=== PATIENT | female | born 1935 | race Caucasian/White ===

== ENCOUNTER 2024-01-16 21:20 | Inpatient (IN) | payer OTHER, SELFPAY ==
[2024-01-16] VITALS (8 sets, daily range): BP systolic 100–160; BP diastolic 41–105; BMI 32.6; BMI 31.6
--- NOTE | 2024-01-16 18:03 | ED.GENMED ---
History of Present Illness
<Mehreen Aguirre MD, Resident - Last Filed: 01/17/24 00:06>
General
Chief Complaint: Breathing Problem
Source: patient
Exam Limitations: none
Time Seen by Provider: 01/16/24 17:33
Nursing documentation reviewed up to this point in time: agreed with
History of Present Illness
History of Present Illness:
88-year-old female with history of COPD, chronic respiratory insufficiency, hypertension, NIDDM, CVA, who presented to the ED for shortness of breath on minimal exertion x 1 week, despite use of her regular 2 L home O2. She was at PCP earlier
today for routine physical, and EMS was called for shortness of breath. She denies any heart history but sees a restorative aide Dr. Ferguson. No recent illness, no new cough no fever/chills/sweats, denies chest pain/palpitations, neck/back pain,
N/V, headaches, urinary or abdominal symptoms.
Past History
<Mehreen Aguirre MD, Resident - Last Filed: 01/17/24 00:06>
Past History
ED Past Medical History: COPD, CVA, HTN and NIDDM
ED Past Surgical History: Orthopedic (L forearm fx)
Social History
Tobacco: Non-smoker
Alcohol: None
Drug: None
Living: with family
Family History
Family History: Other (not pertinent)
Review of Systems
<Mehreen Aguirre MD, Resident - Last Filed: 01/17/24 00:06>
Review of Systems
Allergies reviewed?: Yes
Constitutional: Denies fever or chills
Respiratory: Reports trouble breathing (on exertion); Denies cough
Cardiac: Denies chest pain, diaphoresis or palpitations
ABD/GI: Denies abdominal pain, nausea, vomiting, diarrhea, constipated or bloody stools
: Reports incontinence; Denies dysuria
Phy Exam
<Mehreen Aguirre MD, Resident - Last Filed: 01/17/24 00:06>
General Physical Exam
General Presentation: well appearing and no apparent distress
General Skin: warm and dry
General Mental: alert
General Hydration: appears well hydrated
Cardiovascular Exam
Cardiovascular Exam: no gallop, no murmur, occasionally irregular and other (bilateral 2+ LE edema)
Pulmonary Exam
Pulmonary Exam: no rhonchi, no wheezing and other (bilateral lower lobe crackles)
Gastrointestinal Exam
Gastrointestinal Exam: normal bowel sounds, non tender, soft, non distended and no cva tenderness
Scores
<Mehreen Aguirre MD, Resident - Last Filed: 01/17/24 00:06>
Heart Failure Risk
Heart Failure Risk Score: Not Applicable
Course
<Mehreen Aguirre MD, Resident - Last Filed: 01/17/24 00:06>
Orders/Labs/Results
Orders:
Orders
01/16/24 Breakfast
1800 calorie (15 carb) Diabetic
At Your Request: Full Participation
Does patient need a safe tray?: No
Fluid Restriction: 1200 mL/day (40 oz)
Diabetic Diet: Cholesterol Lowering
01/16/24 16:22
Electrocardiogram (*1) Urgent
Reason for Study: Shortness of Breath
EKG- Treatment ONCE
CXR2 [CR Chest - 2 Views ] Urgent
Comment:
Reason For Exam: sob hx copd
01/16/24 18:23
Complete Blood Count/With Diff Urgent
Comprehensive Metabolic Panel Urgent
NT-proBNP Urgent
Comment: ADD ON
Troponin I Urgent
01/16/24 18:25
Add On- LAB Urgent
Tests Added?: Pro-BNP
01/16/24 18:33
Electrocardiogram (*1) Urgent
Reason for Study: Shortness of Breath
01/16/24 19:48
Furosemide [Lasix] 40 mg IV ONCE ONE
01/16/24 20:42
Electrocardiogram (*1) Urgent
Reason for Study: Shortness of Breath
01/16/24 20:43
EKG- Treatment ONCE
01/16/24 20:52
Admit/Transfer Patient As Directed
Co-Sign Provider:
Level of Care: Inpatient admission
Assign to:: Telemetry
Physician / Group: sergo
Diagnosis: acute hypoxic respiratory failure
Reason for Telemetry: Acute Heart Failure
Date to Stop Telemetry: 01/19/24
Time to Stop Telemetry: 11:00
Reason for Hospitalization: acute hypoxic respiratory failure
Expected length of stay greater than two midnights?: Yes
ELOS- Estimated Length of Stay in days: 3
I certify the patient meets the requirements for IP care: Yes
PRN Pain Medication Management As Directed
May give lesser potent ordered pain med per pt: Yes
preference::
Protocol:: Medication orders for pain may be administered in a
manner that supports deferring to patient preference
when the pt is:
- Requesting an ordered lesser potent pain medication.
Least to most potent pain medications are defined
as: acetaminophen < NSAID < tramadol < opioids
(morphine, oxycodone, hydromorphone).
- Requesting a lesser dose of the same medication IF
ORDERED.
- Requesting a less intrusive route of administration
if both routes are prescribed by the provider (PO <
IV).
01/16/24 20:54
Code Status As Directed
Resuscitation Status: Full Code
01/16/24 22:13
Dextrose 50%-Water [Dextrose 50% Syringe] 12.5 grams IV [id number] PRN
Glucagon [GlucaGen] 1 mg IM PRN PRN
01/16/24 22:13
Echo 2D MMode Color/Doppler Routine
Reason for Study: heart failure
CARDIOLOGY CONSULT Routine
Consulting Provider: Ashley Ferguson
Was physician already notified: Yes
HF DIETARY CONSULT Routine
HF EDUCATOR CONSULT Routine
Comment:
Activity As Directed
Activity Level: As Tolerated
Bedside Glucose Monitoring As Directed
Frequency: AC&HS
Additional Instructions:: Change to q6h if pt on TPN, tube feeding or not eating
Intake/ Output As Directed
Frequency: Per unit guidelines
Patient Education As Directed
Type: CHF folder
Comment: give on admission. Document in Interdisciplinary Education record
Sleep Apnea Assessment by RN As Directed
Comment:
Physician Instructions:
Vital Signs As Directed
Frequency: Other
Additional Instructions:: Q12 or per unit guidelines if more frequent.
Weight As Directed
Frequency: Daily
Type of Scale: Standing Scale
Comment: Daily morning weight. If unable to stand, use balanced bed scale.
Weight As Directed
Frequency: Once
Type of Scale: Standing Scale
Comment: Upon Admission. If unable to stand, use balanced bed scale.
Pulse Ox/cont/shift [RESP] Routine
Quantity: 1
Special Instructions: Daily pulse oximetry at rest. If greater than 92% at rest also obtain pulse oximetry
while ambulating as tolerated.
Pt Eval And Treat Routine
Activity Level: As Tolerated
DX Deep Vein Thrombosis Video Routine
01/17/24 06:00
Basic Metabolic Panel IN AM
Cardiovascular Evaluation IN AM
Complete Blood Count/No Diff IN AM
Glycohemoglobin (HgbA1c) IN AM
Qwosq-Glot-Iccbedz IN AM
Magnesium IN AM
TSH Reflex To Free T4 IN AM
01/17/24 07:30
Insulin Aspart Corrective Low [Novolog Flexpen-Low Resistance] See Protocol SC AC
01/17/24 08:00
Aspirin Low Dose EC [Aspir Low (Enteric Coated)] 81 mg PO DAILY
Budesonide/Formoterol 160/4.5 [Symbicort 160/4.5 Mcg Inhaler] 2 puff INH R BID
Furosemide [Lasix] 40 mg IV BID AT 0800,1600
GlipiZIDE [Glucotrol] 2.5 mg PO DAILY
Heparin 5,000 units SC Q12
HydrALAZINE [Apresoline] 25 mg PO BID
Metformin Extended Release [Glucophage Xr Extended Release] 500 mg PO BID AT 0800,1700
Timolol Maleate 0.5% [Timoptic 0.5% Ophthalmic Solution] See Dose Instructions BOTH EYES BID
Vit C/Vit E/Lutein/Min/Vesta-3 [Ocuvite Softgel] 1 cap PO BID
01/17/24 18:00
Atorvastatin [Lipitor] 40 mg PO QPM
01/18/24 06:00
Basic Metabolic Panel IN AM
Complete Blood Count/No Diff IN AM
01/19/24 06:00
Basic Metabolic Panel IN AM
Complete Blood Count/No Diff IN AM
01/19/24 11:00
DC Protocol for Telemetry ONCE
01/20/24 06:00
Complete Blood Count/No Diff IN AM
Abnormal Lab Results
01/16/24
18:23
RBC 3.44 L 10^6/uL
(4.20-5.40)
Hgb 11.1 L g/dL
(12.0-16.0)
Hct 32.3 L %
(37.0-47.0)
MCH 32.3 H pg
(27.0-31.0)
MPV 11.0 H fL
(7.4-10.4)
Absolute Neuts (auto) 6.8 H 10^3/uL
(1.4-6.5)
Lymphocytes % 18.2 L %
(20.5-51.1)
Carbon Dioxide 21 L mmol/L
(22-30)
BUN 24 H mg/dl
(7-17)
Creatinine 1.3 H mg/dL
(0.6-1.0)
Glucose 178 H mg/dl
(70-99)
Total Bilirubin 1.6 H mg/dl
(0.2-1.3)
01/16/24 18:23
01/16/24 18:23
Vital Signs
Initial and Last Documented VS:
Initial Vital Signs
Temp Pulse Resp BP Pulse Ox
98.1 F 66 16 160/54 98
01/16/24 16:20 01/16/24 16:20 01/16/24 16:20 01/16/24 16:20 01/16/24 16:20
Last Documented Vital Signs
Temp Pulse Resp BP Pulse Ox
98.1 F 68 20 154/64 96
01/16/24 23:03 01/16/24 23:03 01/16/24 23:03 01/16/24 23:03 01/16/24 23:03
<Katty Alan, DO - Last Filed: 01/16/24 19:49>
Orders/Labs/Results
Orders:
Orders
01/16/24 Breakfast
1800 calorie (15 carb) Diabetic
At Your Request: Full Participation
Does patient need a safe tray?: No
Fluid Restriction: 1200 mL/day (40 oz)
Diabetic Diet: Cholesterol Lowering
01/16/24 16:22
Electrocardiogram (*1) Urgent
Reason for Study: Shortness of Breath
EKG- Treatment ONCE
CXR2 [CR Chest - 2 Views ] Urgent
Comment:
Reason For Exam: sob hx copd
01/16/24 18:23
Complete Blood Count/With Diff Urgent
Comprehensive Metabolic Panel Urgent
NT-proBNP Urgent
Comment: ADD ON
Troponin I Urgent
01/16/24 18:25
Add On- LAB Urgent
Tests Added?: Pro-BNP
01/16/24 18:33
Electrocardiogram (*1) Urgent
Reason for Study: Shortness of Breath
01/16/24 19:48
Furosemide [Lasix] 40 mg IV ONCE ONE
01/16/24 20:42
Electrocardiogram (*1) Urgent
Reason for Study: Shortness of Breath
01/16/24 20:43
EKG- Treatment ONCE
01/16/24 20:52
Admit/Transfer Patient As Directed
Co-Sign Provider:
Level of Care: Inpatient admission
Assign to:: Telemetry
Physician / Group: sergo
Diagnosis: acute hypoxic respiratory failure
Reason for Telemetry: Acute Heart Failure
Date to Stop Telemetry: 01/19/24
Time to Stop Telemetry: 11:00
Reason for Hospitalization: acute hypoxic respiratory failure
Expected length of stay greater than two midnights?: Yes
ELOS- Estimated Length of Stay in days: 3
I certify the patient meets the requirements for IP care: Yes
PRN Pain Medication Management As Directed
May give lesser potent ordered pain med per pt: Yes
preference::
Protocol:: Medication orders for pain may be administered in a
manner that supports deferring to patient preference
when the pt is:
- Requesting an ordered lesser potent pain medication.
Least to most potent pain medications are defined
as: acetaminophen < NSAID < tramadol < opioids
(morphine, oxycodone, hydromorphone).
- Requesting a lesser dose of the same medication IF
ORDERED.
- Requesting a less intrusive route of administration
if both routes are prescribed by the provider (PO <
IV).
01/16/24 20:54
Code Status As Directed
Resuscitation Status: Full Code
01/16/24 22:13
Dextrose 50%-Water [Dextrose 50% Syringe] 12.5 grams IV [id number] PRN
Glucagon [GlucaGen] 1 mg IM PRN PRN
01/16/24 22:13
Echo 2D MMode Color/Doppler Routine
Reason for Study: heart failure
CARDIOLOGY CONSULT Routine
Consulting Provider: Ashley Ferguson
Was physician already notified: Yes
HF DIETARY CONSULT Routine
HF EDUCATOR CONSULT Routine
Comment:
Activity As Directed
Activity Level: As Tolerated
Bedside Glucose Monitoring As Directed
Frequency: AC&HS
Additional Instructions:: Change to q6h if pt on TPN, tube feeding or not eating
Intake/ Output As Directed
Frequency: Per unit guidelines
Patient Education As Directed
Type: CHF folder
Comment: give on admission. Document in Interdisciplinary Education record
Sleep Apnea Assessment by RN As Directed
Comment:
Physician Instructions:
Vital Signs As Directed
Frequency: Other
Additional Instructions:: Q12 or per unit guidelines if more frequent.
Weight As Directed
Frequency: Daily
Type of Scale: Standing Scale
Comment: Daily morning weight. If unable to stand, use balanced bed scale.
Weight As Directed
Frequency: Once
Type of Scale: Standing Scale
Comment: Upon Admission. If unable to stand, use balanced bed scale.
Pulse Ox/cont/shift [RESP] Routine
Quantity: 1
Special Instructions: Daily pulse oximetry at rest. If greater than 92% at rest also obtain pulse oximetry
while ambulating as tolerated.
Pt Eval And Treat Routine
Activity Level: As Tolerated
DX Deep Vein Thrombosis Video Routine
01/17/24 06:00
Basic Metabolic Panel IN AM
Cardiovascular Evaluation IN AM
Complete Blood Count/No Diff IN AM
Glycohemoglobin (HgbA1c) IN AM
Parad-Wwhg-[place] IN AM
Magnesium IN AM
TSH Reflex To Free T4 IN AM
01/17/24 07:30
Insulin Aspart Corrective Low [Novolog Flexpen-Low Resistance] See Protocol SC AC
01/17/24 08:00
Aspirin Low Dose EC [Aspir Low (Enteric Coated)] 81 mg PO DAILY
Budesonide/Formoterol 160/4.5 [Symbicort 160/4.5 Mcg Inhaler] 2 puff INH R BID
Furosemide [Lasix] 40 mg IV BID AT 0800,1600
GlipiZIDE [Glucotrol] 2.5 mg PO DAILY
Heparin 5,000 units SC Q12
HydrALAZINE [Apresoline] 25 mg PO BID
Metformin Extended Release [Glucophage Xr Extended Release] 500 mg PO BID AT 0800,1700
Timolol Maleate 0.5% [Timoptic 0.5% Ophthalmic Solution] See Dose Instructions BOTH EYES BID
Vit C/Vit E/Lutein/Min/Vesta-3 [Ocuvite Softgel] 1 cap PO BID
01/17/24 18:00
Atorvastatin [Lipitor] 40 mg PO QPM
01/18/24 06:00
Basic Metabolic Panel IN AM
Complete Blood Count/No Diff IN AM
01/19/24 06:00
Basic Metabolic Panel IN AM
Complete Blood Count/No Diff IN AM
01/19/24 11:00
DC Protocol for Telemetry ONCE
01/20/24 06:00
Complete Blood Count/No Diff IN AM
Abnormal Lab Results
01/16/24
18:23
RBC 3.44 L 10^6/uL
(4.20-5.40)
Hgb 11.1 L g/dL
(12.0-16.0)
Hct 32.3 L %
(37.0-47.0)
MCH 32.3 H pg
(27.0-31.0)
MPV 11.0 H fL
(7.4-10.4)
Absolute Neuts (auto) 6.8 H 10^3/uL
(1.4-6.5)
Lymphocytes % 18.2 L %
(20.5-51.1)
Carbon Dioxide 21 L mmol/L
(22-30)
BUN 24 H mg/dl
(7-17)
Creatinine 1.3 H mg/dL
(0.6-1.0)
Glucose 178 H mg/dl
(70-99)
Total Bilirubin 1.6 H mg/dl
(0.2-1.3)
01/16/24 18:23
01/16/24 18:23
Vital Signs
Initial and Last Documented VS:
Initial Vital Signs
Temp Pulse Resp BP Pulse Ox
98.1 F 66 16 160/54 98
01/16/24 16:20 01/16/24 16:20 01/16/24 16:20 01/16/24 16:20 01/16/24 16:20
Last Documented Vital Signs
Temp Pulse Resp BP Pulse Ox
98.1 F 68 20 154/64 96
01/16/24 23:03 01/16/24 23:03 01/16/24 23:03 01/16/24 23:03 01/16/24 23:03
<Mehreen Aguirre MD, Resident - Last Filed: 01/17/24 00:06>
MDM/Problems Addressed
Differential Diagnosis Includes:
Acute heart failure exacerbation, Pneumonia, COPD exacerbation
MDM/Problems Addressed:
Patient appears mildly dyspneic on physical exam. Otherwise stable. Chest x-ray suggest chronic institutional changes however patient appears clinically fluid overloaded, suggestive of CHF exacerbation. proBNP is elevated. Will admit patient to
the hospitalist for IV diuresis.
<Mehreen Aguirre MD, Resident - Last Filed: 01/17/24 00:06>
*Critical Care Note
Total Time (30-74mins, 75-104mins- exclusive of procedures): Not Applicable
ED Attending Note
<Mehreen Aguirre MD, Resident - Last Filed: 01/17/24 00:06>
-
Portions of this chart may have been created with voice recognition software.� Occasional wrong word or��sound alike� substitutions may have occurred due to the inherent limitations of voice recognition software.
<Katty Alan, - Last Filed: 01/16/24 19:49>
ED Attending Note
Patient seen and examined by attending physician: Yes
I performed the substantive portion of visit, reviewed & personally made and approve the management plan that is documented in note by myself or PREM.: Yes
I performed a history and physical exam of patient and discussed management with resident, I reviewed resident's note and agree with documented findings and plan of care.: Yes
ED Attending Note:
88-year-old female with history of diabetes, hypertension, COPD on 2 L of oxygen at baseline presenting to the emergency department for difficulty breathing. Patient reports for the past week she has been having progressive dyspnea on exertion.
She reports with any type of minimal exertion she becomes very short of breath. She mentions that a few days ago she went to [facility], and could not even walk to her car from the parking lot which is an acute change for her. She went to her
primary care doctor today for a physical, noticed how short of breath she was not sent to the emergency department for further evaluation. She denies any cough or fever. She denies associated chest pain. She does note lower extremity edema, is on
Lasix at baseline. Vital signs on arrival significant for hypertension.
On exam, patient is in no acute distress, does appear slightly dyspneic. O2 increased to 3 L. On lung exam, crackles to the bases, no wheezing. +2 pitting edema bilaterally to the lower extremities. Symptom presentation is concerning for new
onset heart failure, patient denies any known history of heart failure. Plan for laboratory analysis, chest x-ray imaging. EKG obtained, nonischemic.
19:45 - Patient's chest x-ray without significant pleural effusions, however BNP is elevated. Feel patient clinically appears to be in congestive heart failure. For this reason feel patient warrants admission for IV diuresis and cardiac
consultation. Patient agreeable to plan
Discharge Plan
Departure
Patient Disposition: Admit
Date of Disposition: 01/16/24
Time of Disposition: 20:30
Presentation/result/management discussed w/ accepting MD/DO: Hospitalist
Discharge Problem:
Acute exacerbation of CHF (congestive heart failure)
Interventions
Interventions:
*Risk Screen - Suicide Last Done: 01/16/24 22:29
*General Assessment Last Done: 01/16/24 17:44
*Neglect/Abuse Screening Last Done: 01/16/24 17:44
*ED COVID-19 Vaccine History Last Done: 01/16/24 22:53
*Nursing Disposition Last Done: 01/16/24 22:07
ED- Cardiac Assessment Last Done: 01/16/24 17:44
ED- Pulmonary Assessment Last Done: 01/16/24 17:44
Discharge Date and Time
Discharge Date/Time: 01/16/24 22:08
[2024-01-16 19:09] LABS: ALT (SGPT) 23 U/L (0-35); AST (SGOT) 30 U/L (14-36); Albumin 4.2 g/dl (3.5-5.0); Alkaline Phosphatase 106 U/L (38-126); Blood Urea Nitrogen 24 mg/dl (7-17); Calcium 9.8 mg/dl (8.4-10.2); Carbon Dioxide 21 mmol/L (22-30); Chloride 100 mmol/L (98-107); Estimated Creatinine Clearance 25 ml/min; Glucose 178 mg/dl (70-99); Sodium 137 mmol/L (135-145); Total Bilirubin 1.6 mg/dl (0.2-1.3)
[2024-01-16 19:16] LABS: % Basophils 0.6 % (0-2); % Immature Granulocytes 0.3 % (0-0.5); % Lymphocytes 18.2 % (20.5-51.1); % Monocytes 5.7 % (1.7-9.3); % Neutrophils 73.5 % (42.2-75.2); Absolute Basophils 0.1 10^3/uL (0-0.2); Absolute Eosinophils 0.2 10^3/uL (0-0.7); Absolute Lymphocytes 1.8 10^3/uL (1.2-3.4); Absolute Monocytes 0.5 10^3/uL (0.1-0.6); Absolute Neutrophils 6.8 10^3/uL (1.4-6.5); Hematocrit 32.3 % (37.0-47.0); Hemoglobin 11.1 g/dL (12.0-16.0); Mean Corp Hgb Conc. 33.9 g/dL (33.0-37.0); Mean Corpuscular Hgb 32.3 pg (27.0-31.0); Mean Corpuscular Volume 95.1 fL (81.0-99.0); Nucleated Red Blood Cells % 0 %; Platelet Count 191 10^3/uL (130-400); Red Blood Cell Count 3.44 10^6/uL (4.20-5.40); White Blood Cell Count 9.3 10^3/uL (4.8-10.8)
[2024-01-16 19:20] LABS: NT-proBNP 3580 pg/ml; Troponin I < 0.012 ng/ml
--- NOTE | 2024-01-16 20:24 | HPS.HSE ---
Addendum entered and electronically signed by Bereket Whitehead DO 01/16/24 22:43:
Patient seen and examined independently. Agree with findings and plan as set forth by ROLANDA Harris.
Patient is an 88y F with PMH significant for COPD, DM-II and CHF who presents to ED complaining of increased SOB for the past week or so. Patient typically wears O2 2lpm at bedtime only. For the past week she has been wearing this around the
clock as she feels more short of breath - especially with any activity. Patient denies any chest pain or palpitations. No cough, fevers / chills, etc. Patient reports chronic ankle swelling which she does not believe has changes. She weighs
herself once weekly and feels this is stable.
Ass:
Acute on Chronic Hypoxemic Respiratory Insufficiency
Acute on Chronic HFpEF
A-Fib / Flutter - New Onset
COPD without Acute Exacerbation
Chronic Interstitial Lung Disease
Anemia of Chronic Disease
CKD III
Benign Hypertension
DM-II
Plan:
Admit for further evaluation and treatment.
Suspect mild degree of CHF exacerbation - potentially secondary to rhythm change.
Monitor on telemetry overnight. Currently in A-Flutter with variable block. No rapid ventricular rates at present.
Begin Eliquis BID for stroke risk reduction.
Cardiology evaluation for additional recommendations.
IV Lasix for now and follow for improvement in dyspnea.
Hold oral hypoglycemic agents acutely.
Continue other home medications.
Original Note:
Family Physician
-
Family Physician: Ace Houston MD
Chief Complaint
-
sob
History of Present Illness
8-year-old female with history of COPD, chronic respiratory insufficiency, hypertension, NIDDM, CVA, CHF presented to us with shortness of breath on minimal exertion x 1 week, despite use of her regular 2 L home O2. patient uses 2l at bedtime only,
but for past one week, she is been using more often due to sob. she uses oxygen nightly for sleep apnea. she has chronic ankle swelling. Denied weight gain. denied runny nose,congestion. stated occasional cough. denied fever, chills. denied CASEY,
dizzy or syncopal episode. denied abdominal pain,N,v,d. she was at PCP earlier today for routine physical, and EMS was called for shortness of breath.
Upon arrival noted elevated BNP. gave Lasix in ER.admitting for further management.
Medical History
Past Medical History
Past Medical History: Reports Other
Additional Past Medical History:
HTn
HLD
CKD
anemia
type 2 DM
CVA
cHF
osteopenia
Restrictive lung disease
pulmonary HTN
Past Surgical History: Reports Other
Additional Past Surgical History:
left wrist surgery
Social History
Tobacco: Non-smoker
Alcohol: None
Drug: None
Personal: Single
Living: Alone
Family History
Family History: Not pertinent
Allergies / Home Medications
Allergies reflects when Allergies were last updated in [facility].
Home Medications with original date entered in [facility]
Allergy/Medication List:
Allergies
Allergy/AdvReac Type Severity Reaction Status Date / Time
No Known Allergies Allergy Verified 01/16/24 16:21
Home Medications
aspirin 81 mg tablet,delayed release 81 mg PO DAILY #30 tabs 09/03/21
atorvastatin 40 mg tablet 40 mg PO QPM #30 tabs 09/03/21
glipizide 5 mg tablet 2.5 mg (1/2 x 5 mg) PO DAILY #15 tabs 09/03/21
albuterol sulfate 90 mcg/actuation aerosol inhaler 1 puff inhalation R Q4HPRN PRN sob 01/16/24
budesonide-formoterol HFA 160 mcg-4.5 mcg/actuation aerosol inhaler (Symbicort) 2 puff inhalation R BID 01/16/24
furosemide 40 mg tablet 40 mg PO DAILY 01/16/24
hydralazine 25 mg tablet 25 mg PO BID 01/16/24
metformin 500 mg tablet,extended release 24 hr 500 mg PO BID 01/16/24
timolol maleate (PF) 0.5 % eye drops in a dropperette 1 drp BOTH EYES BID 01/16/24
vit C 250 mg-vit E 90 mg-zinc 40 mg-copper 1 [id number] capsule (PreserVision AREDS-2) 1 tab PO BID 01/16/24
Review of Systems
-
Constitutional: Reports No Symptoms
EENT: Reports No Symptoms
Respiratory: Reports Trouble Breathing
Cardiac: Reports No Symptoms
Abdomen/GI: Reports No Symptoms
: Reports No Symptoms
Musculoskeletal: Reports Other (chronic ankle swelling)
Skin: Reports No Symptoms
Neurological: Reports No Symptoms
Endocrine: Reports No Symptoms
Hematologic/Lymphatic: Reports No Symptoms
Psych: Reports No Symptoms
Physical Exam
Vital Signs
Vital Signs
Temp Pulse Resp BP Pulse Ox
98.1 F 72 27 130/78 94
01/16/24 16:20 01/16/24 17:45 01/16/24 17:45 01/16/24 17:39 01/16/24 17:45
Physical Exam
General: Well Developed, Well Nourished and No Apparent Distress
HEENT: NormoCephalic, Moist mucous membranes and Atraumatic
Respiratory: Crackles
Cardiac: S1/S2 and Regular Rhythm; No Murmur or Rub
GI: Soft, Non Tender, Non Distended and Normal Bowel Sounds; No Organomegaly
Rectal: Deferred by Provider
Musculoskeletal: No Clubbing, No Cyanosis and Other (ankle swelling)
Skin: No Rash
Neuro: AO x 3 and Nonfocal/grossly intact
Psych: Calm
Laboratory Results
-
01/16/24 18:23
01/16/24 18:23
Laboratory Results
Total Bilirubin 1.6 mg/dl (0.2-1.3) H 01/16/24 18:23
AST 30 U/L (14-36) 01/16/24 18:23
ALT 23 U/L (0-35) 01/16/24 18:23
Alkaline Phosphatase 106 U/L (38-126) 01/16/24 18:23
Troponin I < 0.012 ng/ml 01/16/24 18:23
Data Reviewed
-
Diagnostic Radiology: Report Reviewed by me
Lab Data: Labs Reviewed by me
Impression/Plan
-
#sob/acute hypoxic respiratory failure likely CHF exacerbation
-BNP 3580
-uses 2l at night for sleep apnea, now requiring all the time.
-chest x ray with Slightly progressed probable chronic interstitial changes.
-IV Lasix 40 twice a day
-Obtain echo
-Strict ROSCOE
-Daily weight
-Continue supplemental oxygen to keep sat greater than 92, wean as tolerated
-Cardiology consult
#new onset atrial flutter
-rate controlled
-EkG with atrial flutter with PVCs
# History of COPD
# Chronic interstitial lung disease
-Nebs as needed for short of breath and wheezing
#anemia of chronic disease
-hgb stable at 11.1
-no active bleeding
-ctm
#CKD stage 3a
-cr 1.3
-ctm
#Benign Hypertension
- Blood pressure stable
-Hydralazine continued with hold parameters
#DM-II
-Glipizide and metformin continued
-Sliding scale
-CHO diet
# Hyperlipidemia
-Statin continued
#DVT Prophylaxis: Heparin subcu
#Code Status: Full
[2024-01-16] MEDS: LASIX 40 MG IV (20:27)
--- NOTE | 2024-01-16 22:30 | PTCARENOTE ---
Pt arrived from ED via stretcher and ambulated with rolling walker to bed. Pt is AAOx3, VSS sating 96 on 2L NC, and w/o complaints of pain. Pt is resting comfortably w/ call razo within reach.
[2024-01-17 03:24] VITALS: BP 115/49
[2024-01-17 06:00] VITALS: BMI 31.4
[2024-01-17 07:20] VITALS: BP 135/49
[2024-01-17 07:29] LABS: Glucose - Point of Care 166 mg/dl (70-99)
[2024-01-17 08:29] LABS: Hematocrit 31.2 % (37.0-47.0); Hemoglobin 10.5 g/dL (12.0-16.0); Mean Corp Hgb Conc. 33.7 g/dL (33.0-37.0); Mean Corpuscular Hgb 31.3 pg (27.0-31.0); Mean Corpuscular Volume 92.9 fL (81.0-99.0); Mean Platelet Volume 9.8 fL (7.4-10.4); Platelet Count 270 10^3/uL (130-400); Red Blood Cell Count 3.36 10^6/uL (4.20-5.40); Red Cell Dist. Width 12.9 % (11.5-14.5); White Blood Cell Count 8.6 10^3/uL (4.8-10.8)
[2024-01-17] MEDS: SYMBICORT 160/4.5 MCG INHALER 2 PUFF INH ×2 (08:34→19:39)
[2024-01-17 08:56] LABS: ALT (SGPT) 22 U/L (0-35); AST (SGOT) 29 U/L (14-36); Albumin 4.2 g/dl (3.5-5.0); Alkaline Phosphatase 99 U/L (38-126); Blood Urea Nitrogen 23 mg/dl (7-17); Calcium 10.1 mg/dl (8.4-10.2); Carbon Dioxide 27 mmol/L (22-30); Chloride 100 mmol/L (98-107); Direct Bilirubin 0.3 mg/dl (0.0-0.4); Estimated Creatinine Clearance 25 ml/min; Glucose 158 mg/dl (70-99); HDL Cholesterol 48 mg/dl; LDL Cholesterol, Calculated 28 mg/dl; Potassium 3.9 mmol/L (3.5-5.1); Sodium 139 mmol/L (135-145); Total Bilirubin 1.3 mg/dl (0.2-1.3); Total Cholesterol 100 mg/dl (50-199); Total Protein 6.8 g/dl (6.3-8.2); Triglyceride 120 mg/dl (10-149); Very Low Density Lipoprotein 24 mg/dl (0-30)
[2024-01-17] MEDS: NOVOLOG FLEXPEN-LOW RESISTANCE 1 UNITS SC (09:12)
[2024-01-17] MEDS: ELIQUIS 5 MG PO ×2 (09:13→20:04)
[2024-01-17] MEDS: OCUVITE SOFTGEL 1 CAP PO ×2 (09:13→20:04)
[2024-01-17] MEDS: ASPIR LOW (ENTERIC COATED) 81 MG PO (09:14)
[2024-01-17] MEDS: APRESOLINE 25 MG PO (09:14)
[2024-01-17] MEDS: LASIX 40 MG IV ×2 (09:15→17:26)
[2024-01-17] MEDS: FLUSH (NSS) 2 FLUSH IV ×2 (09:16→17:26)
[2024-01-17] MEDS: TIMOPTIC 0.5% OPHTHALMIC SOLUTION 1 DROP BOTH EYES ×2 (09:16→20:05)
[2024-01-17 09:23] LABS: Glycohemoglobin (HgbA1c) 8.3 % (4.0-5.6); TSH Reflex To Free T4 3.75 uIU/ml (0.47-4.68)
--- NOTE | 2024-01-17 10:46 | CON.CAR ---
Addendum entered and electronically signed by Edward Junior MD 01/17/24 15:30:
Echo with new dilated right ventricle but similar pulmonary artery systolic pressures. Could consider pulmonary embolism but has other evidence for shortness of breath with CHF. Will be anticoagulated as well. Follow for now
Addendum entered and electronically signed by Edward Junior MD 01/17/24 11:12:
I saw and examined the patient.
The FUR POLISHER or PA's note was reviewed and I agree with the note.
Comment: General: Well developed, well nourished in NAD.
Neck: Supple, no JVD, HJR, carotids +2 B/L, no bruits bilaterally.
Heart: Non displaced PMI, irregular, no murmurs, No S3, S4, no rubs.
Lungs: Scattered rhonchi
Abdomen: Normal bowel sounds, soft, non-tender, non-distended.
Extremities: No clubbing, cyanosis or edema bilaterally.
Neuro: Grossly nonfocal, awake, alert and oriented x3.
Mami has a history of chronic diastolic CHF, pulm hypertension, restrictive lung disease on chronic oxygen 2 L, hypertension, diabetes, CVA, symptomatic bradycardia, and anemia. She presents with worsening dyspnea on exertion for the past 1 to 2
weeks. She is also found to be in atrial flutter and is now in atrial fibrillation. She denies palpitations. She feels better after IV Lasix.
Rate is controlled in A-fib. No need for AV mark agents at present given symptomatic bradycardia in the past. We could consider HELLEN/cardioversion versus outpatient cardioversion depending on course. Outpatient cardioversion may be preferred as
may be high risk for HELLEN on chronic oxygen and cardioversion alone would be a much quicker procedure. Will treat with IV Lasix and check echocardiogram.
Original Note:
Consultation
Consultation Request
Date/Time Consultation Performed: 01/17/24
Requesting Provider: Dr. Whitehead
Performing Provider: Cierra Harding PA-C for Dr. Junior
Reason for Consultation: CHF, new afib/flutter
Medical History
-
Chief Complaint: SOB
History of Present Illness:
Patient is an 88-year-old female with past medical history of chronic heart failure with preserved EF, restrictive lung disease/ILD, pulmonary hypertension, hypertension, obesity, LVH, type 2 diabetes, dyslipidemia, history of CVA, history of
symptomatic bradycardia, history of anemia, who presented to [facility] for evaluation of worsening dyspnea on exertion over the last 1 to 2 weeks. She denies associated chest pain, weight gain, lower extremity edema. She is chronically
on 2 L supplemental oxygen at baseline and is followed by pulmonary. She was seen by pulmonary yesterday and referred to ER for further evaluation of symptoms. proBNP 3580. Chest x-ray read as slightly progressed chronic interstitial changes.
Noted to be in new a flutter on arrival, currently in slow A-fib on review of telemetry. She denies palpitations. Denies history of known cardiac arrhythmias. Cardiology consulted for evaluation
PMH:
Chronic heart failure with preserved EF
Pulmonary hypertension
Restrictive lung disease/ILD
Chronic renal insufficiency
Hypertension
Hyperlipidemia
Obesity
LVH
Type 2 diabetes
History of CVA 2021
History of symptomatic bradycardia
History of anemia
Past Medical History
Past Medical History: Other (in HPI)
Social History
Tobacco: Non-Smoker
Alcohol: None
Living: With Family (granddaughter)
Employment: Retired
Family History
Family History: Cancer
Allergies / Home Medications
Allergy/AdvReac Type Severity Reaction Status Date / Time
No Known Allergies Allergy Verified 01/16/24 16:21
�Medication �Instructions �Recorded �Confirmed �Type
aspirin 81 mg tablet,delayed 81 mg PO DAILY #30 tabs 09/03/21 01/16/24 Rx
release
atorvastatin 40 mg tablet 40 mg PO QPM #30 tabs 09/03/21 01/16/24 Rx
glipizide 5 mg tablet 2.5 mg (1/2 x 5 mg) PO DAILY #15 09/03/21 01/16/24 Rx
tabs
albuterol sulfate 90 mcg/actuation 1 puff inhalation R Q4HPRN PRN sob 01/16/24 01/16/24 History
aerosol inhaler
budesonide-formoterol HFA 160 2 puff inhalation R BID 01/16/24 01/16/24 History
mcg-4.5 mcg/actuation aerosol
inhaler (Symbicort)
furosemide 40 mg tablet 40 mg PO DAILY 01/16/24 01/16/24 History
hydralazine 25 mg tablet 25 mg PO BID 01/16/24 01/16/24 History
metformin 500 mg tablet,extended 500 mg PO BID 01/16/24 01/16/24 History
release 24 hr
timolol maleate (PF) 0.5 % eye 1 drp BOTH EYES BID 01/16/24 01/16/24 History
drops in a dropperette
vit C 250 mg-vit E 90 mg-zinc 40 1 tab PO BID 01/16/24 01/16/24 History
mg-copper 1 [id number]
capsule (PreserVision AREDS-2)
Review of Systems
-
History Source: Patient
All other systems: Negative unless noted
Physical Exam
Vital Signs
Temp Pulse Resp BP Pulse Ox
97.7 F 55 16 135/49 96
01/17/24 07:20 01/17/24 08:43 01/17/24 08:43 01/17/24 09:14 01/17/24 08:43
Lab Results
01/17/24 07:41
01/17/24 07:41
Troponin I < 0.012 ng/ml 01/16/24 18:23
Jdi-I-Evkijnktxmg Pept 3580 pg/ml 01/16/24 18:23
Physical Exam
General: No Apparent Distress, Comfortable and Other (on supp O2)
HEENT: Normocephalic, Anicteric and Moist Mucous Membranes
Respiratory: Crackles and Non Labored Respirations
Cardiac: S1/S2 and Irregular Rhythm
GI: Soft, Non Tender, Non Distended and Normal Bowel Sounds
Musculoskeletal: No Clubbing, No Cyanosis and No Edema
Skin: Warm and Dry
Neuro: AO x 3
Impression / Plan
-
Primary Project Officer: Dr. Ferguson
Assessment:
Presentation with acute on chronic dyspnea on exertion/shortness of breath
Concern for acute on chronic heart failure with preserved EF
New diagnosis atrial fibrillation/atrial flutter with slow ventricular response
Pulmonary hypertension
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
Chronic renal insufficiency
Hypertension
Hyperlipidemia
Obesity
LVH
Type 2 diabetes
History of CVA requiring TPA 2021
History of symptomatic bradycardia
History of anemia
History of LE edema on norvasc
ECHO 08/19/2021: Hyperdynamic LV, mild concentric LVH, EF 70 to 75%, stage II diastolic dysfunction, posterior MAC, mild MR, aortic sclerosis, mild TR, PAP 52 mmHg
Plan:
-Patient presents with acute on chronic dyspnea on exertion/shortness of breath over the last 1 to 2 weeks. Suspect multifactorial
-proBNP elevated at 3580. Continue IV Lasix 40 mg twice daily. Creatinine stable at 1.3. On p.o. Lasix 40 mg daily prior to admission. Does report improvement overnight in breathing
-Initial EKG with rate controlled atrial flutter, on review of telemetry appears to have transitioned to atrial fibrillation with slow ventricular response around 2 AM. With pauses noted overnight, however none exceeding 3 seconds. Toprol stopped
as OP due to sinus bradycardia, continue to avoid.
-[id number] score of 7 for age, female, hypertension, CHF, diabetes, history of stroke. eliquis 5mg BID initiated. hgb 10.5. will stop asa to reduce bleeding risk.
-echo pending, last from 2021 with results as above
-TSH WNL
-consider for HELLNE/CV prior to DC vs CV as OP pending clinical progress
-PT/OT evals. assess ambulatory pulse ox
Data Reviewed
-
EKG: Tracing Personally Visualized and interpreted
Radiology: Report Reviewed by me
Medical Tests (Nuc Med, Echo etc): Report Reviewed by me
Labs: Labs Reviewed by me
Old Records: Reviewed
[2024-01-17 11:11] VITALS: BP 137/48
[2024-01-17 11:37] LABS: Glucose - Point of Care 304 mg/dl (70-99)
[2024-01-17] MEDS: NOVOLOG FLEXPEN-LOW RESISTANCE 4 UNITS SC (11:56)
--- NOTE | 2024-01-17 12:08 | W.PN.HOSP.TC ---
Today's Communication/Plan
-
IV lasix
TTE
Monitor HR on tele
Assessment / Plan
Assessment / Plan
# Acute hypoxic respiratory insufficiency likely acute on chronic HFpEF
# Pulmonary HTN
-BNP 3580
-uses 2l at night for sleep apnea, now requiring all the time.
-chest x ray with Slightly progressed probable chronic interstitial changes.
-IV Lasix 40 twice a day
-Obtain echo
-Strict I&O
-Daily weight
-Continue supplemental oxygen to keep sat greater than 92, wean as tolerated
-Cardiology consult
#new onset atrial flutter/afib
-rate controlled and no need for AV mark agents. Cardiology correspondence noted that patient was symptomatic bradycardia in the past.
-Monitor on tele
-started on Eliquis and asa stopped
# History of COPD
# Chronic interstitial lung disease
-Nebs as needed for short of breath and wheezing
#anemia of chronic disease
-hgb stable
-no active bleeding
-ctm
#CKD stage 3a
-cr 1.3
-ctm
#Benign Hypertension
- Blood pressure stable
-Hydralazine continued with hold parameters
#DM-II
-Glipizide and metformin hold for now
-Sliding scale
-CHO diet
-a1c at 8.3
# Hyperlipidemia
-Statin continued
#DVT Prophylaxis: Heparin subcu
#Code Status: Full
Anticipated Discharge: > 48 hours
Subjective/Interval History
-
Date of Service: January 17, 2024
States she is feeling better
States passing increasing amount of urine
Objective Data
-
Labs:
Laboratory Results
01/17/24
07:41
WBC 8.6
Hgb 10.5 L
Hct 31.2 L
Plt Count 270 D
Sodium 139
Potassium 3.9
Chloride 100
Carbon Dioxide 27
BUN 23 H
Creatinine 1.3 H
Glucose 158 H
Calcium 10.1
Total Bilirubin 1.3
AST 29
ALT 22
Alkaline Phosphatase 99
Vital Signs:
Vital Signs
Temp Pulse Resp BP Pulse Ox
98 F 70 22 137/48 95
01/17/24 11:11 01/17/24 11:11 01/17/24 11:11 01/17/24 11:11 01/17/24 11:11
I&O
01/16/24 01/17/24 01/18/24
06:59 06:59 06:59
Intake Total 0 / 0
Balance 0 / 0
Physical Exam
-
General: Well Developed and No Apparent Distress
HEENT: Normocephalic, Atraumatic and Moist Mucous Membranes
Respiratory: Clear to Auscultation
Cardiac: Regular Rhythm and S1/S2; Negative Murmur, Rub or Gallop
GI: Soft, Nontender, Nondistended and Normal Bowel Sounds; Negative Organomegaly
Rectal: Deferred by Provider
Musculoskeletal: No Clubbing, No Cyanosis and No Edema
Skin: Negative Rash
Neuro: Awake and Nonfocal/Grossly Intact
Psych: Calm
Data Reviewed
-
Total Time Spent with Patient (in minutes): 56
[2024-01-17 15:10] VITALS: BP 106/48
[2024-01-17 16:36] LABS: Glucose - Point of Care 262 mg/dl (70-99)
[2024-01-17] MEDS: NOVOLOG FLEXPEN-LOW RESISTANCE 3 UNITS SC (17:28)
[2024-01-17] MEDS: LIPITOR 40 MG PO (17:29)
[2024-01-17 19:18] VITALS: BP 118/98
[2024-01-17] MEDS: APRESOLINE PO (20:09)
[2024-01-17 21:19] LABS: Glucose - Point of Care 239 mg/dl (70-99)
[2024-01-17 23:26] VITALS: BP 103/64
[2024-01-18] VITALS (7 sets, daily range): BP systolic 102–119; BP diastolic 33–75; PULSE 55; O2SAT 98; BMI 30.5
[2024-01-18 07:19] LABS: Glucose - Point of Care 196 mg/dl (70-99)
[2024-01-18 07:57] LABS: Hematocrit 31.8 % (37.0-47.0); Hemoglobin 10.6 g/dL (12.0-16.0); Mean Corp Hgb Conc. 33.3 g/dL (33.0-37.0); Mean Corpuscular Hgb 32.1 pg (27.0-31.0); Mean Corpuscular Volume 96.4 fL (81.0-99.0); Platelet Count 239 10^3/uL (130-400); Red Cell Dist. Width 12.8 % (11.5-14.5); White Blood Cell Count 7.8 10^3/uL (4.8-10.8)
[2024-01-18 08:20] LABS: Blood Urea Nitrogen 27 mg/dl (7-17); Calcium 9.3 mg/dl (8.4-10.2); Carbon Dioxide 27 mmol/L (22-30); Chloride 98 mmol/L (98-107); Estimated Creatinine Clearance 21 ml/min; Glucose 205 mg/dl (70-99); Potassium 3.8 mmol/L (3.5-5.1); Sodium 139 mmol/L (135-145); eGFR 33.52
[2024-01-18] MEDS: NOVOLOG FLEXPEN-LOW RESISTANCE 1 UNITS SC (08:23)
[2024-01-18] MEDS: ELIQUIS 5 MG PO ×2 (08:23→21:20)
[2024-01-18] MEDS: OCUVITE SOFTGEL 1 CAP PO ×2 (08:23→21:20)
[2024-01-18] MEDS: APRESOLINE 25 MG PO ×2 (08:24→21:20)
[2024-01-18] MEDS: LASIX 40 MG IV (08:24)
[2024-01-18] MEDS: TIMOPTIC 0.5% OPHTHALMIC SOLUTION 1 DROP BOTH EYES ×2 (08:25→21:21)
[2024-01-18] MEDS: FLUSH (NSS) 1 FLUSH IV (08:25)
[2024-01-18] MEDS: SYMBICORT 160/4.5 MCG INHALER 2 PUFF INH ×2 (09:01→19:08)
--- NOTE | 2024-01-18 11:52 | W.PN.CARDCBS ---
Addendum entered and electronically signed by Hari Hackett DO 01/18/24 15:59:
I saw and examined the patient.
The Environmental Compliance Manager's note was reviewed and I agree with the note.
Comment:
Plan:
Transition to PO lasix next 24 hrs
Wean O2 as able.
RV dilation noted on echo in pt with known lung disease. Further work up as per primary service.
Remains in atrial fibrillation rate controlled with slow ventricular response. Consider outpatient cardioversion. Continue Eliquis which she is tolerating. No AV mark blocking agents secondary to bradycardia.
Outpatient follow-up arranged.
Original Note:
Today's Communication / Plan
-
transition to po lasix
wean supp O2 as able
echo with new RV dilation, consider additional work up
continue eliquis
no av mark blocking agents given baseline bradycardia
OP cardiac follow up arranged, consider for CV as OP
Impression / Plan
-
Primary Fur Scraper: Dr. Ferguson
Assessment:
Presentation with acute on chronic dyspnea on exertion/shortness of breath
Concern for acute on chronic heart failure with preserved EF
New diagnosis atrial fibrillation/atrial flutter with slow ventricular response
Pulmonary hypertension
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
Chronic renal insufficiency
Hypertension
Hyperlipidemia
Obesity
LVH
Type 2 diabetes
History of CVA requiring TPA 2021
History of symptomatic bradycardia
History of anemia
History of LE edema on norvasc
ECHO 08/19/2021: Hyperdynamic LV, mild concentric LVH, EF 70 to 75%, stage II diastolic dysfunction, posterior MAC, mild MR, aortic sclerosis, mild TR, PAP 52 mmHg
ECHO 01/17/24: EF 60 to 65%, mild concentric LVH, posterior MAC, mild MR, aortic sclerosis, trace AR, severe TR, PAP 59 mmHg, severely dilated RA, dilated and hypokinetic RV
Plan:
-Patient presents with acute on chronic dyspnea on exertion/shortness of breath over the last 1 to 2 weeks. Suspect multifactorial
-proBNP elevated at 3580. with diuresis Cr bumped to 1.5. holding further IV lasix and will transition back to OP po lasix 40mg daily in AM
-echo with new RV dilation compared to prior from 2021 however PASP stable. consider eval for PE, will need OP pulmonary follow up
-wean supp O2 as able
-remains in afib/flutter with slow vent response on review of tele overnight. continues with deric/pauses<2.5-3 seconds. continue to avoid av mark blocking agents (her OP toprol had been stopped in last several months due to SB).
-[id number] score of 7 for age, female, hypertension, CHF, diabetes, history of stroke. eliquis 5mg BID initiated. hgb 10.5. asa stopped to reduce bleeding risk.
-TSH WNL
-consider for CV as OP
-will arrange OP cardiac follow up
Progress Note - Fur Scraper
Subjective
Date of Service: January 18, 2024
reports breathing improved from admission
Objective
Labs:
01/18/24 06:53
01/18/24 06:53
Labs
Hgb 10.6 g/dL (12.0-16.0) L 01/18/24 06:53
Hct 31.8 % (37.0-47.0) L 01/18/24 06:53
Plt Count 239 10^3/uL (130-400) 01/18/24 06:53
Sodium 139 mmol/L (135-145) 01/18/24 06:53
Potassium 3.8 mmol/L (3.5-5.1) 01/18/24 06:53
BUN 27 mg/dl (7-17) H 01/18/24 06:53
Creatinine 1.5 mg/dL (0.6-1.0) H 01/18/24 06:53
Glucose 205 mg/dl (70-99) H 01/18/24 06:53
Troponins
01/16/24
18:23
Troponin I < 0.012
Vital Signs and I&O:
Vital Signs
Temp Pulse Resp BP Pulse Ox
97.6 F 58 16 119/58 97
01/18/24 07:15 01/18/24 09:04 01/18/24 09:04 01/18/24 08:24 01/18/24 09:04
Vital Signs
Temp Pulse Resp BP Pulse Ox
97.6 F 58 16 119/58 97
01/18/24 07:15 01/18/24 09:04 01/18/24 09:04 01/18/24 08:24 01/18/24 09:04
Intake & Output
01/16/24 01/17/24 01/18/24 01/19/24
07:59 07:59 07:59 07:59
Intake Total 0 / 0 780 / 780
Output Total 2325 / 2325
Balance 0 / 0 -1545 / -1545
Physical Exam
Physical Exam
GEN: No distress, awake, alert, oriented x3. sitting in chair. on supp O2
HEENT: supple, anicteric, mmm, eomi
LUNGS: Crackles B/L bases
CV: Irreg and slow, S1/S2, 1/6 syst LSB
ABD: soft, BS+, NT/ND
EXT: No cyanosis, clubbing. Trace edema of B/L LE
NEURO: Gross non-focal
SKIN: Warm, pink, dry. No rash
--- NOTE | 2024-01-18 11:54 | W.PN.HOSP.TC ---
Today's Communication/Plan
-
trend cr
IV lasix
monitor HR
Assessment / Plan
Assessment / Plan
# Acute on chronic hypoxic respiratory insufficiency likely acute on chronic HFpEF /valvular disease
# Pulmonary HTN
-BNP 3580
-uses 2l at night for sleep apnea, now requiring all the time.
-chest x ray with Slightly progressed probable chronic interstitial changes.
-IV Lasix 40 twice a day. Losing weight
-ECHO EF 60-65%. Diastolic function indeterminate. Mild mitral regurgitation. Aortic sclerosis without stenosis. Severe tricuspid regurgitation. PASP 59 mmHg and severely dilated right atrium. Hypokinetic right ventricle.
-Strict I&O
-Daily weight
-Continue supplemental oxygen to keep sat greater than 92, wean as tolerated
-Cardiology consult
#new onset atrial flutter/afib
-rate controlled and no need for AV mark agents as with bradycardia with pauses on tele
-Monitor on tele
-started on Eliquis and asa stopped
# History of COPD
# Chronic interstitial lung disease
-Nebs as needed for short of breath and wheezing
#anemia of chronic disease
-hgb stable
-no active bleeding
-ctm
#Elevated creatine on CKD stage 3a
-cr 1.5. Monitor Cr with diuresis.
-ctm
#Benign Hypertension
- Blood pressure stable
-Hydralazine continued with hold parameters
#DM-II
-Glipizide and metformin hold for now
-Sliding scale
-CHO diet
-a1c at 8.3
# Hyperlipidemia
-Statin continued
#DVT Prophylaxis: Heparin subcu
#Code Status: Full
Anticipated Discharge: > 48 hours
Subjective/Interval History
-
Date of Service: January 18, 2024
Bradycardia with some pauses
states passing increasing amount of urine
Objective Data
-
Labs:
Laboratory Results
01/18/24
06:53
WBC 7.8
Hgb 10.6 L
Hct 31.8 L
Plt Count 239
Sodium 139
Potassium 3.8
Chloride 98
Carbon Dioxide 27
BUN 27 H
Creatinine 1.5 H
Glucose 205 H
Calcium 9.3
Vital Signs:
Vital Signs
Temp Pulse Resp BP Pulse Ox
97.6 F 58 16 119/58 97
01/18/24 07:15 01/18/24 09:04 01/18/24 09:04 01/18/24 08:24 01/18/24 09:04
I&O
01/17/24 01/18/24 01/19/24
06:59 06:59 06:59
Intake Total 0 / 0 780 / 780
Output Total 2325 / 2325
Balance 0 / 0 -1545 / -1545
Physical Exam
-
General: Well Developed and No Apparent Distress
HEENT: Normocephalic, Atraumatic, Moist Mucous Membranes and Oxygen
Respiratory: Rhonchi and Decreased Breath Sounds
Cardiac: S1/S2 and Bradycardic; Negative Murmur, Rub or Gallop
GI: Soft, Nontender, Nondistended and Normal Bowel Sounds; Negative Organomegaly
Rectal: Deferred by Provider
Musculoskeletal: No Clubbing, No Cyanosis and No Edema
Skin: Negative Rash
Neuro: Awake and Nonfocal/Grossly Intact
Psych: Calm
Data Reviewed
-
Total Time Spent with Patient (in minutes): 56
[2024-01-18 12:15] LABS: Glucose - Point of Care 318 mg/dl (70-99)
[2024-01-18] MEDS: NOVOLOG FLEXPEN-LOW RESISTANCE 4 UNITS SC (12:28)
[2024-01-18 16:24] LABS: Glucose - Point of Care 366 mg/dl (70-99)
--- NOTE | 2024-01-18 16:29 | PTCARENOTE ---
Pt AAO x3, EASON well, OOB to chair/BSC with assist x1/walker, kal well. VSS. Maintained on nc 2 lpm- pulse ox 95%, no c/o SOB. Abd large, soft, kal PO well. Voids mod amts clear yellow urine on BSC. Resting in bed at present. Will continue to
monitor.
[2024-01-18] MEDS: LIPITOR 40 MG PO (17:47)
[2024-01-18] MEDS: NOVOLOG FLEXPEN-LOW RESISTANCE 5 UNITS SC (17:48)
[2024-01-18 22:34] LABS: Glucose - Point of Care 284 mg/dl (70-99)
[2024-01-19] VITALS (7 sets, daily range): BP systolic 95–121; BP diastolic 42–63; PULSE 65; BMI 31.2
[2024-01-19 07:40] LABS: Glucose - Point of Care 216 mg/dl (70-99)
[2024-01-19 08:09] LABS: Blood Urea Nitrogen 33 mg/dl (7-17); Carbon Dioxide 27 mmol/L (22-30); Chloride 96 mmol/L (98-107); Estimated Creatinine Clearance 23 ml/min; Glucose 214 mg/dl (70-99); Potassium 4.1 mmol/L (3.5-5.1); Sodium 136 mmol/L (135-145); eGFR 36.41
[2024-01-19] MEDS: TIMOPTIC 0.5% OPHTHALMIC SOLUTION 1 DROP BOTH EYES ×2 (08:20→20:40)
[2024-01-19] MEDS: NOVOLOG FLEXPEN-LOW RESISTANCE 2 UNITS SC (08:20)
[2024-01-19] MEDS: APRESOLINE 25 MG PO ×2 (08:21→20:40)
[2024-01-19] MEDS: ELIQUIS 5 MG PO ×2 (08:21→20:39)
[2024-01-19] MEDS: OCUVITE SOFTGEL 1 CAP PO ×2 (08:21→20:39)
[2024-01-19] MEDS: LASIX 40 MG PO (08:21)
[2024-01-19] MEDS: SYMBICORT 160/4.5 MCG INHALER 2 PUFF INH ×2 (08:35→20:42)
--- NOTE | 2024-01-19 09:01 | W.HF.CON ---
Heart Failure
- LV Function
Left ventricular function study result: LV Ejection fraction >40%
Ejection Fraction Percentage: 60-65
- ARNI
Patient already on ARNI: No
Heart Failure ARNI Not Indicated: LV Ejection Fraction >/= 40%
- ACEI/ARB
Patient already on ACEI/ARB: No
Heart Failure ACEI/ARB Not Indicated: LV Ejection Fraction > 40%
- Beta Sera
Patient already on Evidence Based Beta Sera: No
Heart Failure Evidence Based Beta Sera Not Indicated: LV Ejection Fraction > 40%
- Mineralocorticord Receptor Antagonist
Patient already on MRA: No
Heart Failure MRA Not Indicated: LV Ejection Fraction > 40%
- SGLT-2 Inhibitor
Patient already on SGLT-2 Inhibitor: No
Heart Failure SGLT-2 Inhibitor Not Indicated: LV Ejection Fraction >40%
- Afib Anticoagulation
Patient already on Anticoagulation for Afib: Yes
- NYHA CHF Classification
NYHA CHF Classification Level: Class III - Symptoms w/ min exertion, interferes w/ nml daily activity
- ACC/AHA Stage
ACC/AHA Stage: Stage C: Symptomatic Heart Failure
--- NOTE | 2024-01-19 11:03 | W.PN.HOSP.TC ---
Addendum entered and electronically signed by Jaiden Montes De Oca MD 01/19/24 12:01:
Increasing O2 requirement registration to 4 L. Will hold DC today. Check two-view chest x-ray.
Original Note:
Today's Communication/Plan
-
home o2 eval
CM for dispo
po lasix
cards recs
Assessment / Plan
Assessment / Plan
# Acute on chronic hypoxic respiratory insufficiency likely acute on chronic HFpEF /valvular disease
# Pulmonary HTN
-BNP 3580
-uses 2l at night for sleep apnea, now requiring all the time.
-chest x ray with Slightly progressed probable chronic interstitial changes.
-IV Lasix 40 twice a day and now transitioned to 40mg po daily.
-ECHO EF 60-65%. Diastolic function indeterminate. Mild mitral regurgitation. Aortic sclerosis without stenosis. Severe tricuspid regurgitation. PASP 59 mmHg and severely dilated right atrium. Hypokinetic right ventricle.
-Strict I&O
-Daily weight
-Continue supplemental oxygen to keep sat greater than 92, wean as tolerated. Home O2 eval
-Cardiology consult
#new onset atrial flutter/afib
-rate controlled and no need for AV mark agents as with bradycardia with no significant on tele
-Monitor on tele
-started on Eliquis and asa stopped
# History of COPD
# Chronic interstitial lung disease
-Nebs as needed for short of breath and wheezing
#anemia of chronic disease
-hgb stable
-no active bleeding
-ctm
#Elevated creatine on CKD stage 3a
-cr 1.4. Monitor Cr with diuresis.
-ctm
#Benign Hypertension
- Blood pressure stable
-Hydralazine continued with hold parameters
#DM-II
-Glipizide and metformin hold for now
-Sliding scale
-CHO diet
-a1c at 8.3
# Hyperlipidemia
-Statin continued
#DVT Prophylaxis: Heparin subcu
#Code Status: Full
More than 30 minutes spent in discharge including
Final examination of the patient
Summarizing hospital stay
Instructions for continuing care to all relevant caregivers
Preparation of discharge records, prescriptions, and referral forms
Total time spent (in minutes): 58
Anticipated Discharge: Today
Subjective/Interval History
-
Date of Service: January 19, 2024
States significant improvement in breathing
Bradycardia on telemetry persist
Objective Data
-
Labs:
Laboratory Results
01/19/24
07:13
Sodium 136
Potassium 4.1
Chloride 96 L
Carbon Dioxide 27
BUN 33 H
Creatinine 1.4 H
Glucose 214 H
Calcium 10.0
Vital Signs:
Vital Signs
Temp Pulse Resp BP Pulse Ox
97.8 F 86 16 114/51 92
01/19/24 07:25 01/19/24 08:36 01/19/24 08:36 01/19/24 07:25 01/19/24 08:36
I&O
01/18/24 01/19/24 01/20/24
06:59 06:59 06:59
Intake Total 780 / 780 900 / 900
Output Total 2325 / 2325 1150 / 1150
Balance -1545 / -1545 -250 / -250
Physical Exam
-
General: Well Developed and No Apparent Distress
HEENT: Normocephalic, Atraumatic, Moist Mucous Membranes and Oxygen (2L)
Respiratory: Rhonchi and Decreased Breath Sounds
Cardiac: S1/S2 and Bradycardic; Negative Murmur, Rub or Gallop
GI: Soft, Nontender, Nondistended and Normal Bowel Sounds; Negative Organomegaly
Rectal: Deferred by Provider
Musculoskeletal: No Clubbing, No Cyanosis and No Edema
Skin: Negative Rash
Neuro: Awake, No Motor Deficits and Nonfocal/Grossly Intact
Psych: Calm
[2024-01-19 11:39] LABS: Glucose - Point of Care 304 mg/dl (70-99)
--- NOTE | 2024-01-19 12:32 | W.PN.CARDCBS ---
Addendum entered and electronically signed by Hari Hackett DO 01/19/24 17:27:
I saw and examined the patient.
The Tap Dancer's note was reviewed and I agree with the note.
Comment:
Plan:
Oral lasix resumed
Monitor cr
Cont Eliquis.
Remains in afib with slow ventricular response
Will place at time of d/c tomorrow
Outpt follow up arranged
Original Note:
Today's Communication / Plan
-
for CXR
po lasix 40mg daily resumed today
continue eliquis
consider for speech therapist upon DC
OP cardiac follow up arranged
Impression / Plan
-
Primary Car Hop: Dr. Ferguson
Assessment:
Presentation with acute on chronic dyspnea on exertion/shortness of breath
Concern for acute on chronic heart failure with preserved EF
New diagnosis atrial fibrillation/atrial flutter with slow ventricular response
Pulmonary hypertension
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
Chronic renal insufficiency
Hypertension
Hyperlipidemia
Obesity
LVH
Type 2 diabetes
History of CVA requiring TPA 2021
History of symptomatic bradycardia
History of anemia
History of LE edema on norvasc
ECHO 08/19/2021: Hyperdynamic LV, mild concentric LVH, EF 70 to 75%, stage II diastolic dysfunction, posterior MAC, mild MR, aortic sclerosis, mild TR, PAP 52 mmHg
ECHO 01/17/24: EF 60 to 65%, mild concentric LVH, posterior MAC, mild MR, aortic sclerosis, trace AR, severe TR, PAP 59 mmHg, severely dilated RA, dilated and hypokinetic RV
Plan:
-Patient presents with acute on chronic dyspnea on exertion/shortness of breath over the last 1 to 2 weeks. Suspect multifactorial
-proBNP elevated at 3580. with diuresis Cr bumped to 1.5. Cr 1.4 on 01/18. resumed po lasix 40mg daily
-remains with crackles on exam and required 4L NC with ambulation with PT today. for CXR
-echo with new RV dilation compared to prior from 2021 however PASP stable. consider eval for PE, started on eliquis this admission for new afib. will need OP pulmonary follow up
-remains in afib/flutter with slow vent response on review of tele overnight. continues with deric into 30s at times and pauses<2.5 seconds. continue to avoid av mark blocking agents (her OP toprol had been stopped in last several months due to
SB). consider cardiac monitoring upon DC
-[id number] score of 7 for age, female, hypertension, CHF, diabetes, history of stroke. continue eliquis 5mg BID, initiated this admission. hgb 10.6. asa stopped to reduce bleeding risk.
-consider for CV as OP
-OP cardiac follow up arranged
-d/w nursing
Progress Note - Car Hop
Subjective
Date of Service: January 19, 2024
reports feeling ok. she reports she ambulated in hallway without significant issue.
Objective
Labs:
01/18/24 06:53
01/19/24 07:13
Labs
Hgb 10.6 g/dL (12.0-16.0) L 01/18/24 06:53
Hct 31.8 % (37.0-47.0) L 01/18/24 06:53
Plt Count 239 10^3/uL (130-400) 01/18/24 06:53
Sodium 136 mmol/L (135-145) 01/19/24 07:13
Potassium 4.1 mmol/L (3.5-5.1) 01/19/24 07:13
BUN 33 mg/dl (7-17) H 01/19/24 07:13
Creatinine 1.4 mg/dL (0.6-1.0) H 01/19/24 07:13
Glucose 214 mg/dl (70-99) H 01/19/24 07:13
Troponins
01/16/24
18:23
Troponin I < 0.012
Vital Signs and I&O:
Vital Signs
Temp Pulse Resp BP Pulse Ox
98.5 F 55 20 97/63 99
01/19/24 11:10 01/19/24 11:10 01/19/24 11:10 01/19/24 11:10 01/19/24 11:10
Vital Signs
Temp Pulse Resp BP Pulse Ox
98.5 F 55 20 97/63 99
01/19/24 11:10 01/19/24 11:10 01/19/24 11:10 01/19/24 11:10 01/19/24 11:10
Intake & Output
01/17/24 01/18/24 01/19/24 01/20/24
07:59 07:59 07:59 07:59
Intake Total 0 / 0 780 / 780 900 / 900
Output Total 2325 / 2325 1150 / 1150
Balance 0 / 0 -1545 / -1545 -250 / -250
Physical Exam
Physical Exam
GEN: No distress, awake, alert, oriented x3. sitting in chair. on supp O2
HEENT: supple, anicteric, mmm, eomi
LUNGS: Crackles B/L bases
CV: Irreg and slow, S1/S2, 1/6 syst LSB
ABD: soft, BS+, NT/ND
EXT: No cyanosis, clubbing, edema
NEURO: Gross non-focal
SKIN: Warm, pink, dry. No rash
[2024-01-19] MEDS: NOVOLOG FLEXPEN-LOW RESISTANCE 4 UNITS SC ×2 (12:50→17:13)
[2024-01-19 16:21] LABS: Glucose - Point of Care 313 mg/dl (70-99)
[2024-01-19] MEDS: LIPITOR 40 MG PO (17:13)
--- NOTE | 2024-01-19 17:47 | CM ---
CM met with patient on 01/18/2024; she was not sure at that time if she would agree to home care services. documentation not in chart.
CM met with patient again today to discuss home care services. After understanding the benefit of home care she is now agreeable. She had home care in the past, but was not sure who her provider had been. CM reviewed prior records and found that
she was known to [facility] in the past. Referral sent via [facility].
Plan: Discharge to home with [facility]
[2024-01-19 21:03] LABS: Glucose - Point of Care 388 mg/dl (70-99)
[2024-01-20 03:43] VITALS: BP 115/45
[2024-01-20 06:00] VITALS: BMI 31.2
[2024-01-20 07:40] VITALS: BP 134/62
[2024-01-20 08:03] LABS: Glucose - Point of Care 241 mg/dl (70-99)
[2024-01-20] MEDS: APRESOLINE 25 MG PO ×2 (08:17→20:50)
[2024-01-20] MEDS: OCUVITE SOFTGEL 1 CAP PO ×2 (08:17→20:51)
[2024-01-20] MEDS: ELIQUIS 5 MG PO ×2 (08:17→20:51)
[2024-01-20] MEDS: LASIX 40 MG PO (08:17)
[2024-01-20] MEDS: TIMOPTIC 0.5% OPHTHALMIC SOLUTION 1 DROP BOTH EYES ×2 (08:17→20:51)
[2024-01-20] MEDS: NOVOLOG FLEXPEN-LOW RESISTANCE 2 UNITS SC (08:18)
[2024-01-20] MEDS: SYMBICORT 160/4.5 MCG INHALER 2 PUFF INH ×2 (08:23→19:15)
--- NOTE | 2024-01-20 11:11 | W.PN.HOSP.TC ---
Addendum entered and electronically signed by Jaiden Montes De Oca MD 01/20/24 15:32:
Patient with uncontrolled hyperglycemia. Restart metformin glipizide. Adjust insulin sliding scale . Will await repeat BMP. Discussed in detail with patient daughter. DC held for today.
Original Note:
Today's Communication/Plan
-
dc home
cardiac monitor technician
po lasix
Assessment / Plan
Assessment / Plan
# Acute on chronic hypoxic respiratory insufficiency likely acute on chronic HFpEF /valvular disease
# Pulmonary HTN
-BNP 3580
-uses 2l at night for sleep apnea, now requiring all the time.
-chest x ray with Slightly progressed probable chronic interstitial changes.
-IV Lasix 40 twice a day and now transitioned to 40mg po daily.
-ECHO EF 60-65%. Diastolic function indeterminate. Mild mitral regurgitation. Aortic sclerosis without stenosis. Severe tricuspid regurgitation. PASP 59 mmHg and severely dilated right atrium. Hypokinetic right ventricle.
-Strict I&O
-Daily weight
-Continue supplemental oxygen to keep sat greater than 92, wean as tolerated. Home O2 eval.
- Patient is in need of oxygen on exertion due to pulse oximetry of 83% on room air at rest; 83% on room air with exertion. Patient was placed on 2L O2 via nasal cannula with saturation at rest and 4L with exertion of 92%. Oxygen will help to
improve hypoxemia. Patient is mobile within the home. Albuterol therapy and IV lasix has been discussed and is ineffective in treating hypoxemia-related symptoms. Oxygen will improve the patient's symptoms.
-Cardiology consult
#new onset atrial flutter/afib
-rate controlled and no need for AV mark agents as with bradycardia with no significant on tele
-Monitor on tele
-started on Eliquis and asa stopped
-Plan for heart monitor on discharge per cards.
# History of COPD
# Chronic interstitial lung disease
-Nebs as needed for short of breath and wheezing
#anemia of chronic disease
-hgb stable
-no active bleeding
-ctm
#Elevated creatine on CKD stage 3a
-cr 1.4. Monitor Cr with diuresis.
-ctm
#Benign Hypertension
- Blood pressure stable
-Hydralazine continued with hold parameters
#DM-II
-Glipizide and metformin restarted
-Sliding scale
-CHO diet
-a1c at 8.3
# Hyperlipidemia
-Statin continued
#DVT Prophylaxis: Heparin subcu
#Code Status: Full
More than 30 minutes spent in discharge including
Final examination of the patient
Summarizing hospital stay
Instructions for continuing care to all relevant caregivers
Preparation of discharge records, prescriptions, and referral forms
Total time spent (in minutes): 58
Anticipated Discharge: Today
Subjective/Interval History
-
Date of Service: January 20, 2024
feeling better
intermittent bradycardia
no chest pain or sob
Objective Data
-
Vital Signs:
Vital Signs
Temp Pulse Resp BP Pulse Ox
97.6 F 69 18 134/62 92
01/20/24 07:40 01/20/24 08:27 01/20/24 08:27 01/20/24 07:40 01/20/24 08:27
I&O
01/19/24 01/20/24 01/21/24
06:59 06:59 06:59
Intake Total 900 / 900 1200 / 1200
Output Total 1150 / 1150 600 / 600
Balance -250 / -250 600 / 600
Physical Exam
-
General: Well Developed and No Apparent Distress
HEENT: Normocephalic, Atraumatic, Moist Mucous Membranes and Oxygen (2L)
Respiratory: Rhonchi and Decreased Breath Sounds
Cardiac: S1/S2; Negative Murmur, Rub or Gallop
GI: Soft, Nontender, Nondistended and Normal Bowel Sounds; Negative Organomegaly
Rectal: Deferred by Provider
Musculoskeletal: No Clubbing, No Cyanosis and No Edema
Skin: Negative Rash
Neuro: Awake, No Motor Deficits and Nonfocal/Grossly Intact
Psych: Calm
[2024-01-20 11:46] VITALS: BP 138/68
--- NOTE | 2024-01-20 11:58 | W.PN.CARDCBS ---
Addendum entered and electronically signed by Matt Nguyen MD 01/20/24 14:41:
I saw and examined the patient.
The Top Inventory Control Executive's note was reviewed and I agree with the note.
Comment: Briefly, 88-year-old woman past medical history of heart failure with preserved ejection fraction and restrictive lung disease on home O2 presenting with dyspnea found to be in decompensated heart failure and identified as having new atrial
fibrillation with slow ventricular response
Patient tells me she is at baseline in regards to her oxygen requirements and her dyspnea
Appears euvolemic however volume assessment is challenging given her body habitus
Continue oral Lasix 40 mg daily, would discharge on this dose
Currently in rate controlled a flutter/A-fib off of AV mark hattie
Consider outpatient direct-current cardioversion
Continue Eliquis for cardioembolic prophylaxis
Stable cardiac status, we will sign off, please recall as needed
Outpatient follow-up has been arranged
Original Note:
Today's Communication / Plan
-
po lasix 40mg daily
supp O2
eliquis 5mg BID
consider for OP CV
OP cardiac follow up arranged
Impression / Plan
-
Primary Corporate Human Resources Manager: Dr. Ferguson
Assessment:
Presentation with acute on chronic dyspnea on exertion/shortness of breath
Concern for acute on chronic heart failure with preserved EF
New diagnosis atrial fibrillation/atrial flutter with slow ventricular response
Pulmonary hypertension
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
Chronic renal insufficiency
Hypertension
Hyperlipidemia
Obesity
LVH
Type 2 diabetes
History of CVA requiring TPA 2021
History of symptomatic bradycardia
History of anemia
History of LE edema on norvasc
ECHO 08/19/2021: Hyperdynamic LV, mild concentric LVH, EF 70 to 75%, stage II diastolic dysfunction, posterior MAC, mild MR, aortic sclerosis, mild TR, PAP 52 mmHg
ECHO 01/17/24: EF 60 to 65%, mild concentric LVH, posterior MAC, mild MR, aortic sclerosis, trace AR, severe TR, PAP 59 mmHg, severely dilated RA, dilated and hypokinetic RV
Plan:
-Patient presented with acute on chronic dyspnea on exertion/shortness of breath over the last 1 to 2 weeks. Suspect multifactorial
-proBNP elevated at 3580. With attempted diuresis creatinine bumped to 1.5, now downtrending and back on p.o. Lasix 40 mg daily
-She remains with crackles on exam, however she reports improvement in breathing from admission. Continue supplemental oxygen, back to baseline
-echo with new RV dilation compared to prior from 2021 however PASP stable. will need OP pulmonary follow up
-remains in afib/flutter with controlled/slow vent response on review of tele overnight. with pauses<2.5 seconds. continue to avoid av mark blocking agents (her OP toprol had been stopped in last several months due to SB). for monitoring analyst to be
placed prior to DC
-[id number] score of 7 for age, female, hypertension, CHF, diabetes, history of stroke. continue eliquis 5mg BID, initiated this admission. hgb 10.6. asa stopped to reduce bleeding risk.
-consider for CV as OP
-OP cardiac follow up arranged
-ok for DC to home today from cardiac standpoint
Progress Note - Corporate Human Resources Manager
Subjective
Date of Service: January 20, 2024
Feels breathing improved from admission. Eager for discharge
Objective
Labs:
01/18/24 06:53
01/19/24 07:13
Labs
Hgb 10.6 g/dL (12.0-16.0) L 01/18/24 06:53
Hct 31.8 % (37.0-47.0) L 01/18/24 06:53
Plt Count 239 10^3/uL (130-400) 01/18/24 06:53
Sodium 136 mmol/L (135-145) 01/19/24 07:13
Potassium 4.1 mmol/L (3.5-5.1) 01/19/24 07:13
BUN 33 mg/dl (7-17) H 01/19/24 07:13
Creatinine 1.4 mg/dL (0.6-1.0) H 01/19/24 07:13
Glucose 214 mg/dl (70-99) H 01/19/24 07:13
Vital Signs and I&O:
Vital Signs
Temp Pulse Resp BP Pulse Ox
98 F 66 22 138/68 100
01/20/24 11:46 01/20/24 11:46 01/20/24 11:46 01/20/24 11:46 01/20/24 11:46
Vital Signs
Temp Pulse Resp BP Pulse Ox
98 F 66 22 138/68 100
01/20/24 11:46 01/20/24 11:46 01/20/24 11:46 01/20/24 11:46 01/20/24 11:46
Intake & Output
01/18/24 01/19/24 01/20/24 01/21/24
07:59 07:59 07:59 07:59
Intake Total 780 / 780 900 / 900 1200 / 1200
Output Total 2325 / 2325 1150 / 1150 600 / 600
Balance -1545 / -1545 -250 / -250 600 / 600
Physical Exam
Physical Exam
GEN: No distress, awake, alert, oriented x3. on supp O2
HEENT: supple, anicteric, mmm, eomi
LUNGS: Few rackles B/L bases
CV: Irreg and slow, S1/S2, 1/6 syst LSB
ABD: soft, BS+, NT/ND
EXT: No cyanosis, clubbing, edema
NEURO: Gross non-focal
SKIN: Warm, pink, dry. No rash
[2024-01-20 12:05] LABS: Glucose - Point of Care 415 mg/dl (70-99)
--- NOTE | 2024-01-20 12:13 | CM ---
Addendum entered by Kimberley Luz 01/20/24 15:32:
Per Attending, discharge cancelled; abnormal glucose; serum glucose drawn; per protocol, need to wait 2 hours
Addendum [facility] 01/20/24 14:36:
IMM benefit explained; form signed @ 1430
Addendum entered by [facility] 01/20/24 14:32:
[employer] car pick up driver time changed to 1645
Addendum entered by [facility] 01/20/24 14:22:
Patient's daughter Mckenzie notified #[phone] of discharge/transport plan
Daughter contacted Oxygen Vendor, [employer] # [phone] (phone # ) to report issue with patient's portable O2 tank
Addendum entered by Kimberley Veda 01/20/24 14:17:
[facility]

Addendum entered by [facility] 01/20/24 14:09:
Family Physician verified and corrected on the chart: Christos Celso phone # [phone]
Transport via [employer]; pickup scheduled for 1600
Attending Progress Note including new Oxygen requirements faxed to [employer] # [phone] (phone #
Plan: Discharge to home today with home health services with [facility]
Original Note:
Met with patient at bedside to discuss discharge planning
Explained to patient that per physician's orders, she will need Oxygen 29/11; not just at night. Patient reported she has oxygen equipment at home; reported that her portable O2 tank is not functioning
Patient cannot identify name of Oxygen vendor; CM spoke with her friend via phone who will call back with agency info
Patient agreeable to home health services; preference is [facility]; called intake office # [phone] to verify that referral was received and accepted
Patient needs transportation coordinated
Plan: discharge to home with home health services
[2024-01-20 13:16] LABS: Glucose 403 mg/dl (70-99)
[2024-01-20] MEDS: NOVOLOG FLEXPEN-LOW RESISTANCE 6 UNITS SC (13:18)
[2024-01-20 15:21] LABS: Glucose - Point of Care 544 mg/dl (70-99)
[2024-01-20 15:57] VITALS: BP 115/65
[2024-01-20] MEDS: GLUCOPHAGE 500 MG PO (16:14)
[2024-01-20 16:15] LABS: Glucose 483 mg/dl (70-99)
[2024-01-20] MEDS: NOVOLOG FLEXPEN-HIGH RESISTANCE 14 UNITS SC (16:19)
[2024-01-20] MEDS: LIPITOR 40 MG PO (17:45)
[2024-01-20 18:35] LABS: Glucose - Point of Care 223 mg/dl (70-99)
[2024-01-20 19:00] VITALS: BP 118/62
[2024-01-20 20:59] LABS: Glucose - Point of Care 144 mg/dl (70-99)
[2024-01-20 23:00] VITALS: BP 114/49
[2024-01-21 03:25] LABS: Glucose - Point of Care 191 mg/dl (70-99)
[2024-01-21 03:39] VITALS: BP 95/47
[2024-01-21 06:00] VITALS: BMI 31.2
[2024-01-21] MEDS: SYMBICORT 160/4.5 MCG INHALER 2 PUFF INH (07:39)
[2024-01-21 07:40] LABS: Glucose - Point of Care 192 mg/dl (70-99)
[2024-01-21 07:55] VITALS: BP 122/48
[2024-01-21] MEDS: GLUCOTROL 2.5 MG PO (09:04)
[2024-01-21] MEDS: OCUVITE SOFTGEL 1 CAP PO (09:04)
[2024-01-21] MEDS: APRESOLINE 25 MG PO (09:04)
[2024-01-21] MEDS: ELIQUIS 5 MG PO (09:05)
[2024-01-21] MEDS: GLUCOPHAGE 500 MG PO ×2 (09:05→16:28)
[2024-01-21] MEDS: LASIX 40 MG PO (09:05)
[2024-01-21] MEDS: TIMOPTIC 0.5% OPHTHALMIC SOLUTION 1 DROP BOTH EYES (09:06)
[2024-01-21] MEDS: NOVOLOG FLEXPEN-HIGH RESISTANCE SC (09:58)
[2024-01-21 11:00] VITALS: BP 136/58
--- NOTE | 2024-01-21 11:16 | W.PN.HOSP.TC ---
Today's Communication/Plan
-
restart home DM meds
dc home
OP cards f/u
Assessment / Plan
Assessment / Plan
# Acute on chronic hypoxic respiratory insufficiency likely acute on chronic HFpEF /valvular disease
# Pulmonary HTN
-BNP 3580
-uses 2l at night for sleep apnea, now requiring all the time.
-chest x ray with Slightly progressed probable chronic interstitial changes.
-IV Lasix 40 twice a day and now transitioned to 40mg po daily.
-ECHO EF 60-65%. Diastolic function indeterminate. Mild mitral regurgitation. Aortic sclerosis without stenosis. Severe tricuspid regurgitation. PASP 59 mmHg and severely dilated right atrium. Hypokinetic right ventricle.
-Strict I&O
-Daily weight
-Continue supplemental oxygen to keep sat greater than 92, wean as tolerated. Home O2 eval.
- Patient is in need of oxygen on exertion due to pulse oximetry of 83% on room air at rest; 83% on room air with exertion. Patient was placed on 2L O2 via nasal cannula with saturation at rest and 4L with exertion of 92%. Oxygen will help to
improve hypoxemia. Patient is mobile within the home. Albuterol therapy and IV lasix has been discussed and is ineffective in treating hypoxemia-related symptoms. Oxygen will improve the patient's symptoms.
-Cardiology consult
#new onset atrial flutter/afib
-rate controlled and no need for AV mark agents as with bradycardia with no significant on tele
-Monitor on tele
-started on Eliquis and asa stopped
-Plan for heart monitor on discharge per cards.
# History of COPD
# Chronic interstitial lung disease
-Nebs as needed for short of breath and wheezing
#anemia of chronic disease
-hgb stable
-no active bleeding
-ctm
#Elevated creatine on CKD stage 3a
-cr 1.4. Monitor Cr with diuresis.
-ctm
#Benign Hypertension
- Blood pressure stable
-Hydralazine continued with hold parameters
#DM-II elevated
-Glipizide and metformin restarted
-Sliding scale
-CHO diet
-POC 192
-a1c at 8.3
# Hyperlipidemia
-Statin continued
#DVT Prophylaxis: Heparin subcu
#Code Status: Full
d/w with daughter on 01/19 in details
More than 30 minutes spent in discharge including
Final examination of the patient
Summarizing hospital stay
Instructions for continuing care to all relevant caregivers
Preparation of discharge records, prescriptions, and referral forms
Total time spent (in minutes): 58
Anticipated Discharge: Today
Subjective/Interval History
-
Date of Service: January 21, 2024
BG improved
Objective Data
-
Vital Signs:
Vital Signs
Temp Pulse Resp BP Pulse Ox
97.9 F 65 16 124/60 92
01/21/24 07:55 01/21/24 09:04 01/21/24 07:55 01/21/24 09:04 01/21/24 07:55
I&O
01/20/24 01/21/24 01/22/24
06:59 06:59 06:59
Intake Total 1200 / 1200 960 / 960
Output Total 600 / 600 2600 / 2600
Balance 600 / 600 -1640 / -1640
Physical Exam
-
General: Well Developed and No Apparent Distress
HEENT: Normocephalic, Atraumatic, Moist Mucous Membranes and Oxygen (2L)
Respiratory: Decreased Breath Sounds
Cardiac: S1/S2 and Other (Heart monitor noted ); Negative Murmur, Rub or Gallop
GI: Soft, Nontender, Nondistended and Normal Bowel Sounds; Negative Organomegaly
Rectal: Deferred by Provider
Musculoskeletal: No Clubbing, No Cyanosis and No Edema
Skin: Negative Rash
Neuro: Awake, No Motor Deficits and Nonfocal/Grossly Intact
Psych: Calm
[2024-01-21 12:43] LABS: Glucose - Point of Care 271 mg/dl (70-99)
[2024-01-21] MEDS: NOVOLOG FLEXPEN-HIGH RESISTANCE 7 UNITS SC (12:51)
--- NOTE | 2024-01-21 13:08 | W.DCSUMMARY ---
Discharge Summary
Discharge Data
Date of Admission: 01/16/24
Date of Discharge: 01/21/24
-
Pending Results: No
Hospital Course
88-year-old female past medical history of COPD, chronic interstitial lung disease, chronic hypoxic respiratory insufficiency, CKD, hypertension, diabetes mellitus, hyperlipidemia, pulmonary hypertension, chronic HFpEF, valvular disease who is
presenting from home with shortness of breath. Patient was found to be in new onset of atrial flutter and atrial fibrillation. Rate was controlled. Patient was started on Eliquis and aspirin was stopped. Patient was also found to be in heart
failure exacerbation was started on IV Lasix 40mg BID. ECHO EF 60-65%. Diastolic function indeterminate. Mild mitral regurgitation. Aortic sclerosis without stenosis. Severe tricuspid regurgitation. PASP 59 mmHg and severely dilated right
atrium. Hypokinetic right ventricle. Patient with significant improvement in symptoms with diuresis. Patient qualified for home oxygenation for continuous usage (PROPAGATOR was nocturnal usage only). Patient has a history of symptomatic bradycardia and
no AV mark agents were started. lab assistant was applied upon discharge. Patient diabetes uncontrolled sugars improved with restarting of metformin and glipizide. Recommend to follow-up with primary doctor which patient agreed. Patient was
eval by PT and OT. Patient be discharged home with [facility] with outpatient cardiology follow-up.
Discharge Plan
-
Patient Disposition: Home with Home Care
Discharge Diagnosis/Procedures: Acute on chronic respiratory insufficiency
Acute on chronic HFpEF/valvular disease
New onset of atrial fibrillation/flutter
Condition: Fair
Diet: 2 Gram Sodium, Diabetic, Carb Controlled and Restrict fluids to 48 oz
Activity: As tolerated
Blood Work: BMP in 1 week with primary doctor.
Specialty Instructions: Weigh Daily- Call MD for wt gain/loss 3 lbs overnight/5 lbs in 1 week
Instructions: *[facility] Heart Failure Instructions
Referrals:
Jessica Draper DO [Active] - in three to four weeks
Ace Houston MD [Non-Admitting Privileges] - in less than 1 week (f/u for diabetes management)
Karlie Rodriguez PA-C [Specified Professional Personl] - 01/26/24 9:20 am (You have a cardiology follow up appointment at the [place] office with Dr. Ferguson's physician licensed physical therapy assistant, Karlie. Please call with questions.)
Additional Discharge Medication Instructions: aspirin has been discontinued
Prescriptions:
New
Eliquis 5 mg Tablet
5 mg PO BID Qty: 60 0RF
Continued
furosemide 40 mg Tablet
40 mg PO DAILY
hydralazine 25 mg Tablet
25 mg PO BID
albuterol sulfate 90 mcg/actuation Hfa Aerosol Inhaler
1 puff INHALATION R Q4HPRN PRN (Reason: sob)
timolol maleate (PF) 0.5 % Dropperette
1 drp BOTH EYES BID
budesonide-formoterol [Symbicort] 160-4.5 mcg/actuation Hfa Aerosol Inhaler
2 puff INHALATION R BID
PreserVision AREDS-2 250-90-40-1 mg Capsule
1 tab PO BID
metformin 500 MG tablet extended release 24 hr
500 mg PO BID
atorvastatin 40 MG tablet
40 mg PO QPM Qty: 30 0RF
glipizide 5 MG tablet
2.5 mg PO DAILY Qty: 15 0RF
Discontinued
aspirin 81 MG tablet,delayed release (DR/EC)
81 mg PO DAILY Qty: 30 0RF
Discharge Orders:
Discharge Patient (As Directed); Ordered 01/21/24
Ordered By: Jaiden Montes De Oca
Discharge Date and Time
Print Language: MALTESE
[2024-01-21 15:00] VITALS: BP 111/59
[2024-01-21 16:26] LABS: Glucose - Point of Care 167 mg/dl (70-99)
[2024-01-21] MEDS: NOVOLOG FLEXPEN-HIGH RESISTANCE 2 UNITS SC (16:28)
--- NOTE | 2024-01-21 17:41 | CM ---
Discharge for today; w/c van unavailable, so she will go home via ambulance. Cost of w/c van will be refunded to patient.
Plan: D/C to home with VN.
== END 2024-01-21 17:56 | disposition home health service (06) | DRG 291 ==
LOC: 4 EAST ACU 21:20
PROVIDERS: Registered Nurse; ADMITTING PHYSICIAN Hospitalist; ATTENDING PHYSICIAN Hospitalist; EMERGENCY PHYSICIAN Student in an Organized Health Care Education/Training Program; FAMILY PHYSICIAN Physician Assistant Medical; OTHER PHYSICIAN Internal Medicine Cardiovascular Disease
DX: I13.0 Hypertensive heart and chronic kidney disease with heart failure and stage 1 through stage 4 chronic kidney disease, or unspecified chronic kidney disease (principal); I50.33 Acute on chronic diastolic (congestive) heart failure; I48.92 Unspecified atrial flutter; J84.9 Interstitial pulmonary disease, unspecified; I27.20 Pulmonary hypertension, unspecified; D63.1 Anemia in chronic kidney disease; E11.22 Type 2 diabetes mellitus with diabetic chronic kidney disease; N18.31 Chronic kidney disease, stage 3a; E11.65 Type 2 diabetes mellitus with hyperglycemia; I08.3 Combined rheumatic disorders of mitral, aortic and tricuspid valves; I70.0 Atherosclerosis of aorta; J44.9 Chronic obstructive pulmonary disease, unspecified; E66.9 Obesity, unspecified; Z68.31 Body mass index [BMI] 31.0-31.9, adult; Z99.81 Dependence on supplemental oxygen; E78.5 Hyperlipidemia, unspecified; G47.30 Sleep apnea, unspecified; I48.91 Unspecified atrial fibrillation; I49.3 Ventricular premature depolarization; J98.4 Other disorders of lung; M85.80 Other specified disorders of bone density and structure, unspecified site; R09.02 Hypoxemia; R06.02 Shortness of breath; R06.09 Other forms of dyspnea; Z79.51 Long term (current) use of inhaled steroids; Z79.82 Long term (current) use of aspirin; Z79.84 Long term (current) use of oral hypoglycemic drugs; Z79.899 Other long term (current) drug therapy; Z86.73 Personal history of transient ischemic attack (TIA), and cerebral infarction without residual deficits
CPT/HCPCS: 71046; 80048; 80053; 80061; 82248; 82947; 82962; 83036; 83735; 83880; 84443; 84484; 85025; 85027; 93005; 93306; 94640; 96374; 97116; 97162; 97530; 99285

== ENCOUNTER → 2024-07-11 13:46 | Outpatient (REF) | payer OTHER, SELFPAY | LOC: HWRCS 13:46 | PROVIDERS: ATTENDING PHYSICIAN Internal Medicine Cardiovascular Disease; FAMILY PHYSICIAN Physician Assistant Medical | DX: I50.812 Chronic right heart failure (principal) | CPT/HCPCS: 93306 ==

== ENCOUNTER → 2024-08-08 14:18 | Outpatient (REF) | payer OTHER, SELFPAY | LOC: HWRAD 14:18 | PROVIDERS: ATTENDING PHYSICIAN Internal Medicine Cardiovascular Disease; FAMILY PHYSICIAN Physician Assistant Medical | DX: I50.813 Acute on chronic right heart failure (principal) | CPT/HCPCS: 71046 ==

== ENCOUNTER 2025-02-13 05:20 | Inpatient (IN) | payer OTHER, SELFPAY ==
[2025-02-13] VITALS (17 sets, daily range): BP systolic 99–158; BP diastolic 41–109; PULSE 59; O2SAT 96; BMI 31.3; BMI 28.0
[2025-02-13] MEDS: VALIUM INJECTION IV (02:53)
[2025-02-13] MEDS: VALIUM INJECTION 2 MG IV (02:54)
--- NOTE | 2025-02-13 02:54 | ED.CVA ---
History of Present Illness
General
Chief Complaint: CVA/TIA Symptoms
Source: patient and ambulance crew
Exam Limitations: none
Time Seen by Provider: 02/13/25 02:52
Nursing documentation reviewed up to this point in time: agreed with
Onset of Stroke Symptoms
Onset of symptoms known: Yes
Date of onset of symptoms: 02/13/25
History of Present Illness
History of Present Illness:
Note:
CHIEF COMPLAINT(S)
Seizure-like activity.
HISTORY OF PRESENT ILLNESS
The patient is an 89-year-old female with a history of stroke, diabetes, hypertension, and chronic obstructive pulmonary disease. She is reportedly on hospice care at home. The patient witnessed some type of seizure. She was alone at the time of the
event. Initially, there was confusion about the side of the body affected by the previous stroke. She experienced a period where she could not communicate effectively, followed by an improvement in consciousness and interaction. There was
consideration of past medication use, including hydralazine and possibly others, but the specifics and continuation of medications were unclear. The patient mentioned a 'DNR' status but documentation was not evident at the scene. She seems to have
received instructions from a hospital nurse to stop taking certain medications, but the details and timeline were imprecise.
PAST MEDICAL AND SURIGICAL HISTORY
History of stroke with unclear affected side.
CHRONIC MEDICAL CONDITIONS SIGNIFICANTLY AFFECTING CARE
- Hypertension
- Diabetes
- Chronic Obstructive Pulmonary Disease
- History of stroke
SOCIAL DETERMINANTS AFFECTING HEALTH
The patient lives alone and appears to be under hospice care. There was no family or caregiver present at the scene during the episode.
REVIEW OF SYSTEMS
- Neurological: Seizure-like activity observed, followed by a return to baseline consciousness and communication.
- Cardiovascular: No additional symptoms reported at present.
- Respiratory: Chronic obstructive pulmonary disease mentioned, but no acute respiratory symptoms discussed.
PHYSICAL EXAM
General: Alert, no acute distress.
Skin: Warm, dry.
Head: Normocephalic, atraumatic.
Neck: Supple, trachea midline.
Eye Ears, nose, mouth and throat: Oral mucosa moist.
Cardiovascular: Normal peripheral perfusion, No edema.
Respiratory: Respirations are non-labored.
Gastrointestinal: Abdomen nondistended
Back: Normal range of motion, Normal alignment.
Musculoskeletal: Normal ROM, normal strength.
Neurological: Alert and oriented to person, place, time, and situation, No focal neurological deficit observed.
Psychiatric: Cooperative, appropriate mood & affect.
PROBLEM LIST
- Seizure-like activity (Acute)
- Hypertension (Chronic)
- Diabetes (Chronic)
- Chronic Obstructive Pulmonary Disease (Chronic)
- History of stroke (Chronic)
PLAN
- Consideration for additional neurological evaluation to determine the cause and recurrence risk of the seizure-like event.
- Assess current medication regimen and reconcile with patient�s reported instructions to discontinue medications.
- Clarification and documentation of the patients DNR status and advance directives.
- Evaluate the need for further intervention consistent with hospice care goals.
DIFFERENTIAL DIAGNOSIS
The Differential Diagnosis includes, in no particular order and is not limited to:
1. New onset seizure or seizure recurrence.
2. Transient ischemic attack.
3. Medication side effects or withdrawal.
4. Electrolyte imbalance.
5. Hypoglycemia.
6. Stroke recurrence.
7. Infection (e.g., urinary tract infection, pneumonia).
8. Metabolic encephalopathy.
9. Dehydration.
10. Cardiac arrhythmia.
CARE-UPDATE
02/13/25 - 03:02
The patient was found without her home oxygen by EMS. The hospice nurse advised discontinuation of most medications, including diabetic medications. Patient consents to a CT scan and full workup. Patient wishes for everything to be done for her
care. Not a stroke alert situation.
CARE-UPDATE
02/13/25 - 03:11
Unable to reach daughter Mckenzie; multiple attempts made via cell and home phone. Awaiting her callback. No documentation of a hospice nurse in the chart.
CARE-UPDATE
02/13/25 - 04:00
Initiated hospice care plan with focus on comfort measures only. Sodium imbalance to be addressed. Admission to hospitalist service confirmed, with hospice nurse scheduled for morning evaluation.
CARE-UPDATE
02/13/25 - 04:[address] Tj Lakhani from nephrology, who concurs with administering 3% hypertonic saline for hyponatremia management, acknowledging the patients current hospice status.
Disposition:
SUMMARY OF ENCOUNTER
An 89-year-old female, on hospice care, presented with new-onset seizure-like activity. Her serum sodium level was found to be critically low at 122 mEq/L, indicating hyponatremia. Due to her hospice status and the need for immediate treatment,
hypertonic saline (3% saline) was initiated to address the electrolyte imbalance. The patient is currently under comfort measures only.
DISPOSITION
Admit. The patient was admitted to the hospitalist service for treatment of hyponatremia.
MANAGEMENT OF THE PATIENTS CARE WAS DISCUSSED WITH
A hospice nurse was informed that she will attend to the patient today.
INDEPENDENT REVIEW OF LABS AND INTERPRETATION OF TESTS
My independent review of BMP indicates severe hyponatremia with a sodium level of 122 mEq/L.
MEDICAL DECISION MAKING
- Number and Complexity of Problems Addressed: Chronic conditions affecting care include stroke, hypertension, diabetes, and chronic obstructive pulmonary disease. DDx list includes new onset seizure or seizure recurrence, transient ischemic attack,
medication side effects or withdrawal, electrolyte imbalance, hypoglycemia, stroke recurrence, infection, metabolic encephalopathy, dehydration, or cardiac arrhythmia.
- Data:
Category 1:
My independent review of BMP indicates hyponatremia with a sodium level of 122 mEq/L.
Category 3:
Discussion of management with hospice and hospitalist service.
- Risk:
Decisions to limit care to hospice with comfort measures only were taken. Prescription medication was prescribed and initiated with hypertonic saline for hyponatremia management. Care significantly affected by the patient being on hospice care and
social determinants such as living alone.
DIAGNOSIS
Hyponatremia, ICD-10-CM Code: E87.1
Past History
Past History
ED Past Medical History: COPD, CVA, HTN and NIDDM
ED Past Surgical History: Orthopedic (L forearm fx)
Social History
Tobacco: Non-smoker
Alcohol: None
Drug: None
Living: with family
Family History
Family History: Other (not pertinent)
Phy Exam
Physical Exam
Physical Exam:
.
Course
Orders/Labs/Results
Orders:
Orders
02/13/25 02:44
diazePAM [Valium Injection] 10 mg .ROUTE .STK-MED ONE
02/13/25 02:46
CT Head W/o Iv Contrast Urgent
Comment:
Reason For Exam: seizure
02/13/25 02:53
diazePAM [Valium Injection] 10 mg IV NOW STA
02/13/25 02:54
Complete Blood Count/With Diff Urgent
Comprehensive Metabolic Panel Urgent
02/13/25 03:26
Ceribell [Rapid Point of Care EEG (ED/ICU ONLY)] Q1H
Indications for use:: Altered Mental Status
Comment: New onset seizure
02/13/25 04:15
3% Sodium Chloride 500 ml [Sodium Chloride 3%] 500 ml IV ONCE
02/13/25 04:30
Bedside Glucose- Treatment Q1H
0.9% Sodium Chloride 1000 ml [Nss] 1,000 ml IV BOLUS
0.9% Sodium Chloride 1000 ml [Nss] 1,000 ml IV BOLUS
Insulin Human Regular [Novolin R] 10 units IV NOW STA
02/13/25 04:32
0.9% Sodium Chloride 500 ml [Nss] 500 ml IV BOLUS
02/13/25 04:42
Insulin Human Regular [Novolin R] 7 units IV NOW STA
02/13/25 04:43
Basic Metabolic Panel Q2H
02/13/25 04:59
0.9% Sodium Chloride 1000 ml [Nss] 1,000 ml IV BOLUS
02/13/25 05:01
Bedside Glucose Monitoring As Directed
Frequency: Q1H
Notify MD As Directed
Notify physician if: Nurse to contact provider when glucose reaches 250 to obtain orders for D5 0.[address] Non Medication Order As Directed
Physician Order: goal glucose lowering is by 90-120 mg/dL per hour. We are starting drip at 3 units/hr.
02/13/25 05:08
Admit/Transfer Patient As Directed
Co-Sign Provider:
Level of Care: Inpatient admission
Assign to:: IMU- Intermediate Care
Physician / Group: Skye Low
Diagnosis: hyperosmolar hyperglycemic syndrome
Reason for Hospitalization: hyperosmolar hyperglycemic syndrome
Expected length of stay greater than two midnights?: Yes
ELOS- Estimated Length of Stay in days: 3
I certify the patient meets the requirements for IP care: Yes
PRN Pain Medication Management As Directed
May give lesser potent ordered pain med per pt: Yes
preference::
Protocol:: Medication orders for pain may be administered in a
manner that supports deferring to patient preference
when the pt is:
- Requesting an ordered lesser potent pain medication.
Least to most potent pain medications are defined
as: acetaminophen < NSAID < tramadol < opioids
(morphine, oxycodone, hydromorphone).
- Requesting a lesser dose of the same medication IF
ORDERED.
- Requesting a less intrusive route of administration
if both routes are prescribed by the provider (PO <
IV).
02/13/25 05:09
Code Status As Directed
Resuscitation Status: Do not resuscitate
Reached after discussion with pt or family/Healthcare POA: Yes
DNR Bracelet Application ONCE
02/13/25 05:15
0.9% Sodium Chloride 1000 ml [Nss] 1,000 ml IV 250 mls/hr
Reg Insulin 100 Units/100 ml [Novolin R Insulin Infusion] 100 units in 100 ml IV PER PROTOCOL
Initial dose in units/hr, then titrate:: 3
02/13/25 06:00
BMP [Basic Metabolic Panel] Q2
Flush (0.9% Sodium Chloride) [Flush (Nss)] See Dose Instructions IV PER PROTOCOL
02/13/25 08:00
BMP [Basic Metabolic Panel] Q2
02/13/25 10:00
BMP [Basic Metabolic Panel] Q2
02/13/25 12:00
BMP [Basic Metabolic Panel] Q2
02/13/25 14:00
BMP [Basic Metabolic Panel] Q2
02/13/25 16:00
BMP [Basic Metabolic Panel] Q2
02/13/25 18:00
BMP [Basic Metabolic Panel] Q2
02/13/25 20:00
BMP [Basic Metabolic Panel] Q2
02/13/25 22:00
BMP [Basic Metabolic Panel] Q2
Abnormal Lab Results
02/13/25 02/13/25
02:54 04:36
RBC 3.99 L 10^6/uL
(4.20-5.40)
Hgb 11.7 L g/dL
(12.0-16.0)
Hct 35.3 L %
(37.0-47.0)
MPV 10.9 H fL
(7.4-10.4)
Abs Immat Gran (auto) 0.1 H 10^3/uL
(0-0.05)
Absolute Monos (auto) 0.7 H 10^3/uL
(0.1-0.6)
Immature Gran % 0.6 H %
(0-0.5)
Lymphocytes % 15.5 L %
(20.5-51.1)
Sodium 122 L mmol/L
(135-145)
Potassium 5.2 H mmol/L
(3.5-5.1)
Chloride 88 L mmol/L
(98-107)
BUN 36 H mg/dl
(7-17)
Glucose 917 H* mg/dl
(70-99)
Total Bilirubin 1.4 H mg/dl
(0.2-1.3)
Alkaline Phosphatase 147 H U/L
(38-126)
POC Glucose > 600 H* mg/dl
(70-99)
02/13/25 02:54
Vital Signs
Initial and Last Documented VS:
Initial Vital Signs
Temp Pulse Resp BP Pulse Ox
98.9 F 88 34 158/109 90
02/13/25 02:40 02/13/25 02:40 02/13/25 02:40 02/13/25 02:40 02/13/25 02:40
Last Documented Vital Signs
Temp Pulse Resp BP Pulse Ox
98.9 F 80 18 155/64 95
02/13/25 02:40 02/13/25 05:15 02/13/25 05:15 02/13/25 05:00 02/13/25 04:50
*Pulse Oximetry
SaO2: 90
Nasal Cannula flow liters per minute: 4
Patient hypoxic: no
*Critical Care Note
Total Time (30-74mins, 75-104mins- exclusive of procedures): Not Applicable
Update Note
Update Note:
Additional Information (per [facility]):
NONCONTRAST HEAD CT
IMPRESSION
Compared to 08/18/2021
No evidence of acute intracranial abnormality. No evidence of hemorrhage or mass.
Mild to moderate periventricular and subcortical regions of low attenuation likely representing chronic small vessel ischemic disease. Small old lacunar infarction in the right putamen. Small old posterior right frontal lobe infarct. No CT
criteria for an acute ischemic event, however CT has a diminished sensitivity for hyperacute or acute on chronic stroke.
Ventricles and sulci are prominent compatible with mild atrophy although mildly increased compared to prior.
Bones are unremarkable.
Sinuses are unremarkable.
Case finalized on 02/13/25 03:24 EDT
Ghislaine Dunlap M.D.
This report has been electronically signed and verified by the Radiologist whose name is printed above.
Given the patient is likely HHS, patient to receive some insulin and we will continue to monitor. Patient to be admitted to the hospitalist service.
ED Attending Note
-
Portions of this chart may have been created with voice recognition software.� Occasional wrong word or��sound alike� substitutions may have occurred due to the inherent limitations of voice recognition software.
Discharge Plan
Departure
Patient Disposition: Admit
Admit to: ICU
Presentation/result/management discussed w/ accepting MD/DO: Hospitalist
Condition: Fair
Discharge Problem:
Type 1 diabetes mellitus with hyperosmolar hyperglycemic state (HHS), Comfort measures only status, DNR (do not resuscitate)
Prescriptions:
No Action
furosemide 40 mg Tablet
40 mg PO DAILY
hydralazine 25 mg Tablet
25 mg PO BID
albuterol sulfate 90 mcg/actuation Hfa Aerosol Inhaler
1 puff INHALATION R Q4HPRN PRN (Reason: sob)
timolol maleate (PF) 0.5 % Dropperette
1 drp BOTH EYES BID
budesonide-formoterol [Symbicort] 160-4.5 mcg/actuation Hfa Aerosol Inhaler
2 puff INHALATION R BID
PreserVision AREDS-2 250-90-40-1 mg Capsule
1 tab PO BID
metformin 500 MG tablet extended release 24 hr
500 mg PO BID
Eliquis 5 mg Tablet
5 mg PO BID Qty: 60 0RF
atorvastatin 40 MG tablet
40 mg PO QPM Qty: 30 0RF
glipizide 5 MG tablet
2.5 mg PO DAILY Qty: 15 0RF
Referrals:
Christos Houston PA-C [Family Provider, Family Practice]
Interventions
Interventions:
*Risk Screen - Suicide Last Done: 02/13/25 03:02
*General Assessment Last Done: 02/13/25 05:16
*Neglect/Abuse Screening Last Done: 02/13/25 03:02
*ED- Fall Risk Assessment Last Done: 02/13/25 05:01
*ED COVID-19 Vaccine History Last Done: 02/13/25 03:00
*ED Influenza Vaccine History Last Done: 02/13/25 03:00
ED- Cardiac Assessment Last Done: 02/13/25 03:26
ED- Neurological Assessment Last Done: 02/13/25 03:08
ED- Pulmonary Assessment Last Done: 02/13/25 03:27
Discharge Date and Time
Print Language: TONGAN
[2025-02-13 03:12] LABS: Hematocrit 35.3 % (37.0-47.0); Hemoglobin 11.7 g/dL (12.0-16.0); Mean Corp Hgb Conc. 33.1 g/dL (33.0-37.0); Mean Corpuscular Volume 88.5 fL (81.0-99.0); Nucleated Red Blood Cells % 0 %; Platelet Count 242 10^3/uL (130-400); Red Cell Dist. Width 13.0 % (11.5-14.5)
[2025-02-13 03:39] LABS: ALT (SGPT) 20 U/L (0-35); AST (SGOT) 25 U/L (14-36); Albumin 4.4 g/dl (3.5-5.0); Alkaline Phosphatase 147 U/L (38-126); Blood Urea Nitrogen 36 mg/dl (7-17); Calcium 9.2 mg/dl (8.4-10.2); Carbon Dioxide 23 mmol/L (22-30); Chloride 88 mmol/L (98-107); Estimated Creatinine Clearance 32 ml/min; Potassium 5.2 mmol/L (3.5-5.1); Sodium 122 mmol/L (135-145); Total Protein 7.1 g/dl (6.3-8.2); eGFR 54.19
[2025-02-13 04:12] LABS: Glucose 917 mg/dl (70-99)
[2025-02-13] MEDS: SODIUM CHLORIDE 3% 500 IV (04:20)
[2025-02-13 04:38] LABS: Glucose - Point of Care > 600 mg/dl (70-99)
--- NOTE | 2025-02-13 04:39 | HPS.HSE ---
Addendum entered and electronically signed by Skye Low MD 02/13/25 07:09:
K now 4.1, will add 20mEq to fluids
Addendum entered and electronically signed by Skye Low MD 02/13/25 05:40:
witnessed seizure activity in the ER
partial seizure, per ER attending patient was communicating during episode
in setting of severe hyperglycemia
-treat HHS as below
-seizure precautions
-IV Valium PRN
Addendum entered and electronically signed by Skye Low MD 02/13/25 05:32:
Pseudohyponatremia in setting of hyperglycemia
-corrected sodium is 135
Original Note:
Family Physician
-
Family Physician: Christos Houston PA-C
Chief Complaint
-
blurry vision, right arm tingling and 'feeling off'
History of Present Illness
Ms. Mami Grider is a 89 yo woman with hx HFpEF, COPD, restrictive lung disease on 5L O2, CVA, DM, currently on home hospice presents feeling unwell.
Patient states that she was concerned she was having a stroke because she felt off. No fevers/chills. Her right arm felt tingling. She was able to speak and communicate. No chest pain or shortness of breath. She reports she has been urinating a
lot recently.
Most of patient's medications, including her diabetic medications and insulin have been stopped. She lives at home alone.
She had a witnessed seizure in the ER, treated with Valium. Currently she continues to feel not herself.
Medical History
Past Medical History
Past Medical History: Reports Other (HFpEF, COPD, restrictive lung disease on 5L O2, CVA, DM)
Past Surgical History: Reports Other
Social History
Tobacco: Non-smoker
Alcohol: None
Drug: None
Personal: Single
Living: Alone
Family History
Family History: Not pertinent
Allergies / Home Medications
Allergies reflects when Allergies were last updated in [facility]
Home Medications with original date entered in [facility]
Allergy/Medication List:
*awaiting home meds rec
Review of Systems
-
History Source: Patient
A 12 point ROS was completed and negative except as noted: Yes
Physical Exam
Vital Signs
Vital Signs
Temp Pulse Resp BP Pulse Ox
98.9 F 77 24 99/41 90
02/13/25 02:40 02/13/25 03:30 02/13/25 03:15 02/13/25 03:00 02/13/25 03:31
Physical Exam
General: No Apparent Distress and Conversant
HEENT: PERRLA
Respiratory: Decreased Breath Sounds; No Wheezes or Non Labored Respirations
Cardiac: S1/S2 and Regular Rhythm
GI: Soft and Non Tender
Musculoskeletal: No Edema
Skin: Warm and Dry; No Rash
Neuro: AO x 3
Psych: Calm
Laboratory Results
-
02/13/25 02:54
Laboratory Results
Total Bilirubin 1.4 mg/dl (0.2-1.3) H 02/13/25 02:54
AST 25 U/L (14-36) 02/13/25 02:54
ALT 20 U/L (0-35) 02/13/25 02:54
Alkaline Phosphatase 147 U/L (38-126) H 02/13/25 02:54
Data Reviewed
-
Diagnostic Radiology: Report Reviewed by me
Lab Data: Labs Reviewed by me
Impression/Plan
-
Ms. Mami Grider is a 89 yo woman with hx HFpEF, COPD, restrictive lung disease on 5L O2, CVA, DM, currently on home hospice presents feeling unwell.
Triage VS: T 98.9, P 88, RR 34, BP 158/109, SpO2 90%
LABS: WBC 8.4, Hg 11.7, PLT 242, Na 122 (corrected = 135), K+ 5.2, Cl 88, BUN 86, Cr 1.0, Glucose 917, T. Bili 1.4, AST 25, ALT 20
Hyperosmolar Hyperglycemic Syndrome
Witnessed Seizure
-difficult situation as patient is enrolled in hospice. However, admitting her and safely bringing down blood sugar levels is aligned with comfort. She is still able to live alone and take care of herself. Patient states that the has no problem
getting frequent blood draws. Hopefully we can bring patient's glucose levels down to 300 today then stop all blood checks. She was on Metformin and Glipizide prior to hospice, these can be resumed prior to discharge (correct dosing needs to be
confirmed).
-admit to IMU
-receiving 1L bolus NS followed by NS @ 125/hr (she has a history of heart failure although does not appear volume overloaded now)
-goal decrease in blood sugar is by 90 - 120 mg/dL per hour. She received 7 units in the ER, once I see follow up glucose will start a drip at 0.05 units/kg (3 units/kg)
-q 1 hour bedside glucose
-q 2 hour BMP to monitor potassium
-keep NPO for now, start diet when blood sugar < 300
-goal sugar is between 250-300
Chronic hypoxic respiratory failure on 5L
Restritive Lung Disease
COPD
-discharge to hospice on oral diabetic medications once patient stabilized
-hospice team consulted
Total Critical Care Time 60 minutes. I was immediately available to the patient and staff. I personally examined, reviewed labs, diagnostic images/reports, interpretations, treatment plans, discussed patient care with other providers and family
or caregivers (if patient is unable to make decisions), entered orders as appropriate and documented the medical record.
DVT PPx SCD
DNR
[2025-02-13] MEDS: NSS 500 IV (04:43)
[2025-02-13] MEDS: NOVOLIN R 7 UNITS IV (04:44)
[2025-02-13] MEDS: NSS 1000 IV (05:11)
[2025-02-13 05:25] LABS: Blood Urea Nitrogen 36 mg/dl (7-17); Calcium 9.2 mg/dl (8.4-10.2); Carbon Dioxide 26 mmol/L (22-30); Chloride 91 mmol/L (98-107); Estimated Creatinine Clearance 32 ml/min; Potassium 4.8 mmol/L (3.5-5.1); Sodium 125 mmol/L (135-145); eGFR 54.19
[2025-02-13 05:33] LABS: Glucose 851 mg/dl (70-99)
[2025-02-13 05:39] LABS: Glucose - Point of Care > 600 mg/dl (70-99)
[2025-02-13 06:36] LABS: Blood Urea Nitrogen 35 mg/dl (7-17); Calcium 9.2 mg/dl (8.4-10.2); Carbon Dioxide 26 mmol/L (22-30); Chloride 94 mmol/L (98-107); Estimated Creatinine Clearance 32 ml/min; Glucose 628 mg/dl (70-99); Potassium 4.1 mmol/L (3.5-5.1); Sodium 128 mmol/L (135-145); eGFR 54.19
--- NOTE | 2025-02-13 06:38 | EDRN ---
BG 628, MD Low notified of critical lab
[2025-02-13 07:06] LABS: Glucose - Point of Care 495 mg/dl (70-99)
--- NOTE | 2025-02-13 07:36 | HOSPNOTE ---
Notified by ER nurse and physician that patient was in the ER and being evaluated for witnessed seizure. Patients daughter did not have much insight. Patient wanted CT Scan which was normal. We agreed to admit patient under comfort and treat the low
sodium which was likely the cause of the seizure and reevaluate in the morning hours on if patient needs to revoke services vs go back home on hospice services. Maria M is aware of the situation and will be rounding on this patient this morning.
More information to follow.
--- NOTE | 2025-02-13 07:54 | PTCARENOTE ---
Pt arrived from ED. 2 500ml IV bag currently infusing to gravity. Pt AAOx3 able to make needs known. Pt able to move all extremities, much in proved from ED assessment showing weak right sided movement. Pt making statement she is 'feeling better
now'. Report given to on coming day RN about changes and multiple orders being placed and canceled by providers. Call razo within reach.
[2025-02-13 08:19] LABS: Glucose - Point of Care 493 mg/dl (70-99)
[2025-02-13] MEDS: NSS with KCL 20 MEQ 1000 IV (08:22)
[2025-02-13] MEDS: NOVOLIN R INSULIN INFUSION 100 IV (08:52)
[2025-02-13 09:31] LABS: Blood Urea Nitrogen 31 mg/dl (7-17); Calcium 9.2 mg/dl (8.4-10.2); Carbon Dioxide 25 mmol/L (22-30); Chloride 96 mmol/L (98-107); Estimated Creatinine Clearance 33 ml/min; Glucose 452 mg/dl (70-99); Potassium 4.3 mmol/L (3.5-5.1); Sodium 128 mmol/L (135-145); eGFR > 60.00
[2025-02-13 09:44] LABS: Glucose - Point of Care 449 mg/dl (70-99)
--- NOTE | 2025-02-13 09:56 | PTCARENOTE ---
Pt started on insulin gtt per orders, Q1 hour accuchecks obtained. Pt reading RR high on accuchecks, and stat glucoses ordered. Pt extremely difficult stick and multiple staff members attempting to obtain labs unsuccessfully. Dr. Montes De Oca notified of
situation.
--- NOTE | 2025-02-13 10:23 | HOSPNOTE ---
Spoke with patient and daughter and discussed hospice and the philosophy. The patient would like to seek treatment and then pursue rehab preferably at [facility]. The patient was admitted last evening revoking hospice services. Attending, CM and floor RN
aware of plan. I did discuss with daughter and patient that if she remains at [facility] and hospice is warranted then we would sign patient onto hospice services since we are one of the preferred providers at [facility].
[2025-02-13 10:53] LABS: Glycohemoglobin (HgbA1c) 16.3 % (4.0-5.6)
[2025-02-13 11:07] LABS: Glucose - Point of Care 351 mg/dl (70-99)
[2025-02-13 11:33] LABS: Glucose 346 mg/dl (70-99)
--- NOTE | 2025-02-13 11:55 | CM ---
Addendum entered by Himanshu Cobos 02/13/25 15:51:
SNF preferences in order are: [facility]; [facility]; [facility]; and [facility]. Referrals forwarded.
Addendum entered by Himanshu Cobos 02/13/25 15:40:
Discharge POC: PT eval completed. Recommending SNF. Received preferences and placed referrals. Awaiting OT evaluation. Will need Insurance Auth.
Original Note:
Initial assessment completed with patient and daughter. Patient is alert and oriented. Patient lived alone in a 1st floor condo with 2 steps to enter. MILK SAMPLER she was independent in most ADL's and ambulation with an AD. She has and used a standard
walker, RW, rollator or cane with wheels. Patient is on continuous O2 @ 5L. Has a concentrator and tank. O2 through [employer]. MILK SAMPLER patient was on hospice with hospice. She revoked the hospice this AM and would now prefer to go to SNF for STR and
possible LTC. Attending aware and will place order for PT/OT evaluations. Besides hospice services patient also had a private coal grader for 24 hours a week to assist with hygiene and chores. Does have HC-POA. No VA benefits. No psychiatric
hospitalizations. PCP is [facility] with Christos BUENO. Pharmacy is [facility] [address] in [place]. Discharge POC: Await therapy evaluation. Anticipate SNF. Preference is [facility]. Will wait for therapy eval before sending
referral. Will need Insurance Auth.
[2025-02-13 11:57] LABS: Glucose - Point of Care 282 mg/dl (70-99)
--- NOTE | 2025-02-13 12:48 | W.PN.HOSP.TC ---
Today's Communication/Plan
-
Transition patient to subcu insulin
Restart outpatient prior to hospice medication
Continue with IV fluids
Speech evaluation
Assessment / Plan
Assessment / Plan
Ms. Mami Grider is a 89 yo woman with hx HFpEF, COPD, restrictive lung disease on 5L O2, CVA, DM, currently on home hospice presents feeling unwell.
Triage VS: T 98.9, P 88, RR 34, BP 158/109, SpO2 90%
LABS: WBC 8.4, Hg 11.7, PLT 242, Na 122 (corrected = 135), K+ 5.2, Cl 88, BUN 86, Cr 1.0, Glucose 917, T. Bili 1.4, AST 25, ALT 20
#Hyperosmolar Hyperglycemic Syndrome
#Witnessed Seizure likely 2/2 HHS
Status post bolus of IV regular insulin and on insulin infusion
Patient POC has improved to 282
Transition patient to Lantus 5 units now. Continue with insulin drip. Once patient eats then can stop insulin drip in approximately 2h
Start NovoLog Premeal and insulin sliding scale once gtt discontinued
A1c of 16.3 noted
Diabetic diet. Continue with aggressive IV fluid resuscitation as patient is severely dehydrated
#Chronic hypoxic respiratory failure on 5L
#Restrictive Lung Disease
#COPD
Restart Symbicort
DuoNeb as needed
#Anemia of chronic disease
Monitor hemoglobin.
#CKD stage IIIa
Monitor hemoglobin
#Atrial flutter/atrial fibrillation likely paroxysmal
Not on AV mark agents as with history of bradycardia
Monitor on telemetry
Eliquis has been restarted
#Hyperlipidemia
Continue with statin
Primary hypertension
Hydralazine 25 mg twice daily
DVT PPx -Eliquis
DNR
Discussed with patient daughter at bedside in detail
Of note-patient and daughter has revoked hospice. Thus, medications were restarted based on patient prior hospitalization. Daughter and patient both informed that she was on Eliquis, Lasix and other meds prior to discontinuation while on hospice.
Continue with medical management with eventual plan to transition to long-term care
Discussed with hospice team, case management and RN
Anticipated Discharge: > 48 hours
Subjective/Interval History
-
Date of Service: February 13, 2025
states feeling better compared to yesterday
states her sugars have got lot better
Objective Data
-
Labs:
Laboratory Results
02/13/25 02/13/25 02/13/25
02:54 04:43 05:40
WBC 8.4
Hgb 11.7 L
Hct 35.3 L
Plt Count 242
Sodium 122 L 125 L 128 L
Potassium 5.2 H 4.8 4.1
Chloride 88 L 91 L 94 L
Carbon Dioxide 23 26 26
BUN 36 H 36 H 35 H
Creatinine 1.0 1.0 1.0
Glucose 917 H* 851 H* 628 H*
Calcium 9.2 9.2 9.2
Total Bilirubin 1.4 H
AST 25
ALT 20
Alkaline Phosphatase 147 H
02/13/25 02/13/25 02/13/25
06:30 08:00 08:30
WBC
Hgb
Hct
Plt Count
Sodium Cancelled Cancelled Cancelled
Potassium Cancelled Cancelled Cancelled
Chloride Cancelled Cancelled Cancelled
Carbon Dioxide Cancelled Cancelled Cancelled
BUN Cancelled Cancelled Cancelled
Creatinine Cancelled Cancelled Cancelled
Glucose Cancelled Cancelled Cancelled
Calcium Cancelled Cancelled Cancelled
Total Bilirubin
AST
ALT
Alkaline Phosphatase
02/13/25 02/13/25 02/13/25
08:57 08:57 10:00
WBC
Hgb
Hct
Plt Count
Sodium 128 L Cancelled
Potassium 4.3 Cancelled
Chloride 96 L Cancelled
Carbon Dioxide 25 Cancelled
BUN 31 H Cancelled
Creatinine 0.9 Cancelled
Glucose 452 H* Cancelled Cancelled
Calcium 9.2 Cancelled
Total Bilirubin
AST
ALT
Alkaline Phosphatase
02/13/25 02/13/25 02/13/25
10:55 12:00 14:00
WBC
Hgb
Hct
Plt Count
Sodium Cancelled Cancelled
Potassium Cancelled
Chloride Cancelled
Carbon Dioxide Cancelled
BUN Cancelled
Creatinine Cancelled
Glucose 346 H Cancelled
Calcium Cancelled
Total Bilirubin
AST
ALT
Alkaline Phosphatase
02/13/25 02/13/25 02/13/25
14:00 14:00 14:00
WBC
Hgb
Hct
Plt Count
Sodium Pending
Potassium Cancelled Pending
Chloride Cancelled Pending
Carbon Dioxide Cancelled
BUN
Creatinine
Glucose
Calcium
Total Bilirubin
AST
ALT
Alkaline Phosphatase
02/13/25 02/13/25 02/13/25
14:00 14:00 14:00
WBC
Hgb
Hct
Plt Count
Sodium
Potassium
Chloride
Carbon Dioxide Pending
BUN Cancelled Pending
Creatinine Cancelled Pending
Glucose Cancelled
Calcium
Total Bilirubin
AST
ALT
Alkaline Phosphatase
02/13/25 02/13/25 02/13/25
14:00 14:00 16:00
WBC
Hgb
Hct
Plt Count
Sodium Cancelled
Potassium Cancelled
Chloride Cancelled
Carbon Dioxide Cancelled
BUN Cancelled
Creatinine Cancelled
Glucose Pending Cancelled
Calcium Cancelled Pending Cancelled
Total Bilirubin
AST
ALT
Alkaline Phosphatase
02/13/25 02/13/25 02/13/25
18:00 18:00 18:00
WBC
Hgb
Hct
Plt Count
Sodium Cancelled Pending
Potassium Cancelled Pending
Chloride Cancelled
Carbon Dioxide
BUN
Creatinine
Glucose
Calcium
Total Bilirubin
AST
ALT
Alkaline Phosphatase
02/13/25 02/13/25 02/13/25
18:00 18:00 18:00
WBC
Hgb
Hct
Plt Count
Sodium
Potassium
Chloride Pending
Carbon Dioxide Cancelled Pending
BUN Cancelled Pending
Creatinine Cancelled
Glucose
Calcium
Total Bilirubin
AST
ALT
Alkaline Phosphatase
02/13/25 02/13/25 02/13/25
18:00 18:00 18:00
WBC
Hgb
Hct
Plt Count
Sodium
Potassium
Chloride
Carbon Dioxide
BUN
Creatinine Pending
Glucose Cancelled Pending
Calcium Cancelled Pending
Total Bilirubin
AST
ALT
Alkaline Phosphatase
02/13/25 02/13/25
20:00 22:00
WBC
Hgb
Hct
Plt Count
Sodium Cancelled Cancelled
Potassium Cancelled Cancelled
Chloride Cancelled Cancelled
Carbon Dioxide Cancelled Cancelled
BUN Cancelled Cancelled
Creatinine Cancelled Cancelled
Glucose Cancelled Cancelled
Calcium Cancelled Cancelled
Total Bilirubin
AST
ALT
Alkaline Phosphatase
Vital Signs:
Vital Signs
Temp Pulse Resp BP Pulse Ox
97.7 F 75 21 105/78 98
02/13/25 08:07 02/13/25 10:00 02/13/25 10:00 02/13/25 08:00 02/13/25 10:00
[2025-02-13] MEDS: LANTUS 0.05 UNITS SC (13:09)
[2025-02-13 13:18] LABS: Glucose - Point of Care 154 mg/dl (70-99)
[2025-02-13] MEDS: D5/0.9% SODIUM CHLORIDE 1000 IV (13:41)
--- NOTE | 2025-02-13 14:15 | PTCARENOTE ---
Insulin gtt continues to infuse and titrated based on accucheck results- see intervention. Daughter at bedside, updated on plan of care. Seizure pads remain in place for safety, no seizure like activity noted. Pt ringing appropriately, call razo
within reach.
[2025-02-13 14:17] LABS: Glucose - Point of Care 130 mg/dl (70-99)
[2025-02-13 15:15] LABS: Glucose - Point of Care 240 mg/dl (70-99)
--- NOTE | 2025-02-13 15:35 | W.RAPID.EEG ---
Rapid EEG
-
Procedure Date: 02/13/25
Results:
IMPRESSION:
No evidence of status epilepticus
Diagnostic Recording Time: 00:54:09 (54 minutes)
Recording 1:
Start Time: Feb 13, 2025 03:25 AM End Time: Feb 13, 2025 04:20 AM
Recording Technique: This EEG was obtained using a 10 lead, 8 channel system positioned circumferentially without any parasagittal coverage (rapid EEG).Computer selected EEG is reviewed as well as background features and all clinically significant
events. Clarity algorithm utilized and implemented to provide analysis of underlying activity and seizure detection used to facilitate reading. ICD-10 Code VX10K36
Clinical History: EBONY ONTIVEROS is a 89 year old Undifferentiated AMS patient undergoing EEG to screen for non-convulsive status epilepticus.
Disclaimer: EEG findings should be interpreted in the context of clinical history and other tests. A normal EEG does not rule out epilepsy or other conditions, and an abnormal EEG is not diagnostic on its own. Technical factors may affect
interpretation. Clinical context is required.
--- NOTE | 2025-02-13 16:19 | PTOTSP ---
Dysphagia Evaluation:
Pt presents w/ acute (blood sugar levels) and chronic risk (COPD, hx of CVA, baseline 5LPM via NC, reported difficulty w/ P.O. medications) factors for aspiration/dysphagia. However, no overt s/sx of aspiration observed during bedside swallow
evaluation. It is recommended that pt takes medications crushed in puree and resumes Regulars, Thins diet.
Recommendations:
1. Regulars, Thins
2. Medications crushed in puree
3. Strategies: Single sips/bites, slow rate, alternating liquid wash, partial assistance for meal set up
4. ST will sign off. Reconsult if change in diet level tolerance or pt presentation.
--- NOTE | 2025-02-13 16:28 | PTCARENOTE ---
IVF and Insulin gtt d/c per orders. Pt now for Q2 accuchecks. Pt updated.
[2025-02-13 16:31] LABS: Glucose - Point of Care 260 mg/dl (70-99)
[2025-02-13] MEDS: LIPITOR 40 MG PO (17:07)
[2025-02-13] MEDS: NOVOLOG FLEXPEN 3 UNITS SC (17:07)
[2025-02-13] MEDS: NOVOLOG FLEXPEN-MODERATE RESISTANCE 5 UNITS SC (17:08)
[2025-02-13 18:59] LABS: Glucose - Point of Care 354 mg/dl (70-99)
[2025-02-13] MEDS: SYMBICORT 160/4.5 MCG INHALER 2 PUFF INH (19:24)
[2025-02-13] MEDS: ELIQUIS 5 MG PO (20:28)
[2025-02-13] MEDS: APRESOLINE 25 MG PO (20:30)
[2025-02-13 20:38] LABS: Glucose - Point of Care 293 mg/dl (70-99)
--- NOTE | 2025-02-13 20:40 | PTCARENOTE ---
Assumed care of Pt from dayshift RN, after change of shift report. Pt is aaox3. afib on monitor HR 60bpm. wearing 6L 02, satting 95%. Q2hr glucose checks maintained. 20:30 glucose check 293. assessment as documented. call light in reach.
[2025-02-13] MEDS: LANTUS 0.06 UNITS SC (22:10)
[2025-02-13 22:52] LABS: Glucose - Point of Care 339 mg/dl (70-99)
[2025-02-14] VITALS (16 sets, daily range): BP systolic 89–152; BP diastolic 46–84; PULSE 62; O2SAT 96; BMI 28.1
[2025-02-14 00:47] LABS: Glucose - Point of Care 346 mg/dl (70-99)
[2025-02-14 02:49] LABS: Glucose - Point of Care 354 mg/dl (70-99)
[2025-02-14 04:21] LABS: Glucose - Point of Care 336 mg/dl (70-99)
[2025-02-14 06:13] LABS: Hematocrit 32.5 % (37.0-47.0); Hemoglobin 10.9 g/dL (12.0-16.0); Mean Corp Hgb Conc. 33.5 g/dL (33.0-37.0); Mean Corpuscular Volume 89.5 fL (81.0-99.0); Nucleated Red Blood Cells % 0 %; Platelet Count 189 10^3/uL (130-400); Red Cell Dist. Width 12.7 % (11.5-14.5)
[2025-02-14 06:16] LABS: Blood Urea Nitrogen 28 mg/dl (7-17); Calcium 9.4 mg/dl (8.4-10.2); Carbon Dioxide 23 mmol/L (22-30); Chloride 104 mmol/L (98-107); Estimated Creatinine Clearance 33 ml/min; Glucose 301 mg/dl (70-99); Potassium 4.7 mmol/L (3.5-5.1); Sodium 131 mmol/L (135-145); eGFR > 60.00
[2025-02-14 06:56] LABS: Glucose - Point of Care 295 mg/dl (70-99)
[2025-02-14] MEDS: SYMBICORT 160/4.5 MCG INHALER 2 PUFF INH ×2 (07:30→19:35)
[2025-02-14 08:06] LABS: Glucose - Point of Care 283 mg/dl (70-99)
[2025-02-14] MEDS: NOVOLOG FLEXPEN-MODERATE RESISTANCE 5 UNITS SC (08:44)
[2025-02-14] MEDS: NOVOLOG FLEXPEN 3 UNITS SC (08:45)
[2025-02-14] MEDS: APRESOLINE 25 MG PO ×2 (08:45→20:25)
[2025-02-14] MEDS: ELIQUIS 5 MG PO ×2 (08:46→20:25)
--- NOTE | 2025-02-14 10:50 | PTCARENOTE ---
Assumed care of patient at beginning of this shift from previous RN. Accu check pre-breakfast was 283; received sliding scale coverage and mealtime insulin as per order. Insulin orders then changed by Christina Gregg to increase mealtime insulin and
lantus. Patient worked with OT; OOB to chair with 1 assist. See worklist for full assessment and vital signs.
--- NOTE | 2025-02-14 11:33 | W.PN.HOSP.TC ---
Addendum entered and electronically signed by Jaiden Montes De Oca MD 02/14/25 13:00:
CXR with Mild diffuse interstitial prominence may reflect pulmonary interstitial edema/CHF and/or pneumonitis with underlying chronic interstitial lung disease.
did receive IVF. Will start lasix 20mg (used to be on 40mg prior to hospice).
Original Note:
Today's Communication/Plan
-
Monitor POC
Monitor blood pressure/heart rate
Check a chest x-ray
Transfer out of IMU
Increase insulin
Start disposition process
Assessment / Plan
Assessment / Plan
Ms. Mami Grider is a 89 yo woman with hx HFpEF, COPD, restrictive lung disease on 5L O2, CVA, DM, currently on home hospice presents feeling unwell.
#Hyperosmolar Hyperglycemic Syndrome
#Diabetes mellitus
#Witnessed Seizure likely 2/2 HHS
Status post bolus of IV regular insulin and on insulin infusion
Continue with Lantus 10 units nightly and NovoLog 5 units AC. Insulin sliding scale.
A1c of 16.3 noted
Diabetic diet.
Adjust insulin based on POC. Diabetic GOLF SALES MANAGER consulted.
Status post aggressive IV fluid resuscitation.
# Acute on chronic hypoxic respiratory failure on 5L
#Restrictive Lung Disease
#COPD
Restart Symbicort
DuoNeb as needed
Wean O2 at baseline.
Check a chest x-ray.
#Anemia of chronic disease
Monitor hemoglobin.
#CKD stage IIIa
Monitor hemoglobin
#Atrial flutter/atrial fibrillation likely paroxysmal
Not on AV mark agents as with history of bradycardia
Monitor on telemetry
Eliquis has been restarted
#Hyperlipidemia
Continue with statin
Primary hypertension
Hydralazine 25 mg twice daily
DVT PPx -Eliquis
DNR
Discussed with patient daughter at bedside in detail on 02/13/25
Of note-patient and daughter has revoked hospice. Thus, medications were restarted based on patient prior hospitalization. Daughter and patient both stated that she was on Eliquis, Lasix and other meds prior to discontinuation while on hospice.
Continue with medical management with eventual plan to transition to long-term care
Anticipated Discharge: 24 - 48 hours
Subjective/Interval History
-
Date of Service: February 14, 2025
Worked with therapy earlier today
Tolerating diet
Currently on 6 L. Denies shortness of breath.
Objective Data
-
Labs:
Laboratory Results
02/14/25
05:29
WBC 9.1
Hgb 10.9 L
Hct 32.5 L
Plt Count 189 D
Sodium 131 L
Potassium 4.7
Chloride 104
Carbon Dioxide 23
BUN 28 H
Creatinine 0.9
Glucose 301 H
Calcium 9.4
Vital Signs:
Vital Signs
Temp Pulse Resp BP Pulse Ox
98.4 F 60 14 121/57 95
02/14/25 07:42 02/14/25 10:00 02/14/25 10:00 02/14/25 10:00 02/14/25 10:03
I&O
02/13/25 02/14/25 02/15/25
06:59 06:59 06:59
Output Total 1500 / 1500
Balance -1500 / -1500
Physical Exam
-
General: Well Developed, No Apparent Distress and Other (sitting in chair )
HEENT: Normocephalic, Atraumatic, Moist Mucous Membranes and Oxygen (6L)
Respiratory: Decreased Breath Sounds
Cardiac: S1/S2; Negative Murmur, Rub or Gallop
GI: Soft, Nontender, Nondistended and Normal Bowel Sounds; Negative Organomegaly
Rectal: Deferred by Provider
Musculoskeletal: No Clubbing, No Cyanosis and No Edema
Skin: Negative Rash
Neuro: Awake, No Motor Deficits and Nonfocal/Grossly Intact
Psych: Calm
Data Reviewed
-
Total Time Spent with Patient (in minutes): 55
[2025-02-14 11:56] LABS: Glucose - Point of Care 345 mg/dl (70-99)
[2025-02-14] MEDS: NOVOLOG FLEXPEN-MODERATE RESISTANCE 7 UNITS SC (12:06)
--- NOTE | 2025-02-14 12:54 | PN.DE.MGMTRT ---
Insulin Management
- -
02/14/2025 Diabetes Management Consult
Patient admitted from home 02/13 with c/o feeling 'off'. PMH CVA, diabetes, HTN, COPD. Prior to admission was on hospice and all medications had been stopped. Previously was on glipizide 2.5 mg daily and metformin 500 mg BID. A1C 16.3%, cr .9,
eGFR > 60.
Patient is awake alert and oriented out of bed in chair able to discuss diabetes. States she has had diabetes 20 years, too oral medication until she went on hospice. She has since admission stopped hospice. She is hoping to be placed in SNF/LTC.
Discussed with patient she would need insulin at this time.
Received 6 units lantus @ HS last evening, fasting glucose 295. Will increase HS lantus to 10 units. Pre meal and HS glucose > 300 yesterday. Will increase ac novolog from 3 units to 5 units with moderate corrective insulin.
Patient is unable to prepare and inject insulin, agree with SNF/LTC.
Discussed with nurse.
Will follow.
Diabetes History
- -
Type of Diabetes: 2
Pre-Admission Diabetes Regimen
02/13/25 02/13/25 02/14/25
14:00 18:00 05:29
Creatinine Cancelled Cancelled 0.9
Lab Results
Hemoglobin A1c 16.3 % (4.0-5.6) H 02/13/25 02:54
Insulin Pump Settings
IP Diabetes Regimen
02/13/25 02/13/25 02/13/25
13:07 14:00 14:05
Glucose Cancelled
POC Glucose 154 H 130 H
02/13/25 02/13/25 02/13/25
15:04 16:20 18:00
Glucose Cancelled
POC Glucose 240 H 260 H
02/13/25 02/13/25 02/13/25
18:47 20:28 22:41
Glucose
POC Glucose 354 H 293 H 339 H
02/14/25 02/14/25 02/14/25
00:36 02:38 04:10
Glucose
POC Glucose 346 H 354 H 336 H
02/14/25 02/14/25 02/14/25
05:29 06:45 07:55
Glucose 301 H
POC Glucose 295 H 283 H
02/14/25
11:45
Glucose
POC Glucose 345 H
Meal type: Breakfast
Amount consumed: 100%
Patient Education
[2025-02-14] MEDS: NOVOLOG FLEXPEN 5 UNITS SC ×2 (12:58→17:52)
--- NOTE | 2025-02-14 16:18 | CM ---
Following up on Patient. Patient is still having blood pressure/heart rate monitored, a chest x-ray as well, still PT/OT is recommending SNF. Referrals have been made. PLAN: SNF when ready.
[2025-02-14 16:43] LABS: Glucose - Point of Care 380 mg/dl (70-99)
[2025-02-14] MEDS: NOVOLOG FLEXPEN-MODERATE RESISTANCE 9 UNITS SC (17:52)
[2025-02-14] MEDS: LIPITOR 40 MG PO (17:53)
--- NOTE | 2025-02-14 21:08 | PTCARENOTE ---
Report given to receiving RN on .
[2025-02-14 21:40] LABS: Glucose - Point of Care 251 mg/dl (70-99)
--- NOTE | 2025-02-14 22:11 | PTCARENOTE ---
pt [facility] to [facility] by this Rn.
[2025-02-14 22:39] LABS: Glucose - Point of Care 213 mg/dl (70-99)
[2025-02-14] MEDS: LANTUS 0.1 UNITS SC (22:43)
[2025-02-15 02:42] LABS: Glucose - Point of Care 209 mg/dl (70-99)
[2025-02-15 02:59] VITALS: BP 143/73
[2025-02-15 07:10] VITALS: BP 122/57
[2025-02-15] MEDS: SYMBICORT 160/4.5 MCG INHALER 2 PUFF INH (07:14)
[2025-02-15 07:55] LABS: Glucose - Point of Care 174 mg/dl (70-99)
--- NOTE | 2025-02-15 08:02 | PN.DE.MGMTRT ---
Insulin Management
- -
02/15/2025 Diabetes Management Follow up
Patient admitted from home 02/13 with c/o feeling 'off'. PMH: CVA, diabetes, HTN, COPD. Prior to admission was on hospice and all medications had been stopped. She is hoping to be placed in SNF/LTC. States she has had diabetes 20 years, took oral
medications until she went on hospice. Previously was on glipizide 2.5 mg daily and metformin 500 mg BID. A1C 16.3%, cr .9, eGFR > 60. Discussed current A1C and informed patient that she would need insulin at this time.
Patient is awake alert and oriented out of bed in chair able to discuss diabetes.
Pre meal glucose 251 to 380 and HS glucose 251. Received 10 units Lantus @ HS last evening, fasting glucose 174 this AM.
Will make no changes to current regimen. Cont AC NovoLog 5 units with moderate corrective insulin and Lantus 10 units @ HS.
Avoid aggressive insulin doses given advanced age with complex medical conditions and limited life expectancy.
Patient is unable to prepare and inject insulin, agree with SNF/LTC.
Discussed with nurse. Will cont to follow.
Diabetes History
- -
Type of Diabetes: 2 requiring insulin
Pre-Admission Diabetes Regimen
Lab Results
Hemoglobin A1c 16.3 % (4.0-5.6) H 02/13/25 02:54
Insulin Pump Settings
IP Diabetes Regimen
02/14/25 02/14/25 02/14/25
07:55 11:45 16:31
POC Glucose 283 H 345 H 380 H
02/14/25 02/14/25 02/15/25
21:29 22:37 02:41
POC Glucose 251 H 213 H 209 H
02/15/25
07:54
POC Glucose 174 H
Meal type: Breakfast
Amount consumed: 100%
Patient Education
[2025-02-15 08:11] LABS: Blood Urea Nitrogen 24 mg/dl (7-17); Calcium 9.0 mg/dl (8.4-10.2); Carbon Dioxide 25 mmol/L (22-30); Chloride 105 mmol/L (98-107); Estimated Creatinine Clearance 33 ml/min; Glucose 182 mg/dl (70-99); Potassium 4.2 mmol/L (3.5-5.1); Sodium 134 mmol/L (135-145); eGFR > 60.00
[2025-02-15] MEDS: NOVOLOG FLEXPEN-MODERATE RESISTANCE 1 UNITS SC (09:48)
[2025-02-15] MEDS: NOVOLOG FLEXPEN 5 UNITS SC ×3 (09:48→16:58)
[2025-02-15] MEDS: LASIX 20 MG PO (09:49)
[2025-02-15] MEDS: ELIQUIS 5 MG PO (09:49)
[2025-02-15] MEDS: APRESOLINE 25 MG PO (09:49)
[2025-02-15 11:00] VITALS: BP 132/53
[2025-02-15 11:17] VITALS: BP 116/56; PULSE 64; O2SAT 92
--- NOTE | 2025-02-15 11:34 | CM ---
Addendum entered by Laith Foreman 02/15/25 16:17:
concrete stone fabricating supervisor time 18:30.
Addendum entered by Laith Foreman 02/15/25 14:46:
CEFERINO VILLANUEVA Avinash [phone] called and provided auth: Pt is approved for SNF level of care at [facility] for 7 initial days starting today 02/15/25 till with LCD 02/21/25 and NRD 02/22/25. Auth: [id number]
Auth information forwarded to [facility] event coordinator and she confirmed that pt is accepted for admission today.
to arrange ambulance transport [facility]. [facility]NC completed and left with .
Both pt and her daughter are aware of discharge.
[facility] nursing report: [phone]
Discharge instructions fax: [phone]
D/C plan: [facility]
Original Note:
CM following re: discharge planning.
Reviewed [pt's chart, met with pt and spoke to pt's daughter Mckenzie to update on discharge plan progress.
According to MD pt is medically stable to be discharged today. Both pt and her daughter are aware, expressed their agreement. IMM reviewed, placed on chart, pt has a copy.
Both pt and her daughter have been informed by this CM that [facility] SNF, [facility] and [facility] denied a referral. [facility] offered a bed.Both pt and her daughter agree with [facility].
CM spoke to [facility] event coordinator and she confirmed they do have a bed available, pt is admitted when an auth obtained.
RICH initiated an auth from CEFERINO for SNF level of care at [facility], pending reference number: [id number]. Requested pt's clinical faxed to [phone].
Awaiting for an auth.
D/C plan: [facility]. Awaiting for an auth.
[2025-02-15 11:40] VITALS: BMI 28.5
[2025-02-15 11:45] LABS: Glucose - Point of Care 345 mg/dl (70-99)
[2025-02-15 12:03] VITALS: BMI 28.5
[2025-02-15] MEDS: NOVOLOG FLEXPEN-MODERATE RESISTANCE 7 UNITS SC (13:05)
--- NOTE | 2025-02-15 14:33 | W.PN.HOSP.TC ---
Today's Communication/Plan
-
Discharge planning
Assessment / Plan
Assessment / Plan
#Hyperosmolar Hyperglycemic Syndrome
#Diabetes mellitus
#Witnessed Seizure likely 2/2 HHS
Status post bolus of IV regular insulin and on insulin infusion
Continue with Lantus 10 units nightly and NovoLog 5 units AC. Insulin sliding scale.
A1c of 16.3 noted
Diabetic diet.
Adjust insulin based on POC. Diabetic PHYSICAL THERAPY PROFESSOR consulted.
Status post aggressive IV fluid resuscitation.
#Acute on chronic hypoxic respiratory failure on 5L
#Restrictive Lung Disease
#COPD
Restart Symbicort
DuoNeb as needed
Wean O2 at baseline.
Check a chest x-ray.
#Anemia of chronic disease
Monitor hemoglobin.
#CKD stage IIIa
Monitor hemoglobin
#Atrial flutter/atrial fibrillation likely paroxysmal
Not on AV mark agents as with history of bradycardia
Monitor on telemetry
Eliquis has been restarted
#Hyperlipidemia
Continue with statin
Primary hypertension
Hydralazine 25 mg twice daily
Diet: IDDSI 6
DVT PPx: Eliquis
CODE STATUS: DNR, though has revoked hospice level of care and is now full treatment otherwise
Disposition: Pending SNF placement, medically stable for discharge to SNF once bed obtained, likely within next 24 hours
Anticipated Discharge: Within 24 hours
Subjective/Interval History
-
Date of Service: February 15, 2025
Seen and examined at the bedside. No acute events reported overnight. AFVSS on 3 to 5 L O2
Just completed walking the halls with physical therapist, SpO2 85% on 3 L at the time
Patient states she felt short of breath following PT, in general has had improved breathing since admission. Denies any new complaints
Objective Data
-
Labs:
Laboratory Results
02/15/25
06:55
Sodium 134 L
Potassium 4.2
Chloride 105
Carbon Dioxide 25
BUN 24 H
Creatinine 0.9
Glucose 182 H
Calcium 9.0
Vital Signs:
Vital Signs
Temp Pulse Resp BP Pulse Ox
98.3 F 73 16 132/53 93
02/15/25 11:00 02/15/25 11:00 02/15/25 11:00 02/15/25 11:00 02/15/25 11:00
I&O
02/14/25 02/15/25 02/16/25
06:59 06:59 06:59
Output Total 1500 / 1500
Balance -1500 / -1500
Review of Systems
-
History Source: Patient
All other systems: Reviewed and negative
Physical Exam
-
General: Well Developed, No Apparent Distress, Appears Chronically Ill and Obese
HEENT: Normocephalic, Atraumatic and Moist Mucous Membranes
Respiratory: Crackles and Non Labored Respirations; Negative Wheezes, Rales or Accessory Resp Muscle Use
Cardiac: Regular Rhythm and S1/S2; Negative Murmur, Rub or Gallop
GI: Soft, Nontender, Nondistended and Normal Bowel Sounds
Musculoskeletal: No Clubbing, No Cyanosis and No Edema
Skin: Warm and Dry; Negative Rash
Neuro: AO x 3 and Nonfocal/Grossly Intact; Negative Tremors
Psych: Calm
Data Reviewed
-
Labs: Labs Reviewed by me and Discussed with Patient
[2025-02-15 15:10] VITALS: BP 147/72
[2025-02-15 16:11] LABS: Glucose - Point of Care 224 mg/dl (70-99)
[2025-02-15] MEDS: NOVOLOG FLEXPEN-MODERATE RESISTANCE 3 UNITS SC (16:58)
[2025-02-15] MEDS: LIPITOR 40 MG PO (16:58)
--- NOTE | 2025-02-16 13:35 | W.DCSUMMARY ---
Discharge Summary
Discharge Data
Date of Admission: 02/13/25
Date of Discharge: 02/15/25
Total time spent discharging patient (in min): 33
-
Pending Results: No
Hospital Course
Discharging Physician : Edward Martinez DO
Disposition : SNF
Principal Discharge diagnosis :
Hyperglycemic hyperosmolar state
IDDM type II
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
Chronic Discharge diagnosis :
Chronic hypoxemic respiratory failure (5 L baseline)
COPD/ILD
CKD 3 AA
AOCD
AF/AFL on Eliquis
Primary hypertension
Dyslipidemia
Hospital Course :
89-year-old female that presented to the hospital on 02/13/2025 with abnormal sensorium that developed into a seizure event while in the ED. Seizure was witnessed by ED staff. Patient was on hospice however revoked hospice after discussion with her
daughter while in the hospital. Initial labs demonstrated HHS with serum glucose 917 and pseudohyponatremia of 122. Was started on IV insulin protocol and admitted to the IMU, underwent every 2 hour BMPs and every hour glucose checks on insulin
protocol. Was ultimately weaned off of her insulin drip and transition to subcutaneous regimen of Lantus 10 units nightly, insulin aspart 5 units with meals and ISS. Seizure activity ultimately due to electrolyte imbalance and significant
hyperglycemia present from HHS and she had no further seizure activity with correction of her laboratory abnormalities. Family and patient decided to pursue SNF options at time of discharge. Was resumed on her previous treatment based regimen that
included Eliquis, Symbicort, statin, Lasix, hydralazine. Discontinued her oral antihyperglycemic agents.
Important imaging findings : N/A
Procedure findings : N/A
Consultants:
Diabetic nurse practitioner: Linda Gregg
Follow-up:
Follow-up with family doctor within 1 week of discharge
Discharge Plan
-
Patient Disposition: Longterm/SNF
Discharge Diagnosis/Procedures: Hyperglycemic hyperosmolar state
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
IDDM
Chronic hypoxemic respiratory failure (5 L baseline)
COPD/ILD
CKD 3A
AF/AFL on Eliquis
Hypertension
Dyslipidemia
Condition: Fair
Diet: Diabetic, Carb Controlled and No added salt
Activity: With assistance and As tolerated
Driving Restrictions: No driving
Bathing Restrictions: None
Blood Work: BMP, CBC with differential in 5 to 7 days after discharge from hospital
Repeat A1c in 3 months
Other Services: PT and OT
Specialty Instructions: Weigh Daily- Call MD for wt gain/loss 3 lbs overnight/5 lbs in 1 week
Referrals:
Christos Houston PA-C [Family Provider, Family Practice] - in less than 1 week
Additional Discharge Medication Instructions: Reduced Lasix from 40 to 20 mg daily
Insulin regimen: Lantus 10 units nightly, insulin aspart 5 units with meals, sliding scale insulin as needed
Stopped glipizide and metformin
Prescriptions:
New
furosemide 20 mg Tablet
20 mg PO DAILY Qty: 30 0RF
Insulin Glargine Lantus [Lantus] 10 UNITS
Subcutaneous Insulin Syringe [Syringe-Insulin] 0 UNIT
As Directed mls/hr SC HS
Ordered By: Edward Martinez, DO
Last Taken: 02/14/25 22:43 0.1 mls
atorvastatin 40 mg Tablet
40 mg PO QPM Qty: 30 0RF
insulin aspart U-100 100 unit/mL (3 mL) Insulin Pen
5 unit SC AC Qty: 15 0RF
Continued
hydralazine 25 mg Tablet
25 mg PO BID
albuterol sulfate 90 mcg/actuation Hfa Aerosol Inhaler
1 puff INHALATION R Q4HPRN PRN (Reason: sob)
timolol maleate (PF) 0.5 % Dropperette
1 drp BOTH EYES BID
budesonide-formoterol [Symbicort] 160-4.5 mcg/actuation Hfa Aerosol Inhaler
2 puff INHALATION R BID
PreserVision AREDS-2 250-90-40-1 mg Capsule
1 tab PO BID
atorvastatin 40 MG tablet
40 mg PO QPM
Eliquis 5 mg tablet
5 mg PO BID
Discontinued
furosemide 40 mg Tablet
40 mg PO DAILY
metformin 500 MG tablet extended release 24 hr
500 mg PO BID
glipizide 5 MG tablet
2.5 mg PO DAILY
No Action
metformin 500 mg Tablet Extended Release 24 Hr
500 mg PO BID
Discharge Orders:
Discharge Patient (As Directed); Ordered 02/15/25
Ordered By: Edward Martinez
Discharge Date and Time
Discharge Date/Time: 02/15/25 18:30
Print Language: CZECH
== END 2025-02-15 18:30 | DRG 638 ==
LOC: 2 NORTH 05:20
PROVIDERS: Hospitalist; Psychiatry & Neurology Neurology; ADMITTING PHYSICIAN Student in an Organized Health Care Education/Training Program; ATTENDING PHYSICIAN Internal Medicine; EMERGENCY PHYSICIAN Student in an Organized Health Care Education/Training Program; FAMILY PHYSICIAN Physician Assistant Medical
PROC: XX20X89 Monitoring of Brain Electrical Activity, Computer-aided Detection and Notification, New Technology Group 9 (ICD-10-PCS; 2025-02-13)
DX: E11.00 Type 2 diabetes mellitus with hyperosmolarity without nonketotic hyperglycemic-hyperosmolar coma (NKHHC) (principal); E87.0 Hyperosmolality and hypernatremia; I13.0 Hypertensive heart and chronic kidney disease with heart failure and stage 1 through stage 4 chronic kidney disease, or unspecified chronic kidney disease; I50.32 Chronic diastolic (congestive) heart failure; J84.9 Interstitial pulmonary disease, unspecified; J96.11 Chronic respiratory failure with hypoxia; R56.9 Unspecified convulsions; J44.9 Chronic obstructive pulmonary disease, unspecified; E78.5 Hyperlipidemia, unspecified; N18.31 Chronic kidney disease, stage 3a; Z66 Do not resuscitate; D63.1 Anemia in chronic kidney disease; Z79.01 Long term (current) use of anticoagulants; Z79.4 Long term (current) use of insulin; Z79.51 Long term (current) use of inhaled steroids; Z79.84 Long term (current) use of oral hypoglycemic drugs; Z79.899 Other long term (current) drug therapy; Z86.73 Personal history of transient ischemic attack (TIA), and cerebral infarction without residual deficits
CPT/HCPCS: 70450; 71046; 80048; 80053; 82947; 82962; 83036; 85025; 92610; 94640; 96361; 96374; 97163; 97167; 97530; 97535; 99285

== ENCOUNTER 2025-03-22 18:39 | Inpatient (IN) | payer OTHER, SELFPAY ==
[2025-03-22] VITALS (18 sets, daily range): BP systolic 80–153; BP diastolic 25–86; BMI 28.3
[2025-03-22 16:41] LABS: Hematocrit 35.4 % (37.0-47.0); Hemoglobin 11.6 g/dL (12.0-16.0); Mean Corp Hgb Conc. 32.8 g/dL (33.0-37.0); Mean Corpuscular Volume 90.1 fL (81.0-99.0); Nucleated Red Blood Cells % 0 %; Platelet Count 244 10^3/uL (130-400); Red Cell Dist. Width 14.8 % (11.5-14.5)
[2025-03-22 17:02] LABS: ALT (SGPT) 26 U/L (0-35); AST (SGOT) 35 U/L (14-36); Albumin 4.3 g/dl (3.5-5.0); Alkaline Phosphatase 107 U/L (38-126); Blood Urea Nitrogen 38 mg/dl (7-17); Calcium 9.5 mg/dl (8.4-10.2); Carbon Dioxide 19 mmol/L (22-30); Chloride 105 mmol/L (98-107); Glucose 203 mg/dl (70-99); Magnesium 1.7 mg/dl (1.6-2.3); Potassium 4.6 mmol/L (3.5-5.1); Sodium 134 mmol/L (135-145); Total Protein 7.2 g/dl (6.3-8.2); eGFR 39.55
[2025-03-22 17:13] LABS: Troponin I 0.028 ng/ml
[2025-03-22] MEDS: LASIX 40 MG IV (17:30)
--- NOTE | 2025-03-22 18:00 | ED.GENMED ---
History of Present Illness
General
Chief Complaint: Breathing Problem
Source: patient
Time Seen by Provider: 03/22/25 16:04
History of Present Illness
History of Present Illness:
Note:
CHIEF COMPLAINT(S)
Shortness of breath.
HISTORY OF PRESENT ILLNESS
The patient is an 89-year-old female with a history of atrial fibrillation who presents with increased shortness of breath. She typically maintains an oxygen saturation in the high 80s on six liters of oxygen but reports increased dyspnea with
exertion, noting, 'Even a little bit of movement makes me drop,' referring to her oxygen saturation. She expressed that any exertion, such as going to the bathroom, exacerbates her shortness of breath.
The patient lives alone and was previously on hospice care primarily for heart-related issues and atrial fibrillation. She described an incident where her glucose levels elevated to 900 mg/dL while she was home alone, leading to a brief hospital
stay followed by rehabilitation.
The patient indicated an interest in receiving further medical intervention today, including blood work, x-rays, and medications. She also consented to treatments to optimize her oxygenation status.
PAST MEDICAL AND SURGICAL HISTORY
Atrial fibrillation, which she attributed as a reason for prior hospice care. Reports of extremely high glucose levels leading to hospitalization.
SOCIAL DETERMINANTS AFFECTING HEALTH
The patient currently lives alone and has had difficulty managing her diabetes at home, which has previously resulted in dangerously high glucose levels.
REVIEW OF SYSTEMS
- Respiratory: Increased shortness of breath with exertion.
- Cardiovascular: History of atrial fibrillation.
PHYSICAL EXAM
General: Mild respiratory distress noted.
Cardiovascular: Irregularly irregular heart rhythm and bradycardic. Moderate bilateral lower extremity edema noted.
Respiratory: Severely diminished breath sounds at bilateral bases, no crackles auscultated. Pulse oximetry at 80% on a non-rebreather.
Gastrointestinal: Abdomen is not distended.
Neuro: no focal deficits
PLAN
1. Perform blood work and obtain a chest x-ray.
2. Administer medications to manage her condition and improve oxygenation status.
3. Consider humidified oxygen therapy or high-flow oxygen as appropriate.
4. Continuously monitor her oxygen saturation and respiratory status.
5. Review prior medical records for additional context on her condition and previous treatments.
DIFFERENTIAL DIAGNOSIS
The Differential Diagnosis includes, in no particular order and is not limited to:
1. Congestive heart failure
2. Chronic obstructive pulmonary disease (COPD) exacerbation
3. Pneumonia
4. Pulmonary embolism
5. Acute coronary syndrome
6. Anemia
7. Pulmonary edema
8. Cardiac arrhythmias
9. Asthma exacerbation
10. Pleural effusion
EKG
My independent EKG interpretation is:
- Time of EKG not specified
- Rhythm: Atrial fibrillation
- Heart rate: 49 bpm (slow ventricular response)
- Voltage: Low voltage
- QRS duration: Normal
- Abnormalities: Non-specific ST and T wave changes
Disposition:
SUMMARY OF ENCOUNTER
An 89-year-old female with a history of atrial fibrillation presented to the emergency department with increased shortness of breath, particularly exacerbated with mild exertion. The patient has been managed on comfort measures in the past due to
advanced heart-related issues. On examination, it was noted that she is likely experiencing volume overload, evidenced by edema in the lower extremities. Following a preliminary hemolent chest x-ray, intravenous furosemide (Lasix) was administered
to alleviate congestion and she was placed on mid-flow oxygen therapy. Subsequently, her condition stabilized. Laboratory results showed a normal white blood cell count, a hemoglobin value at her baseline, slight renal insufficiency, elevated
glucose level, and markedly elevated BNP. Chest x-ray findings were consistent with increased pulmonary vascular markings. She maintained an oxygen saturation of 88% to 90% on current treatment.
DISPOSITION
Admit.
ASSESSMENT
Volume overload secondary to underlying cardiac issues, resulting in pulmonary congestion and exacerbated shortness of breath.
EMERGENCY TREATMENTS ADMINISTERED
Intravenous furosemide (Lasix) and mid-flow oxygen therapy.
PLAN
1. Continue monitoring cardiovascular and respiratory status.
2. Maintain diuresis with possible titration of intravenous furosemide.
3. Adjust oxygen therapy as needed to maintain target oxygen saturation.
4. Evaluate renal function and glucose management strategies.
INDEPENDENT REVIEW OF LABS AND INTERPRETATION OF TESTS
- My independent review of lab results indicates normal white blood cell count (9.3), hemoglobin at 11.6 (consistent with patients baseline), sodium at 134, creatinine showing slight renal insufficiency at 1.3, elevated glucose at 203, and elevated
BNP at 7,880.
- My independent interpretation of the chest x-ray reveals increased pulmonary vascular markings, suggesting pulmonary congestion.
MEDICATION RECONCILIATION
1. Intravenous furosemide (Lasix) was administered to manage suspected volume overload.
MEDICAL DECISION MAKING
-Complexity of Data Reviewed: Chronic conditions affecting care [atrial fibrillation, history of volume overload, diabetes]. Differential diagnosis considered: Congestive heart failure, pulmonary edema, potential COPD exacerbation.
-Data:
Category 1
- Reviewed current lab tests and x-ray results to assess the status of potential volume overload and pulmonary congestion.
Category 2
- My independent interpretation of the chest x-ray confirms increased pulmonary vascular markings.
-Risk:
Care significantly affected by Social Determinants of Health: The patient lives alone and has experienced difficulty managing diabetes, contributing to elevated glucose levels and potential complications from complex cardiac and respiratory
conditions.
DIAGNOSIS
- Congestive heart failure with exacerbation of pulmonary congestion (ICD-10 code: I50.9)
- Atrial fibrillation (ICD-10 code: I48.91)
- Type 2 diabetes mellitus with hyperglycemia (ICD-10 code: E11.65)
Past History
Past History
ED Past Medical History: COPD, CVA, HTN and NIDDM
ED Past Surgical History: Orthopedic (L forearm fx)
Social History
Tobacco: Non-smoker
Alcohol: None
Drug: None
Living: with family
Family History
Family History: Other (not pertinent)
Phy Exam
Physical Exam
Physical Exam:
.
Scores
Heart Failure Risk
Heart Failure Risk Score: Yes
History of Stroke or TIA: Yes
History of intubation for respiratory distress: No
Heart rate on ED arrival >/= 110: No
SaO2 <90% on arrival on room air: Yes
HR >/=110 during 3min walk test (or too ill to perform test): Yes
ECG has acute ischemic changes: No
Urea >/=12mmol/L (BUN 33.6mg/dL): Yes
Serum CO2>/=35mmol/L: No
Troponin I or T elevated to AR Level (0.4mg/dL): No
NT-proBNP >/=5,000ng/L (5,000pg/ml): Yes
HF Risk Score: 6
Admission Status: VERY HIGH RISK 55.3% Consider admission to hospital
Course
Orders/Labs/Results
Orders:
Orders
03/22/25 Breakfast
2200 calorie (18 carb) Diabetic
Fluid Restriction: 1200 mL/day (40 oz)
03/22/25 15:18
Electrocardiogram (*1) Urgent
Reason for Study: Shortness of Breath
EKG- Treatment ONCE
03/22/25 16:21
Cardiac Monitoring- Treatment ONCE
CR Chest Portable - 1 View Urgent
Comment:
Reason For Exam: sob, LE edema
Reason Study Needs to be Portable: Patient Unstable
03/22/25 16:30
Complete Blood Count/With Diff Urgent
Comprehensive Metabolic Panel Urgent
Magnesium Urgent
NT-proBNP Urgent
Troponin I Urgent
03/22/25 17:06
Furosemide [Lasix] 40 mg IV NOW STA
03/22/25 18:24
Admit/Transfer Patient As Directed
Co-Sign Provider:
Level of Care: Inpatient admission
Assign to:: IMU- Intermediate Care
Physician / Group: [email or web address]
Diagnosis: acute hypoxia
Reason for Hospitalization: CHF exacerbation
Expected length of stay greater than two midnights?: Yes
ELOS- Estimated Length of Stay in days: 3
I certify the patient meets the requirements for IP care: Yes
PRN Pain Medication Management As Directed
May give lesser potent ordered pain med per pt: Yes
preference::
Protocol:: Medication orders for pain may be administered in a
manner that supports deferring to patient preference
when the pt is:
- Requesting an ordered lesser potent pain medication.
Least to most potent pain medications are defined
as: acetaminophen < NSAID < tramadol < opioids
(morphine, oxycodone, hydromorphone).
- Requesting a lesser dose of the same medication IF
ORDERED.
- Requesting a less intrusive route of administration
if both routes are prescribed by the provider (PO <
IV).
03/22/25 18:26
Code Status As Directed
Resuscitation Status: Do not resuscitate
Reached after discussion with pt or family/Healthcare POA: Yes
DNR Bracelet Application ONCE
03/22/25 19:48
Atorvastatin [Lipitor] 40 mg PO QPM
Dextrose 50%-Water [Dextrose 50% Syringe] 12.5 grams IV A85SISH PRN
Glucagon [GlucaGen] 1 mg IM PRN PRN
Ipratropium/Albuterol Sulfate [Duoneb] 3 ml INH R Q4HPRN PRN
03/22/25 19:48
CARDIOLOGY CONSULT Routine
Consulting Provider: Clinton Reeves
Was physician already notified: Yes
HF DIETARY CONSULT Routine
HF EDUCATOR CONSULT Routine
Comment:
Activity As Directed
Activity Level: As Tolerated
Bedside Glucose Monitoring As Directed
Frequency: AC&HS
Additional Instructions:: Change to q6h if pt on TPN, tube feeding or not eating
Intake/ Output As Directed
Frequency: Per unit guidelines
Patient Education As Directed
Type: CHF folder
Comment: give on admission. Document in Interdisciplinary Education record
Sleep Apnea Assessment by RN As Directed
Comment:
Physician Instructions:
Vital Signs As Directed
Frequency: Other
Additional Instructions:: Q12 or per unit guidelines if more frequent.
Weight As Directed
Frequency: Daily
Type of Scale: Standing Scale
Comment: Daily morning weight. If unable to stand, use balanced bed scale.
Weight As Directed
Frequency: Once
Type of Scale: Standing Scale
Comment: Upon Admission. If unable to stand, use balanced bed scale.
Pulse Ox/cont/shift [RESP] Routine
Quantity: 1
Special Instructions: Daily pulse oximetry at rest. If greater than 92% at rest also obtain pulse oximetry
while ambulating as tolerated.
Pt Eval And Treat Routine
Activity Level: As Tolerated
03/22/25 20:00
Apixaban [Eliquis] 5 mg PO BID
Fluticasone/Salmeterol 115/21 [Advair Hfa 115/21 Mcg Inhaler] 2 puff INH R BID
HydrALAZINE [Apresoline] 25 mg PO BID
Timolol Maleate 0.5% [Timoptic 0.5% Ophthalmic Solution] See Dose Instructions BOTH EYES BID
Vit C/Vit E/Lutein/Min/Brothers-3 [Ocuvite Softgel] 1 cap PO BID
03/23/25 06:00
Basic Metabolic Panel IN AM
Cardiovascular Evaluation IN AM
Complete Blood Count/No Diff IN AM
Glycohemoglobin (HgbA1c) IN AM
Magnesium IN AM
TSH Reflex To Free T4 IN AM
03/23/25 07:30
Insulin Aspart Corrective Low [Novolog Flexpen-Low Resistance] See Protocol SC AC
Insulin Aspart Pen [Novolog Flexpen] 2 units SC AC
03/23/25 08:00
Furosemide [Lasix] 40 mg IV DAILY
03/24/25 06:00
Basic Metabolic Panel IN AM
03/25/25 06:00
Basic Metabolic Panel IN AM
Abnormal Lab Results
03/22/25
16:30
RBC 3.93 L 10^6/uL
(4.20-5.40)
Hgb 11.6 L g/dL
(12.0-16.0)
Hct 35.4 L %
(37.0-47.0)
MCHC 32.8 L g/dL
(33.0-37.0)
RDW 14.8 H %
(11.5-14.5)
Absolute Neuts (auto) 6.7 H 10^3/uL
(1.4-6.5)
Absolute Monos (auto) 0.8 H 10^3/uL
(0.1-0.6)
Lymphocytes % 15.9 L %
(20.5-51.1)
Sodium 134 L mmol/L
(135-145)
Carbon Dioxide 19 L mmol/L
(22-30)
BUN 38 H mg/dl
(7-17)
Creatinine 1.3 H mg/dL
(0.6-1.0)
Glucose 203 H mg/dl
(70-99)
Total Bilirubin 1.4 H mg/dl
(0.2-1.3)
03/22/25 16:30
03/22/25 16:30
Vital Signs
Initial and Last Documented VS:
Initial Vital Signs
Temp Pulse Resp BP Pulse Ox
97.7 F 55 18 146/61 87
03/22/25 15:13 03/22/25 15:13 03/22/25 15:13 03/22/25 15:13 03/22/25 15:13
Last Documented Vital Signs
Temp Pulse Resp BP Pulse Ox
97.4 F 71 23 86/28 100
03/22/25 22:49 03/22/25 23:32 03/22/25 23:32 03/22/25 23:32 03/22/25 23:32
*Pulse Oximetry
SaO2: 77
Nasal Cannula flow liters per minute: 6
Oxygen Mode of Delivery: Midflow Nasal Cannula
Patient hypoxic: yes
*Livestock Rancher Interpretation
Rate: bradycardiac
Interpretation: abnormal
Rhythm: a-fib
*Critical Care Note
Total Time (30-74mins, 75-104mins- exclusive of procedures): 35
Patient Management
Discussion with other providers: Hospitalist
ED Attending Note
-
Portions of this chart may have been created with voice recognition software.� Occasional wrong word or��sound alike� substitutions may have occurred due to the inherent limitations of voice recognition software.
Discharge Plan
Departure
Patient Disposition: Admit
Date of Disposition: 03/22/25
Time of Disposition: 18:00
Admit to: Telemetry
Presentation/result/management discussed w/ accepting MD/DO: Hospitalist
Discharge Problem:
Congestive heart failure, Interstitial lung disease, Hypoxia
Interventions
Interventions:
*Risk Screen - Suicide Last Done: 03/22/25 20:44
*General Assessment Last Done: 03/22/25 17:04
*Neglect/Abuse Screening Last Done: 03/22/25 15:13
*ED- Fall Risk Assessment Last Done: 03/22/25 16:58
*ED COVID-19 Vaccine History Last Done: 03/22/25 16:58
*ED Influenza Vaccine History Last Done: 03/22/25 16:58
*Nursing Disposition Last Done: 03/22/25 19:56
ED- Cardiac Assessment Last Done: 03/22/25 16:58
ED- Pulmonary Assessment Last Done: 03/22/25 16:58
Discharge Date and Time
Discharge Date/Time: 03/22/25 19:57
--- NOTE | 2025-03-22 18:09 | HPS.HSE ---
Addendum entered and electronically signed by Jj Castellon MD 03/22/25 19:06:
This is an addendum to the H&P written by Jeanette Bentley on 03/22/2025. �Patient seen and examined independently with [employer].
89-year-old female past medical history of diabetes, chronic hypoxic respiratory failure on 6 L oxygen, restrictive lung disease, COPD, anemia of chronic disease, CKD 3A, atrial flutter/fibrillation likely paroxysmal, diastolic CHF, moderate to
severe tricuspid regurgitation, hyperlipidemia, hypertension, presenting with progressive shortness of breath with exertion, lower extremity edema. �Chronic cough.
Moved to long term last week where she she can only use 5 L liters maximum.
Vital signs show hypoxemia on 6 L oxygen now requiring midflow 15L.�
Labs show creatinine of 1.3. �Cardiac BNP is 7800. �Chest x-ray shows cardiomegaly with increased pulmonary vascularity.
Patient with acute HFpEF exacerbation with SAAD on CKD 3b likely cardiorenal. �IV Lasix, cardiology consulted.
Original Note:
Family Physician
-
Family Physician: NOT KNOW UNKNOWN - PT DOES
Chief Complaint
-
Shortness of breath
History of Present Illness
89-year-old female with a history of atrial fibrillation, CHF, ILD, type 2 diabetes presented to us with worsening short of breath for 1 week. Patient stated she moved from SNF from rehab a week ago. She usually uses 6 L of oxygen but here at the
SNF they can only give her up to 5 L. Patient stated short of breath which is worse with exertion. She has noticed bilateral lower extremities edema. Denied fever, chills. She has chronic cough. Patient denied any headache, dizzy or syncope.
Patient denied abdominal pain, nausea, vomiting or diarrhea. Patient denied dysuria hematuria.
Upon arrival she was noted in CHF exacerbation, she is requiring mid flow. Patient received a dose of Lasix in ER. Admitting for further management
Medical History
Past Medical History
Past Medical History: Reports Other
Additional Past Medical History:
Hyperlipidemia, type 2 diabetes, hypertension, macular degeneration, anemia, left subclavian stenosis, CVA
Past Surgical History: Reports Other
Additional Past Surgical History:
Plate placed in the left arm
Social History
Tobacco: Non-smoker
Alcohol: None
Drug: None
Living: [facility]
Family History
Family History: Not pertinent
Allergies / Home Medications
Allergies reflects when Allergies were last updated in [facility].
Home Medications with original date entered in [facility]
Allergy/Medication List:
Allergies
Allergy/AdvReac Type Severity Reaction Status Date / Time
No Known Allergies Allergy Verified 01/16/24 16:21
Home Medications
albuterol sulfate 90 mcg/actuation aerosol inhaler 1 puff inhalation R Q4HPRN PRN sob 01/16/24
hydralazine 25 mg tablet 25 mg PO BID Blood Pressure 01/16/24
timolol maleate (PF) 0.5 % eye drops in a dropperette 1 drp BOTH EYES BID Eye Condition 01/16/24
vit C 250 mg-vit E 90 mg-zinc 40 mg-copper 1 [id number] capsule (PreserVision AREDS-2) 1 tab PO BID Supplement 01/16/24
apixaban 5 mg tablet (Eliquis) 5 mg PO BID Blood Clot Prevention/Tx 02/14/25
atorvastatin 40 mg tablet 40 mg PO QPM High Cholesterol 02/14/25
metformin 500 mg tablet,extended release 24 hr 1,000 mg PO BID Diabetes 02/15/25
acetaminophen 325 mg tablet (Tylenol) 650 mg PO Q6HPRN PRN MILD PAIN 03/22/25
fluticasone 250 mcg-salmeterol 50 mcg/dose blistr powdr for inhalation (Advair Diskus) 1 inh inhalation R BID Lung/Breathing Issues 03/22/25
furosemide 20 mg tablet 20 mg PO DAILY Fluid Retention/Swelling 03/22/25
insulin glargine 100 unit/mL (3 mL) subcutaneous pen (Lantus Solostar U-100 Insulin) 10 unit SC HS Diabetes 03/22/25
insulin lispro 100 unit/mL subcutaneous pen (Admelog SoloStar U-100 Insulin lispro) 5 sliding scale dose SC AC Diabetes 03/22/25
magnesium hydroxide 400 mg/5 mL oral suspension (Milk of Magnesia) 2,400 mg PO DAILYPRN PRN CONSTIPATION 03/22/25
Review of Systems
-
Constitutional: Reports No Symptoms
EENT: Reports No Symptoms
Respiratory: Reports Trouble Breathing
Cardiac: Reports No Symptoms
Abdomen/GI: Reports No Symptoms
: Reports No Symptoms
Musculoskeletal: Reports Edema (Bilateral lower extremity)
Skin: Reports No Symptoms
Neurological: Reports No Symptoms
Endocrine: Reports No Symptoms
Hematologic/Lymphatic: Reports No Symptoms
Psych: Reports No Symptoms
Physical Exam
Vital Signs
Vital Signs
Temp Pulse Resp BP Pulse Ox
97.7 F 52 15 122/58 77
03/22/25 15:13 03/22/25 17:30 03/22/25 17:30 03/22/25 17:30 03/22/25 18:03
Physical Exam
General: Well Developed, Well Nourished and No Apparent Distress
HEENT: NormoCephalic, Moist mucous membranes and Atraumatic
Respiratory: Crackles
Cardiac: S1/S2 and Regular Rhythm; No Murmur or Rub
GI: Soft, Non Tender, Non Distended and Normal Bowel Sounds; No Organomegaly
Rectal: Deferred by Provider
Musculoskeletal: No Clubbing, No Cyanosis and Other (Bilateral lower extremities edema)
Skin: No Rash
Neuro: AO x 3 and Nonfocal/grossly intact
Psych: Calm
Laboratory Results
-
03/22/25 16:30
03/22/25 16:30
Laboratory Results
Total Bilirubin 1.4 mg/dl (0.2-1.3) H 03/22/25 16:30
AST 35 U/L (14-36) 03/22/25 16:30
ALT 26 U/L (0-35) 03/22/25 16:30
Alkaline Phosphatase 107 U/L (38-126) 03/22/25 16:30
Troponin I 0.028 ng/ml 03/22/25 16:30
Data Reviewed
-
Diagnostic Radiology: Report Reviewed by me
Lab Data: Labs Reviewed by me
Impression/Plan
-
# Acute on chronic hypoxic respiratory failure secondary to CHF exacerbation
- Patient requiring mid flow
- Continue supplemental oxygen to keep sat greater than 95, wean as tolerated
- IV diuretics continued, strict ROSCOE, daily weight, fluid restriction
- Recent echo with EF of 60-65 percentage
- Cardiology consulted
- BNP 7800
- Chest x-ray with Cardiomegaly with increased pulmonary vascularity. Findings could represent CHF or acute pulmonary edema.
# Anemia of chronic disease
- Hemoglobin stable at 11.6, no active bleeding
- Continue to monitor
# CKD stage IIIb
- Creatinine 1.3
- Continue to monitor
# History of restrictive lung disease
# History of COPD
- Nebs continued
#Atrial flutter/atrial fibrillation likely paroxysmal
-Eliquis continued
#Hyperlipidemia
Continue with statin
#Primary hypertension
-Hydralazine 25 mg twice daily
# Type 2 diabetes
- Lantus continued, sliding scale
- CHO diet
- Metformin held
#Macular degeneration
- Eyedrops continued
#Diet: IDDSI 6
DVT PPx: Eliquis
CODE STATUS: DNR
[2025-03-22] MEDS: ADVAIR HFA 115/21 MCG INHALER INH (20:26)
--- NOTE | 2025-03-22 20:38 | PTCARENOTE ---
Received pt from ED via stretcher on 15L MFNC. Pulse ox 82%. NRB placed on pt at 15L; pulse ox slowly recovered to 90% with increased WOB. RT at bedside to assess. HFNC placed on pt at 100% and 50L; pulse ox 92%. Improved WOB but still
utilizing accessory muscles. Crackles at b/l bases. Skin intact with blanchable red sacrum; foam placed for protection. Pt resting in bed with call razo in reach.
[2025-03-22] MEDS: LIPITOR 40 MG PO (21:08)
[2025-03-22] MEDS: ELIQUIS 5 MG PO (21:09)
[2025-03-22] MEDS: APRESOLINE 25 MG PO (21:09)
[2025-03-22] MEDS: TIMOPTIC 0.5% OPHTHALMIC SOLUTION 1 DROP BOTH EYES (21:09)
[2025-03-22] MEDS: OCUVITE SOFTGEL PO ×2 (21:09→21:10)
[2025-03-22] MEDS: LANTUS 0.05 UNITS SC (21:16)
[2025-03-22 21:26] LABS: Glucose - Point of Care 159 mg/dl (70-99)
[2025-03-22] MEDS: LEVOPHED 250 IV (23:45)
[2025-03-22] MEDS: DUONEB 3 ML INH (23:59)
[2025-03-23] VITALS (51 sets, daily range): BP systolic 81–167; BP diastolic 24–92; BMI 27.8
[2025-03-23 05:02] LABS: Hematocrit 35.5 % (37.0-47.0); Hemoglobin 11.5 g/dL (12.0-16.0); Mean Corp Hgb Conc. 32.4 g/dL (33.0-37.0); Mean Corpuscular Volume 92.9 fL (81.0-99.0); Platelet Count 233 10^3/uL (130-400); Red Cell Dist. Width 14.9 % (11.5-14.5)
--- NOTE | 2025-03-23 05:15 | PTCARENOTE ---
BP trending downward with MAPs in the 40s and 50s. Notified MUNICIPAL SERVICES MANAGER. Levo ordered and administered to pt. Currently running at 3 mcg/min. Pt remains AAOx3; very easily arousable. Also notified MUNICIPAL SERVICES MANAGER of HR in the 30s/40s; asymptomatiic. Resting in
bed with call razo in reach.
[2025-03-23 06:20] LABS: Blood Urea Nitrogen 35 mg/dl (7-17); Calcium 9.2 mg/dl (8.4-10.2); Carbon Dioxide 22 mmol/L (22-30); Chloride 105 mmol/L (98-107); Estimated Creatinine Clearance 27 ml/min; Glucose 190 mg/dl (70-99); HDL Cholesterol 40 mg/dl; LDL Cholesterol, Calculated 24 mg/dl; Magnesium 1.6 mg/dl (1.6-2.3); Potassium 4.1 mmol/L (3.5-5.1); Sodium 134 mmol/L (135-145); Very Low Density Lipoprotein 12 mg/dl (0-30); eGFR 48.33
--- NOTE | 2025-03-23 07:11 | CON.CAR ---
Consultation
Consultation Request
Date/Time Consultation Requested: March 23, 2025
Date/Time Consultation Performed: March 23, 2025
Requesting Provider: Hospitalist
Performing Provider: CardiologyMorris
Reason for Consultation: Acute on chronic diastolic congestive heart failure
Medical History
-
Chief Complaint: Acute on chronic diastolic congestive heart failure
History of Present Illness:
89-year-old female who lives in assisted living presents with 3 to 4 days of increased dyspnea, dyspnea on exertion orthopnea and limited mobility. She has a longstanding history of diastolic heart failure and elevated pulmonary pressures.
Overnight she received IV Lasix and is -1.2 L in terms of fluid balance. She feels more comfortable after the IV Lasix and is breathing better today
Past Medical History
Past Medical History: CHF
Past Surgical History: Other
Social History
Tobacco: Non-Smoker
Alcohol: None
Drug: None
Personal:
Living: Assisted Living
Employment: Not Employed
Family History
Family History: Reviewed & Not Pertinent
Allergies / Home Medications
Allergy/AdvReac Type Severity Reaction Status Date / Time
No Known Allergies Allergy Verified 01/16/24 16:21
�Medication �Instructions �Recorded �Confirmed �Type
albuterol sulfate 90 mcg/actuation 1 puff inhalation R Q4HPRN PRN sob 01/16/24 03/22/25 History
aerosol inhaler
hydralazine 25 mg tablet 25 mg PO BID Blood Pressure 01/16/24 03/22/25 History
timolol maleate (PF) 0.5 % eye 1 drp BOTH EYES BID Eye Condition 01/16/24 03/22/25 History
drops in a dropperette
vit C 250 mg-vit E 90 mg-zinc 40 1 tab PO BID Supplement 01/16/24 03/22/25 History
mg-copper 1 [id number]
capsule (PreserVision AREDS-2)
apixaban 5 mg tablet (Eliquis) 5 mg PO BID Blood Clot 02/14/25 03/22/25 History
Prevention/Tx
atorvastatin 40 mg tablet 40 mg PO QPM High Cholesterol 02/14/25 03/22/25 History
metformin 500 mg tablet,extended 1,000 mg PO BID Diabetes 02/15/25 03/22/25 History
release 24 hr
acetaminophen 325 mg tablet 650 mg PO Q6HPRN PRN MILD PAIN 03/22/25 03/22/25 History
(Tylenol)
fluticasone 250 mcg-salmeterol 50 1 inh inhalation R BID 03/22/25 03/22/25 History
mcg/dose blistr powdr for Lung/Breathing Issues
inhalation (Advair Diskus)
furosemide 20 mg tablet 20 mg PO DAILY Fluid 03/22/25 03/22/25 History
Retention/Swelling
insulin glargine 100 unit/mL (3 10 unit SC HS Diabetes 03/22/25 03/22/25 History
mL) subcutaneous pen (Lantus
Solostar U-100 Insulin)
insulin lispro 100 unit/mL 5 sliding scale dose SC AC Diabetes 03/22/25 03/22/25 History
subcutaneous pen (Admelog SoloStar
U-100 Insulin lispro)
magnesium hydroxide 400 mg/5 mL 2,400 mg PO DAILYPRN PRN 03/22/25 03/22/25 History
oral suspension (Milk of Magnesia) CONSTIPATION
Review of Systems
-
All other systems: Negative unless noted
Respiratory: Trouble Breathing
Cardiac: Other (Dyspnea dyspnea exertion)
Hematologic/Lymphatic: No Symptoms
Physical Exam
Vital Signs
Temp Pulse Resp BP Pulse Ox
97.8 F 46 11 135/72 96
03/23/25 03:00 03/23/25 06:15 03/23/25 06:15 03/23/25 06:00 03/23/25 06:15
Lab Results
03/23/25 04:36
03/23/25 05:48
Troponin I 0.028 ng/ml 03/22/25 16:30
Xbo-F-Emnqxmisina Pept 7880 pg/ml 03/22/25 16:30
Physical Exam
General: Well Developed and Well Nourished
HEENT: Normocephalic
Respiratory: Crackles
Cardiac: Irregular Rhythm and Other
Breast: Deferred by me
GI: Soft, Non Tender and Non Distended
Rectal: Deferred by Provider
Musculoskeletal: No Clubbing and No Cyanosis
Skin: Warm and Dry
Neuro: Awake, Alert and Oriented
Hematologic/Lymphatic: No Lymphadenopathy
Psych: Calm
Impression / Plan
-
Primary Field Examiner: Dr. Ferguson
Assessment:
Presentation with acute on chronic dyspnea on exertion/shortness of breath
Persistent atrial fibrillation/atrial flutter with adequate rate control
Pulmonary hypertension
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
Chronic renal insufficiency
Hypertension
Hyperlipidemia
Obesity
LVH
Type 2 diabetes
History of CVA requiring TPA 2021
History of symptomatic bradycardia
History of anemia
History of LE edema on norvasc
ECHO 08/19/2021: Hyperdynamic LV, mild concentric LVH, EF 70 to 75%, stage II diastolic dysfunction, posterior MAC, mild MR, aortic sclerosis, mild TR, PAP 52 mmHg
ECHO 01/17/24: EF 60 to 65%, mild concentric LVH, posterior MAC, mild MR, aortic sclerosis, trace AR, severe TR, PAP 59 mmHg, severely dilated RA, dilated and hypokinetic RV
Reviewed echo from July 2024 with relatively similar findings
Recommendations:
Continue Eliquis for thromboembolic prophylaxis
She is rate controlled on telemetry
Agree with IV Lasix with careful monitoring of renal function
After 1 dose of IV Lasix yesterday she appears to already be improving with her breathing and I suspect she would be able to moved to telemetry in the next 24 to 48 hours
Probably would benefit from some physical therapy while she is here in the hospital
We will follow with you
Data Reviewed
-
EKG: Tracing Personally Visualized and interpreted
Radiology: Image Personally Visualized and interpreted
Medical Tests (Nuc Med, Echo etc): Image Personally Visualized and interpreted
Labs: Labs Reviewed by me
Old Records: Reviewed
[2025-03-23] MEDS: DUONEB 3 ML INH ×3 (07:45→20:56)
[2025-03-23] MEDS: ADVAIR HFA 115/21 MCG INHALER 2 PUFF INH ×2 (07:45→19:23)
[2025-03-23] MEDS: OCUVITE SOFTGEL 1 CAP PO (07:59)
[2025-03-23] MEDS: APRESOLINE 25 MG PO (07:59)
[2025-03-23] MEDS: ELIQUIS 5 MG PO ×2 (07:59→19:58)
[2025-03-23] MEDS: LASIX 40 MG IV ×2 (07:59→16:04)
--- NOTE | 2025-03-23 08:00 | PTCARENOTE ---
Received patient after shift change. Pt is on HFO2 w/oxygen saturation at 98%. Levo infusion running at 3mcg/min. Pt AAOX3. Noted to have labored breathing but denies pain and remains asymptomatic. Plan of care ongoing, and pt will continue to be
closely monitored.
[2025-03-23] MEDS: TIMOPTIC 0.5% OPHTHALMIC SOLUTION 1 DROP BOTH EYES ×2 (08:15→19:58)
[2025-03-23 08:45] LABS: Glucose - Point of Care 210 mg/dl (70-99)
[2025-03-23] MEDS: NOVOLOG FLEXPEN 2 UNITS SC ×3 (08:51→17:39)
[2025-03-23] MEDS: NOVOLOG FLEXPEN-LOW RESISTANCE 2 UNITS SC (08:51)
[2025-03-23 09:14] LABS: Glycohemoglobin (HgbA1c) 10.2 % (4.0-5.9)
--- NOTE | 2025-03-23 11:07 | W.PN.HOSP.TC ---
Addendum entered and electronically signed by Richi Brewster MD 03/23/25 12:12:
Attending�addendum:
I saw and evaluated the patient. I reviewed the resident�s note and agree with findings and plan as documented in the resident�s note. Patient seen and examined at bedside, denies any chest pain , shortness of breath Improved, but still on mid
flow nasal cannula, no abdominal pain, no nausea, no vomiting, no diarrhea or constipation.
lower extremity edema.
Physical�exam:
GENERAL : Patient is awake, alert, oriented x3
HEENT: Nonicteric sclerae, PERRLA, EOMI. Oropharynx clear. Moist mucous membranes. Conjunctivae appear well perfused.
CHEST: Chest wall is nontender.
HEART: Regular rate and rhythm without murmurs.
LUNGS: Diffuse bilateral Rales
ABDOMEN: Soft, positive bowel sounds, nontender, no organomegaly.
RECTAL: Deferred.
MUSCLES/EXTREMITIES: Bilateral lower extremity edema
NEUROLOGIC: Cranial nerves II-XII intact without motor/sensory deficit.
�
Assessment/plan:
Acute on chronic diastolic CHF
Continue diuresis
Appreciate cardiology input
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
Creatinine improved
Anemia of chronic disease.
Monitor hemoglobin
CODE STATUS: DNR
DVT prophylaxis: Eliquis
Diet: Diabetic
Disposition: Continue lasix
�
Total time spent on today�s encounter was 55 minutes which included time spent in counseling the patient/family regarding diagnosis and treatment plan as listed above, goals of care, and symptom management. Case was discussed with nursing staff,
specialists, and care coordinators/case management. All labs and imaging personally reviewed by me. Remainder the time spent in detailed review of previous records, lab data, imaging, and other medical provider documentation.
Original Note:
Today's Communication/Plan
-
Continue supplemental O2
Continue Lasix; consider increased dosing
PT
CM consult for O2 needs
Assessment / Plan
Assessment / Plan
Mami Cheo is a 89F w/ PMHx A/fib (on Eliquis), HFpEF, ILD, T2DM, COPD, ACD, CKD3a, moderate TR, HLD, HTN, and pHTN who presented w/ SOB (worse w/ exertion) x 1 week, orthopnea and limited mobility in the setting of recent move to assisted
living facility where she was unable to receive an adequate amount of O2 therapy for her needs, and was found to have increased O2 requirements, pulmonary vascular congestion on CXR and elevated BNP on arrival alongside SAAD on CKD.
1. Acute on Chronic Heart Failure with Preserved Ejection Fraction
- Respiratory distress on arrival, SaO2 80% on NRB, started on MidFlow
- Improvement in sx on Midflow, currently SaO2 97%
- Continue supplemental O2 and wean as tolerated
- Goal O2 90-94% (questionable history of COPD?)
- BNP (ED): 7800
- Weight on Admission: 64.8kg
- 4.1 kg loss as of today
- CXR (ED): increased pulmonary vascularity
- Started on IV Lasix 40mg daily
- On 20mg PO daily at home
- Can consider increasing IV Lasix dosing to BID, but will exercise caution since she came in with SAAD on CKD
- Cardiology Consult: agrees with IV Lasix
- ECHO 07/11/24: EF 60 to 65%, mild concentric LVH, posterior MAC, mild MR, aortic sclerosis, trace AR, severe TR, PAP 65-70 mmHg, severely dilated RA, dilated and hypokinetic RV
2. 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
- Exercise caution with Lasix administration
- Daily BMPs
- Cr 1.3 on arrival (baseline appears to be 0.9)
- Improvement to 1.1 this morning
- Decongestion in setting of cardiorenal syndrome?
3. Anemia of Chronic Disease
- Hemoglobin stable
- Continue to Monitor
4. History of COPD
- Continue Advair, PRN nebs
- Wean O2 to goal 90-94%
5. Persistent Atrial Fibrillation w/o Ventricular Response
- Adequate rate control
- Continue Eliquis
6. HLD/HTN/T2DM
- Continue Home Meds
- Low Resistance Sliding Scale
- Hold Metformin
Other Conditions Present Prior to Arrival
Restrictive Lung Disease
Interstitial Lung Disease
Macular Degeneration
CODE: DNR
Diet: 2200cal DM
DVT: Eliquis
Anticipated Discharge: Within 24 hours
Subjective/Interval History
-
Date of Service: March 23, 2025
Feeling better this AM.
Still some SOB with exertion or talking for a longer period of time.
Improved lower extremity edema.
Still on midflow O2.
Objective Data
-
Labs:
Laboratory Results
03/23/25 03/23/25
04:36 05:48
WBC 10.2
Hgb 11.5 L
Hct 35.5 L
Plt Count 233
Sodium Cancelled 134 L
Potassium Cancelled 4.1
Chloride Cancelled 105
Carbon Dioxide Cancelled 22
BUN Cancelled 35 H
Creatinine Cancelled 1.1 H
Glucose Cancelled 190 H
Calcium Cancelled 9.2
Vital Signs:
Vital Signs
Temp Pulse Resp BP Pulse Ox
97.8 F 64 11 120/59 96
03/23/25 03:00 03/23/25 07:59 03/23/25 06:15 03/23/25 07:59 03/23/25 06:15
I&O
03/22/25 03/23/25 03/24/25
06:59 06:59 06:59
Intake Total 240 / 240
Output Total 1500 / 1500 700 / 700
Balance -1260 / -1260 -700 / -700
Review of Systems
-
History Source: Patient
All other systems: Reviewed and negative
Physical Exam
-
General: Comfortable and Conversant
HEENT: Normocephalic, Atraumatic and Moist Mucous Membranes
Respiratory: Crackles (particularly at the bases)
Cardiac: Irregular Rhythm and Bradycardic
Musculoskeletal: No Clubbing, No Cyanosis and Other (2+ lower extremity edema bilaterally to the level of the mid baig)
Skin: Warm
Neuro: Awake, Alert and Oriented
Psych: Calm
Data Reviewed
-
Diagnostic Radiology: Image personally visualized and interpreted and Report Reviewed by me
Labs: Labs Reviewed by me and Discussed with Patient
[2025-03-23 11:25] LABS: Glucose - Point of Care 251 mg/dl (70-99)
[2025-03-23] MEDS: MORPHINE SULFATE 1 MG IV ×2 (12:20→21:02)
[2025-03-23] MEDS: NOVOLOG FLEXPEN-LOW RESISTANCE 3 UNITS SC ×2 (12:26→17:39)
--- NOTE | 2025-03-23 16:19 | PTCARENOTE ---
Remains on HFO2 50L 70% sao2 93% RR 26-34, Dyspneic- IV Levo weaned off this am still has occasional sbp 90s but currently 138/57 asymptomatic with lower one. IV Lasix as ordered. Purewick intact with good urine output. Appetite very good.
D/w Dr. Brewster - MSO4- 1mg iv given. RR improved, BP remains >100- breathing comfortably now. sao2 92%.
[2025-03-23 17:34] LABS: Glucose - Point of Care 283 mg/dl (70-99)
[2025-03-23] MEDS: LIPITOR 40 MG PO (18:21)
[2025-03-23] MEDS: APRESOLINE PO (19:58)
[2025-03-23] MEDS: OCUVITE SOFTGEL PO (19:58)
[2025-03-23] MEDS: LANTUS 0.05 UNITS SC (21:15)
[2025-03-23 21:26] LABS: Glucose - Point of Care 271 mg/dl (70-99)
--- NOTE | 2025-03-23 22:35 | PTCARENOTE ---
Pt spo2 started to drop into the low 80's. Pt on high flow and NRB at 15L. RT at bed side to change high flow settings 60/60. NECKTIE CENTRALIZING MACHINE OPERATOR made aware, one time Morphine ordered for sob and re[eat chx. Pt now at 94% respiration even unlabored at this time. Pt
stating she feels like she is breathing better now. Call razo within reach bed in lowest position.
[2025-03-24] VITALS (31 sets, daily range): BP systolic 74–115; BP diastolic 40–80; PULSE 62; O2SAT 90; BMI 27.2
[2025-03-24 06:53] LABS: Blood Urea Nitrogen 38 mg/dl (7-17); Calcium 9.0 mg/dl (8.4-10.2); Carbon Dioxide 22 mmol/L (22-30); Chloride 107 mmol/L (98-107); Estimated Creatinine Clearance 25 ml/min; Glucose 136 mg/dl (70-99); Potassium 4.2 mmol/L (3.5-5.1); Sodium 137 mmol/L (135-145); eGFR 43.54
[2025-03-24] MEDS: ADVAIR HFA 115/21 MCG INHALER 2 PUFF INH ×2 (07:09→17:53)
[2025-03-24] MEDS: DUONEB 3 ML INH ×2 (07:09→17:53)
--- NOTE | 2025-03-24 07:47 | W.PN.HOSP.TC ---
Addendum entered and electronically signed by Richi Brewster MD 03/24/25 11:28:
Attending�addendum:
I saw and evaluated the patient. I reviewed the resident�s note and agree with findings and plan as documented in the resident�s note. Patient seen and examined at bedside, denies any chest pain , shortness of breath Improved, but still on high
flow 50 L, no abdominal pain, no nausea, no vomiting, no diarrhea or constipation.
Blood Pressure low, Lasix held
Improved lower extremity edema.
Physical�exam:
GENERAL : Patient is awake, alert, oriented x3
HEENT: Nonicteric sclerae, PERRLA, EOMI. Oropharynx clear. Moist mucous membranes. Conjunctivae appear well perfused.
CHEST: Chest wall is nontender.
HEART: Regular rate and rhythm without murmurs.
LUNGS: Diffuse bilateral Rales
ABDOMEN: Soft, positive bowel sounds, nontender, no organomegaly.
RECTAL: Deferred.
MUSCLES/EXTREMITIES: Bilateral lower extremity edema
NEUROLOGIC: Cranial nerves II-XII intact without motor/sensory deficit.
�
Assessment/plan:
Acute on chronic diastolic CHF
Continue diuresis
Appreciate cardiology input
Lasix increased to twice a day yesterday but blood pressure dropped, will switch back to once a day
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
Creatinine improved
Anemia of chronic disease.
Monitor hemoglobin
CODE STATUS: DNR
DVT prophylaxis: Eliquis
Diet: Diabetic
Disposition: Switch Lasix to once daily, wean oxygen
�
Total time spent on today�s encounter was 60 minutes which included time spent in counseling the patient/family regarding diagnosis and treatment plan as listed above, goals of care, and symptom management. Case was discussed with nursing staff,
specialists, and care coordinators/case management. All labs and imaging personally reviewed by me. Remainder the time spent in detailed review of previous records, lab data, imaging, and other medical provider documentation.
Original Note:
Today's Communication/Plan
-
Hold AM dose of Lasix.
Monitor renal function.
Monitor BPs.
Continue supplemental O2, wean as kal.
Assessment / Plan
Assessment / Plan
Mami Grider is a 89F w/ PMHx A/fib (on Eliquis), HFpEF, ILD, T2DM, COPD, ACD, CKD3a, moderate TR, HLD, HTN, and pHTN who presented w/ SOB (worse w/ exertion) x 1 week, orthopnea and limited mobility in the setting of recent move to assisted
living facility where she was unable to receive an adequate amount of O2 therapy for her needs, and was found to have increased O2 requirements, pulmonary vascular congestion on CXR and elevated BNP on arrival alongside SAAD on CKD.
1. Acute on Chronic Heart Failure with Preserved Ejection Fraction
- Respiratory distress on arrival, SaO2 80% on NRB, started on MidFlow
- Increased needs, transitioned to HiFlow, currently on 50L @ 55% FiO2
- Improvement in sx on HiFlow, currently SaO2 97%
- Continue supplemental O2 and wean as tolerated
- Goal O2 90-94% (questionable history of COPD?)
- BNP (ED): 7800
- Weight on Admission: 64.8kg
- 5.7 kg loss as of today
- CXR (ED): increased pulmonary vascularity
- Started on IV Lasix 40mg daily
- On 20mg PO daily at home
- Can consider increasing IV Lasix dosing to BID, but will exercise caution since she came in with SAAD on CKD
- Cardiology Consult: agrees with IV Lasix
- ECHO 07/11/24: EF 60 to 65%, mild concentric LVH, posterior MAC, mild MR, aortic sclerosis, trace AR, severe TR, PAP 65-70 mmHg, severely dilated RA, dilated and hypokinetic RV
2. 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
- Exercise caution with Lasix administration
- Daily BMPs
- Cr 1.3 on arrival (baseline appears to be 0.9)
- Slight bump to 1.2 this AM
- Will hold AM dose of Lasix
- Decongestion in setting of cardiorenal syndrome? vs. Medication side effect?
3. Anemia of Chronic Disease
- Hemoglobin stable
- Continue to Monitor
4. History of COPD
- Continue Advair, PRN nebs
- Wean O2 to goal 90-94%
5. Persistent Atrial Fibrillation w/o Ventricular Response
- Adequate rate control
- Continue Eliquis
6. HLD/HTN/T2DM
- Continue Home Meds
- Low Resistance Sliding Scale
- Hold Metformin
Other Conditions Present Prior to Arrival
Restrictive Lung Disease
Interstitial Lung Disease
Macular Degeneration
CODE: DNR
Diet: 2199cal DM
DVT: Eliquis
Dispo Planning: PT once O2 req improves; CM consult for O2 needs at [place].
Anticipated Discharge: 24 - 48 hours
Subjective/Interval History
-
Date of Service: March 24, 2025
Lasix increased to 40 IV BID yesterday.
Continued HiFlow O2.
Overall patient states she is feeling better than yesterday.
Denies chest pain, lower extremity edema.
Has not been able to work with PT yet due to O2 constraints.
Exhibited soft pressures overnight.
Objective Data
-
Labs:
Laboratory Results
03/24/25 03/24/25
06:23 07:00
WBC Cancelled Pending
Hgb Cancelled Pending
Hct Cancelled Pending
Plt Count Cancelled Pending
Sodium 137
Potassium 4.2
Chloride 107
Carbon Dioxide 22
BUN 38 H
Creatinine 1.2 H
Glucose 136 H
Calcium 9.0
Vital Signs:
Vital Signs
Temp Pulse Resp BP Pulse Ox
97.7 F 63 22 105/61 94
03/24/25 07:40 03/24/25 07:13 03/24/25 07:13 03/24/25 06:12 03/24/25 07:38
I&O
03/23/25 03/24/25 03/25/25
06:59 06:59 06:59
Intake Total 240 / 240 180 / 180
Output Total 1500 / 1500 2350 / 2350
Balance -1260 / -1260 -2170 / -2170
Review of Systems
-
History Source: Patient
All other systems: Reviewed and negative
Physical Exam
-
General: No Apparent Distress, Comfortable and Other (Currently on HiFlow NC of 50L @ 55% FiO2. )
HEENT: Normocephalic, Atraumatic and Moist Mucous Membranes
Respiratory: Crackles (bilateral, bases up to mid lungs, improved from yesterday)
Cardiac: Irregular Rhythm and Bradycardic
GI: Soft
Musculoskeletal: No Clubbing, No Cyanosis and No Edema
Skin: Warm
Neuro: Awake, Alert and Oriented
Psych: Calm
Data Reviewed
-
Labs: Labs Reviewed by me and Discussed with Patient
[2025-03-24] MEDS: APRESOLINE PO ×2 (07:52→20:31)
[2025-03-24] MEDS: OCUVITE SOFTGEL 1 CAP PO ×2 (07:52→20:31)
[2025-03-24] MEDS: ELIQUIS 5 MG PO ×2 (07:52→20:31)
[2025-03-24] MEDS: LASIX IV ×2 (07:53→09:08)
[2025-03-24] MEDS: TIMOPTIC 0.5% OPHTHALMIC SOLUTION 1 DROP BOTH EYES ×2 (07:53→20:32)
[2025-03-24 08:15] LABS: Hematocrit 36.6 % (37.0-47.0); Hemoglobin 11.4 g/dL (12.0-16.0); Mean Corp Hgb Conc. 31.1 g/dL (33.0-37.0); Mean Corpuscular Volume 95.8 fL (81.0-99.0); Platelet Count 200 10^3/uL (130-400); Red Cell Dist. Width 14.9 % (11.5-14.5)
[2025-03-24] MEDS: NOVOLOG FLEXPEN 2 UNITS SC ×3 (08:15→18:04)
[2025-03-24] MEDS: NOVOLOG FLEXPEN-LOW RESISTANCE 1 UNITS SC ×2 (08:16→14:24)
[2025-03-24 08:26] LABS: Glucose - Point of Care 153 mg/dl (70-99)
--- NOTE | 2025-03-24 08:56 | PTCARENOTE ---
Assumed care at 0700. AOx3, pleasant. VSS. SaO2 >90% on 50L 50% hi flow. Patient reports feeling well resting and improved from yesterday. Dr. Aggarwal at bedside during AM med pass, recommends holding AM lasix dose. Discussed plan of care, left pt w/
call razo in reach.
[2025-03-24 12:09] LABS: Glucose - Point of Care 184 mg/dl (70-99)
--- NOTE | 2025-03-24 13:35 | W.PN.CARDCBS ---
Today's Communication / Plan
-
Monitor respiratory status closely
Will give 1 more dose of IV Lasix today and likely transition to oral Lasix tomorrow
Impression / Plan
-
Primary Manager Shift: Dr. Ferguson
Assessment:
Presentation with acute on chronic dyspnea on exertion/shortness of breath
Persistent atrial fibrillation/atrial flutter with adequate rate control
Pulmonary hypertension
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
Chronic renal insufficiency
Hypertension
Hyperlipidemia
Obesity
LVH
Type 2 diabetes
History of CVA requiring TPA 2021
History of symptomatic bradycardia
History of anemia
History of LE edema on norvasc
ECHO 08/19/2021: Hyperdynamic LV, mild concentric LVH, EF 70 to 75%, stage II diastolic dysfunction, posterior MAC, mild MR, aortic sclerosis, mild TR, PAP 52 mmHg
ECHO 01/17/24: EF 60 to 65%, mild concentric LVH, posterior MAC, mild MR, aortic sclerosis, trace AR, severe TR, PAP 59 mmHg, severely dilated RA, dilated and hypokinetic RV
Reviewed echo from July 2024 with relatively similar findings
Recommendations:
Medically complex 89-year-old female with acute on chronic HFpEF decompensation with known restrictive lung disease/ILD
-Overall has improved with 3 doses of IV Lasix.
-Weight is down approximately 5 pounds since admission
-Will give oral Lasix 40 mg today and reassess need for further IV Lasix
History of atrial fibrillation/flutter with controlled rate
Continue Eliquis for thromboembolic prophylaxis
She is rate controlled on telemetry
Acute on chronic renal sufficiency with creatinine 1.2 and baseline creatinine in February 0.9
Type 2 diabetes mellitus with hyperglycemia and hemoglobin A1c 10.2%.
Probably would benefit from some physical therapy while she is here in the hospital
DNR/DNI. Patient was previously on hospice
We will follow with you
Progress Note - Manager Shift
Subjective
Date of Service: March 24, 2025
Patient was seen and examined. Overall states shortness of breath is improving and back to baseline. Denies chest pain or pressure.
Objective
Labs:
03/24/25 08:05
03/24/25 06:23
Labs
Hgb 11.4 g/dL (12.0-16.0) L 03/24/25 08:05
Hct 36.6 % (37.0-47.0) L 03/24/25 08:05
Plt Count 200 10^3/uL (130-400) 03/24/25 08:05
Sodium 137 mmol/L (135-145) 03/24/25 06:23
Potassium 4.2 mmol/L (3.5-5.1) 03/24/25 06:23
BUN 38 mg/dl (7-17) H 03/24/25 06:23
Creatinine 1.2 mg/dL (0.6-1.0) H 03/24/25 06:23
Glucose 136 mg/dl (70-99) H 03/24/25 06:23
Troponins
03/22/25
16:30
Troponin I 0.028
Vital Signs and I&O:
Vital Signs
Temp Pulse Resp BP Pulse Ox
98 F 72 33 102/61 91
03/24/25 11:49 03/24/25 11:03 03/24/25 11:03 03/24/25 11:03 03/24/25 11:45
Vital Signs
Temp Pulse Resp BP Pulse Ox
98 F 72 33 102/61 91
03/24/25 11:49 03/24/25 11:03 03/24/25 11:03 03/24/25 11:03 03/24/25 11:45
Intake & Output
03/22/25 03/23/25 03/24/25 03/25/25
06:59 06:59 06:59 06:59
Intake Total 240 / 240 180 / 180
Output Total 1500 / 1500 2350 / 2350
Balance -1260 / -1260 -2170 / -2170
Physical Exam
Physical Exam
GEN: No distress, awake, alert, oriented x3.On 50 L 50% high flow nasal cannula
HEENT: supple, anicteric, mmm, eomi
LUNGS: Few rackles B/L bases
CV: Irreg and slow, S1/S2, 1/6 syst LSB
ABD: soft, BS+, NT/ND
EXT: Trace edema
[2025-03-24] MEDS: LIPITOR 40 MG PO (16:59)
[2025-03-24] MEDS: LASIX 40 MG PO (17:00)
--- NOTE | 2025-03-24 17:08 | PTCARENOTE ---
Remains on 50L 50% high flow. desats w/ acitivity into 80s, but able to recover within a few minutes. Currently chatting w/ visitor at bedside.
[2025-03-24 17:58] LABS: Glucose - Point of Care 251 mg/dl (70-99)
[2025-03-24] MEDS: NOVOLOG FLEXPEN-LOW RESISTANCE 3 UNITS SC (18:04)
[2025-03-24] MEDS: DESENEX/MITRAZOL/ZEASORB 1 APPLIC TOPICAL (20:31)
[2025-03-24 21:14] LABS: Glucose - Point of Care 254 mg/dl (70-99)
[2025-03-24] MEDS: LANTUS 0.05 UNITS SC (21:32)
[2025-03-24] MEDS: MORPHINE SULFATE 1 MG IV (22:06)
[2025-03-24] MEDS: LASIX 40 MG IV (22:06)
[2025-03-24] MEDS: LEVOPHED 250 IV (22:06)
--- NOTE | 2025-03-24 22:21 | PTCARENOTE ---
patient desating to 85% on HFNC. HFNC maxed out, non rebreather placed on patient. RR in high 30s. TT WEBLOGIC ADMINISTRATOR and WEBLOGIC ADMINISTRATOR at bedside. Patient bp running low. Lasix, morphine and levo ordered, see MAR. Patient aaox3. patient states she feels fine.
continuing to monitor, care on going.
[2025-03-25] VITALS (53 sets, daily range): BP systolic 79–148; BP diastolic 33–74; BMI 27.2
[2025-03-25 06:10] LABS: Blood Urea Nitrogen 46 mg/dl (7-17); Calcium 9.5 mg/dl (8.4-10.2); Carbon Dioxide 25 mmol/L (22-30); Chloride 102 mmol/L (98-107); Estimated Creatinine Clearance 23 ml/min; Glucose 207 mg/dl (70-99); Potassium 4.3 mmol/L (3.5-5.1); Sodium 134 mmol/L (135-145); eGFR 39.55
--- NOTE | 2025-03-25 06:32 | W.PN.HOSP.TC ---
Addendum entered and electronically signed by Sharri Benitez MD 03/25/25 17:21:
I saw and evaluated the patient independently. I reviewed and discussed the resident�s note and agree with findings and plan as documented by Dr. Garcia.
GENERAL: well developed, well nourished, female in no apparent distress
HEENT: NC/AT HI GERMAN O2
HEART: regular rate and rhythm, +S1, +S2, bradycardic
LUNGS : crackles at bases bilaterally
ABDOM: soft, nontender, nondistended, + bowel sounds
EXT: no cyanosis, clubbing, or edema
NEUROLOGIC: grossly intact
: purewick
Acute hypoxemic resp failure due to Acute on Chronic Heart Failure exacerbation with Preserved Ejection Fraction --requiring HI GERMAN O2--has advanced restrictive lung disease with chronic hypoxemia and 5-6L home oxygen--cont diuresis--limited by BP
and need for pressors--wean levophed to off and starting midodrine--apprec pulm/cards--proBNP 7800--weights down--aspiration precautions--if no improvement, might need to discuss hospice (as has not much reserve for any further insults)--was on
hospice and 'graduated'--cont IS--not bronchospastic--no need for steroids currently--repeat echo, last one 07/2024 with preserved EF
SAAD on JKB8b--bzyogv creat--consider renal if no improvement- Cr 1.2---1.3 today , due to Lasix administration/dehydration. (baseline appears to be 0.9)
Anemia of Chronic Disease- Hemoglobin stable --no signs of active bleeding
History of COPD- Continue Advair, PRN nebs- Wean O2 to goal 90-94%
Persistent Atrial Fibrillation w/o rapid Ventricular Response--actually bradycardic--cont Eliquis
HLD/Essential HTN/T2DM- Continue Home Meds- Low Resistance Sliding Scale- Hold Metformin
Other Conditions Present Prior to Arrival
Restrictive Lung Disease
Interstitial Lung Disease
Macular Degeneration
CODE STATUS-- DNR
DVT proph-- Eliquis
Original Note:
Today's Communication/Plan
-
pulmonary consulted
echo order placed
covid, flu test ordered
Following up with case management for her disposition status.
Assessment / Plan
Assessment / Plan
Mami Grider is a 89F w/ PMHx A/fib (on Eliquis), HFpEF, ILD, T2DM, COPD, ACD, CKD3a, moderate TR, HLD, HTN, and pHTN who presented w/ SOB (worse w/ exertion) x 1 week, orthopnea and limited mobility in the setting of recent move to assisted
living facility where she was unable to receive an adequate amount of O2 therapy for her needs, and was found to have increased O2 requirements, pulmonary vascular congestion on CXR and elevated BNP on arrival alongside SAAD on CKD.
Hemoglobin hemoglobin 11.4 still on baseline.
1. Acute on Chronic Heart Failure with Preserved Ejection Fraction
- Respiratory distress on arrival, SaO2 80% on NRB, started on MidFlow
- Increased needs, transitioned to HiFlow, currently on 50L @ 55% FiO2
- Improvement in sx on HiFlow, currently SaO2 97%
- Continue supplemental O2 and wean as tolerated
- Goal O2 90-94% (questionable history of COPD?)
- BNP (ED): 7800
- Weight on Admission: 64.8 kg---59.1---58.9 kg(4 today)
- 5.7 kg loss as of today
-Vitals 108/56---120/59, RI 50, RR 29, saturation 94 with 50R of nasal oxygen,
-I/O = 0/950, external catheter placed and drained.
-Sodium 137---134 low downgrade, BUN 38 high---46 high, creatinine baseline 0.9 on February--1.2 high---1.3 high, blood glucose 136--207 high
- CXR (ED): increased pulmonary vascularity
- Started on IV Lasix 40mg daily- On 20mg PO daily at home.
- Cardiology Consult: Lasix on hold due to hypotension.
-Transition to oral diuretics.
- ECHO 07/11/24: EF 60 to 65%, mild concentric LVH, posterior MAC, mild MR, aortic sclerosis, trace AR, severe TR, PAP 65-70 mmHg, severely dilated RA, dilated and hypokinetic RV.
Certified [employer] Administrator consulted due to her high flow oxygen requirement:
-Recommended supplemental oxygen as needed reviewed with RAGS LABORER-decrease high flow oxygen to mid flow.
-Aspiration precautions required.
-Incentive spirometry.
-Nebulizers if needed but currently patient is not bronchospastic.
-Currently not initiating steroids due to her underlying diabetes.
- Monitor I's/O, weight, CBC, CMP.
2. 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
- Exercise caution with Lasix administration
- Daily BMPs
- Cr 1.2---1.3 today , due to Lasix administration/dehydration. (baseline appears to be 0.9)
- Will hold AM dose of Lasix
- Decongestion in setting of cardiorenal syndrome? vs. Medication side effect?
3. Anemia of Chronic Disease
- Hemoglobin stable
- Continue to Monitor
4. History of COPD
- Continue Advair, PRN nebs
- Wean O2 to goal 90-94%
5. Persistent Atrial Fibrillation w/o Ventricular Response
- Adequate rate control
- Continue Eliquis
6. HLD/HTN/T2DM
- Continue Home Meds
- Low Resistance Sliding Scale
- Hold Metformin
Other Conditions Present Prior to Arrival
Restrictive Lung Disease
Interstitial Lung Disease
Macular Degeneration
CODE: DNR
Diet: DM
DVT: Eliquis
Dispo Planning: PT once O2 req improves; CM consult for O2 needs at [place].
retirement placement.
Anticipated Discharge: > 48 hours
Subjective/Interval History
-
Date of Service: March 25, 2025
Overnight the patient has shortness of breath but feels better when comparing with yesterday. Denies chest pain, edema, palpitation, dizziness, nausea, vomiting, dysuria.
Has not been able to work with PT due to O2 constraints.
Her BP was around 108/ 56(low) with MAP 67, after Lasix administration by considering soft BP Lasix was stopped and started on Levophed. Currently today morning when I checked the patient was receiving 3 mcg/minute.
Morphine 1 mg administered. Trying to wean off oxygen. Currently 95% saturation on 50 L of oxygen.
Objective Data
-
Labs:
Laboratory Results
03/25/25 03/25/25
05:07 05:39
Sodium Cancelled 134 L
Potassium Cancelled 4.3
Chloride Cancelled 102
Carbon Dioxide Cancelled 25
BUN Cancelled 46 H
Creatinine Cancelled 1.3 H
Glucose Cancelled 207 H
Calcium Cancelled 9.5
Vital Signs:
Vital Signs
Temp Pulse Resp BP Pulse Ox
98.3 F 50 29 120/59 94
03/25/25 02:33 03/25/25 05:30 03/25/25 05:30 03/25/25 05:30 03/25/25 05:30
I&O
03/23/25 03/24/25 03/25/25
06:59 06:59 06:59
Intake Total 240 / 240 180 / 180
Output Total 1500 / 1500 2350 / 2350 950 / 950
Balance -1260 / -1260 -2170 / -2170 -950 / -950
Review of Systems
-
History Source: Patient
All other systems: Reviewed and negative
Physical Exam
-
General: Respiratory Distress
Respiratory: Crackles (b/l inspiratory crackles)
Cardiac: Regular Rhythm and S1/S2
GI: Soft, Nontender and Nondistended
Genito-urinary: No Costovertebral Tender
Skin: Warm
Neuro: AO x 3
Psych: Calm
[2025-03-25 08:06] LABS: Glucose - Point of Care 211 mg/dl (70-99)
[2025-03-25] MEDS: ADVAIR HFA 115/21 MCG INHALER 2 PUFF INH ×2 (08:13→18:20)
[2025-03-25] MEDS: OCUVITE SOFTGEL 1 CAP PO ×2 (09:18→19:54)
[2025-03-25] MEDS: DESENEX/MITRAZOL/ZEASORB 1 APPLIC TOPICAL ×2 (09:18→19:54)
[2025-03-25] MEDS: APRESOLINE 25 MG PO (09:18)
[2025-03-25] MEDS: ELIQUIS 5 MG PO ×2 (09:18→19:54)
[2025-03-25] MEDS: LASIX 40 MG PO (09:18)
[2025-03-25] MEDS: TIMOPTIC 0.5% OPHTHALMIC SOLUTION 1 DROP BOTH EYES ×2 (09:19→19:54)
[2025-03-25] MEDS: NOVOLOG FLEXPEN-LOW RESISTANCE 2 UNITS SC (09:20)
[2025-03-25] MEDS: NOVOLOG FLEXPEN 2 UNITS SC ×3 (09:21→17:18)
--- NOTE | 2025-03-25 09:29 | W.PN.CARDCBS ---
Addendum entered and electronically signed by Hari Hackett DO 03/25/25 18:04:

Additional impression:
Hypotension requiring pressor therapy
Original Note:
Today's Communication / Plan
-
Transitioned to oral diuretics.
Continue to monitor weights and creatinine
Persistent atrial fibrillation, rate controlled on stroke prophylaxis with Eliquis
Impression / Plan
-
.
Primary Lumber Chain Offbearer: Dr. Ferguson
Impression:
Presentation with acute on chronic dyspnea on exertion/shortness of breath
Persistent atrial fibrillation/atrial flutter with adequate rate control
Pulmonary hypertension
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
Chronic renal insufficiency
Hypertension
Hyperlipidemia
Obesity
LVH
Type 2 diabetes
History of CVA requiring TPA 2021
History of symptomatic bradycardia
History of anemia
History of LE edema on norvasc
ECHO 08/19/2021: Hyperdynamic LV, mild concentric LVH, EF 70 to 75%, stage II diastolic dysfunction, posterior MAC, mild MR, aortic sclerosis, mild TR, PAP 52 mmHg
ECHO 01/17/24: EF 60 to 65%, mild concentric LVH, posterior MAC, mild MR, aortic sclerosis, trace AR, severe TR, PAP 59 mmHg, severely dilated RA, dilated and hypokinetic RV
Echo July 2024 with relatively similar findings
Plan:
Medically complex 89-year-old female with acute on chronic HFpEF decompensation with known restrictive lung disease/ILD
Wean IV Norepinephrine started PM 03/24 for bp support in setting of IV diuresis
Cr rising, pt was transitioned to oral lasix diuresis
Cont to monitor Is and Os, daily wts and cr
Wt is down 5-7 lbs from admit
Remains rate controlled with history of persistent atrial fibrillation.
Continue Eliquis for prophylaxis
Type 2 diabetes mellitus with hyperglycemia and hemoglobin A1c 10.2%.
Treatment per primary service
Consider PT/OT evaluation
Patient had been previously on hospice. She is DNR
Discussed with nursing
Progress Note - Lumber Chain Offbearer
Subjective
Date of Service: March 25, 2025
Patient seen and examined. Breathing better. No chest pain
Objective
Labs:
03/24/25 08:05
03/25/25 05:39
Labs
Hgb 11.4 g/dL (12.0-16.0) L 03/24/25 08:05
Hct 36.6 % (37.0-47.0) L 03/24/25 08:05
Plt Count 200 10^3/uL (130-400) 03/24/25 08:05
Sodium 134 mmol/L (135-145) L 03/25/25 05:39
Potassium 4.3 mmol/L (3.5-5.1) 03/25/25 05:39
BUN 46 mg/dl (7-17) H 03/25/25 05:39
Creatinine 1.3 mg/dL (0.6-1.0) H 03/25/25 05:39
Glucose 207 mg/dl (70-99) H 03/25/25 05:39
Troponins
03/22/25
16:30
Troponin I 0.028
Vital Signs and I&O:
Vital Signs
Temp Pulse Resp BP Pulse Ox
97.5 F 56 18 141/52 99
03/25/25 07:23 03/25/25 09:18 03/25/25 08:15 03/25/25 09:18 03/25/25 08:16
Vital Signs
Temp Pulse Resp BP Pulse Ox
97.5 F 56 18 141/52 99
03/25/25 07:23 03/25/25 09:18 03/25/25 08:15 03/25/25 09:18 03/25/25 08:16
Intake & Output
11/1503/24/25 03/25/25 03/26/25
06:59 06:59 06:59 06:59
Intake Total 240 / 240 180 / 180
Output Total 1500 / 1500 2350 / 2350 950 / 950
Balance -1260 / -1260 -2170 / -2170 -950 / -950
Physical Exam
Physical Exam
General: No acute distress, AAOX3
Neck: Negative JVD
Heart: Irregular irregular, Negative S3 positive S1/S2, Negative S4, No murmur
Lungs: CTA b/l, negative wheezes/rales/rhonchi
Abd: Positive BS, NT/ND, neg rebound/rigidity/guarding
Ext: Negative cyanosis/clubbing/edema
Neuro: nonfocal
--- NOTE | 2025-03-25 10:33 | PTCARENOTE ---
Assumed care of patient this morning. She is aaox3, [place] but pleasant. She reports feeling okay and breathing is okay. Pt remains on HFNC, RT weaning as able. Lungs coarse at bases. Pt also remains on Levophed gtt, and residents at
bedside and parameters changed therefore attempting to taper Levophed gtt, see flowsheet. Pt also bradycardic at times, MD's aware. Pt ate breakfast and took oral medications without issue. Assessment, care and VS as charted.
--- NOTE | 2025-03-25 10:38 | CON.PUL ---
Consultation
Consultation Request
Date/Time Consultation Requested: 03/25/2025-10 AM
Date/Time Consultation Performed: 03/25/2025-11 AM
Requesting Provider: Hospitalist
Performing Provider: Dr. Barnes
Reason for Consultation: Shortness of breath
Medical History
-
Chief Complaint: Shortness of breath
History of Present Illness:
89-year-old never smoking female with history of restrictive lung disease, chronic hypoxemia on 6 L of oxygen, anemia, chronic kidney disease, atrial flutter/fibrillation, diastolic CHF presented with increasing shortness of breath felt to be CHF
related, diuresed and still on high flow O2 and pulmonary consulted for shortness of breath 03/25/2025.. The patient states that she was on hospice for a long time and stopped seeing the pulmonary office, but, she had worsening diabetes and took
herself off hospice. She had progressive shortness of breath with some leg edema and has been responding to Lasix but continues to be short of breath. Overall she feels better. I reviewed with respiratory therapy and they will try to lower her
oxygen to mid flow. She denies any chest congestion, productive cough, pleurisy, hemoptysis, chest congestion, abdominal pain, or increased leg swelling
Past Medical History
Past Medical History: None (Hypertension. Hyperlipidemia. Diabetes type 2. Macular degeneration. Anemia. CVA/tPA 2021. ILD. COPD. Chronic hypoxemia on 6 L oxygen. Restrictive lung disease. Chronic kidney disease stage IIIa. Atrial
flutter/fibrillation. Diastolic CHF.)
Social History
Alcohol: None
Drug: None
Occupational Exposures: No known asbestos exposure
Environmental Exposures: No known tuberculosis exposure
Family History
Family History: Reviewed & Not Pertinent
Allergies / Home Medications
Allergies
Allergy/AdvReac Type Severity Reaction Status Date / Time
No Known Allergies Allergy Verified 01/16/24 16:21
Home Medications
�Medication �Instructions �Recorded �Confirmed �Last Taken �Type
albuterol sulfate 90 mcg/actuation 1 puff inhalation R Q4HPRN PRN sob 01/16/24 03/22/25 01/16/24 History
aerosol inhaler
hydralazine 25 mg tablet 25 mg PO BID Blood Pressure 01/16/24 03/22/25 01/16/24 History
timolol maleate (PF) 0.5 % eye 1 drp BOTH EYES BID Eye Condition 01/16/24 03/22/25 01/16/24 History
drops in a dropperette
vit C 250 mg-vit E 90 mg-zinc 40 1 tab PO BID Supplement 01/16/24 03/22/25 01/16/24 History
mg-copper 1 qd-kyxaxp-oanuog
capsule (PreserVision AREDS-2)
apixaban 5 mg tablet (Eliquis) 5 mg PO BID Blood Clot 02/14/25 03/22/25 Unknown History
Prevention/Tx
atorvastatin 40 mg tablet 40 mg PO QPM High Cholesterol 02/14/25 03/22/25 Unknown History
metformin 500 mg tablet,extended 1,000 mg PO BID Diabetes 02/15/25 03/22/25 Unknown History
release 24 hr
acetaminophen 325 mg tablet 650 mg PO Q6HPRN PRN MILD PAIN 03/22/25 03/22/25 Unknown History
(Tylenol)
fluticasone 250 mcg-salmeterol 50 1 inh inhalation R BID 03/22/25 03/22/25 Unknown History
mcg/dose blistr powdr for Lung/Breathing Issues
inhalation (Advair Diskus)
furosemide 20 mg tablet 20 mg PO DAILY Fluid 03/22/25 03/22/25 Unknown History
Retention/Swelling
insulin glargine 100 unit/mL (3 10 unit SC HS Diabetes 03/22/25 03/22/25 Unknown History
mL) subcutaneous pen (Lantus
Solostar U-100 Insulin)
insulin lispro 100 unit/mL 5 sliding scale dose SC AC Diabetes 03/22/25 03/22/25 Unknown History
subcutaneous pen (Admelog SoloStar
U-100 Insulin lispro)
magnesium hydroxide 400 mg/5 mL 2,400 mg PO DAILYPRN PRN 03/22/25 03/22/25 Unknown History
oral suspension (Milk of Magnesia) CONSTIPATION
Review of Systems
-
Unable to Obtain full review of systems at this time due to: Other (Per HPI)
Vitals / Labs / Diagnostic Testing
Vital Signs
Temp Pulse Resp BP Pulse Ox
97.5 F 52 22 110/38 96
03/25/25 07:23 03/25/25 10:00 03/25/25 10:00 03/25/25 10:00 03/25/25 09:00
Lab Data
03/24/25 08:05
03/25/25 05:39
Microbiology
03/23/25 04:36 Nose MRSA Screen - Final
No Methicillin Resistant Staphylococcus aureus isolated.
Diagnostic Testing:
Physical Exam
-
Exam:
Well-nourished and well-developed in no apparent distress
HEENT-atraumatic, normocephalic
Neck-supple, no JVD, no bruit
Heart-regular rate and rhythm-no murmurs, rubs or gallops
Chest with crackles at the right greater than left base without any rhonchi
Back-no tenderness
Abdomen-soft, nontender, nondistended, no hepatosplenomegaly
Extremities-no cyanosis, clubbing, trace lower extremity edema
Integument-intact, no rashes, lesions or ecchymosis
Neurology-alert and oriented, nonfocal motor and sensory exam
Assessment
-
89-year-old never smoking female with history of restrictive lung disease, chronic hypoxemia on 6 L of oxygen, anemia, chronic kidney disease, atrial flutter/fibrillation, diastolic CHF presented with increasing shortness of breath felt to be CHF
related, diuresed and still on high flow O2 and pulmonary consulted for shortness of breath 03/25/2025.
CHF-preserved EF
Diastolic dysfunction
Interstitial lung disease on chronic oxygen with severe diffusing deficit without exacerbation
Jcgrgr-mzceteqnyy-dvgomooobr 11.4
Chronic renal failure
Hyperglycemia
Pulmonary hypertension
DNR
Conditions present prior to admission:
Hypertension.
Hyperlipidemia.
Diabetes type 2.
Macular degeneration.
Anemia.
CVA/tPA 2021.
ILD-never smoker
Chronic hypoxemia on 6 L oxygen.
Chronic cough he
Obesity
Sedentary lifestyle
MATIAS-CPAP intolerant
Restrictive lung disease.
Chronic kidney disease stage IIIa.
Atrial flutter/fibrillation.
Diastolic CHF.
Left subclavian artery stenosis
Plan
Respiratory decompensation in this patient with advanced interstitial lung disease and chronic hypoxemia and severe diffusion deficit likely related to fluid overload-though incompletely responded to diuresis with persistent FiO2 requirements
greater than her baseline-doubt venous thromboembolic disease as patient is on chronic Eliquis
The patient has very little reserve with chronic interstitial lung disease and severe reduction in diffusing capacity-mild atelectasis, CHF could translate into severe hypoxemia and hopefully with diuresis patient will eventually equilibrate
The patient's radiographs, chest x-rays, CT chest, PFTs, 6-minute walk test, polysomnogram results, and echocardiograms are summarized below
Supplemental oxygen as needed-reviewed with SUPERVISOR STRIPPING-decrease high flow oxygen to mid flow
The patient has very
Aspiration precautions
Incentive spirometry
Nebulizers if needed-currently not bronchospastic
Doubt initiation of steroids would be of significant benefit and with her underlying diabetes would hold off for now
Diuresis as tolerated
Monitor renal function, electrolytes, intake/output, lower extremity edema and weight
Replace electrolytes as needed
Cardiology following-correspondence reviewed
Monitor blood sugar
Insulin supplementation as needed
DVT prophylaxis-on Eliquis
Nutrition
Early mobilization
Reviewed with primary team and nursing as well as respiratory therapy
Patient usually follows with Dr. Tucker in the office since 2020-last saw Harmony ORANTES 04/11/24-recommend follow-up
Diagnostic data:
Chest x-ray 08/08/2024-no change in appearance of chronic interstitial lung disease
Chest x-ray 02/14/2025-mild diffuse interstitial prominence may reflect interstitial edema or pneumonitis with underlying chronic interstitial lung disease
Chest x-ray 03/22/2025-cardiomegaly with increased pulmonary vascular congestion could represent CHF
Chest x-ray 03/23/2025-stable moderate cardiomegaly, no evidence for CHF or pneumonia
CT Chest 09/24/20: Diffuse bilateral predominantly peripheral interlobular and intralobular interstitial thickening with small patches of groundglass opacities. Mild bronchial wall thickening, no honeycombing or bronchiectasis. Small calcified lymph
nodes in the subcarinal region, shotty mediastinal lymph nodes. Dense calcified plaque at the origin of the left subclavian artery likely resulting in hemodynamically significant stenosis. Small to moderate sliding hiatal hernia. Mild pancreatic
calcification suggesting chronic pancreatitis. 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
CT Chest 09/24/20: Diffuse bilateral predominantly peripheral interlobular and intralobular interstitial thickening with small patches of groundglass opacities. Mild bronchial wall thickening, no honeycombing or bronchiectasis. Small calcified lymph
nodes in the subcarinal region, shotty mediastinal lymph nodes. Dense calcified plaque at the origin of the left subclavian artery likely resulting in hemodynamically significant stenosis. Small to moderate sliding hiatal hernia. Mild pancreatic
calcification suggesting chronic pancreatitis. 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
PFTs 12/09/21: FEV1 1.47L 124%, FVC 1.66L 101%, ratio 89.� TLC 2.45L 62%, DLCO 39% (moderate restriction, severe diffusion impairment; stable jackie from prior testing, volumes are worse, diffusion is improved)
PFT106/12/2023-� PFT-� FVC 1.46, 95� fev1 1.26, 115� ratio 86� TLC 2.85, 73� DLCO 3.14, 21
6 MWT- room air resting pulse ox 97%, after ambulating 450 feet To 86%.� Subjective shortness of breath.� 3/10.� Placed on oxygen 1 L and titrated up to 3 L to maintain a pulse ox of 88-92%.� Ambulating additional 600 feet.
PSG 11/12/21: AHI 8.5, O2 misbah 72%, TST 134/388.7 mins, SE 34.5%. 3L NC needed to maintain saturation.
ECHO 05/26/20: Normal LV function with moderate LVH. Estimated EF 70%. Mild MR, mild TR, estimated pressure 46-51.
Echocardiogram 07/11/2024-EF 60-65%, mild mitral regurgitation, aortic sclerosis without stenosis, PA systolic estimated 65-70
Data Reviewed
-
PFT: Report reviewed by me
EKG: Report reviewed by me
Radiology: Report reviewed by me
CT Scan: Report reviewed by me
Labs: Labs reviewed by me
Old Records: Reviewed
Total Time Spent with Patient (in minutes): 55
[2025-03-25 12:42] LABS: Glucose - Point of Care 264 mg/dl (70-99)
[2025-03-25] MEDS: NOVOLOG FLEXPEN-LOW RESISTANCE 3 UNITS SC (12:55)
[2025-03-25 15:23] LABS: COVID-19 Antigen Negative (Negative)
--- NOTE | 2025-03-25 16:11 | CM ---
Patient seen at bedside in IMU with physicians. Patient stated that she lives at [facility] in [place] for the last week. Per patient it is a personal care facility and will be her mcc alf. Patient was at [facility] prior
to going to the personal care facility. CM left VM for patient daughterMckenzie to confirm level of care and supports available. Review of chart indicated that patient was concerned about O2 concentrator over 5 liters. CM will confirm PCP and
pharmacy with daughter. CM called to [phone] and left message for nurse Michelle to call back. CM will continue to follow for discharge planning needs.
Plan; Personal Care vs SNF; pending medical treatment plan
--- NOTE | 2025-03-25 16:46 | PN.CDI ---
CDI
- -
CDI:
Physician Documentation Request
Admit Date: 03/22/25 18:39
Dear Doctor,
Please review the following and provide your response in the progress notes.
Clinical Indicators:
Pt admitted with CHFpEF exacerbation/Acute on Chronic hypoxic Respiratory Failure /SAAD on CKD 3b
Cariology note 03/25,' Wean IV Norepinephrine started PM 03/24 for bp support in setting of IV diuresis...
Pt care note 03/23 @ 0515,' BP trending downward with MAPs in the 40s and 50s. Notified HIDE DYER. Levo ordered and administered to pt. Currently running at 3 mcg/min....'
Selected Entries
03/22/25
23:06 03/22/25
23:15 03/22/25
23:30
Blood pressure 93/58 92/47 87/48
03/22/25
23:32 03/22/25
23:39 03/22/25
23:45
Blood pressure 82/25 84/38
MAP (cuff-Alfonso Monitor) 47 44
03/22/25
23:48 03/22/25
23:50 03/23/25
02:15
Blood pressure 80/62 83/40
MAP (cuff-Alfonso Monitor) 45
03/23/25
02:16 03/23/25
02:21 03/23/25
16:08
Blood pressure 81/38
MAP (cuff-Alfonso Monitor) 55 40
Please clarify which of the following is the most likely etiology of the above symptoms and treatment rendered/IV pressors:
Cardiogenic shock
Drug induced shock
Hypotension only
Other ( please specify)
Use of terms such as suspected, likely, concern for, or probable (associated with a specific diagnosis that is being evaluated, monitored, or treated as if it exists) are acceptable and can be coded in the inpatient setting, when documented at the
time of discharge.
Thank you,
María Yung RN
CDI Specialist
[employer]
Please use your independent medical judgment in providing your response.
[2025-03-25 17:00] LABS: Glucose - Point of Care 325 mg/dl (70-99)
[2025-03-25] MEDS: LIPITOR 40 MG PO (17:17)
[2025-03-25] MEDS: NOVOLOG FLEXPEN-LOW RESISTANCE 4 UNITS SC (17:18)
[2025-03-25] MEDS: APRESOLINE PO (19:54)
[2025-03-25 21:29] LABS: Glucose - Point of Care 384 mg/dl (70-99)
[2025-03-25] MEDS: LANTUS 0.05 UNITS SC (21:38)
[2025-03-25] MEDS: LEVOPHED 250 IV (22:39)
--- NOTE | 2025-03-25 22:49 | PTCARENOTE ---
patient blood pressure consistently low with systolics in the 80s and maps less than 65. TT BURR FILER. BURR FILER at bedside to evaluate. Patient started back on levo. patient remains asymptomatic. care on going. call razo in reach.
[2025-03-26] VITALS (56 sets, daily range): BP systolic 76–139; BP diastolic 32–100; PULSE 59; O2SAT 91; BMI 26.6
--- NOTE | 2025-03-26 03:50 | W.PN.UPDATE ---
Update Note
Progress Note Update
~ 20:30 RN reported patient's BP 83/46, MAP 58, HR 61. Pt Ox3, denies lightheadedness, dizziness, chest discomfort, SOB. Recheck BP 100/43, Map 61, HR 58.
~22:30 Pt's BP 79/40, MAP 53, HR 43, restarted Levophed gtt @ 2 mcg/min.
Patient bradycardic, HR drops to 40-50's overnight.
[2025-03-26 05:23] LABS: Hematocrit 36.2 % (37.0-47.0); Hemoglobin 11.2 g/dL (12.0-16.0); Mean Corp Hgb Conc. 30.9 g/dL (33.0-37.0); Mean Corpuscular Volume 95.3 fL (81.0-99.0); Platelet Count 216 10^3/uL (130-400); Red Cell Dist. Width 14.6 % (11.5-14.5)
[2025-03-26 06:01] LABS: ALT (SGPT) 37 U/L (0-35); AST (SGOT) 40 U/L (14-36); Albumin 3.9 g/dl (3.5-5.0); Alkaline Phosphatase 119 U/L (38-126); Blood Urea Nitrogen 47 mg/dl (7-17); Calcium 9.2 mg/dl (8.4-10.2); Carbon Dioxide 25 mmol/L (22-30); Chloride 102 mmol/L (98-107); Estimated Creatinine Clearance 24 ml/min; Glucose 250 mg/dl (70-99); Potassium 4.1 mmol/L (3.5-5.1); Sodium 137 mmol/L (135-145); Total Protein 6.7 g/dl (6.3-8.2); eGFR 43.54
--- NOTE | 2025-03-26 06:39 | W.PN.HOSP.TC ---
Addendum entered and electronically signed by Sharri Benitez MD 03/26/25 16:22:
I saw and evaluated the patient independently. I reviewed and discussed the resident�s note and agree with findings and plan as documented by Dr. Garcia.
GENERAL: well developed, well nourished, female in no apparent distress
HEENT: NC/AT MID GERMAN 12L
HEART: regular rate and rhythm, +S1, +S2, bradycardic
LUNGS : crackles at bases bilaterally
ABDOM: soft, nontender, nondistended, + bowel sounds
EXT: no cyanosis, clubbing, or edema
NEUROLOGIC: grossly intact
Acute hypoxemic resp failure due to Acute on Chronic Heart Failure exacerbation with Preserved Ejection Fraction --required HI GERMAN O2, down to 12L MID GERMAN--has advanced restrictive lung disease with chronic hypoxemia and 5-6L home oxygen--cont
diuresis--limited by BP and need for pressors--wean levophed to off and starting midodrine--apprec pulm/cards--proBNP 7800--weights down--aspiration precautions--if no improvement, might need to discuss hospice (as has not much reserve for any
further insults)--was on hospice and 'graduated'--cont IS--not bronchospastic--no need for steroids currently--repeat echo still shows preserved EF but RA/RV dysfunction--checking V/Q or CT PE study will not change person so no role to check at
this time
SAAD on OFY4s--lullhb creat--consider renal if no improvement- Cr 1.2-- due to Lasix administration/dehydration. (baseline appears to be 0.9)
Anemia of Chronic Disease- Hemoglobin stable --no signs of active bleeding
History of COPD- Continue Advair, PRN nebs- Wean O2 to goal 90-94%
Persistent Atrial Fibrillation w/o rapid Ventricular Response--actually bradycardic--cont Eliquis
HLD/Essential HTN/T2DM- Continue Home Meds- Low Resistance Sliding Scale- Hold Metformin
Other Conditions Present Prior to Arrival
Restrictive Lung Disease
Interstitial Lung Disease
Macular Degeneration
CODE STATUS-- DNR--but seems to want treatment--asking what to do about heart function--pulm asked and she said no to hospice and no to SNF
DVT proph-- Eliquis
Original Note:
Today's Communication/Plan
-
Reduce the mid flow oxygen.
Planning to wean off Levophed.
Increased midodrine dosage from 2.5 to 5 mg.
PT, OT consulted
Maintain saturation around 90% by mid flow oxygen.
Assessment / Plan
Assessment / Plan
Mami Grider is a 89F w/ PMHx A/fib (on Eliquis), HFpEF, ILD, T2DM, COPD, ACD, CKD3a, moderate TR, HLD, HTN, and pHTN who presented w/ SOB (worse w/ exertion) x 1 week, orthopnea and limited mobility in the setting of recent move to assisted
living facility where she was unable to receive an adequate amount of O2 therapy for her needs, and was found to have increased O2 requirements, pulmonary vascular congestion on CXR and elevated BNP on arrival alongside SAAD on CKD.
1. Acute on Chronic Heart Failure with Preserved Ejection Fraction:
-Vitals: 79/40---113/48, WA 54, RR 22--17, temp 98.1, O2 100, IV/p.o. 720/1250 net (-530)
-hemoglobin 11.4--11.2 still on baseline.
-Sodium 137, potassium 4.1, bun 47H, creatinine 1.3--1.2.
-Wt is down 10-15 lbs from admit.
- BNP (ED): 7800
- Respiratory distress on arrival, SaO2 80% on NRB, started on MidFlow
- CXR (ED): increased pulmonary vascularity.
-Reduce higher oxygen flow to maintain saturation around 90%.
Echo 03/25:
Compared to a prior transthoracic echocardiogram study from 07/11/2024 no significant changes are seen.
2. Normal left ventricular size and systolic function. Mild concentric left ventricular hypertrophy. Normal regional wall motion. Left ventricular ejection fraction is 60-65% by visual estimate.
3. Severely dilated and hypocontractile right ventricle.
4. Indexed left atrial volume is moderately abnormal (42-48 ml/m2).
5. Severe tricuspid regurgitation. Estimated pulmonary artery pressure of 73 mmHg assuming a right atrial pressure of 8 mmHg.
6. Severely dilated right atrium.
- Started on IV Lasix 40mg daily- On 20mg PO daily at home.
- Cardiology Consult: Lasix on hold due to hypotension.
-Transition to oral diuretics.
-Wean IV Norepinephrine off. IV pressor started by primary service for bp support in setting of diuresis
-Cont Midodrine for bp support.
-Cont to monitor Is and Os, daily wts and cr
-Remains rate controlled with history of persistent atrial fibrillation.
-Cont rate control strategy.
-Continue Eliquis for prophylaxis
# Her hypotension probably due to Lasix, currently holding Lasix.
# Planning to wean off Levophed for today.
# Midodrine dosage increased from 2.5 to 5 mg 3 times daily.
Lithograph Press Operator consulted due to her high flow oxygen requirement:
-Recommended supplemental oxygen as needed reviewed with FLOOR REFINISHER-decrease high flow oxygen to mid flow.
-Aspiration precautions required.
-Incentive spirometry.
-Nebulizers if needed but currently patient is not bronchospastic.
-Currently not initiating steroids due to her underlying diabetes.
2. 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
- Exercise caution with Lasix administration
- Daily BMPs
- Cr 1.2---1.3 today , due to Lasix administration/dehydration. (baseline appears to be 0.9)
- Will hold AM dose of Lasix
- Decongestion in setting of cardiorenal syndrome? vs. Medication side effect?
--Total bilirubin 1.6 high, AST 40 high, ALT 37 high.
3. Anemia of Chronic Disease
- Hemoglobin stable
- Continue to Monitor
4. History of COPD
- Continue Advair, PRN nebs
- Wean O2 to goal 90-94%
5. Persistent Atrial Fibrillation w/o Ventricular Response
- Adequate rate control
- Continue Eliquis.
6. HLD/HTN/T2DM
-POC glucose 384--275 high
- Low Resistance Sliding Scale
- Insulin glargine increased to 10 units.
Other Conditions Present Prior to Arrival
Restrictive Lung Disease
Interstitial Lung Disease
Macular Degeneration
# PT, OT consulted.
CODE: DNR
Diet: DM
DVT: Eliquis
Dispo Planning: PT once O2 req improves; CM consult for O2 needs at [place].
[facility] placement.
Anticipated Discharge: > 48 hours
Subjective/Interval History
-
Date of Service: March 26, 2025
Overnight the patient blood pressure 79/40 Levophed 3 mcg/minute started.
Her nasal oxygen flow switched from 50 L--15 L(mid flow)
She has no concern for chest pain, palpitation, dizziness, fever, shortness of breath. She had no bowel movement.
Objective Data
-
Labs:
Laboratory Results
03/26/25
05:12
WBC 9.1
Hgb 11.2 L
Hct 36.2 L
Plt Count 216
Sodium 137
Potassium 4.1
Chloride 102
Carbon Dioxide 25
BUN 47 H
Creatinine 1.2 H
Glucose 250 H
Calcium 9.2
Total Bilirubin 1.6 H
AST 40 H
ALT 37 H
Alkaline Phosphatase 119
Vital Signs:
Vital Signs
Temp Pulse Resp BP Pulse Ox
97.8 F 50 22 126/54 94
03/26/25 03:00 03/26/25 04:45 03/26/25 04:45 03/26/25 04:45 03/26/25 04:45
I&O
03/24/25 03/25/25 03/26/25
06:59 06:59 06:59
Intake Total 180 / 180 720 / 720
Output Total 2350 / 2350 950 / 950 1250 / 1250
Balance -2170 / -2170 -950 / -950 -530 / -530
Review of Systems
-
History Source: Patient
All other systems: Reviewed and negative
Physical Exam
-
General: Well Developed and No Apparent Distress
Respiratory: Crackles (Bilateral lower lobe crackles present.)
Cardiac: Regular Rhythm and S1/S2
GI: Soft, Nontender and Nondistended
Genito-urinary: No Costovertebral Tender
Skin: Warm
Neuro: AO x 3
Hematologic / Lymphatic: No Lymphadenopathy
Psych: Calm
--- NOTE | 2025-03-26 07:25 | W.PN.CARDCBS ---
Today's Communication / Plan
-
Wean IV Norepinephrine off. IV pressor started by primary service for bp support in setting of diuresis
Cont Midodrine for bp support.
Cr improved to 1.2 on Mar 26. rising, pt was transitioned to oral lasix diuresis
Cont to monitor Is and Os, daily wts and cr
Wt is down 10-15 lbs from admit
Remains rate controlled with history of persistent atrial fibrillation.
Cont rate control strategy.
Continue Eliquis for prophylaxis
Pt DNR
Please recall if needed.
Will arrange outpt cardiac follow up.
Impression / Plan
-
.
Primary Network Programmer: Dr. Ferguson
Impression:
Presentation with acute on chronic dyspnea on exertion/shortness of breath
Persistent atrial fibrillation/atrial flutter with adequate rate control
Pulmonary hypertension
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
Chronic renal insufficiency
Hypertension
Hyperlipidemia
Obesity
LVH
Type 2 diabetes
History of CVA requiring TPA 2021
History of symptomatic bradycardia
History of anemia
History of LE edema on norvasc
ECHO 08/19/2021: Hyperdynamic LV, mild concentric LVH, EF 70 to 75%, stage II diastolic dysfunction, posterior MAC, mild MR, aortic sclerosis, mild TR, PAP 52 mmHg
ECHO 01/17/24: EF 60 to 65%, mild concentric LVH, posterior MAC, mild MR, aortic sclerosis, trace AR, severe TR, PAP 59 mmHg, severely dilated RA, dilated and hypokinetic RV
Echo July 2024 with relatively similar findings
Plan:
Medically complex 89-year-old female with acute on chronic HFpEF decompensation with known restrictive lung disease/ILD
Wean IV Norepinephrine off. IV pressor started by primary service for bp support in setting of diuresis
Cont Midodrine for bp support.
Cr improved to 1.2 on Mar 26. rising, pt was transitioned to oral lasix diuresis
Cont to monitor Is and Os, daily wts and cr
Wt is down 10-15 lbs from admit
Remains rate controlled with history of persistent atrial fibrillation.
Cont rate control strategy.
Continue Eliquis for prophylaxis
Type 2 diabetes mellitus with hyperglycemia and hemoglobin A1c 10.2%.
Treatment per primary service
Consider PT/OT evaluation
Patient had been previously on hospice. She is DNR
Discussed with nursing
Please recall if needed.
Will arrange outpt cardiac follow up.
Progress Note - Network Programmer
Subjective
Date of Service: March 26, 2025
Pt seen and examined. No cp or dyspnea.
Objective
Labs:
03/26/25 05:12
03/26/25 05:12
Labs
Hgb 11.2 g/dL (12.0-16.0) L 03/26/25 05:12
Hct 36.2 % (37.0-47.0) L 03/26/25 05:12
Plt Count 216 10^3/uL (130-400) 03/26/25 05:12
Sodium 137 mmol/L (135-145) 03/26/25 05:12
Potassium 4.1 mmol/L (3.5-5.1) 03/26/25 05:12
BUN 47 mg/dl (7-17) H 03/26/25 05:12
Creatinine 1.2 mg/dL (0.6-1.0) H 03/26/25 05:12
Glucose 250 mg/dl (70-99) H 03/26/25 05:12
Vital Signs and I&O:
Vital Signs
Temp Pulse Resp BP Pulse Ox
97.8 F 50 22 126/54 94
03/26/25 03:00 03/26/25 04:45 03/26/25 04:45 03/26/25 04:45 03/26/25 04:45
Vital Signs
Temp Pulse Resp BP Pulse Ox
97.8 F 50 22 126/54 94
03/26/25 03:00 03/26/25 04:45 03/26/25 04:45 03/26/25 04:45 03/26/25 04:45
Intake & Output
03/24/25 03/25/25 03/26/25 03/27/25
06:59 06:59 06:59 06:59
Intake Total 180 / 180 720 / 720
Output Total 2350 / 2350 950 / 950 1250 / 1250
Balance -2170 / -2170 -950 / -950 -530 / -530
Physical Exam
Physical Exam
General: No acute distress, AAOX3
Neck: Negative JVD
Heart: Irregularly irregular, Negative S3 positive S1/S2, Negative S4, No murmur
Lungs: CTA b/l, negative wheezes/rales/rhonchi
Abd: Positive BS, NT/ND, neg rebound/rigidity/guarding
Ext: Negative cyanosis/clubbing/edema
Neuro: nonfocal
[2025-03-26 07:31] LABS: Glucose - Point of Care 275 mg/dl (70-99)
[2025-03-26] MEDS: ADVAIR HFA 115/21 MCG INHALER 2 PUFF INH ×2 (07:54→19:24)
[2025-03-26] MEDS: NOVOLOG FLEXPEN 2 UNITS SC ×3 (08:09→18:24)
[2025-03-26] MEDS: LASIX 40 MG PO (08:10)
[2025-03-26] MEDS: ELIQUIS 5 MG PO ×2 (08:10→21:04)
[2025-03-26] MEDS: NOVOLOG FLEXPEN-LOW RESISTANCE 3 UNITS SC ×2 (08:10→18:24)
[2025-03-26] MEDS: OCUVITE SOFTGEL 1 CAP PO ×2 (08:10→21:04)
[2025-03-26] MEDS: APRESOLINE PO ×2 (08:11→21:03)
[2025-03-26] MEDS: TIMOPTIC 0.5% OPHTHALMIC SOLUTION 1 DROP BOTH EYES ×2 (08:11→21:04)
[2025-03-26] MEDS: DESENEX/MITRAZOL/ZEASORB 1 APPLIC TOPICAL ×2 (08:11→21:03)
--- NOTE | 2025-03-26 09:37 | CM ---
Addendum entered by Joyce Azevedo 03/26/25 15:31:
Patient seen at bedside with physicians in IMU earlier today. Patient is now on mid flow. CM will need to discuss with patient family and patient options for SNF vs Personal care. CM will continue to follow for discharge planning needs.
Plan; SNF vs personal care
Original Note:
late 03/25/25 CM spoke with Viviana Sanchez the radio sales account executive for [facility] and she indicated concerns if patient was above 5 liters of O2. Viviana to come to see patient prior to return to personal care. CM had left VM for
daughter and will call again today. CM will continue to follow for discharge planning needs.
Plan; return to personal care vs snf pending medical care plan
--- NOTE | 2025-03-26 09:56 | W.PN.PUL.V3 ---
Today's Communication / Plan
-
Wean oxygen
Diuresis
Increase activity
Outpatient pulmonary follow-up
Assessment
-
89-year-old never smoking female with history of restrictive lung disease, chronic hypoxemia on 6 L of oxygen, anemia, chronic kidney disease, atrial flutter/fibrillation, diastolic CHF presented with increasing shortness of breath felt to be CHF
related, diuresed and still on high flow O2 and pulmonary consulted for shortness of breath 03/25/2025.
CHF-preserved EF
Diastolic dysfunction
Interstitial lung disease on chronic oxygen with severe diffusing deficit without exacerbation
Igumly-dwjwfoywyj-lhcvmlxffs 11.4
Chronic renal failure
Hyperglycemia
Pulmonary hypertension
DNR
Conditions present prior to admission:
Hypertension.
Hyperlipidemia.
Diabetes type 2.
Macular degeneration.
Anemia.
CVA/tPA 2021.
ILD-never smoker
Chronic hypoxemia on 6 L oxygen.
Chronic cough he
Obesity
Sedentary lifestyle
MATIAS-CPAP intolerant
Restrictive lung disease.
Chronic kidney disease stage IIIa.
Atrial flutter/fibrillation.
Diastolic CHF.
Left subclavian artery stenosis
Plan
Respiratory decompensation in this patient with advanced interstitial lung disease and chronic hypoxemia and severe diffusion deficit likely related to fluid overload-though incompletely responded to diuresis with persistent FiO2 requirements
greater than her baseline-doubt venous thromboembolic disease as patient is on chronic Eliquis
The patient has very little reserve with chronic interstitial lung disease and severe reduction in diffusing capacity-mild atelectasis, CHF could translate into severe hypoxemia and hopefully with diuresis patient will eventually equilibrate
The patient's radiographs, chest x-rays, CT chest, PFTs, 6-minute walk test, polysomnogram results, and echocardiograms are summarized below
Supplemental oxygen as needed-reviewed with MACHINE PLASTER MIXER-decrease high flow oxygen to mid flow-currently on 12 L - 97% saturation
The patient has very tenuous without significant reserve-on 6 L of oxygen at home
Aspiration precautions
Incentive spirometry
Nebulizers if needed-currently not bronchospastic
Doubt initiation of steroids would be of significant benefit and with her underlying diabetes would hold off for now
Diuresis as tolerated--5 L / 4 days
Monitor renal function, electrolytes, intake/output, lower extremity edema and weight
Replace electrolytes as needed
Cardiology following-correspondence reviewed
Monitor blood sugar
Insulin supplementation as needed
DVT prophylaxis-on Eliquis
Nutrition
Early mobilization
The patient was on hospice but exited hospice about 6 weeks ago-does not wish to return to it nor does she want to go to rehab
Reviewed with primary team and nursing as well as respiratory therapy
Patient usually follows with Dr. Tucker in the office since 2020-last saw Harmony ORANTES 04/11/24-recommend follow-up
Diagnostic data:
Chest x-ray 08/08/2024-no change in appearance of chronic interstitial lung disease
Chest x-ray 02/14/2025-mild diffuse interstitial prominence may reflect interstitial edema or pneumonitis with underlying chronic interstitial lung disease
Chest x-ray 03/22/2025-cardiomegaly with increased pulmonary vascular congestion could represent CHF
Chest x-ray 03/23/2025-stable moderate cardiomegaly, no evidence for CHF or pneumonia
CT Chest 09/24/20: Diffuse bilateral predominantly peripheral interlobular and intralobular interstitial thickening with small patches of groundglass opacities. Mild bronchial wall thickening, no honeycombing or bronchiectasis. Small calcified lymph
nodes in the subcarinal region, shotty mediastinal lymph nodes. Dense calcified plaque at the origin of the left subclavian artery likely resulting in hemodynamically significant stenosis. Small to moderate sliding hiatal hernia. Mild pancreatic
calcification suggesting chronic pancreatitis. 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
CT Chest 09/24/20: Diffuse bilateral predominantly peripheral interlobular and intralobular interstitial thickening with small patches of groundglass opacities. Mild bronchial wall thickening, no honeycombing or bronchiectasis. Small calcified lymph
nodes in the subcarinal region, shotty mediastinal lymph nodes. Dense calcified plaque at the origin of the left subclavian artery likely resulting in hemodynamically significant stenosis. Small to moderate sliding hiatal hernia. Mild pancreatic
calcification suggesting chronic pancreatitis. 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
PFTs 12/09/21: FEV1 1.47L 124%, FVC 1.66L 101%, ratio 89.� TLC 2.45L 62%, DLCO 39% (moderate restriction, severe diffusion impairment; stable jackie from prior testing, volumes are worse, diffusion is improved)
PFT106/12/2023-� PFT-� FVC 1.46, 95� fev1 1.26, 115� ratio 86� TLC 2.85, 73� DLCO 3.14, 21
6 MWT- room air resting pulse ox 97%, after ambulating 450 feet To 86%.� Subjective shortness of breath.� 3/10.� Placed on oxygen 1 L and titrated up to 3 L to maintain a pulse ox of 88-92%.� Ambulating additional 600 feet.
PSG 11/12/21: AHI 8.5, O2 misbah 72%, TST 134/388.7 mins, SE 34.5%. 3L NC needed to maintain saturation.
ECHO 05/26/20: Normal LV function with moderate LVH. Estimated EF 70%. Mild MR, mild TR, estimated pressure 46-51.
Echocardiogram 07/11/2024-EF 60-65%, mild mitral regurgitation, aortic sclerosis without stenosis, PA systolic estimated 65-70
Subjective Data
-
Date of Service:
Date of Service: March 26, 2025
Chief Complaint: Pulmonary Follow Up and Dyspnea Follow Up
Subjective:
Feels a little better, less O2 requirements, no chest pain, pleurisy or abdominal pain
Review of Systems
General: Other (Per HPI)
Objective Data
Data Reviewed
Vital Signs / I&O:
Vital Signs
Temp Pulse Resp BP Pulse Ox
97.9 F 54 17 113/48 100
03/26/25 07:15 03/26/25 08:10 03/26/25 07:55 03/26/25 08:10 03/26/25 07:55
Intake and Output
03/25/25 03/26/25 03/27/25
06:59 06:59 06:59
Intake Total 720 / 720
Output Total 950 / 950 1250 / 1250
Balance -950 / -950 -530 / -530
SaO2: 100
Nasal Cannula flow liters per minute: 40
Physical Exam
General: Respiratory Distress (n) and Comfortable
HEENT: Normocephalic, Anicteric and Moist Mucous Membranes
Cardiovascular: Regular Rhythm
Respiratory: Wheeze (n), Crackles (Bilateral bases) and Rhonchi
GI: Soft, Non Distended and Non Tender
Neurology: Awake, Alert and No Motor Deficits
Skin: Warm, Good Color, Cyanosis (n), Jaundice (n) and Rash (n)
Labs/Micro/Reports
Lab Data
03/26/25 05:12
03/26/25 05:12
Microbiology
03/25/25 13:59 Nasal Swab Influenza Types A & B (LEVI) - Final
Negative for Influenza A & B, NAAT
Negative results must be combined with clinical observations
and patient history.
Nucleic Acid Amplification test (NAAT)performed on the
[employer] platform.
03/23/25 04:36 Nose MRSA Screen - Final
No Methicillin Resistant Staphylococcus aureus isolated.
[2025-03-26] MEDS: NOVOLOG FLEXPEN-LOW RESISTANCE 5 UNITS SC (12:46)
[2025-03-26 12:49] LABS: Glucose - Point of Care 382 mg/dl (70-99)
--- NOTE | 2025-03-26 16:53 | PTCARENOTE ---
Patient AAOx3, no complaints. Levo weaned to 1mcg/min, HR afib 40-70. 94% on 12L midflow, weaning as tolerates. Patient up in chair since 1245, GUTIÉRREZ, desats to 86% on exertion but rebounds quickly and no NRB used. Patient making needs known, will
continue to closely monitor.
[2025-03-26 18:08] LABS: Glucose - Point of Care 255 mg/dl (70-99)
[2025-03-26] MEDS: LIPITOR 40 MG PO (18:25)
[2025-03-26 21:41] LABS: Glucose - Point of Care 342 mg/dl (70-99)
[2025-03-26] MEDS: LANTUS 0.1 UNITS SC (22:07)
--- NOTE | 2025-03-26 23:53 | PTCARENOTE ---
patient still on 1 mcg levo in peripheral iv site for 24 hours. TT VAT team about possible central line. VAT team said they will address central line in the morning to see if patient still needs levo. continuing to monitor. call razo in reach.
[2025-03-27] VITALS (33 sets, daily range): BP systolic 92–136; BP diastolic 39–66; PULSE 54; O2SAT 94; BMI 26.5
--- NOTE | 2025-03-27 00:24 | VATNOTE ---
pt currently on levo gtt for 24 hours . rate at 1 mcg with stable b/p and map. will observe pt overnight and determine if a cvad is warranted in am. new iv site established as documented. vat to follow.
--- NOTE | 2025-03-27 03:28 | DOWNTIME ---
There was a [employer] Client Tie Man Downtime on 03/27/2025 from 0100 to 03/27/2025 at 0255. Downtime documentation of patient's care, including medication administrations, has been reconciled in the electronic record per guidelines. Refer to the
patient's paper chart under the miscellaneous tab to see printed paper medication records and downtime forms.
[2025-03-27 04:42] LABS: Hematocrit 33.7 % (37.0-47.0); Hemoglobin 10.8 g/dL (12.0-16.0); Mean Corp Hgb Conc. 32.0 g/dL (33.0-37.0); Mean Corpuscular Volume 91.6 fL (81.0-99.0); Platelet Count 204 10^3/uL (130-400); Red Cell Dist. Width 14.6 % (11.5-14.5)
[2025-03-27 05:17] LABS: ALT (SGPT) 35 U/L (0-35); AST (SGOT) 35 U/L (14-36); Albumin 3.5 g/dl (3.5-5.0); Alkaline Phosphatase 117 U/L (38-126); Blood Urea Nitrogen 47 mg/dl (7-17); Calcium 9.2 mg/dl (8.4-10.2); Carbon Dioxide 28 mmol/L (22-30); Chloride 100 mmol/L (98-107); Estimated Creatinine Clearance 24 ml/min; Glucose 229 mg/dl (70-99); Potassium 4.1 mmol/L (3.5-5.1); Sodium 132 mmol/L (135-145); Total Protein 6.4 g/dl (6.3-8.2); eGFR 43.54
[2025-03-27 05:39] LABS: Cortisol, Random 12.6 ug/dl
--- NOTE | 2025-03-27 07:02 | W.PN.HOSP.TC ---
Addendum entered and electronically signed by Sharri Benitez MD 03/27/25 17:37:
I saw and evaluated the patient independently. I reviewed and discussed the resident�s note and agree with findings and plan as documented by Dr. Garcia.
GENERAL: well developed, well nourished, female in no apparent distress
HEENT: NC/AT MID GERMAN 12L
HEART: regular rate and rhythm, +S1, +S2, bradycardic
LUNGS : crackles at bases bilaterally
ABDOM: soft, nontender, nondistended, + bowel sounds
EXT: no cyanosis, clubbing, or edema
NEUROLOGIC: grossly intact
Acute hypoxemic resp failure due to Acute on Chronic Heart Failure exacerbation with Preserved Ejection Fraction --required HI GERMAN O2, down to 12L MID GERMAN--has advanced restrictive lung disease with chronic hypoxemia and 5-6L home oxygen--cont
diuresis--limited by BP and need for pressors--wean levophed to off and starting midodrine--apprec pulm/cards--proBNP 7800--weights down--aspiration precautions--despite trying to wean pressors and O2, not having much success-- started to discuss
hospice again (as has not much reserve for any further insults)--was on hospice and 'graduated'--cont IS--not bronchospastic--no need for steroids currently--repeat echo still shows preserved EF but RA/RV dysfunction--checking V/Q or CT PE study
will not manager of change so no role to check at this time--no need for right heart cath with right sided heart failure
SAAD on VPH9a--guivqt creat--consider renal if no improvement--Cr 1.2--due to Lasix administration/dehydration (baseline appears to be 0.9)
Anemia of Chronic Disease- Hemoglobin stable --no signs of active bleeding
History of COPD- Continue Advair, PRN nebs- Wean O2 to goal 90-94%
Persistent Atrial Fibrillation w/o rapid Ventricular Response--actually bradycardic--cont Eliquis
HLD/Essential HTN/T2DM- Continue Home Meds- Low Resistance Sliding Scale- Hold Metformin
Other Conditions Present Prior to Arrival
Restrictive Lung Disease
Interstitial Lung Disease
Macular Degeneration
CODE STATUS-- DNR--but seems to want treatment--started hospice discussions again
DVT proph-- Eliquis
Original Note:
Today's Communication/Plan
-
Hold Lasix
Monitor blood glucose
CMP, CBC
Increase midodrine dosage
Plan to add fludrocortisone.
Assessment / Plan
Assessment / Plan
Mami Grider is a 89F w/ PMHx A/fib (on Eliquis), HFpEF, ILD, T2DM, COPD, ACD, CKD3a, moderate TR, HLD, HTN, and pHTN who presented w/ SOB (worse w/ exertion) x 1 week, orthopnea and limited mobility in the setting of recent move to assisted
living facility where she was unable to receive an adequate amount of O2 therapy for her needs, and was found to have increased O2 requirements, pulmonary vascular congestion on CXR and elevated BNP on arrival alongside SAAD on CKD.
1. Acute on Chronic Heart Failure with Preserved Ejection Fraction:
BP 86/46--118/56, MAP 75 pulse rate 55, RR 15, saturation 91 mid flow nasal oxygen overnight she was on 13 L while on the prerounds switched to 10 L of oxygen nasal cannula, weight reduced 58.9--57.4 today,
-hemoglobin 11.4--11.2 still on baseline.
- BNP (ED): 7800
- cortisol 12.6.
- Respiratory distress on arrival, SaO2 80% on NRB, started on MidFlow
- CXR (ED): increased pulmonary vascularity.
-Reduce higher oxygen flow to maintain saturation around 90%.
Echo 03/25:
Compared to a prior transthoracic echocardiogram study from 07/11/2024 no significant changes are seen.
2. Normal left ventricular size and systolic function. Mild concentric left ventricular hypertrophy. Normal regional wall motion. Left ventricular ejection fraction is 60-65% by visual estimate.
3. Severely dilated and hypocontractile right ventricle.
4. Indexed left atrial volume is moderately abnormal (42-48 ml/m2).
5. Severe tricuspid regurgitation. Estimated pulmonary artery pressure of 73 mmHg assuming a right atrial pressure of 8 mmHg.
6. Severely dilated right atrium.
Held the Lasix
- Cardiology Consult: Lasix on hold due to hypotension.
-Transition to oral diuretics.
-Wean IV Norepinephrine off
- Increased the dosage of midodrine from 5 mg 3 times, add fludrocortisone.
# Planning to wean off Levophed for today.
# Midodrine dosage increased from 2.5 to 5 mg 3 times daily.
Graphics Software Engineer consulted due to her high flow oxygen requirement:
-Recommended supplemental oxygen as needed reviewed with FEEDER/FOLDER-decrease high flow oxygen to mid flow.
-Aspiration precautions required.
-Incentive spirometry.
-Nebulizers if needed but currently patient is not bronchospastic.
-Currently not initiating steroids due to her underlying diabetes.
2. 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
-Lasix on hold.
- Daily BMPs
- Cr 1.2---1.3 today, (baseline appears to be 0.9)
- Will hold AM dose of Lasix
- Decongestion in setting of cardiorenal syndrome? vs. Medication side effect?
--Total bilirubin 1.6 high, AST 40 high, ALT 37 high.
3. Anemia of Chronic Disease
- Hemoglobin stable
- Continue to Monitor
4. History of COPD
- Continue Advair, PRN nebs
- Wean O2 to goal 90-94%
5. Persistent Atrial Fibrillation w/o Ventricular Response
- Adequate rate control
- Continue Eliquis.
6. HLD/HTN/T2DM
-POC glucose 384--275-- 250--229. high
- Low Resistance Sliding Scale
- Insulin glargine increased to 10 units.
Other Conditions Present Prior to Arrival
Restrictive Lung Disease
Interstitial Lung Disease
Macular Degeneration
# PT, OT consulted.
CODE: DNR
Diet: DM
DVT: Eliquis
Dispo Planning: PT once O2 req improves; CM consult for O2 needs at [facility].
# Discussed today regards hide disposition to hospice.
Anticipated Discharge: > 48 hours
Subjective/Interval History
-
Date of Service: March 27, 2025
Overnight the patient feels better when comparing with yesterday. Has no concern for shortness of breath, chest pain, palpitation, dizziness, lower leg swelling. She was on Levophed 1 mcg/min because her BP was 86/46. She is receiving midodrine 5
mg TID. Currently on IV fluids.
BP 118/56, MAP 75 pulse rate 55, RR 15, saturation 91 mid flow nasal oxygen overnight she was on 13 L while on the prerounds switched to 10 L of oxygen nasal cannula, weight reduced 58.9--57.4 today, Temp 97.8
Objective Data
-
Labs:
Laboratory Results
03/27/25
04:33
WBC 8.5
Hgb 10.8 L
Hct 33.7 L
Plt Count 204
Sodium 132 L
Potassium 4.1
Chloride 100
Carbon Dioxide 28
BUN 47 H
Creatinine 1.2 H
Glucose 229 H
Calcium 9.2
Total Bilirubin 1.4 H
AST 35
ALT 35
Alkaline Phosphatase 117
Vital Signs:
Vital Signs
Temp Pulse Resp BP Pulse Ox
97.7 F 55 15 118/56 93
03/27/25 03:00 03/27/25 05:16 03/27/25 05:16 03/27/25 05:16 03/27/25 05:16
I&O
03/26/25 03/27/25 03/28/25
06:59 06:59 06:59
Intake Total 720 / 720
Output Total 1250 / 1250 200 / 200
Balance -530 / -530 -200 / -200
Review of Systems
-
History Source: Patient
All other systems: Reviewed and negative
Physical Exam
-
General: Well Nourished and Other
HEENT: Oxygen (10 L of oxygen)
Respiratory: Crackles (Bilateral lower lobe)
Cardiac: Regular Rhythm and S1/S2
GI: Soft, Nontender and Nondistended
Genito-urinary: No Costovertebral Tender
Musculoskeletal: No Edema
Skin: Warm
Neuro: AO x 3
Hematologic / Lymphatic: No Lymphadenopathy
Psych: Calm
[2025-03-27] MEDS: ADVAIR HFA 115/21 MCG INHALER 2 PUFF INH ×2 (07:28→19:19)
[2025-03-27 07:36] LABS: Glucose - Point of Care 223 mg/dl (70-99)
[2025-03-27] MEDS: APRESOLINE PO (09:15)
[2025-03-27] MEDS: ELIQUIS 5 MG PO (09:16)
[2025-03-27] MEDS: DESENEX/MITRAZOL/ZEASORB 1 APPLIC TOPICAL ×2 (09:16→20:34)
[2025-03-27] MEDS: OCUVITE SOFTGEL 1 CAP PO ×2 (09:16→20:34)
[2025-03-27] MEDS: NOVOLOG FLEXPEN-LOW RESISTANCE 2 UNITS SC (09:16)
[2025-03-27] MEDS: NOVOLOG FLEXPEN 2 UNITS SC ×2 (09:17→12:50)
[2025-03-27] MEDS: TIMOPTIC 0.5% OPHTHALMIC SOLUTION 1 DROP BOTH EYES ×2 (09:17→20:34)
--- NOTE | 2025-03-27 09:20 | W.PN.PUL.V3 ---
Today's Communication / Plan
-
Attempt to wean oxygen
Increase activity
Aspiration precautions
Will consider steroids as last attempt left to potentially reverse severe hypoxemia-insulin with clearly need to be adjusted as patient already hyperglycemic
Assessment
-
89-year-old never smoking female with history of restrictive lung disease, chronic hypoxemia on 6 L of oxygen, anemia, chronic kidney disease, atrial flutter/fibrillation, diastolic CHF presented with increasing shortness of breath felt to be CHF
related, diuresed and still on high flow O2 and pulmonary consulted for shortness of breath 03/25/2025.
CHF-preserved EF
Diastolic dysfunction
Interstitial lung disease on chronic oxygen with severe diffusing deficit without exacerbation
Wkogha-iitqvcnhrd-oeeeraljed 11.4
Chronic renal failure
Hyperglycemia
Pulmonary hypertension
DNR
Conditions present prior to admission:
Hypertension.
Hyperlipidemia.
Diabetes type 2.
Macular degeneration.
Anemia.
CVA/tPA 2021.
ILD-never smoker
Chronic hypoxemia on 6 L oxygen.
Chronic cough he
Obesity
Sedentary lifestyle
MATIAS-CPAP intolerant
Restrictive lung disease.
Chronic kidney disease stage IIIa.
Atrial flutter/fibrillation.
Diastolic CHF.
Left subclavian artery stenosis
Plan
Respiratory decompensation in this patient with advanced interstitial lung disease and chronic hypoxemia and severe diffusion deficit likely related to fluid overload-though incompletely responded to diuresis with persistent FiO2 requirements
greater than her baseline-doubt venous thromboembolic disease as patient is on chronic Eliquis
The patient has very little reserve with chronic interstitial lung disease and severe reduction in diffusing capacity-mild atelectasis, CHF could translate into severe hypoxemia and hopefully with diuresis patient will eventually equilibrate
The patient's radiographs, chest x-rays, CT chest, PFTs, 6-minute walk test, polysomnogram results, and echocardiograms are summarized below
Supplemental oxygen as needed-reviewed with IRRIGATION SERVICE TECHNICIAN-decrease high flow oxygen to mid flow-currently on 15 L - 96% saturation-attempt to wean
Patient's respiratory status is very tenuous without significant reserve-note:-On 6 L of oxygen at home
Aspiration precautions
Incentive spirometry
Mucus clearing devices
Nebulizers if needed-currently not bronchospastic
Doubt initiation of steroids would be of significant benefit and with her underlying diabetes would hold off for now
Diuresis as tolerated--5 L / 4 days-now euvolemic
Monitor renal function, electrolytes, intake/output, lower extremity edema and weight
Replace electrolytes as needed
Cardiology following-correspondence reviewed
Norepinephrine if needed
Monitor blood sugar
Insulin supplementation as needed
DVT prophylaxis-on Eliquis
Nutrition
PT/OT-reviewed with primary team
The patient was on hospice but exited hospice about 6 weeks ago-does not wish to return to it nor does she want to go to rehab
Reviewed with primary team and nursing as well as respiratory therapy
Patient usually follows with Dr. Tucker in the office since 2020-last saw Harmony ORANTES 04/11/24-recommend follow-up
Diagnostic data:
Chest x-ray 08/08/2024-no change in appearance of chronic interstitial lung disease
Chest x-ray 02/14/2025-mild diffuse interstitial prominence may reflect interstitial edema or pneumonitis with underlying chronic interstitial lung disease
Chest x-ray 03/22/2025-cardiomegaly with increased pulmonary vascular congestion could represent CHF
Chest x-ray 03/23/2025-stable moderate cardiomegaly, no evidence for CHF or pneumonia
CT Chest 09/24/20: Diffuse bilateral predominantly peripheral interlobular and intralobular interstitial thickening with small patches of groundglass opacities. Mild bronchial wall thickening, no honeycombing or bronchiectasis. Small calcified lymph
nodes in the subcarinal region, shotty mediastinal lymph nodes. Dense calcified plaque at the origin of the left subclavian artery likely resulting in hemodynamically significant stenosis. Small to moderate sliding hiatal hernia. Mild pancreatic
calcification suggesting chronic pancreatitis. 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
CT Chest 09/24/20: Diffuse bilateral predominantly peripheral interlobular and intralobular interstitial thickening with small patches of groundglass opacities. Mild bronchial wall thickening, no honeycombing or bronchiectasis. Small calcified lymph
nodes in the subcarinal region, shotty mediastinal lymph nodes. Dense calcified plaque at the origin of the left subclavian artery likely resulting in hemodynamically significant stenosis. Small to moderate sliding hiatal hernia. Mild pancreatic
calcification suggesting chronic pancreatitis. 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
PFTs 12/09/21: FEV1 1.47L 124%, FVC 1.66L 101%, ratio 89.� TLC 2.45L 62%, DLCO 39% (moderate restriction, severe diffusion impairment; stable jackie from prior testing, volumes are worse, diffusion is improved)
PFT106/12/2023-� PFT-� FVC 1.46, 95� fev1 1.26, 115� ratio 86� TLC 2.85, 73� DLCO 3.14, 21
6 MWT- room air resting pulse ox 97%, after ambulating 450 feet To 86%.� Subjective shortness of breath.� 10.� Placed on oxygen 1 L and titrated up to 3 L to maintain a pulse ox of 88-92%.� Ambulating additional 600 feet.
PSG 11/12/21: AHI 8.5, O2 misbah 72%, TST 134/388.7 mins, SE 34.5%. 3L NC needed to maintain saturation.
ECHO 05/26/20: Normal LV function with moderate LVH. Estimated EF 70%. Mild MR, mild TR, estimated pressure 46-51.
Echocardiogram 07/11/2024-EF 60-65%, mild mitral regurgitation, aortic sclerosis without stenosis, PA systolic estimated 65-70
Subjective Data
-
Date of Service:
Date of Service: March 27, 2025
Chief Complaint: Pulmonary Follow Up and Dyspnea Follow Up
Subjective:
Feels a little better, FiO2 has been weaned somewhat, no chest pain, productive cough, abdominal pain
Review of Systems
General: Other (Per HPI)
Objective Data
Data Reviewed
Vital Signs / I&O:
Vital Signs
Temp Pulse Resp BP Pulse Ox
97.7 F 55 18 118/56 91
03/27/25 03:00 03/27/25 05:16 03/27/25 07:29 03/27/25 05:16 03/27/25 07:29
Intake and Output
03/26/25 03/27/25 03/28/25
06:59 06:59 06:59
Intake Total 720 / 720
Output Total 1250 / 1250 200 / 200
Balance -530 / -530 -200 / -200
SaO2: 91
Nasal Cannula flow liters per minute: 12
Physical Exam
General: Respiratory Distress (n) and Comfortable
HEENT: Normocephalic, Anicteric and Moist Mucous Membranes
Cardiovascular: Regular Rhythm
Respiratory: Wheeze (n), Crackles (Bilateral bases) and Rhonchi
GI: Soft, Non Distended and Non Tender
Neurology: Awake, Alert and No Motor Deficits
Skin: Warm, Good Color, Cyanosis (n), Jaundice (n) and Rash (n)
Labs/Micro/Reports
Lab Data
03/27/25 04:33
03/27/25 04:33
Microbiology
03/25/25 13:59 Nasal Swab Influenza Types A & B (LEVI) - Final
Negative for Influenza A & B, NAAT
Negative results must be combined with clinical observations
and patient history.
Nucleic Acid Amplification test (NAAT)performed on the
[employer] platform.
03/23/25 04:36 Nose MRSA Screen - Final
No Methicillin Resistant Staphylococcus aureus isolated.
--- NOTE | 2025-03-27 12:33 | W.PN.CARDCBS ---
Addendum entered and electronically signed by Matt Nguyen MD 03/27/25 12:55:
Dose reduce Eliquis to 2.5 mg BID for age >80 and wt <60kg
Original Note:
Today's Communication / Plan
-
Increase midodrine
Wean norepinephrine as able
Appears euvolemic on exam. Agree with holding oral Lasix. If blood pressure does not improve may need to give small fluid bolus.
Impression / Plan
-
Primary Spar Machine Operator Helper: Dr. Ferguson
Impression:
Presentation with acute on chronic dyspnea on exertion/shortness of breath
Persistent atrial fibrillation/atrial flutter with slow ventricular response
Pulmonary hypertension
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
Chronic renal insufficiency
Hypertension
Hyperlipidemia
Obesity
LVH
Type 2 diabetes
History of CVA requiring TPA 2021
History of symptomatic bradycardia
History of anemia
History of LE edema on norvasc
ECHO 08/19/2021: Hyperdynamic LV, mild concentric LVH, EF 70 to 75%, stage II diastolic dysfunction, posterior MAC, mild MR, aortic sclerosis, mild TR, PAP 52 mmHg
ECHO 01/17/24: EF 60 to 65%, mild concentric LVH, posterior MAC, mild MR, aortic sclerosis, trace AR, severe TR, PAP 59 mmHg, severely dilated RA, dilated and hypokinetic RV
ECHO 03/2025:LVEF 60 to 65%, severe TR, PAP 73 mmHg, severely dilated RA, dilated and hypokinetic RV
Plan:
Medically complex 89-year-old female with acute on chronic HFpEF decompensation with known restrictive lung disease/ILD
Echo from 03/25/25 reviewed with dilated and hypokinetic RV in the setting of severe range pulm HTN consistent with cor pulmonale
Would increase midodrine for bp support. Consider adding Florinef if no sig improvement.
Stop hydralazine
Wean IV Norepinephrine off as able
Wt is down 10-15 lbs from admit
Cont to monitor Is and Os, daily wts and cr
Agree with holding oral lasix. Would tentatively plan to add back prior to discharge.
History of persistent atrial fibrillation, slow ventricular response here
Cont rate control strategy
Eliquis for cardioembolic ppx
Patient had been previously on hospice. She is DNR. Overall prognosis is guarded.
Discussed with primary team
Progress Note - Spar Machine Operator Helper
Subjective
Date of Service: March 27, 2025
Remains in IMU where she is requiring norepinephrine for pressor support. No cardiac complaints today at the time my evaluation. Resting comfortably out of bed to chair.
Objective
Labs:
03/27/25 04:33
03/27/25 04:33
Labs
Hgb 10.8 g/dL (12.0-16.0) L 03/27/25 04:33
Hct 33.7 % (37.0-47.0) L 03/27/25 04:33
Plt Count 204 10^3/uL (130-400) 03/27/25 04:33
Sodium 132 mmol/L (135-145) L 03/27/25 04:33
Potassium 4.1 mmol/L (3.5-5.1) 03/27/25 04:33
BUN 47 mg/dl (7-17) H 03/27/25 04:33
Creatinine 1.2 mg/dL (0.6-1.0) H 03/27/25 04:33
Glucose 229 mg/dl (70-99) H 03/27/25 04:33
Vital Signs and I&O:
Vital Signs
Temp Pulse Resp BP Pulse Ox
98 F 42 17 93/43 95
03/27/25 11:47 03/27/25 11:31 03/27/25 11:31 03/27/25 11:31 03/27/25 11:31
Vital Signs
Temp Pulse Resp BP Pulse Ox
98 F 42 17 93/43 95
03/27/25 11:47 03/27/25 11:31 03/27/25 11:31 03/27/25 11:31 03/27/25 11:31
Intake & Output
03/25/25 03/26/25 03/27/25 03/28/25
06:59 06:59 06:59 06:59
Intake Total 720 / 720 240 / 240
Output Total 950 / 950 1250 / 1250 200 / 200 100 / 100
Balance -950 / -950 -530 / -530 -200 / -200 140 / 140
Physical Exam
Physical Exam
Gen: NAD, AA
HEENT: NC/AT, sclera anicteric
CV: Bradycardic, NL s1/s2
Lungs: On 6L O2
Abd: S/ND
Ext: No LE edema
Skin: Warm, dry
Neuro: Non-focal
[2025-03-27] MEDS: NOVOLOG FLEXPEN-LOW RESISTANCE 3 UNITS SC ×2 (12:49→17:41)
--- NOTE | 2025-03-27 13:00 | PTCARENOTE ---
Patient lunch time blood sugar did not cross over into the system. Blood sugar was 281 at 12:46, coverage given per MAR. Blood sugar was taken on same machine that breakfast blood sugar was checked.
--- NOTE | 2025-03-27 16:24 | CM ---
F/U: Patient still on Midflow of 10 liters and Hospital Team not sure what the next steps are. Pulmonary stated that an attempt to wean that was not successful. Patient is from [facility] and was only up to 5 liters there. PLAN: TBD.
[2025-03-27] MEDS: LIPITOR 40 MG PO (17:40)
[2025-03-27] MEDS: NOVOLOG FLEXPEN 4 UNITS SC (17:41)
[2025-03-27 17:49] LABS: Glucose - Point of Care 254 mg/dl (70-99)
--- NOTE | 2025-03-27 20:00 | PTCARENOTE ---
Received pt from previous shift. Systems reviewed, see flowsheets. Pt SaO2 97% on 10L MFNC. AFib in the 50s on heart monitor. Pt sitting up in chair with no complaints at this time. Pt stated 'they tell me the R side of my heart isn't working well
and my lungs aren't working well, but I feel fine!' Pt finishing up dinner and talking on the phone with friends/family. No new complaints. Will continue to monitor.
[2025-03-27] MEDS: ELIQUIS 2.5 MG PO (20:34)
[2025-03-27] MEDS: LANTUS 0.13 UNITS SC (22:59)
[2025-03-27 23:08] LABS: Glucose - Point of Care 216 mg/dl (70-99)
[2025-03-28] VITALS (20 sets, daily range): BP systolic 95–140; BP diastolic 36–93; BMI 26.9
--- NOTE | 2025-03-28 02:30 | PTCARENOTE ---
Pt SaO2 89-90% on 10L MFNC. Increased FiO2 to 14L MFNC, SaO2 now 93-94%.
[2025-03-28 05:09] LABS: Hematocrit 32.3 % (37.0-47.0); Hemoglobin 10.7 g/dL (12.0-16.0); Mean Corp Hgb Conc. 33.1 g/dL (33.0-37.0); Mean Corpuscular Volume 91.8 fL (81.0-99.0); Platelet Count 194 10^3/uL (130-400); Red Cell Dist. Width 14.2 % (11.5-14.5)
[2025-03-28 05:33] LABS: ALT (SGPT) 40 U/L (0-35); AST (SGOT) 50 U/L (14-36); Albumin 3.6 g/dl (3.5-5.0); Alkaline Phosphatase 119 U/L (38-126); Blood Urea Nitrogen 56 mg/dl (7-17); Calcium 9.4 mg/dl (8.4-10.2); Carbon Dioxide 27 mmol/L (22-30); Chloride 103 mmol/L (98-107); Estimated Creatinine Clearance 25 ml/min; Glucose 147 mg/dl (70-99); Potassium 4.4 mmol/L (3.5-5.1); Sodium 133 mmol/L (135-145); Total Protein 6.6 g/dl (6.3-8.2); eGFR 43.54
--- NOTE | 2025-03-28 07:02 | W.PN.HOSP.TC ---
Addendum entered and electronically signed by Sharri Benitez MD 03/28/25 15:58:
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
Addendum entered and electronically signed by Sharri Benitez MD 03/28/25 15:56:
I saw and evaluated the patient independently. I reviewed and discussed the resident�s note and agree with findings and plan as documented by Dr. Garcia.
GENERAL: well developed, well nourished, female in no apparent distress
HEENT: NC/AT MID GERMAN 10L
HEART: regular rate and rhythm, +S1, +S2, bradycardic
LUNGS : crackles at bases bilaterally
ABDOM: soft, nontender, nondistended, + bowel sounds
EXT: no cyanosis, clubbing, or edema
NEUROLOGIC: grossly intact
Acute hypoxemic resp failure due to Acute on Chronic Heart Failure exacerbation with Preserved Ejection Fraction--required HI GERMAN O2, down to 10L MID GERMAN--has advanced restrictive lung disease with chronic hypoxemia and 5-6L home oxygen--diuresis
limited by BP and need for pressors--levophed off and on midodrine--apprec pulm/cards--weights down--trying to wean O2, not having much success-- started to discuss hospice again (as has not much reserve for any further insults)--was on hospice and
she revoked due to concern about her diabetes--cont IS--not bronchospastic--no need for steroids currently--repeat echo still shows preserved EF but significant RA/RV dysfunction--checking V/Q or CT PE study will not pipe changer so no role to
check at this time--no need for right heart cath with right sided heart failure
SAAD on VFO1r--bjngil creat--consider renal if no improvement--Cr 1.2--due to Lasix administration/dehydration (baseline appears to be 0.9)
Anemia of Chronic Disease- Hemoglobin stable --no signs of active bleeding
History of COPD- Continue Advair, PRN nebs- Wean O2 to goal 90-94%
Persistent Atrial Fibrillation w/o rapid Ventricular Response--actually bradycardic--cont Eliquis
HLD/Essential HTN/T2DM- Continue Home Meds- Low Resistance Sliding Scale- Hold Metformin
Other Conditions Present Prior to Arrival
Restrictive Lung Disease
Interstitial Lung Disease
Macular Degeneration
CODE STATUS-- DNR--but seems to want treatment--started hospice discussions again--I explained to the patient that her lung function and heart are not a problem and that we cannot get her off of the 10 L of oxygen. I explained that she should
consider hospice but she wants her sugars managed while on hospice. I told her that it does not matter what her sugars are on hospice and she stated 'it matters to me'.
DVT proph-- Eliquis
Original Note:
Today's Communication/Plan
-
start lasix 20 mg
discussed with her regards lasix.
skilled care--[facility]-- ??
glargine to 15
insulin aspart to 6.
Assessment / Plan
Assessment / Plan
Mami Grider is a 89F w/ PMHx A/fib (on Eliquis), HFpEF, ILD, T2DM, COPD, ACD, CKD3a, moderate TR, HLD, HTN, and pHTN who presented w/ SOB (worse w/ exertion) x 1 week, orthopnea and limited mobility in the setting of recent move to assisted
living facility where she was unable to receive an adequate amount of O2 therapy for her needs, and was found to have increased O2 requirements, pulmonary vascular congestion on CXR and elevated BNP on arrival alongside SAAD on CKD.
1. Acute on Chronic Heart Failure with Preserved Ejection Fraction:
BP 86/46--118/56, MAP 75 pulse rate 55, RR 15, saturation 91 mid flow nasal oxygen overnight she was on 13 L while on the prerounds switched to 10 L of oxygen nasal cannula, weight reduced 58.9--57.4 today,
-hemoglobin 11.4--11.2 still on baseline.
Lab: Sodium 133 low, creatinine 1.2 high. Her hyponatremia probably secondary to IV Lasix administration by given her acute on chronic heart failure with preserved ejection fraction treatment.
- BNP (ED): 7800
- cortisol 12.6.
- Respiratory distress on arrival, SaO2 80% on NRB, started on MidFlow
- CXR (ED): increased pulmonary vascularity.
-Reduce higher oxygen flow to maintain saturation around 90%.
Echo 03/25:
Compared to a prior transthoracic echocardiogram study from 07/11/2024 no significant changes are seen.
2. Normal left ventricular size and systolic function. Mild concentric left ventricular hypertrophy. Normal regional wall motion. Left ventricular ejection fraction is 60-65% by visual estimate.
3. Severely dilated and hypocontractile right ventricle.
4. Indexed left atrial volume is moderately abnormal (42-48 ml/m2).
5. Severe tricuspid regurgitation. Estimated pulmonary artery pressure of 73 mmHg assuming a right atrial pressure of 8 mmHg.
6. Severely dilated right atrium.
Held the Lasix due to her hypotension.
- Cardiology Consult:-She has previously transition to oral Lasix. Which is currently on hold given increased BUN and low blood pressure. Continue to reassess and certainly would add back day of discharge.
-Weaned off from pressors.
-Increased the dosage of midodrine from 5 mg 3 times, add fludrocortisone.
# Planning to wean off Levophed for today.
# Midodrine dosage increased to 10 mg 3 times a day.
# Chronic hypoxic respiratory failure secondary to pulmonary hypertension:
She consistently required mid flow oxygen around 14 L nasal cannula to maintain her saturation around 96%
[employer] consulted due to her high flow oxygen requirement:
-Recommended supplemental oxygen as needed reviewed with MAGNET MAKER-decrease high flow oxygen to mid flow.
-Aspiration precautions required.
-Incentive spirometry.
-Nebulizers if needed but currently patient is not bronchospastic.
-Currently not initiating steroids due to her underlying diabetes.
2. 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
-Lasix on hold.
- Daily BMPs
- Cr 1.2---1.3 today, (baseline appears to be 0.9)
- Will hold AM dose of Lasix
- Decongestion in setting of cardiorenal syndrome? vs. Medication side effect?
--Total bilirubin 1.6 high, AST 40 high, ALT 37 high.
3. Anemia of Chronic Disease
- Hemoglobin stable
- Continue to Monitor
4. History of COPD
- Continue Advair, PRN nebs
- Wean O2 to goal 90-94%
5. Persistent Atrial Fibrillation w/o Ventricular Response
- Adequate rate control
- Continue Eliquis.
6. HLD/HTN/T2DM
-POC glucose 384--275-- 250--229. high
- Low Resistance Sliding Scale
- Insulin glargine sliding scale increased to 15 units
-Insulin aspart 6 units on each meal.
Other Conditions Present Prior to Arrival
Restrictive Lung Disease
Interstitial Lung Disease
Macular Degeneration
# PT, OT consulted.
#Tried to call her daughter for the below numbers and lvm.
[phone]
Cell
CODE: DNR
Diet: 2199cal DM
DVT: Eliquis
Dispo Planning: PT once O2 req improves; CM consult for O2 needs at [place].
# Discussed today regards disposition to hospice.
#she doesnt want to go for [facility] facility which accepts her with this oxygen level.
Anticipated Discharge: 24 - 48 hours
Subjective/Interval History
-
Date of Service: March 28, 2025
Overnight patient has no concern for shortness of breath, chest pain, palpitation, dizziness. However nurse noticed drop in her blood pressure 104/43 with MAP 63 currently she is receiving midodrine 10 mg 3 times daily. Her blood pressure today
morning on prerounds around 100/41 with MAP 58. Her lowest heart rate is around 28, her Levophed infusion weaned off. Her blood glucose level is around 254--216 even after administrating insulin aspart 4 units added along with glargine 13 units on
sliding scale.
On examination: Bilateral mid, lower lobe inspiratory crackles present. Pitting edema bilateral present at lower extremities.
Her saturation is around 99 when I checked at the prerounds, reduced to 10 L from 13 L while on prerounds and requested nurse to maintain around 90%.
Tried to call daughter and LVM regards her disposition status to hospice.
Objective Data
-
Labs:
Laboratory Results
03/28/25
04:38
WBC 6.9
Hgb 10.7 L
Hct 32.3 L
Plt Count 194
Sodium 133 L
Potassium 4.4
Chloride 103
Carbon Dioxide 27
BUN 56 H
Creatinine 1.2 H
Glucose 147 H
Calcium 9.4
Total Bilirubin 1.1
AST 50 H
ALT 40 H
Alkaline Phosphatase 119
Vital Signs:
Vital Signs
Temp Pulse Resp BP Pulse Ox
98.0 F 43 11 100/41 96
03/27/25 23:00 03/28/25 06:00 03/28/25 06:00 03/28/25 06:00 03/28/25 06:00
I&O
03/27/25 03/28/25 03/29/25
06:59 06:59 06:59
Intake Total 600 / 600
Output Total 200 / 200 200 / 200
Balance -200 / -200 400 / 400
Review of Systems
-
History Source: Patient
All other systems: Reviewed and negative
Physical Exam
-
General: No Apparent Distress
HEENT: Oxygen (13 L of oxygen saturations maintaining around 96) and Other
Respiratory: Crackles (Bilateral inspiratory crackles present)
Cardiac: Regular Rhythm and S1/S2
GI: Soft, Nontender and Nondistended
Genito-urinary: No Costovertebral Tender
Musculoskeletal: Edema, Right Lower Extrem, Edema, Left Lower Extrem and Other (Bilateral pitting edema present)
Skin: Warm
Neuro: AO x 3
Psych: Calm
[2025-03-28] MEDS: ADVAIR HFA 115/21 MCG INHALER 2 PUFF INH ×2 (07:19→18:20)
[2025-03-28] MEDS: ELIQUIS 2.5 MG PO ×2 (08:04→19:27)
[2025-03-28] MEDS: OCUVITE SOFTGEL 1 CAP PO ×2 (08:05→19:27)
[2025-03-28] MEDS: DESENEX/MITRAZOL/ZEASORB 1 APPLIC TOPICAL ×2 (08:05→19:27)
[2025-03-28] MEDS: NOVOLOG FLEXPEN-LOW RESISTANCE SC (08:06)
[2025-03-28] MEDS: TIMOPTIC 0.5% OPHTHALMIC SOLUTION 1 DROP BOTH EYES ×2 (08:06→19:27)
[2025-03-28 08:14] LABS: Glucose - Point of Care 135 mg/dl (70-99)
[2025-03-28] MEDS: NOVOLOG FLEXPEN 4 UNITS SC (08:55)
--- NOTE | 2025-03-28 08:57 | W.PN.PUL.V3 ---
Today's Communication / Plan
-
Continue attempts at trying to diurese
Wean FiO2
Consider course of steroids
Comfort a priority-hospice discussions ongoing
Assessment
-
89-year-old never smoking female with history of restrictive lung disease, chronic hypoxemia on 6 L of oxygen, anemia, chronic kidney disease, atrial flutter/fibrillation, diastolic CHF presented with increasing shortness of breath felt to be CHF
related, diuresed and still on high flow O2 and pulmonary consulted for shortness of breath 03/25/2025.
CHF-preserved EF
Diastolic dysfunction
Interstitial lung disease on chronic oxygen with severe diffusing deficit without exacerbation
Sbehls-hqxippjhco-uanacqefex 11.4
Chronic renal failure
Hyperglycemia
Pulmonary hypertension
DNR
Conditions present prior to admission:
Hypertension.
Hyperlipidemia.
Diabetes type 2.
Macular degeneration.
Anemia.
CVA/tPA 2021.
ILD-never smoker
Chronic hypoxemia on 6 L oxygen.
Chronic cough he
Obesity
Sedentary lifestyle
MATIAS-CPAP intolerant
Restrictive lung disease.
Chronic kidney disease stage IIIa.
Atrial flutter/fibrillation.
Diastolic CHF.
Left subclavian artery stenosis
Plan
Respiratory decompensation in this patient with advanced interstitial lung disease and chronic hypoxemia and severe diffusion deficit likely related to fluid overload-though incompletely responded to diuresis with persistent FiO2 requirements
greater than her baseline-doubt venous thromboembolic disease as patient is on chronic Eliquis
The patient has very little reserve with chronic interstitial lung disease and severe reduction in diffusing capacity-mild atelectasis, CHF could translate into severe hypoxemia and hopefully with diuresis patient will eventually equilibrate
The patient's radiographs, chest x-rays, CT chest, PFTs, 6-minute walk test, polysomnogram results, and echocardiograms are summarized below
Supplemental oxygen as needed-reviewed with CT SC[employer] TECHNOLOGIST-decrease high flow oxygen to mid flow-currently on 10 L - 96% saturation-attempt to wean
Patient's respiratory status is very tenuous without significant reserve-note:-On 6 L of oxygen at home
Aspiration precautions
Incentive spirometry
Mucus clearing devices
Nebulizers if needed-currently not bronchospastic
Consider trial of steroids-Will discuss with primary team as patient with significant hyperglycemia/diabetes
Diuresis as tolerated--5 L / 5 days-now euvolemic
Monitor renal function, electrolytes, intake/output, lower extremity edema and weight
Replace electrolytes as needed
Cardiology following-correspondence reviewed
Lasix now oral
Norepinephrine if needed
Monitor blood sugar
Insulin supplementation as needed
DVT prophylaxis-on Eliquis 2.5 mg twice daily
Nutrition
PT/OT-reviewed with primary team
The patient was on hospice but exited hospice about 6 weeks ago-does not wish to return to it nor does she want to go to rehab
Reviewed with primary team and nursing as well as respiratory therapy
Patient usually follows with Dr. Tucker in the office since 2020-last saw Harmony ORANTES 04/11/24-recommend follow-up
Diagnostic data:
Chest x-ray 08/08/2024-no change in appearance of chronic interstitial lung disease
Chest x-ray 02/14/2025-mild diffuse interstitial prominence may reflect interstitial edema or pneumonitis with underlying chronic interstitial lung disease
Chest x-ray 03/22/2025-cardiomegaly with increased pulmonary vascular congestion could represent CHF
Chest x-ray 03/23/2025-stable moderate cardiomegaly, no evidence for CHF or pneumonia
CT Chest 09/24/20: Diffuse bilateral predominantly peripheral interlobular and intralobular interstitial thickening with small patches of groundglass opacities. Mild bronchial wall thickening, no honeycombing or bronchiectasis. Small calcified lymph
nodes in the subcarinal region, shotty mediastinal lymph nodes. Dense calcified plaque at the origin of the left subclavian artery likely resulting in hemodynamically significant stenosis. Small to moderate sliding hiatal hernia. Mild pancreatic
calcification suggesting chronic pancreatitis. 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
CT Chest 09/24/20: Diffuse bilateral predominantly peripheral interlobular and intralobular interstitial thickening with small patches of groundglass opacities. Mild bronchial wall thickening, no honeycombing or bronchiectasis. Small calcified lymph
nodes in the subcarinal region, shotty mediastinal lymph nodes. Dense calcified plaque at the origin of the left subclavian artery likely resulting in hemodynamically significant stenosis. Small to moderate sliding hiatal hernia. Mild pancreatic
calcification suggesting chronic pancreatitis. 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
PFTs 12/09/21: FEV1 1.47L 124%, FVC 1.66L 101%, ratio 89.� TLC 2.45L 62%, DLCO 39% (moderate restriction, severe diffusion impairment; stable jackie from prior testing, volumes are worse, diffusion is improved)
PFT106/12/2023-� PFT-� FVC 1.46, 95� fev1 1.26, 115� ratio 86� TLC 2.85, 73� DLCO 3.14, 21
6 MWT- room air resting pulse ox 97%, after ambulating 450 feet To 86%.� Subjective shortness of breath.� 10.� Placed on oxygen 1 L and titrated up to 3 L to maintain a pulse ox of 88-92%.� Ambulating additional 600 feet.
PSG 11/12/21: AHI 8.5, O2 misbah 72%, TST 134/388.7 mins, SE 34.5%. 3L NC needed to maintain saturation.
ECHO 05/26/20: Normal LV function with moderate LVH. Estimated EF 70%. Mild MR, mild TR, estimated pressure 46-51.
Echocardiogram 07/11/2024-EF 60-65%, mild mitral regurgitation, aortic sclerosis without stenosis, PA systolic estimated 65-70
Subjective Data
-
Date of Service:
Date of Service: March 28, 2025
Chief Complaint: Pulmonary Follow Up and Dyspnea Follow Up
Subjective:
Denies any shortness of breath, chest congestion, productive cough or abdominal pain, still on significant FiO2
Review of Systems
General: Other (Per HPI)
Objective Data
Data Reviewed
Vital Signs / I&O:
Vital Signs
Temp Pulse Resp BP Pulse Ox
97.5 F 56 18 95/75 90
03/28/25 07:29 03/28/25 08:05 03/28/25 07:21 03/28/25 08:05 03/28/25 07:21
Intake and Output
03/27/25 03/28/25 03/29/25
06:59 06:59 06:59
Intake Total 600 / 600
Output Total 200 / 200 200 / 200
Balance -200 / -200 400 / 400
SaO2: 90
Nasal Cannula flow liters per minute: 14
Physical Exam
General: Respiratory Distress (n) and Comfortable
HEENT: Normocephalic, Anicteric and Moist Mucous Membranes
Cardiovascular: Regular Rhythm
Respiratory: Wheeze (n), Crackles (Bilateral bases) and Rhonchi
GI: Soft, Non Distended and Non Tender
Neurology: Awake, Alert and No Motor Deficits
Skin: Warm, Good Color, Cyanosis (n), Jaundice (n) and Rash (n)
Labs/Micro/Reports
Lab Data
03/28/25 04:38
03/28/25 04:38
Microbiology
03/25/25 13:59 Nasal Swab Influenza Types A & B (LEVI) - Final
Negative for Influenza A & B, NAAT
Negative results must be combined with clinical observations
and patient history.
Nucleic Acid Amplification test (NAAT)performed on the
[employer]Track[employer] platform.
--- NOTE | 2025-03-28 09:12 | PN.CDI ---
CDI
- -
CDI:
Physician Documentation Request
Admit Date: 03/22/25 18:39
Dear Doctor Emmanuel/Resident ,
Please review the following and provide your response in the progress notes.
Clinical Indicators:
Pt admitted with CHFpEF exacerbation/Acute on Chronic hypoxic Respiratory Failure /SAAD on CKD 3b
Sodium levels are as below/Pt has been on IV Lasix for Diuresis
Laboratory Tests
03/22/25 03/23/25 03/25/25
16:30 05:48 05:39
Sodium 134 L 134 L 134 L
03/27/25
04:33
Sodium 132 L
Based on the above, could you clarify in the progress notes, the appropriate diagnosis, if significant, that supports the above abnormalities and additional evaluation, monitoring and/or treatment rendered:
Hyponatremia
Abnormal lab value
Other ( please specify)
Use of terms such as suspected, likely, concern for, or probable (associated with a specific diagnosis that is being evaluated, monitored, or treated as if it exists) are acceptable and can be coded in the inpatient setting, when documented at the
time of discharge.
Thank you,
María Yung RN
CDI Specialist
[place] [facility]
Please use your independent medical judgment in providing your response.
--- NOTE | 2025-03-28 11:00 | PTCARENOTE ---
Assumed care of patient this morning. Oxygen back down to 10L midflow. While getting in the chair SPO2 dropped to 84%. Bp stable on Midodrine. Patient takes pills in applesauce. Pt using BSC for voiding. Sacral foam changed, very minimal blanchable
red skin. Pt transfers with one assist and RW. Assessment, care and VS as charted.
--- NOTE | 2025-03-28 11:25 | W.PN.CARDCBS ---
Today's Communication / Plan
-
Continue to monitor fluid balance while inpatient
Continue pulmonary treatments
Continue ongoing discussions regarding goals
Impression / Plan
-
Primary Jamb Cutter: Dr. Ferguson
Impression:
Presentation with acute on chronic dyspnea on exertion/shortness of breath
Persistent atrial fibrillation/atrial flutter with slow ventricular response
Pulmonary hypertension
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
Chronic renal insufficiency
Hypertension
Hyperlipidemia
Obesity
LVH
Type 2 diabetes
History of CVA requiring TPA 2021
History of symptomatic bradycardia
History of anemia
History of LE edema on norvasc
ECHO 08/19/2021: Hyperdynamic LV, mild concentric LVH, EF 70 to 75%, stage II diastolic dysfunction, posterior MAC, mild MR, aortic sclerosis, mild TR, PAP 52 mmHg
ECHO 01/17/24: EF 60 to 65%, mild concentric LVH, posterior MAC, mild MR, aortic sclerosis, trace AR, severe TR, PAP 59 mmHg, severely dilated RA, dilated and hypokinetic RV
ECHO 03/2025:LVEF 60 to 65%, severe TR, PAP 73 mmHg, severely dilated RA, dilated and hypokinetic RV
Plan:
She sitting in the chair and feels a little bit better today. She continues on increased oxygen needs. She denies other symptoms.
She presented with acute on chronic HFpEF decompensation with known restrictive lung disease/ILD. She has diuresed during hospital stay and weight is significantly down 10 to 15 pounds since admission.
Echo from 03/25/25 reviewed with dilated and hypokinetic RV in the setting of severe range pulm HTN consistent with cor pulmonale. She is being followed closely by pulmonary in addition.
Blood pressure has been low and she is on midodrine now at increased dose.
Plan at this time is to continue to maximize respiratory status.
-She has previously transition to oral Lasix. Which is currently on hold given increased BUN and low blood pressure. Continue to reassess and certainly would add back day of discharge.
-Cont to monitor Is and Os, daily wts and cr
- Continue pulmonary treatments and oxygen support
History of persistent atrial fibrillation, slow ventricular response during admission
-Cont rate control strategy, she has not needed medication treatment
-Eliquis for cardioembolic ppx
Patient had been previously on hospice. She is DNR. Overall prognosis is guarded.
Primary service to continue ongoing goals of therapy discussions.
Progress Note - Jamb Cutter
Subjective
Date of Service: March 28, 2025
She is sitting in the chair and breathing is fairly stable.
Objective
Labs:
03/28/25 04:38
03/28/25 04:38
Labs
Hgb 10.7 g/dL (12.0-16.0) L 03/28/25 04:38
Hct 32.3 % (37.0-47.0) L 03/28/25 04:38
Plt Count 194 10^3/uL (130-400) 03/28/25 04:38
Sodium 133 mmol/L (135-145) L 03/28/25 04:38
Potassium 4.4 mmol/L (3.5-5.1) 03/28/25 04:38
BUN 56 mg/dl (7-17) H 03/28/25 04:38
Creatinine 1.2 mg/dL (0.6-1.0) H 03/28/25 04:38
Glucose 147 mg/dl (70-99) H 03/28/25 04:38
Vital Signs and I&O:
Vital Signs
Temp Pulse Resp BP Pulse Ox
97.5 F 41 16 134/45 95
03/28/25 07:29 03/28/25 09:00 03/28/25 09:00 03/28/25 09:00 03/28/25 09:50
Vital Signs
Temp Pulse Resp BP Pulse Ox
97.5 F 41 16 134/45 95
03/28/25 07:29 03/28/25 09:00 03/28/25 09:00 03/28/25 09:00 03/28/25 09:50
Intake & Output
03/26/25 03/27/25 03/28/25 03/29/25
06:59 06:59 06:59 06:59
Intake Total 720 / 720 600 / 600
Output Total 1250 / 1250 200 / 200 200 / 200
Balance -530 / -530 -200 / -200 400 / 400
Physical Exam
Physical Exam
General: Elderly woman with oxygen in place
Heart: Distant heart sounds irregular
Lungs: Oxygen in place, decreased breath sounds at the bases with dry crackles
Extremities: No clubbing, cyanosis or edema bilaterally.
Neuro: Grossly nonfocal, awake, alert and pleasant .
[2025-03-28 12:09] LABS: Glucose - Point of Care 239 mg/dl (70-99)
[2025-03-28] MEDS: NOVOLOG FLEXPEN SC (12:26)
[2025-03-28] MEDS: NOVOLOG FLEXPEN 6 UNITS SC ×2 (12:40→17:07)
[2025-03-28] MEDS: NOVOLOG FLEXPEN-LOW RESISTANCE 2 UNITS SC (12:43)
--- NOTE | 2025-03-28 15:48 | CM ---
Patient seen at bedside in imu. Patient continues on 10liters O2. Patient and physician discussed hospice option and patient continues to talk with family. Patient had been on [facility] hospice and revoked her hospice due to her concerns about DM at the
time. Per patient she has updated her daughter about possible options. CM will continue to follow for discharge planning needs.
Plan; TBD; SNF vs personal care vs hospice.
[2025-03-28] MEDS: LIPITOR 40 MG PO (17:07)
[2025-03-28] MEDS: NOVOLOG FLEXPEN-LOW RESISTANCE 1 UNITS SC (17:08)
[2025-03-28 17:17] LABS: Glucose - Point of Care 191 mg/dl (70-99)
--- NOTE | 2025-03-28 20:00 | PTCARENOTE ---
Received pt from previous shift. Systems reviewed, see flowsheet. Pt sitting in chair eating dinner. SaO2 96% on 10L MFNC. Attempted to wean to 8L, but SaO2 dropped to 84%. Placed back on 10L, SaO2 93%. Pt with no new complaints at this time. AFib
40s on heart monitor. Will continue to monitor.
[2025-03-28 21:22] LABS: Glucose - Point of Care 269 mg/dl (70-99)
[2025-03-28] MEDS: LANTUS 0.15 UNITS SC (21:31)
[2025-03-29] VITALS (15 sets, daily range): BP systolic 95–128; BP diastolic 38–83; PULSE 54–56; O2SAT 90–94; BMI 27.5
[2025-03-29 05:56] LABS: Hematocrit 33.9 % (37.0-47.0); Hemoglobin 10.8 g/dL (12.0-16.0); Mean Corp Hgb Conc. 31.9 g/dL (33.0-37.0); Mean Corpuscular Volume 92.1 fL (81.0-99.0); Platelet Count 204 10^3/uL (130-400); Red Cell Dist. Width 14.4 % (11.5-14.5)
[2025-03-29 06:09] LABS: ALT (SGPT) 41 U/L (0-35); AST (SGOT) 49 U/L (14-36); Albumin 3.6 g/dl (3.5-5.0); Alkaline Phosphatase 122 U/L (38-126); Blood Urea Nitrogen 55 mg/dl (7-17); Calcium 9.1 mg/dl (8.4-10.2); Carbon Dioxide 29 mmol/L (22-30); Chloride 102 mmol/L (98-107); Estimated Creatinine Clearance 25 ml/min; Glucose 227 mg/dl (70-99); Potassium 4.6 mmol/L (3.5-5.1); Sodium 136 mmol/L (135-145); Total Protein 6.3 g/dl (6.3-8.2); eGFR 43.54
--- NOTE | 2025-03-29 07:09 | W.PN.HOSP.TC ---
Addendum entered and electronically signed by Sharri Benitez MD 03/29/25 14:25:
I saw and evaluated the patient independently. I reviewed and discussed the resident�s note and agree with findings and plan as documented by Dr. Garcia.
GENERAL: well developed, well nourished, female in no apparent distress
HEENT: NC/AT MID GERMAN 10L
HEART: regular rate and rhythm, +S1, +S2, bradycardic
LUNGS : crackles at bases bilaterally
ABDOM: soft, nontender, nondistended, + bowel sounds
EXT: no cyanosis, clubbing, or edema
NEUROLOGIC: grossly intact
Acute hypoxemic resp failure due to Acute on Chronic Heart Failure exacerbation with Preserved Ejection Fraction--required HI GERMAN O2, down to 10L MID GERMAN, trying to wean O2, not having much success--has advanced restrictive lung disease with chronic
hypoxemia and 5-6L home oxygen--diuresis limited by BP and need for pressors--levophed off and on midodrine--apprec pulm/cards--weights down-- started to discuss hospice again (as has not much reserve for any further insults)--was on hospice and she
revoked due to concern about her diabetes--cont IS--not bronchospastic--no need for steroids currently--repeat echo still shows preserved EF but significant RA/RV dysfunction--checking V/Q or CT PE study will not contract management specialist so no role to
check at this time--no need for right heart cath with right sided heart failure--proBNP 6000 as checked by cards, trying diuresis again
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 new baseline)--due to Lasix administration/dehydration (baseline appears to be 0.9)
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
Anemia of Chronic Disease- Hemoglobin stable --no signs of active bleeding
History of COPD- Continue Advair, PRN nebs- Wean O2 to goal >90%
Persistent Atrial Fibrillation w/o rapid Ventricular Response--actually bradycardic--cont Eliquis
HLD/Essential HTN/T2DM- Continue Home Meds- Low Resistance Sliding Scale- Hold Metformin
Other Conditions Present Prior to Arrival
Restrictive Lung Disease
Interstitial Lung Disease
Macular Degeneration
CODE STATUS-- DNR--but seems to want treatment--started hospice discussions again--I explained to the patient that her lung function and heart are the problem and that we cannot get her off of the 10 L of oxygen. I explained that she should
consider hospice but she wants her sugars managed while on hospice. I told her that it does not matter what her sugars are on hospice and she stated 'it matters to me'. [facility] is willing to manage the sugars. Waiting for family meeting
later today.
DVT proph-- Eliquis
Original Note:
Today's Communication/Plan
-
diabetic nurses consulted.
IV Lasix 40 mg stat
hospice managing blood glucose as her wish or inpatient hospice ? becoz of her oxygen requirement, will speak with daughter today.
Assessment / Plan
Assessment / Plan
Mami Grider is a 89F w/ PMHx A/fib (on Eliquis), HFpEF, ILD, T2DM, COPD, ACD, CKD3a, moderate TR, HLD, HTN, and pHTN who presented w/ SOB (worse w/ exertion) x 1 week, orthopnea and limited mobility in the setting of recent move to assisted
living facility where she was unable to receive an adequate amount of O2 therapy for her needs, and was found to have increased O2 requirements, pulmonary vascular congestion on CXR and elevated BNP on arrival alongside SAAD on CKD.
1. Acute on Chronic Heart Failure with Preserved Ejection Fraction:
Her blood pressure 101/45--126/51, pulse rate 34, saturation 97, temp stable, weight 58.4--59.6
-hemoglobin 11.4--11.2 still on baseline.
Lab: WBC normal, hemoglobin 10.8 low, sodium 136, potassium 4.6,
- cortisol 12.6.
- Respiratory distress on arrival, SaO2 80% on NRB, started on MidFlow
- CXR (ED): increased pulmonary vascularity.
-Reduce higher oxygen flow to maintain saturation around 90%.
Echo 03/25:
Compared to a prior transthoracic echocardiogram study from 07/11/2024 no significant changes are seen.
2. Normal left ventricular size and systolic function. Mild concentric left ventricular hypertrophy. Normal regional wall motion. Left ventricular ejection fraction is 60-65% by visual estimate.
3. Severely dilated and hypocontractile right ventricle.
4. Indexed left atrial volume is moderately abnormal (42-48 ml/m2).
5. Severe tricuspid regurgitation. Estimated pulmonary artery pressure of 73 mmHg assuming a right atrial pressure of 8 mmHg.
6. Severely dilated right atrium.
Held the Lasix due to her hypotension.
- Cardiology Consult:-- BNP (ED): 7800, pro BMP and it�s still 6000 today. one time dose of 40 IV. Lasix started for today
-Weaned off from pressors.
# Planning to wean off Levophed for today.
# Midodrine dosage increased to 10 mg 3 times a day.
# Chronic hypoxic respiratory failure secondary to pulmonary hypertension:
She consistently required mid flow oxygen around 14 L nasal cannula to maintain her saturation around 96%
Solar Project Engineer consulted due to her high flow oxygen requirement:
-Recommended supplemental oxygen as needed reviewed with MANUFACTURING BUSINESS ANALYST-decrease high flow oxygen to mid flow.
-Aspiration precautions required.
-Incentive spirometry.
-Nebulizers if needed but currently patient is not bronchospastic.
-Currently not initiating steroids due to her underlying diabetes.
2. 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
-Lasix on hold.
- Daily BMPs
- Cr 1.2---1.3 today, (baseline appears to be 0.9)
- Will hold AM dose of Lasix
- Decongestion in setting of cardiorenal syndrome? vs. Medication side effect?
--Total bilirubin 1.6 high, AST 40 high, ALT 37 high.
3. Anemia of Chronic Disease
- Hemoglobin stable
- Continue to Monitor
4. History of COPD
- Continue Advair, PRN nebs
- Wean O2 to goal 90-94%
5. Persistent Atrial Fibrillation w/o Ventricular Response
- Adequate rate control
- Continue Eliquis.
6. HLD/HTN/T2DM
-POC glucose 384--275-- 250--229- 147---227.
-increase HS lantus from 15 units to 18 units and AC novolog from 6 units to 8 units and continue low corrective insulin. Cr is stable at 1.2 will resume 1000 mg metformin BID.
- Low Resistance Sliding Scale
-diabetic FOOT DOCTOR consulted for insulin management.
Other Conditions Present Prior to Arrival
Restrictive Lung Disease
Interstitial Lung Disease
Macular Degeneration
# PT, OT consulted.
#Tried to call her daughter for the below numbers and lvm.
[phone]
Cell
CODE: DNR
Diet: 2199cal DM
DVT: Eliquis
Dispo Planning: PT once O2 req improves; CM consult for O2 needs at [place].
# Discussed today regards disposition to hospice blood glucose control.
#she doesnt want to go for long-term facility which accepts her with this oxygen level.
Anticipated Discharge: Within 24 hours
Subjective/Interval History
-
Date of Service: March 29, 2025
Overnight she is feeling better, denied chest pain, palpitation, shortness of breath, fever, chills, dizziness, leg swelling.
Had saturation around 97 currently on 10 L of oxygen.
Tried to call her daughter for 2 numbers and LVM.
Objective Data
-
Labs:
Laboratory Results
03/29/25
05:21
WBC 7.6
Hgb 10.8 L
Hct 33.9 L
Plt Count 204
Sodium 136
Potassium 4.6
Chloride 102
Carbon Dioxide 29
BUN 55 H
Creatinine 1.2 H
Glucose 227 H
Calcium 9.1
Total Bilirubin 0.9
AST 49 H
ALT 41 H
Alkaline Phosphatase 122
Vital Signs:
Vital Signs
Temp Pulse Resp BP Pulse Ox
97.6 F 44 27 108/55 95
03/29/25 02:51 03/29/25 06:00 03/29/25 06:00 03/29/25 06:00 03/29/25 06:30
I&O
03/28/25 03/29/25 03/30/25
06:59 06:59 06:59
Intake Total 600 / 600 180 / 180
Output Total 200 / 200 360 / 360
Balance 400 / 400 -180 / -180
Review of Systems
-
History Source: Patient
All other systems: Reviewed and negative
Physical Exam
-
General: Well Developed and Well Nourished
HEENT: Oxygen (10 L of oxygen)
Respiratory: Crackles (Bilateral lower lobe inspiratory fine crackles present)
Cardiac: Regular Rhythm and S1/S2
GI: Soft, Nontender and Nondistended
Genito-urinary: No Costovertebral Tender
Musculoskeletal: No Edema
Neuro: AO x 3
Hematologic / Lymphatic: No Lymphadenopathy
Psych: Calm
[2025-03-29] MEDS: ADVAIR HFA 115/21 MCG INHALER 2 PUFF INH ×2 (07:22→19:55)
[2025-03-29 07:58] LABS: Glucose - Point of Care 211 mg/dl (70-99)
[2025-03-29] MEDS: NOVOLOG FLEXPEN-LOW RESISTANCE 2 UNITS SC ×2 (08:23→12:39)
[2025-03-29] MEDS: DESENEX/MITRAZOL/ZEASORB 1 APPLIC TOPICAL ×2 (08:24→19:29)
[2025-03-29] MEDS: NOVOLOG FLEXPEN 6 UNITS SC (08:24)
[2025-03-29] MEDS: LASIX 40 MG PO (08:25)
[2025-03-29] MEDS: ELIQUIS 2.5 MG PO ×2 (08:25→19:29)
[2025-03-29] MEDS: OCUVITE SOFTGEL 1 CAP PO ×2 (08:25→19:30)
[2025-03-29] MEDS: TIMOPTIC 0.5% OPHTHALMIC SOLUTION 1 DROP BOTH EYES ×2 (08:27→19:30)
--- NOTE | 2025-03-29 09:16 | W.PN.PUL.V3 ---
Today's Communication / Plan
-
Continue attempts at weaning oxygen
Gentle diuresis
Holding off on steroids for reasons previously elucidated
Hospice appropriate-patient willing if blood sugars can be managed
Assessment
-
89-year-old never smoking female with history of restrictive lung disease, chronic hypoxemia on 6 L of oxygen, anemia, chronic kidney disease, atrial flutter/fibrillation, diastolic CHF presented with increasing shortness of breath felt to be CHF
related, diuresed and still on high flow O2 and pulmonary consulted for shortness of breath 03/25/2025.
CHF-preserved EF
Diastolic dysfunction
Interstitial lung disease on chronic oxygen with severe diffusing deficit without exacerbation
Rztdwl-owaylqwmaw-sowpzngpmp 11.4
Chronic renal failure
Hyperglycemia
Pulmonary hypertension
DNR
Conditions present prior to admission:
Hypertension.
Hyperlipidemia.
Diabetes type 2.
Macular degeneration.
Anemia.
CVA/tPA 2021.
ILD-never smoker
Chronic hypoxemia on 6 L oxygen.
Chronic cough he
Obesity
Sedentary lifestyle
MATIAS-CPAP intolerant
Restrictive lung disease.
Chronic kidney disease stage IIIa.
Atrial flutter/fibrillation.
Diastolic CHF.
Left subclavian artery stenosis
Plan
Respiratory decompensation in this patient with advanced interstitial lung disease and chronic hypoxemia and severe diffusion deficit likely related to fluid overload-though incompletely responded to diuresis with persistent FiO2 requirements
greater than her baseline-doubt venous thromboembolic disease as patient is on chronic Eliquis
The patient has very little reserve with chronic interstitial lung disease and severe reduction in diffusing capacity-mild atelectasis, CHF could translate into severe hypoxemia and hopefully with diuresis patient will eventually equilibrate
The patient's radiographs, chest x-rays, CT chest, PFTs, 6-minute walk test, polysomnogram results, and echocardiograms are summarized below
Supplemental oxygen as needed-reviewed with PROJECT HIRE-decrease high flow oxygen to mid flow-currently on 10 L - 96% saturation-attempt to wean
Patient's respiratory status is very tenuous without significant reserve-note:-On 6 L of oxygen at home
Aspiration precautions
Incentive spirometry
Mucus clearing devices
Nebulizers if needed-currently not bronchospastic
Consider trial of steroids-Will discuss with primary team as patient with significant hyperglycemia/diabetes-holding off
Diuresis as tolerated--5 L / 5 days-now euvolemic
Monitor renal function, electrolytes, intake/output, lower extremity edema and weight
Replace electrolytes as needed
Cardiology following-correspondence reviewed
Lasix now oral
Norepinephrine if needed
Monitor blood sugar
Insulin supplementation as needed
DVT prophylaxis-on Eliquis 2.5 mg twice daily
Nutrition
PT/OT-reviewed with primary team
The patient was on hospice but exited hospice about 6 weeks ago-does not wish to return unless diabetes can be controlled-then willing
Reviewed with primary team and nursing as well as respiratory therapy
Patient usually follows with Dr. Tucker in the office since 2020-last saw Harmony ORANTES 04/11/24-recommend follow-up unless hospice
Diagnostic data:
Chest x-ray 08/08/2024-no change in appearance of chronic interstitial lung disease
Chest x-ray 02/14/2025-mild diffuse interstitial prominence may reflect interstitial edema or pneumonitis with underlying chronic interstitial lung disease
Chest x-ray 03/22/2025-cardiomegaly with increased pulmonary vascular congestion could represent CHF
Chest x-ray 03/23/2025-stable moderate cardiomegaly, no evidence for CHF or pneumonia
CT Chest 09/24/20: Diffuse bilateral predominantly peripheral interlobular and intralobular interstitial thickening with small patches of groundglass opacities. Mild bronchial wall thickening, no honeycombing or bronchiectasis. Small calcified lymph
nodes in the subcarinal region, shotty mediastinal lymph nodes. Dense calcified plaque at the origin of the left subclavian artery likely resulting in hemodynamically significant stenosis. Small to moderate sliding hiatal hernia. Mild pancreatic
calcification suggesting chronic pancreatitis. 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
CT Chest 09/24/20: Diffuse bilateral predominantly peripheral interlobular and intralobular interstitial thickening with small patches of groundglass opacities. Mild bronchial wall thickening, no honeycombing or bronchiectasis. Small calcified lymph
nodes in the subcarinal region, shotty mediastinal lymph nodes. Dense calcified plaque at the origin of the left subclavian artery likely resulting in hemodynamically significant stenosis. Small to moderate sliding hiatal hernia. Mild pancreatic
calcification suggesting chronic pancreatitis. 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
PFTs 12/09/21: FEV1 1.47L 124%, FVC 1.66L 101%, ratio 89.� TLC 2.45L 62%, DLCO 39% (moderate restriction, severe diffusion impairment; stable jackie from prior testing, volumes are worse, diffusion is improved)
PFT106/12/2023-� PFT-� FVC 1.46, 95� fev1 1.26, 115� ratio 86� TLC 2.85, 73� DLCO 3.14, 21
6 MWT- room air resting pulse ox 97%, after ambulating 450 feet To 86%.� Subjective shortness of breath.� 07/16.� Placed on oxygen 1 L and titrated up to 3 L to maintain a pulse ox of 88-92%.� Ambulating additional 600 feet.
PSG 11/12/21: AHI 8.5, O2 misbah 72%, TST 134/388.7 mins, SE 34.5%. 3L NC needed to maintain saturation.
ECHO 05/26/20: Normal LV function with moderate LVH. Estimated EF 70%. Mild MR, mild TR, estimated pressure 46-51.
Echocardiogram 07/11/2024-EF 60-65%, mild mitral regurgitation, aortic sclerosis without stenosis, PA systolic estimated 65-70
Subjective Data
-
Date of Service:
Date of Service: March 29, 2025
Chief Complaint: Pulmonary Follow Up and Dyspnea Follow Up
Subjective:
Feels about the same, still on 10 L, does not want hospice unless they can manage her blood sugars, no chest pain, productive cough
Review of Systems
General: Other (Per HPI)
Objective Data
Data Reviewed
Vital Signs / I&O:
Vital Signs
Temp Pulse Resp BP Pulse Ox
97.4 F 43 20 126/51 97
03/29/25 07:00 03/29/25 08:00 03/29/25 08:00 03/29/25 08:00 03/29/25 08:00
Intake and Output
03/28/25 03/29/25 03/30/25
06:59 06:59 06:59
Intake Total 600 / 600 180 / 180
Output Total 200 / 200 360 / 360
Balance 400 / 400 -180 / -180
SaO2: 97
Nasal Cannula flow liters per minute: 10
Physical Exam
General: Respiratory Distress (n) and Comfortable
HEENT: Normocephalic, Anicteric and Moist Mucous Membranes
Cardiovascular: Regular Rhythm
Respiratory: Wheeze (n), Crackles (Bilateral bases) and Rhonchi
GI: Soft, Non Distended and Non Tender
Neurology: Awake, Alert and No Motor Deficits
Skin: Warm, Good Color, Cyanosis (n), Jaundice (n) and Rash (n)
Labs/Micro/Reports
Lab Data
03/29/25 05:21
03/29/25 05:21
--- NOTE | 2025-03-29 10:25 | W.PN.CARDCBS ---
Today's Communication / Plan
-
Oral Lasix resumed
Await proBNP
Continue supportive care
Primary service discussing goals of care including reinstituting hospice
Impression / Plan
-
Primary Machinist Job Setter: Dr. Ferguson
Impression:
Presentation with acute on chronic dyspnea on exertion/shortness of breath
Persistent atrial fibrillation/atrial flutter with slow ventricular response
Pulmonary hypertension
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
Chronic renal insufficiency
Hypertension
Hyperlipidemia
Obesity
LVH
Type 2 diabetes
History of CVA requiring TPA 2021
History of symptomatic bradycardia
History of anemia
History of LE edema on norvasc
ECHO 08/19/2021: Hyperdynamic LV, mild concentric LVH, EF 70 to 75%, stage II diastolic dysfunction, posterior MAC, mild MR, aortic sclerosis, mild TR, PAP 52 mmHg
ECHO 01/17/24: EF 60 to 65%, mild concentric LVH, posterior MAC, mild MR, aortic sclerosis, trace AR, severe TR, PAP 59 mmHg, severely dilated RA, dilated and hypokinetic RV
ECHO 03/2025:LVEF 60 to 65%, severe TR, PAP 73 mmHg, severely dilated RA, dilated and hypokinetic RV
Plan:
She is doing okay overall. She tells me she feels 50 to 70% of her baseline. She continues with high oxygen demand. Pulmonary is working on oxygen dose reduction.
She presented with acute on chronic HFpEF decompensation with known restrictive lung disease/ILD. She has diuresed during hospital stay and weight was significantly down 10 to 15 pounds now creeping up again. Renal insufficiency remains stable.
Echo from 03/25/25 reviewed with dilated and hypokinetic RV in the setting of severe range pulm HTN consistent with cor pulmonale. She is being followed closely by pulmonary in addition.
Blood pressure has been low and she is on midodrine now at increased dose.
Hypoxemic respiratory failure. Continue to maximize status.
-She has currently is on oral Lasix but it was held for few days. Volume status difficult to assess. Weight is creeping up. Creatinine is fair. BUN is elevated. Blood pressure remains stable.
- Continue Lasix at current dose
- proBNP level pending
- Cont to monitor Is and Os, daily wts and cr
- Continue pulmonary treatments and oxygen support
History of persistent atrial fibrillation, slow ventricular response during admission
-Cont rate control strategy, she has not needed medication treatment
-Eliquis for cardioembolic ppx
Diabetes managed by primary service
Patient had been previously on hospice. She is DNR. There have been ongoing goals of discussion with primary service. If agreeable reinstitution of hospice is appropriate.
Progress Note - Machinist Job Setter
Subjective
Date of Service: March 29, 2025
Objective
Labs:
03/29/25 05:21
03/29/25 05:21
Labs
Hgb 10.8 g/dL (12.0-16.0) L 03/29/25 05:21
Hct 33.9 % (37.0-47.0) L 03/29/25 05:21
Plt Count 204 10^3/uL (130-400) 03/29/25 05:21
Sodium 136 mmol/L (135-145) 03/29/25 05:21
Potassium 4.6 mmol/L (3.5-5.1) 03/29/25 05:21
BUN 55 mg/dl (7-17) H 03/29/25 05:21
Creatinine 1.2 mg/dL (0.6-1.0) H 03/29/25 05:21
Glucose 227 mg/dl (70-99) H 03/29/25 05:21
Vital Signs and I&O:
Vital Signs
Temp Pulse Resp BP Pulse Ox
97.4 F 43 20 126/51 97
03/29/25 07:00 03/29/25 08:00 03/29/25 08:00 03/29/25 08:00 03/29/25 09:16
Vital Signs
Temp Pulse Resp BP Pulse Ox
97.4 F 43 20 126/51 97
03/29/25 07:00 03/29/25 08:00 03/29/25 08:00 03/29/25 08:00 03/29/25 09:16
Intake & Output
03/27/25 03/28/25 03/29/25 03/30/25
06:59 06:59 06:59 06:59
Intake Total 600 / 600 180 / 180
Output Total 200 / 200 200 / 200 360 / 360
Balance -200 / -200 400 / 400 -180 / -180
Physical Exam
Physical Exam
General: Elderly woman oxygen in place
Heart: Irregular distant heart sounds
Lungs: Decreased breath sounds with dry crackles
Extremities: Trace edema
Neuro: Grossly nonfocal, awake, alert and oriented x3.
--- NOTE | 2025-03-29 10:54 | PTCARENOTE ---
While using commode patient spo2 went down to to 84% on 11L midflow. Patient SOB but recovered quickly once she came off of commode. Put patient back on 10L o2.
--- NOTE | 2025-03-29 11:14 | PTCARENOTE ---
Patient currently OOB to chair. Used commode and had BM and urine. O2 at 10L. Call razo in reach. Will continue to monitor frequently.
--- NOTE | 2025-03-29 11:55 | PN.DE.MGMTRT ---
Insulin Management
- -
03/29/2025 Diabetes Management Consult
Patient admitted 03/22 with increasing SOB. PMH Afib/flutter, interstitial lung disease, COPD, chronic hypoxic respirator failure on 6 L O2, moderate to severe tricuspid regurgitation, HLD, HTN, anemia of chronic illness, CKD 3A, CHF. Prior to
admission was receiving 10 units lantus @ HS with lispro 5 units AC and metformin 1000 BID. A1C on admission 10.2%, cr 1.2, eGFR 43.54 today.
Patient is awake alert and oriented oob in chair able to discuss diabetes care. States she has had diabetes 20+ years. States she was living alone but after last admission went to rehab for 1 month then to a fpc home. States she was on
hospice for 6 months and that 'they' were not paying attention to her diabetes and her blood sugar was running high.
Yesterday patient received 6 units novolog AC, glucose 135 to 269 requiring 2 to 4 units corrective insulin. Received 15 units lantus @ HS.
Fasting glucose today 211. Will increase HS lantus from 15 units to 18 units and AC novolog from 6 units to 8 units and continue low corrective insulin. Cr is stable at 1.2 will resume 1000 mg metformin BID.
Discussed with nurse.
Will follow
Diabetes History
- -
Type of Diabetes: 2 requiring insulin
Pre-Admission Diabetes Regimen
03/29/25
05:21
Creatinine 1.2 H
Lab Results
Hemoglobin A1c 10.2 % (4.0-5.9) H 03/23/25 04:36
Insulin Pump Settings
IP Diabetes Regimen
03/28/25 03/28/25 03/28/25
11:59 17:05 21:11
Glucose
POC Glucose 239 H 191 H 269 H
03/29/25 03/29/25
05:21 07:46
Glucose 227 H
POC Glucose 211 H
Patient Education
[2025-03-29] MEDS: NOVOLOG FLEXPEN 8 UNITS SC ×2 (12:40→17:46)
[2025-03-29 12:50] LABS: Glucose - Point of Care 247 mg/dl (70-99)
[2025-03-29] MEDS: LASIX 40 MG IV (13:52)
--- NOTE | 2025-03-29 14:21 | CM ---
Addendum entered by Joyce Azevedo 03/29/25 17:30:
[facility] indicated they are unable to admit patient until Tuesday. Hospice to review with patient and daughter. CM will continue to follow for discharge planning needs.
Original Note:
Patient seen at bedside with physicians earlier today. Patient intrested in hospice if her sugars are controlled. [facility] willing to talk to patient and daughter about possible options. Patient daughter spoke with CM and physician. Mckenzie is
willing to talk to [facility] via phone and will talk to her mother about inpatient hospice vs going to a SNF with [facility]. CM reviewed PAC data and Mckenzie is to discuss options with CM after she reviews SNF list on Medicare.gov. Patient daughter
is intrested in patient going to [facility] if that can be worked on with the O2. CM awaiting response from [facility] discussion. Physicians aware of options and plan. CM will continue to follow for discharge planning needs.
Plan; referral pending to [facility].
[2025-03-29 14:26] LABS: Glucose - Point of Care 281 mg/dl (70-99)
[2025-03-29] MEDS: GLUCOPHAGE 1000 MG PO (16:45)
[2025-03-29] MEDS: LIPITOR 40 MG PO (16:45)
[2025-03-29] MEDS: NOVOLOG FLEXPEN-LOW RESISTANCE 1 UNITS SC (17:47)
[2025-03-29 17:55] LABS: Glucose - Point of Care 175 mg/dl (70-99)
[2025-03-29 21:30] LABS: Glucose - Point of Care 160 mg/dl (70-99)
[2025-03-29] MEDS: LANTUS 0.18 UNITS SC (21:31)
[2025-03-30] VITALS (14 sets, daily range): BP systolic 86–129; BP diastolic 30–94; BMI 27.2
--- NOTE | 2025-03-30 03:45 | PTCARENOTE ---
pt is aaox3, no c/o pain. continues on 10L midflow at 92%. pt reposition herself and de-stated to 79%. went and reposition patient SpO2=86-90% on midlfow 10L. Once recovered SpO2=90%
[2025-03-30 06:55] LABS: Hematocrit 35.1 % (37.0-47.0); Hemoglobin 11.4 g/dL (12.0-16.0); Mean Corp Hgb Conc. 32.5 g/dL (33.0-37.0); Mean Corpuscular Volume 92.6 fL (81.0-99.0); Platelet Count 217 10^3/uL (130-400); Red Cell Dist. Width 14.3 % (11.5-14.5)
--- NOTE | 2025-03-30 07:00 | PTCARENOTE ---
Cannot verify VS captured from prior shift.
[2025-03-30] MEDS: ADVAIR HFA 115/21 MCG INHALER 2 PUFF INH ×2 (07:34→20:38)
--- NOTE | 2025-03-30 07:34 | W.PN.HOSP.TC ---
Addendum entered and electronically signed by Sharri Benitez MD 03/30/25 14:43:
I saw and evaluated the patient independently. I reviewed and discussed the resident�s note and agree with findings and plan as documented by Dr. Stewart.
GENERAL: well developed, well nourished, female in no apparent distress
HEENT: NC/AT-- MID GERMAN 10L--cannot budge
HEART: regular rate and rhythm, +S1, +S2, bradycardic
LUNGS : crackles at bases bilaterally
ABDOM: soft, nontender, nondistended, + bowel sounds
EXT: no cyanosis, clubbing, or edema
NEUROLOGIC: grossly intact
Acute hypoxemic resp failure due to Acute on Chronic Heart Failure exacerbation with Preserved Ejection Fraction (resolved) and significant pulm HTN leading to right heart failure--required HI GERMAN O2, down to 10L MID GERMAN, trying to wean O2, not
having much success--has advanced restrictive lung disease with chronic hypoxemia and 5-6L home oxygen--diuresis limited by BP and need for pressors--levophed off and on midodrine--apprec pulm/cards--weights down-- started to discuss hospice again
(as has not much reserve for any further insults)--was on hospice and she revoked due to concern about her diabetes--cont IS--not bronchospastic--no need for steroids currently--repeat echo still shows preserved EF but significant RA/RV
dysfunction--checking V/Q or CT PE study will not tire changer--CXR without volume overload--cards/pulm signed off, recommending hospice if pt agrees
SAAD on KDC4c--cbfcqu creat---Cr 1.2 and has not budged (? new baseline)--due to Lasix administration/dehydration (baseline appears to be 0.9)
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
Anemia of Chronic Disease- Hemoglobin stable --no signs of active bleeding
History of COPD- Continue Advair, PRN nebs- Wean O2 to goal >90%
Persistent Atrial Fibrillation w/o rapid Ventricular Response--actually bradycardic--cont Eliquis
HLD/Essential HTN/T2DM- Continue Home Meds- Low Resistance Sliding Scale- Hold Metformin
Other Conditions Present Prior to Arrival
Restrictive Lung Disease
Interstitial Lung Disease
Macular Degeneration
CODE STATUS-- DNR--but seems to want treatment--started hospice discussions again--I explained to the patient that her lung function and heart are the problem and that we cannot get her off of the 10 L of oxygen. I explained that she should
consider hospice but she wants her sugars managed while on hospice. I told her that it does not matter what her sugars are on hospice and she stated 'it matters to me'. [facility] is willing to manage the sugars. Hospice to meet with patient
and daughter--reportedly Tuesday
DVT proph-- Eliquis
Original Note:
Today's Communication/Plan
-
c/t wean O2 as able
nurse from [facility] care to evaluate pt on Sunday 04/01 for placement
Assessment / Plan
Assessment / Plan
Mami Grider is a 89F w/ PMHx A/fib (on ), HFpEF, ILD, T2DM, COPD, ACD, CKD3a, moderate TR, HLD, HTN, and pHTN who presented w/ SOB (worse w/ exertion) x 1 week, orthopnea and limited mobility in the setting of recent move to assisted
living facility where she was unable to receive an adequate amount of O2 therapy for her needs, and was found to have increased O2 requirements, pulmonary vascular congestion on CXR and elevated BNP on arrival alongside SAAD on CKD.
1. Acute on Chronic Heart Failure with Preserved Ejection Fraction:
Her blood pressure 101/45--126/51, pulse rate 34, saturation 97, temp stable, weight 58.4--59.6
- hemoglobin 11.4--11.2 still on baseline.
Lab: WBC normal, hemoglobin 10.8 low, sodium 136, potassium 4.6,
- cortisol 12.6.
- Respiratory distress on arrival, SaO2 80% on NRB, started on MidFlow
- CXR (ED): increased pulmonary vascularity.
-Reduce higher oxygen flow to maintain saturation around 90%.
Echo 03/25:
Compared to a prior transthoracic echocardiogram study from 07/11/2024 no significant changes are seen.
2. Normal left ventricular size and systolic function. Mild concentric left ventricular hypertrophy. Normal regional wall motion. Left ventricular ejection fraction is 60-65% by visual estimate.
3. Severely dilated and hypocontractile right ventricle.
4. Indexed left atrial volume is moderately abnormal (42-48 ml/m2).
5. Severe tricuspid regurgitation. Estimated pulmonary artery pressure of 73 mmHg assuming a right atrial pressure of 8 mmHg.
6. Severely dilated right atrium.
Held the Lasix due to her hypotension.
- Cardiology Consult:-- BNP (ED): 7800, pro BMP and it�s still 6000 today. one time dose of 40 IV. Lasix started for today
-Weaned off from pressors.
# remains off pressors
# c/w Midodrine 10 mg TID
s/p one dose IV lasix
repeat CXR 03/30 no significant change
# Chronic hypoxic respiratory failure secondary to pulmonary hypertension:
She consistently required mid flow oxygen around 10 L nasal cannula to maintain her saturation around 96%
Help Desk Representative consulted due to her high flow oxygen requirement:
-Recommended supplemental oxygen as needed reviewed with RESEARCHER-decrease high flow oxygen to mid flow.
-Aspiration precautions required.
-Incentive spirometry.
-Nebulizers if needed but currently patient is not bronchospastic.
-Currently not initiating steroids due to her underlying diabetes.
- still requiring 10L O2 with significant desaturation into the 70s on movement. Pt end stage with component of severe right sided heart failure -- planning for hospice, will attempt to wean O2 as low as possible to maintain saturations 90-92%.
2. SAAD on CKD3a.
(baseline ground transportation operator 0.9)
- Daily BMPs
- Cr remains elevated
- Decongestion in setting of cardiorenal syndrome? vs. Medication side effect?
- ground transportation operator stable with prn diuresis
3. Anemia of Chronic Disease
- Hemoglobin stable, no signs of active bleeding
- Continue to Monitor, transfuse as needed
4. History of COPD
- Continue Advair, PRN nebs
- Wean O2 to goal 90-92%
5. Persistent Atrial Fibrillation w/ slow Ventricular Response
- tele showing persistent afib with slow ventricular response
- Continue Eliquis
6. HLD/HTN/T2DM
- POC glucose 384--275-- 250--229- 147---227.
- HS lantus 18 units and AC novolog 8 units
- Cr is stable at 1.2 will resume 1000 mg metformin BID.
- Low Resistance Sliding Scale
- diabetic DERMATOLOGY TECHNICIAN following for insulin management
Other Conditions Present Prior to Arrival
Restrictive Lung Disease
Interstitial Lung Disease
Macular Degeneration
# PT, OT consulted.
#Tried to call her daughter for the below numbers and lvm.
[phone]
Cell
CODE: DNR
Diet: 0cal DM
DVT: Eliquis
Dispo Planning: PT once O2 req improves; CM consult for O2 needs at [facility].
# Discussed today regards disposition to hospice blood glucose control.
#she doesnt want to go for [facility] facility which accepts her with this oxygen level.
Anticipated Discharge: > 48 hours
Subjective/Interval History
-
Date of Service: March 30, 2025
no acute overnight events. No acute complaints per pt other than shortness of breath on exertion which is unchanged.
Objective Data
-
Labs:
Laboratory Results
03/30/25
06:13
WBC 8.5
Hgb 11.4 L
Hct 35.1 L
Plt Count 217
Sodium Pending
Potassium Pending
Chloride Pending
Carbon Dioxide Pending
BUN Pending
Creatinine Pending
Glucose Pending
Calcium Pending
Total Bilirubin Pending
AST Pending
ALT Pending
Alkaline Phosphatase Pending
Vital Signs:
Vital Signs
Temp Pulse Resp BP Pulse Ox
97.5 F 47 20 110/46 79
03/30/25 03:00 03/30/25 02:00 03/30/25 02:00 03/30/25 02:00 03/30/25 03:44
I&O
03/29/25 03/30/25 03/31/25
06:59 06:59 06:59
Intake Total 180 / 180 520 / 520
Output Total 360 / 360 1250 / 1250
Balance -180 / -180 -730 / -730
Review of Systems
-
History Source: Patient
All other systems: Reviewed and negative
Constitutional: Reports No Symptoms
EENT: Reports No Symptoms Reported
Respiratory: Reports Other (GUTIÉRREZ); Denies Cough, Hemoptysis or Wheezing
Cardiac: Reports No Symptoms
Abdomen/GI: Reports No Symptoms
Genitourinary: Reports No Symptoms
Musculoskeletal: Reports No Symptoms
Skin: Reports No Symptoms
Neuro: Reports No Symptoms
Hematologic / Lymphatic: Reports No Symptoms
Physical Exam
-
General: No Apparent Distress, Comfortable and Appears Chronically Ill
HEENT: Normocephalic, Atraumatic, Moist Mucous Membranes, Anicteric, Loyal Conjunctivae, PERRLA, Nose Appears Normal, Ears Appear Normal and Oxygen (10L High Flow NC)
Respiratory: Crackles and Decreased Breath Sounds; Negative Clear to Auscultation or Wheezes
Cardiac: S1/S2, Irregular Rhythm and Bradycardic; Negative Murmur
GI: Soft, Nontender, Nondistended and Normal Bowel Sounds
Rectal: Deferred by Provider
Genito-urinary: Deferred by me
Musculoskeletal: No Clubbing, No Cyanosis and No Edema
Skin: Warm and Dry
Neuro: AO x 3
Psych: Calm and Intact Judgement/Insight
[2025-03-30 07:48] LABS: ALT (SGPT) 43 U/L (0-35); AST (SGOT) 51 U/L (14-36); Albumin 3.7 g/dl (3.5-5.0); Alkaline Phosphatase 124 U/L (38-126); Blood Urea Nitrogen 51 mg/dl (7-17); Calcium 9.3 mg/dl (8.4-10.2); Carbon Dioxide 28 mmol/L (22-30); Chloride 101 mmol/L (98-107); Estimated Creatinine Clearance 25 ml/min; Glucose 63 mg/dl (70-99); Potassium 4.4 mmol/L (3.5-5.1); Sodium 134 mmol/L (135-145); Total Protein 6.6 g/dl (6.3-8.2); eGFR 43.54
[2025-03-30] MEDS: NOVOLOG FLEXPEN-LOW RESISTANCE SC (07:55)
[2025-03-30] MEDS: NOVOLOG FLEXPEN SC (07:55)
[2025-03-30 08:05] LABS: Glucose - Point of Care 66 mg/dl (70-99)
[2025-03-30] MEDS: TIMOPTIC 0.5% OPHTHALMIC SOLUTION 1 DROP BOTH EYES ×2 (08:11→19:39)
[2025-03-30] MEDS: OCUVITE SOFTGEL 1 CAP PO ×2 (08:12→19:45)
[2025-03-30] MEDS: ELIQUIS 2.5 MG PO ×2 (08:12→19:45)
[2025-03-30] MEDS: LASIX 40 MG PO (08:12)
[2025-03-30] MEDS: GLUCOPHAGE PO ×2 (08:13)
[2025-03-30] MEDS: DESENEX/MITRAZOL/ZEASORB 1 APPLIC TOPICAL ×2 (08:13→19:39)
[2025-03-30 08:32] LABS: Glucose - Point of Care 95 mg/dl (70-99)
--- NOTE | 2025-03-30 09:12 | W.PN.CARDCBS ---
Today's Communication / Plan
-
P.o. Lasix
Stable volume status
We will sign off
Impression / Plan
-
Primary Metal Weigher: Dr. Ferguson
Impression:
Presentation with acute on chronic dyspnea on exertion/shortness of breath
Persistent atrial fibrillation/atrial flutter with slow ventricular response
Pulmonary hypertension
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
Chronic renal insufficiency
Hypertension
Hyperlipidemia
Obesity
LVH
Type 2 diabetes
History of CVA requiring TPA 2021
History of symptomatic bradycardia
History of anemia
History of LE edema on norvasc
ECHO 08/19/2021: Hyperdynamic LV, mild concentric LVH, EF 70 to 75%, stage II diastolic dysfunction, posterior MAC, mild MR, aortic sclerosis, mild TR, PAP 52 mmHg
ECHO 01/17/24: EF 60 to 65%, mild concentric LVH, posterior MAC, mild MR, aortic sclerosis, trace AR, severe TR, PAP 59 mmHg, severely dilated RA, dilated and hypokinetic RV
ECHO 03/2025:LVEF 60 to 65%, severe TR, PAP 73 mmHg, severely dilated RA, dilated and hypokinetic RV
Plan:
- It appears that she is euvolemic at her baseline on p.o. Lasix
-Cardiovascular medication regimen relatively stable
- Continue Lasix at current dose
- Cont to monitor Is and Os, daily wts and cr
- Continue pulmonary treatments and oxygen support
-Cont rate control strategy, she has not needed medication treatment
-Eliquis for cardioembolic ppx
- We will sign off for now please call back if there are further management questions
Patient had been previously on hospice. She is DNR. There have been ongoing goals of discussion with primary service. If agreeable reinstitution of hospice is appropriate.
Progress Note - Metal Weigher
Subjective
Date of Service: March 30, 2025
Stable
Objective
Labs:
03/30/25 06:13
03/30/25 06:13
Labs
Hgb 11.4 g/dL (12.0-16.0) L 03/30/25 06:13
Hct 35.1 % (37.0-47.0) L 03/30/25 06:13
Plt Count 217 10^3/uL (130-400) 03/30/25 06:13
Sodium 134 mmol/L (135-145) L 03/30/25 06:13
Potassium 4.4 mmol/L (3.5-5.1) 03/30/25 06:13
BUN 51 mg/dl (7-17) H 03/30/25 06:13
Creatinine 1.2 mg/dL (0.6-1.0) H 03/30/25 06:13
Glucose 63 mg/dl (70-99) L 03/30/25 06:13
Vital Signs and I&O:
Vital Signs
Temp Pulse Resp BP Pulse Ox
97.5 F 63 16 117/50 95
03/30/25 03:00 03/30/25 07:38 03/30/25 07:38 03/30/25 06:00 03/30/25 08:51
Vital Signs
Temp Pulse Resp BP Pulse Ox
97.5 F 63 16 117/50 95
03/30/25 03:00 03/30/25 07:38 03/30/25 07:38 03/30/25 06:00 03/30/25 08:51
Intake & Output
03/28/25 03/29/25 03/30/25 03/31/25
06:59 06:59 06:59 06:59
Intake Total 600 / 600 180 / 180 520 / 520
Output Total 200 / 200 360 / 360 1250 / 1250
Balance 400 / 400 -180 / -180 -730 / -730
Physical Exam
Physical Exam
����Physical Exam
���������������������General:��no apparent distress, not acutely ill
���������������������������Neck:��supple. no meningeal signs. normal psoterior pharynx
������������������������
���������������������������Heart:�Cor irregularly irregular
��������������������������Lungs: Relatively clear with prolonged expiratory phase
����������������������Abdomen:�normal bowel sounds. not tender. no CVAT
��������������������������Neuro:��alert and oriented. no focal neurological deficits
������������������������������Skin: ��no rash
�����������������������Psychiatric:�well kept. interactive and cooperative
�����������������������Extremities:��no edema. no calf tenderness. negative homans. good distal pulses
��
�
--- NOTE | 2025-03-30 11:19 | W.PN.PUL3 ---
Today's Communication / Plan
-
- Continue to wean oxygen as tolerated
- With severe pH, RV dysfunction and advanced ILD, continue supportive care only
- Hold off steroids, pulmonary service will be available as needed
- Appropriate for palliative/hospice care
Assessment
-
89-year-old never smoking female with history of restrictive lung disease, chronic hypoxemia on 6 L of oxygen, anemia, chronic kidney disease, atrial flutter/fibrillation, diastolic CHF presented with increasing shortness of breath felt to be CHF
related, diuresed and still on high flow O2 and pulmonary consulted for shortness of breath 03/25/2025.
CHF-preserved EF
Diastolic dysfunction
Interstitial lung disease on chronic oxygen with severe diffusing deficit without exacerbation
Eaolcd-aeriusfcra-bocfmzdedd 11.4
Chronic renal failure
Hyperglycemia
Pulmonary hypertension, severe
DNR
Conditions present prior to admission:
Hypertension.
Hyperlipidemia.
Diabetes type 2.
Macular degeneration.
Anemia.
CVA/tPA 2021.
ILD-never smoker
Chronic hypoxemia on 6 L oxygen.
Chronic cough he
Obesity
Sedentary lifestyle
MATIAS-CPAP intolerant
Restrictive lung disease.
Chronic kidney disease stage IIIa.
Atrial flutter/fibrillation.
Diastolic CHF.
Left subclavian artery stenosis
Plan
Respiratory decompensation in this patient with advanced interstitial lung disease and chronic hypoxemia and severe diffusion deficit likely related to fluid overload-though incompletely responded to diuresis with persistent FiO2 requirements
greater than her baseline-doubt venous thromboembolic disease as patient is on chronic Eliquis
The patient has very little reserve with chronic interstitial lung disease and severe reduction in diffusing capacity-mild atelectasis, CHF could translate into severe hypoxemia and hopefully with diuresis patient will eventually equilibrate, Severe
PH and RV dysfunction noted on ECHO.
The patient's radiographs, chest x-rays, CT chest, PFTs, 6-minute walk test, polysomnogram results, and echocardiograms are summarized below
Supplemental oxygen as needed-currently down to 8 L supplemental oxygen
Patient's respiratory status appears to be close to baseline
Aspiration precautions
Incentive spirometry
Mucus clearing devices
Nebulizers if needed-currently not bronchospastic
No wheezing noted, hold off steroid therapy.
Diuresis as tolerated--5 L / 5 days-now euvolemic
Monitor renal function, electrolytes, intake/output, lower extremity edema and weight
Replace electrolytes as needed
Cardiology following-correspondence reviewed
Lasix now oral
Monitor blood sugar
Insulin supplementation as needed
DVT prophylaxis-on Eliquis 2.5 mg twice daily
Nutrition
PT/OT-reviewed with primary team
The patient was on hospice but exited hospice about 6 weeks ago-does not wish to return unless diabetes can be controlled-then willing
Patient usually follows with Dr. Tucker in the office since 2020-last saw Harmony ORANTES 04/11/24-recommend follow-up unless hospice
Diagnostic data:
Chest x-ray 08/08/2024-no change in appearance of chronic interstitial lung disease
Chest x-ray 02/14/2025-mild diffuse interstitial prominence may reflect interstitial edema or pneumonitis with underlying chronic interstitial lung disease
Chest x-ray 03/22/2025-cardiomegaly with increased pulmonary vascular congestion could represent CHF
Chest x-ray 03/23/2025-stable moderate cardiomegaly, no evidence for CHF or pneumonia
CT Chest 09/24/20: Diffuse bilateral predominantly peripheral interlobular and intralobular interstitial thickening with small patches of groundglass opacities. Mild bronchial wall thickening, no honeycombing or bronchiectasis. Small calcified lymph
nodes in the subcarinal region, shotty mediastinal lymph nodes. Dense calcified plaque at the origin of the left subclavian artery likely resulting in hemodynamically significant stenosis. Small to moderate sliding hiatal hernia. Mild pancreatic
calcification suggesting chronic pancreatitis. 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
CT Chest 09/24/20: Diffuse bilateral predominantly peripheral interlobular and intralobular interstitial thickening with small patches of groundglass opacities. Mild bronchial wall thickening, no honeycombing or bronchiectasis. Small calcified lymph
nodes in the subcarinal region, shotty mediastinal lymph nodes. Dense calcified plaque at the origin of the left subclavian artery likely resulting in hemodynamically significant stenosis. Small to moderate sliding hiatal hernia. Mild pancreatic
calcification suggesting chronic pancreatitis. 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
PFTs 12/09/21: FEV1 1.47L 124%, FVC 1.66L 101%, ratio 89.� TLC 2.45L 62%, DLCO 39% (moderate restriction, severe diffusion impairment; stable jackie from prior testing, volumes are worse, diffusion is improved)
PFT106/12/2023-� PFT-� FVC 1.46, 95� fev1 1.26, 115� ratio 86� TLC 2.85, 73� DLCO 3.14, 21
6 MWT- room air resting pulse ox 97%, after ambulating 450 feet To 86%.� Subjective shortness of breath.� 07/16.� Placed on oxygen 1 L and titrated up to 3 L to maintain a pulse ox of 88-92%.� Ambulating additional 600 feet.
PSG 11/12/21: AHI 8.5, O2 misbah 72%, TST 134/388.7 mins, SE 34.5%. 3L NC needed to maintain saturation.
ECHO 05/26/20: Normal LV function with moderate LVH. Estimated EF 70%. Mild MR, mild TR, estimated pressure 46-51.
Echocardiogram 07/11/2024-EF 60-65%, mild mitral regurgitation, aortic sclerosis without stenosis, PA systolic estimated 65-70
Subjective Data
-
Date of Service:
Date of Service: March 30, 2025
Chief Complaint: Pulmonary Follow Up and Dyspnea Follow Up
Subjective:
Comfortably sitting in bed in no acute distress
Review of Systems
Genitourinary: Other (No new symptoms reported)
Objective Data
Data Reviewed
Vital Signs / I&O / Oxygen:
Vital Signs
Temp Pulse Resp BP Pulse Ox
97.9 F 63 16 117/50 95
03/30/25 07:27 03/30/25 07:38 03/30/25 07:38 03/30/25 06:00 03/30/25 08:51
Intake and Output
03/29/25 03/30/25 03/31/25
06:59 06:59 06:59
Intake Total 180 / 180 520 / 520
Output Total 360 / 360 1250 / 1250
Balance -180 / -180 -730 / -730
SaO2 95
Nasal Cannula flow liters per 10
minute
Physical Exam
General: Respiratory Distress (n) and Comfortable
HEENT: Normocephalic, Anicteric and Moist Mucous Membranes
Cardiovascular: Regular Rhythm
Respiratory: Wheeze (n), Crackles (Bilateral bases) and Rhonchi
GI: Soft, Non Distended and Non Tender
Neurology: Awake, Alert and No Motor Deficits
Skin: Warm, Good Color, Cyanosis (n), Jaundice (n) and Rash (n)
Labs/Micro/Reports
Lab Data
03/30/25 06:13
03/30/25 06:13
[2025-03-30] MEDS: NOVOLOG FLEXPEN 8 UNITS SC ×2 (12:35→17:34)
[2025-03-30] MEDS: NOVOLOG FLEXPEN-LOW RESISTANCE 2 UNITS SC (12:35)
[2025-03-30 12:44] LABS: Glucose - Point of Care 209 mg/dl (70-99)
--- NOTE | 2025-03-30 14:42 | CM ---
CM following for discharge planning. Hospice with [facility] is the anticipated plan - unclear if patient/family will decide upon transfer to SNF with Hospice or an alternate location.
Manoj will not be able to initiate hospice until Tuesday, and will discuss hospice philosophy and care provided when they meet on Tuesday.
--- NOTE | 2025-03-30 17:15 | PTCARENOTE ---
Pt's assessment as documented. Afib on tele monitor. Sating mid 90's on 10L. Desats on exertion, but able to recover. OOB to chair. Ringing appropriately, call razo within reach.
[2025-03-30 17:28] LABS: Glucose - Point of Care 157 mg/dl (70-99)
[2025-03-30] MEDS: GLUCOPHAGE 1000 MG PO (17:33)
[2025-03-30] MEDS: LIPITOR 40 MG PO (17:33)
[2025-03-30] MEDS: NOVOLOG FLEXPEN-LOW RESISTANCE 1 UNITS SC (17:34)
--- NOTE | 2025-03-30 19:00 | PTCARENOTE ---
pt is aaox3, sitting OOB in chair on 10L midflow. pt destats to 84% while getting back into razo. SpO2=93% after resting. call razo in reach.
[2025-03-30 21:28] LABS: Glucose - Point of Care 160 mg/dl (70-99)
[2025-03-30] MEDS: LANTUS 0.18 UNITS SC (21:43)
[2025-03-31] VITALS (13 sets, daily range): BP systolic 87–126; BP diastolic 32–62; BMI 26.9
[2025-03-31 03:26] LABS: Glucose - Point of Care 117 mg/dl (70-99)
[2025-03-31 03:31] LABS: Hematocrit 34.7 % (37.0-47.0); Hemoglobin 11.0 g/dL (12.0-16.0); Mean Corp Hgb Conc. 31.7 g/dL (33.0-37.0); Mean Corpuscular Volume 91.8 fL (81.0-99.0); Nucleated Red Blood Cells % 0 %; Platelet Count 219 10^3/uL (130-400); Red Cell Dist. Width 14.3 % (11.5-14.5)
[2025-03-31 03:46] LABS: ALT (SGPT) 36 U/L (0-35); AST (SGOT) 42 U/L (14-36); Albumin 3.7 g/dl (3.5-5.0); Alkaline Phosphatase 111 U/L (38-126); Blood Urea Nitrogen 53 mg/dl (7-17); Calcium 9.7 mg/dl (8.4-10.2); Carbon Dioxide 30 mmol/L (22-30); Chloride 100 mmol/L (98-107); Estimated Creatinine Clearance 25 ml/min; Glucose 112 mg/dl (70-99); Potassium 4.8 mmol/L (3.5-5.1); Sodium 134 mmol/L (135-145); Total Protein 6.7 g/dl (6.3-8.2); eGFR 43.54
--- NOTE | 2025-03-31 07:34 | W.PN.HOSP.TC ---
Addendum entered and electronically signed by Sharri Benitez MD 03/31/25 13:31:
I saw and evaluated the patient independently. I reviewed and discussed the resident�s note and agree with findings and plan as documented by Dr. Stewart.
GENERAL: well developed, well nourished, female in no apparent distress
HEENT: NC/AT-- MID GERMAN 10L--cannot budge as desats with movement
HEART: regular rate and rhythm, +S1, +S2, bradycardic
LUNGS : crackles at bases bilaterally
ABDOM: soft, nontender, nondistended, + bowel sounds
EXT: no cyanosis, clubbing, or edema
NEUROLOGIC: grossly intact
Acute hypoxemic resp failure due to Acute on Chronic Heart Failure exacerbation with Preserved Ejection Fraction (resolved) and significant pulm HTN leading to right heart failure--required HI GERMAN O2, down to 10L MID GERMAN, trying to wean O2 but
cannot--has advanced restrictive lung disease with chronic hypoxemia and 5-6L home oxygen--diuresis was limited by BP and need for pressors--levophed off and on midodrine--apprec pulm/cards--weights down-- started to discuss hospice again (as has
not much reserve for any further insults)--was on hospice and she revoked due to concern about her diabetes--cont IS--not bronchospastic--no need for steroids currently--repeat echo still shows preserved EF but significant RA/RV
dysfunction--checking V/Q or CT PE study will not storage management consultant--CXR without volume overload--cards/pulm signed off, recommending hospice if pt agrees
SAAD on JJT6r--kzqeds creat---Cr 1.2 and has not budged (likely new baseline)--due to Lasix administration/dehydration (baseline was 0.9)
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
Anemia of Chronic Disease- Hemoglobin stable --no signs of active bleeding
History of COPD- Continue Advair, PRN nebs- Wean O2 to goal >90%
Persistent Atrial Fibrillation w/o rapid Ventricular Response--actually bradycardic--cont Eliquis
HLD/Essential HTN/T2DM- Continue Home Meds- Low Resistance Sliding Scale- Hold Metformin
Other Conditions Present Prior to Arrival
Restrictive Lung Disease
Interstitial Lung Disease
Macular Degeneration
CODE STATUS-- DNR--but seems to want treatment--started hospice discussions again--I explained to the patient that her lung function and heart are the problem and that we cannot get her off of the 10 L of oxygen. I explained that she should
consider hospice but she wants her sugars managed while on hospice. I told her that it does not matter what her sugars are on hospice and she stated 'it matters to me'. [facility] is [facility] to manage the sugars. Hospice to meet with patient
and daughter--reportedly Tuesday
DVT proph-- Eliquis
Original Note:
Today's Communication/Plan
-
wean o2 as able
pulm following - appreciate input
pending hospice care evaluation on Tuesday from [facility]
Assessment / Plan
Assessment / Plan
Mami Grider is a 89F w/ PMHx A/fib (on ), HFpEF, ILD, T2DM, COPD, ACD, CKD3a, moderate TR, HLD, HTN, and pHTN who presented w/ SOB (worse w/ exertion) x 1 week, orthopnea and limited mobility in the setting of recent move to assisted
living facility where she was unable to receive an adequate amount of O2 therapy for her needs, and was found to have increased O2 requirements, pulmonary vascular congestion on CXR and elevated BNP on arrival alongside SAAD on CKD.
1. Acute on Chronic Heart Failure with Preserved Ejection Fraction:
Her blood pressure 101/45--126/51, pulse rate 34, saturation 97, temp stable, weight 58.4--59.6
- hemoglobin 11.4--11.2 still on baseline.
Lab: WBC normal, hemoglobin 10.8 low, sodium 136, potassium 4.6,
- random cortisol 12.6.
- Respiratory distress on arrival, SaO2 80% on NRB, started on MidFlow
- CXR (ED): increased pulmonary vascularity.
-Reduce higher oxygen flow to maintain saturation around 90%.
Echo 03/25:
Compared to a prior transthoracic echocardiogram study from 07/11/2024 no significant changes are seen.
2. Normal left ventricular size and systolic function. Mild concentric left ventricular hypertrophy. Normal regional wall motion. Left ventricular ejection fraction is 60-65% by visual estimate.
3. Severely dilated and hypocontractile right ventricle.
4. Indexed left atrial volume is moderately abnormal (42-48 ml/m2).
5. Severe tricuspid regurgitation. Estimated pulmonary artery pressure of 73 mmHg assuming a right atrial pressure of 8 mmHg.
6. Severely dilated right atrium.
Held the Lasix due to her hypotension.
- Cardiology Consult:-- BNP (ED): 7800, pro BMP and it�s still 6000 today. one time dose of 40 IV. Lasix started for today
-Weaned off from pressors.
# remains off pressors
# c/w Midodrine 10 mg TID
lasix prn
repeat CXR 03/30 no significant change
# Chronic hypoxic respiratory failure secondary to pulmonary hypertension:
She consistently required mid flow oxygen around 10 L nasal cannula to maintain her saturation around 96%
Ornamental Painter consulted due to her high flow oxygen requirement:
-Recommended supplemental oxygen as needed reviewed with HOT MILL WORKER-decrease high flow oxygen to mid flow.
-Aspiration precautions required.
-Incentive spirometry.
-Nebulizers if needed but currently patient is not bronchospastic.
-Currently not initiating steroids due to her underlying diabetes.
- still requiring 10L O2 with significant desaturation into the 70s on movement. Pt end stage with component of severe right sided heart failure -- planning for hospice, will attempt to wean O2 as low as possible to maintain saturations 90-92%.
2. SAAD on CKD3a.
(baseline grant manager 0.9)
- Daily BMPs
- Cr remains elevated
- Decongestion in setting of cardiorenal syndrome? vs. Medication side effect?
- grant manager stable with prn diuresis
3. Anemia of Chronic Disease
- Hemoglobin stable, no signs of active bleeding
- Continue to Monitor, transfuse as needed
4. History of COPD
- Continue Advair, PRN nebs
- Wean O2 to goal 90-92%
5. Persistent Atrial Fibrillation w/ slow Ventricular Response
- tele showing persistent afib with slow ventricular response
- Continue Eliquis
6. HLD/HTN/T2DM
- POC glucose 384--275-- 250--229- 147---227.
- HS lantus 18 units and AC novolog 8 units
- Cr is stable at 1.2 will resume 1000 mg metformin BID.
- Low Resistance Sliding Scale
- diabetic DECKER OPERATOR following for insulin management
Other Conditions Present Prior to Arrival
Restrictive Lung Disease
Interstitial Lung Disease
Macular Degeneration
# PT, OT consulted.
#Tried to call her daughter for the below numbers and lvm.
[phone]
Cell
CODE: DNR
Diet: 2199cal DM
DVT: Eliquis
Dispo Planning: PT once O2 req improves; CM consult for O2 needs at [place].
# Discussed today regards disposition to hospice blood glucose control.
#she doesnt want to go for intermediate facility which accepts her with this oxygen level.
Anticipated Discharge: 24 - 48 hours
Subjective/Interval History
-
Date of Service: March 31, 2025
no acute complaints. no acute events overnight. she remains on 10L high flow nc
Objective Data
-
Labs:
Laboratory Results
03/31/25
03:16
WBC 8.1
Hgb 11.0 L
Hct 34.7 L
Plt Count 219
Sodium 134 L
Potassium 4.8
Chloride 100
Carbon Dioxide 30
BUN 53 H
Creatinine 1.2 H
Glucose 112 H
Calcium 9.7
Total Bilirubin 1.3
AST 42 H
ALT 36 H
Alkaline Phosphatase 111
Vital Signs:
Vital Signs
Temp Pulse Resp BP Pulse Ox
97.4 F 57 14 126/62 86
03/31/25 03:12 03/31/25 06:05 03/31/25 06:05 03/31/25 06:05 03/31/25 06:00
I&O
03/30/25 03/31/25 04/01/25
06:59 06:59 06:59
Intake Total 520 / 520
Output Total 1250 / 1250 320 / 320
Balance -730 / -730 -320 / -320
Review of Systems
-
History Source: Patient
All other systems: Reviewed and negative
Constitutional: Reports No Symptoms
EENT: Reports No Symptoms Reported
Respiratory: Reports Trouble Breathing
Cardiac: Reports No Symptoms
Abdomen/GI: Reports No Symptoms
Genitourinary: Reports No Symptoms
Musculoskeletal: Reports No Symptoms
Skin: Reports No Symptoms
Neuro: Reports No Symptoms
Physical Exam
-
General: Well Developed, No Apparent Distress, Comfortable and Appears Chronically Ill
HEENT: Normocephalic, Atraumatic, Moist Mucous Membranes, Anicteric, [place] Conjunctivae, PERRLA, Nose Appears Normal, Ears Appear Normal and Oxygen (10L hf nc)
Respiratory: Rales, Rhonchi and Non Labored Respirations; Negative Wheezes
Cardiac: S1/S2, Irregular Rhythm and Bradycardic
GI: Soft, Nontender, Nondistended and Normal Bowel Sounds
Musculoskeletal: No Clubbing, No Cyanosis and No Edema
Skin: Warm and Dry
Neuro: AO x 3
Psych: Calm and Intact Judgement/Insight
[2025-03-31] MEDS: ADVAIR HFA 115/21 MCG INHALER 2 PUFF INH ×2 (08:07→19:45)
[2025-03-31 08:36] LABS: Glucose - Point of Care 102 mg/dl (70-99)
[2025-03-31] MEDS: NOVOLOG FLEXPEN 8 UNITS SC ×3 (08:50→17:41)
[2025-03-31] MEDS: NOVOLOG FLEXPEN-LOW RESISTANCE SC ×2 (08:50→17:41)
[2025-03-31] MEDS: OCUVITE SOFTGEL 1 CAP PO ×2 (08:50→20:16)
[2025-03-31] MEDS: LASIX 40 MG PO (08:51)
[2025-03-31] MEDS: ELIQUIS 2.5 MG PO ×2 (08:51→20:15)
[2025-03-31] MEDS: GLUCOPHAGE 1000 MG PO ×2 (08:51→17:03)
[2025-03-31] MEDS: DESENEX/MITRAZOL/ZEASORB 1 APPLIC TOPICAL ×2 (08:51→20:15)
[2025-03-31] MEDS: TIMOPTIC 0.5% OPHTHALMIC SOLUTION 1 DROP BOTH EYES ×2 (08:51→20:16)
[2025-03-31] MEDS: NOVOLOG FLEXPEN-LOW RESISTANCE 2 UNITS SC (13:24)
[2025-03-31 13:32] LABS: Glucose - Point of Care 218 mg/dl (70-99)
[2025-03-31] MEDS: LIPITOR 40 MG PO (17:04)
[2025-03-31 17:55] LABS: Glucose - Point of Care 107 mg/dl (70-99)
[2025-03-31] MEDS: LANTUS SC (21:43)
[2025-03-31 21:52] LABS: Glucose - Point of Care 93 mg/dl (70-99)
[2025-04-01] VITALS (15 sets, daily range): BP systolic 93–141; BP diastolic 26–84; BMI 26.6
--- NOTE | 2025-04-01 03:35 | PTCARENOTE ---
Caring for pt overnight. aaox3, pleasant. Denies pain. Remains om 10LMF, desats to 70's when moving & oob. Gets oob to chair and bsc. VSS. Afib on monitor. No other assessment changes. Will monitor.
[2025-04-01 03:40] LABS: Hematocrit 36.9 % (37.0-47.0); Hemoglobin 12.0 g/dL (12.0-16.0); Mean Corp Hgb Conc. 32.5 g/dL (33.0-37.0); Mean Corpuscular Volume 93.2 fL (81.0-99.0); Nucleated Red Blood Cells % 0 %; Platelet Count 237 10^3/uL (130-400); Red Cell Dist. Width 14.4 % (11.5-14.5)
[2025-04-01 03:52] LABS: ALT (SGPT) 33 U/L (0-35); AST (SGOT) 39 U/L (14-36); Albumin 4.1 g/dl (3.5-5.0); Alkaline Phosphatase 127 U/L (38-126); Blood Urea Nitrogen 56 mg/dl (7-17); Calcium 10.0 mg/dl (8.4-10.2); Carbon Dioxide 28 mmol/L (22-30); Chloride 101 mmol/L (98-107); Estimated Creatinine Clearance 21 ml/min; Glucose 110 mg/dl (70-99); Potassium 5.3 mmol/L (3.5-5.1); Sodium 136 mmol/L (135-145); Total Protein 7.3 g/dl (6.3-8.2); eGFR 36.19
--- NOTE | 2025-04-01 07:05 | W.PN.HOSP.TC ---
Today's Communication/Plan
-
sodium zirconium 10 g added for hyperkalemia at afternoon,
creatinine elevation of metformin 1000---500 bid
morphine try to wean off.
Assessment / Plan
Assessment / Plan
Mami Grider is a 89F w/ PMHx A/fib (on Eliquis), HFpEF, ILD, T2DM, COPD, ACD, CKD3a, moderate TR, HLD, HTN, and pHTN who presented w/ SOB (worse w/ exertion) x 1 week, orthopnea and limited mobility in the setting of recent move to assisted
living facility where she was unable to receive an adequate amount of O2 therapy for her needs, and was found to have increased O2 requirements, pulmonary vascular congestion on CXR and elevated BNP on arrival alongside SAAD on CKD.
1. Acute on Chronic Heart Failure with Preserved Ejection Fraction:
-Vitals today BP 109/26, NJ 58, Tmax 97.6, RR 15, saturation 93 mid flow nasal cannula 10 L,
-Chemistry WBC normal, hemoglobin normal, potassium 5.3 high however she is not on potassium sparing diuretics currently she is on Lasix, type 2 diabetes currently on insulin held due to her blood glucose 93, creatinine 1.2--1.4 high, GFR
43.5--36.19,
- random cortisol 12.6.
- Respiratory distress on arrival, SaO2 80% on NRB, started on MidFlow
- CXR (ED): increased pulmonary vascularity.
-Reduce higher oxygen flow to maintain saturation around 90%.
Echo 03/25:
Compared to a prior transthoracic echocardiogram study from 07/11/2024 no significant changes are seen.
2. Normal left ventricular size and systolic function. Mild concentric left ventricular hypertrophy. Normal regional wall motion. Left ventricular ejection fraction is 60-65% by visual estimate.
3. Severely dilated and hypocontractile right ventricle.
4. Indexed left atrial volume is moderately abnormal (42-48 ml/m2).
5. Severe tricuspid regurgitation. Estimated pulmonary artery pressure of 73 mmHg assuming a right atrial pressure of 8 mmHg.
6. Severely dilated right atrium.
Held the Lasix due to her hypotension.
- Cardiology Consult:-- BNP (ED): 7800, pro BMP and it�s still 6000 today. one time dose of 40 IV. Lasix started for today
-Weaned off from pressors.
# remains off pressors
# c/w Midodrine 10 mg TID
lasix prn
repeat CXR 03/30 no significant change
# Chronic hypoxic respiratory failure secondary to pulmonary hypertension:
She consistently required mid flow oxygen around 10 L nasal cannula to maintain her saturation around 96%
Bag Builder consulted due to her high flow oxygen requirement:
-Recommended supplemental oxygen as needed reviewed with CASE LOADER OPERATOR-decrease high flow oxygen to mid flow.
-Aspiration precautions required.
-Incentive spirometry.
-Nebulizers if needed but currently patient is not bronchospastic.
-Currently not initiating steroids due to her underlying diabetes.
- still requiring 10L O2 with significant desaturation into the 70s on movement. Pt end stage with component of severe right sided heart failure -- planning for hospice, will attempt to wean O2 as low as possible to maintain saturations 90-92%.
On 03/30 chest x ray:
1. No acute pulmonary abnormality appreciated.
2. Chronic scarring at the left lung base and right mid to upper lung zone, unchanged compared to multiple prior studies.
3. Low inspiratory volumes.
2. SAAD on CKD3a.
(baseline hand shaper 0.9)
- Daily BMPs
- Cr remains elevated
- Decongestion in setting of cardiorenal syndrome? vs. Medication side effect?
- hand shaper stable with prn diuresis
3. Anemia of Chronic Disease
- Hemoglobin stable, no signs of active bleeding
- Continue to Monitor, transfuse as needed
4. History of COPD
- Continue Advair, PRN nebs
- Wean O2 to goal 90-92%
5. Persistent Atrial Fibrillation w/ slow Ventricular Response
- tele showing persistent afib with slow ventricular response
- Continue Eliquis
6. HLD/HTN/T2DM
-blood glucose 63--112--110.
- HS lantus 18 units and AC novolog 8 units on hold due to patient refused.
- Cr is stable at 1.2 will resume 500mg metformin BID.
- Low Resistance Sliding Scale
- diabetic OTR TRUCK DRIVER following for insulin management
Other Conditions Present Prior to Arrival
Restrictive Lung Disease
Interstitial Lung Disease
Macular Degeneration
# PT, OT consulted.
CODE: DNR
Diet: DM
DVT: Eliquis
Dispo Planning: PT once O2 req improves; CM consult for O2 needs at [place].
# Discussed today regards disposition to hospice blood glucose control.
# Today hospice [facility] discussed with major case detective, patient and her daughter - Manoj only talked to the daughter about hospice but never completed the conversation in this. Patient is still on 10 L and she can�t go anywhere on 10 L other than
weaning down and going to inpatient. However daughter is believing that there is some facilities who accepts with 10 L, so far there is no facility who will accept with 10 l according to case management.
Anticipated Discharge: Within 24 hours
Subjective/Interval History
-
Date of Service: April 01, 2025
Overnight she has no concern for chest pain, palpitation, dizziness, shortness of breath, fever, chills. Overnight she has no concerns except her blood glucose level dropped to 91 and on hold of Lantus.
Today she had is having a meeting with [facility] with major case detective. Cardiology signed off with oral Lasix.
Objective Data
-
Labs:
Laboratory Results
04/01/25
03:26
WBC 9.7
Hgb 12.0
Hct 36.9 L
Plt Count 237
Sodium 136
Potassium 5.3 H
Chloride 101
Carbon Dioxide 28
BUN 56 H
Creatinine 1.4 H
Glucose 110 H
Calcium 10.0
Total Bilirubin 1.4 H
AST 39 H
ALT 33
Alkaline Phosphatase 127 H
Vital Signs:
Vital Signs
Temp Pulse Resp BP Pulse Ox
97.6 F 51 21 107/63 98
04/01/25 03:37 04/01/25 06:00 04/01/25 06:00 04/01/25 04:00 04/01/25 06:00
I&O
03/31/25 04/01/25 04/02/25
06:59 06:59 06:59
Intake Total 1020 / 1020
Output Total 320 / 320 500 / 500
Balance -320 / -320 520 / 520
Review of Systems
-
History Source: Patient
All other systems: Reviewed and negative
Physical Exam
-
General: No Apparent Distress
Respiratory: Crackles (Fine bilateral inspiratory crackles.)
Cardiac: Regular Rhythm
GI: Soft and Nontender
Genito-urinary: No Costovertebral Tender
Neuro: AO x 3
[2025-04-01 07:36] LABS: Glucose - Point of Care 117 mg/dl (70-99)
[2025-04-01] MEDS: ADVAIR HFA 115/21 MCG INHALER 2 PUFF INH ×2 (07:40→20:28)
[2025-04-01] MEDS: NOVOLOG FLEXPEN 8 UNITS SC ×3 (08:32→16:47)
[2025-04-01] MEDS: NOVOLOG FLEXPEN-LOW RESISTANCE SC (08:32)
[2025-04-01] MEDS: GLUCOPHAGE 1000 MG PO (08:33)
[2025-04-01] MEDS: TIMOPTIC 0.5% OPHTHALMIC SOLUTION 1 DROP BOTH EYES ×2 (08:33→19:14)
[2025-04-01] MEDS: ELIQUIS 2.5 MG PO ×2 (08:33→19:14)
[2025-04-01] MEDS: DESENEX/MITRAZOL/ZEASORB 1 APPLIC TOPICAL ×2 (08:33→19:14)
[2025-04-01] MEDS: OCUVITE SOFTGEL 1 CAP PO ×2 (08:33→19:14)
[2025-04-01] MEDS: LASIX 40 MG PO (08:34)
--- NOTE | 2025-04-01 09:54 | PN.DE.MGMTRT ---
Insulin Management
- -
04/01/2025: Diabetes Management Follow up
Patient admitted 03/22 with increasing SOB. PMH: CHF, Afib/flutter, HTN, HLD, Interstitial lung disease, COPD, chronic hypoxic respirator failure on 6 L O2, moderate to severe tricuspid regurgitation, Anemia of chronic illness, CKD 3A and T2DM.
Prior to admission was receiving 10 units Lantus @ HS with lispro 5 units AC and metformin 1000 BID. A1C on admission 10.2%, cr 1.2, eGFR 43.54 today.
Patient is awake alert and oriented OOB in chair able to discuss diabetes care. States she has had diabetes 20+ years. States she was living alone but after last admission went to rehab for 1 month then to a [facility]ci home. States she was on
hospice for 6 months and that 'they' were not paying attention to her diabetes and her blood sugar was running high. States she is waiting to meet with [facility] to make decisions but she is hoping that her insulin will be continued when she
signs on to hospice.
Yesterday patient received 8 units NovoLog AC, glucose range 107 to 218.
HS glucose was 93, Patient refused her Lantus dose last night, FBG 110 this AM.
Will reduce HS Lantus from 18 units to 15 units.
Cont AC NovoLog 8 units, low corrective insulin and Metformin 1000mg BID.
Discussed with nurse and CM. Will cont to follow
Diabetes History
- -
Type of Diabetes: 2 requiring insulin
Pre-Admission Diabetes Regimen
04/01/25
03:26
Creatinine 1.4 H
Lab Results
Hemoglobin A1c 10.2 % (4.0-5.9) H 03/23/25 04:36
Insulin Pump Settings
IP Diabetes Regimen
03/31/25 03/31/25 03/31/25
13:21 17:39 21:36
Glucose
POC Glucose 218 H 107 H 93
04/01/25 04/01/25
03:26 07:25
Glucose 110 H
POC Glucose 117 H
Meal type: Breakfast
Amount consumed: 100%
Patient Education
[2025-04-01 12:04] LABS: Glucose - Point of Care 207 mg/dl (70-99)
[2025-04-01] MEDS: NOVOLOG FLEXPEN-LOW RESISTANCE 2 UNITS SC (13:18)
[2025-04-01] MEDS: LOKELMA 10 GRAM PO (15:47)
--- NOTE | 2025-04-01 15:58 | PTCARENOTE ---
Patient desaturated, tachypneic,SOB, dusky during transfer from bed to chair on 15L oxygen. Pt placed on NRB mask in order for recovery to 90%. Once recovered pt tolerating 14L midflow with pulse ox 92% with rest in chair
[2025-04-01] MEDS: NOVOLOG FLEXPEN-LOW RESISTANCE 1 UNITS SC (16:47)
--- NOTE | 2025-04-01 16:55 | CM ---
F/U: RICH Lucio spoke to Manoj today to follow up operations architect w/ Dtr on Tuesday. Manoj will not accept the patient at home on 10 liters. RICH Lucio spoke to dtr Mckenzie who was under the impression that they could. RICH Lucio told Mckenzie that there are
really no options for SNF/LTC with that high liter flow. In speaking to the Hospitalist team, it seems that there has been conversations with the patient and Dtr, but one or both are not accepting or making a plan that is based on the current
situation. Hospitalist Dr. Martinez will call the Dtr tomorrow to chat about this and perhaps have the Dtr come in for in person conversation with the patient with the team leading. Acceptance of the current situation and options may take time for the
patient/ Dtr. PLAN: TBD.
[2025-04-01] MEDS: GLUCOPHAGE XR EXTENDED RELEASE 500 MG PO (17:19)
[2025-04-01] MEDS: LIPITOR 40 MG PO (17:20)
[2025-04-01 20:18] LABS: Glucose - Point of Care 173 mg/dl (70-99)
--- NOTE | 2025-04-01 21:15 | W.PN.UPDATE ---
Update Note
Progress Note Update
Patient is desatting to 82-86% on 10 L of O2. afebrile
-On exam, patient is alert and oriented, Crackle lung sound noted on exam.
-Patient was placed on NRB, spo2 up to 90%.
-after chart reviewed, spoke to the daughter and patient as she is in transition of hospice pending agency acceptance with the current O2 requirements.
-Daughter and patient agrees with the plan for tonight with one extra dose of lasix 20mg, vbg for the possible benefits of cpap machine, and daughter do not want chest x-rays at the mean time.
[2025-04-01] MEDS: LASIX 20 MG IV (21:27)
[2025-04-01] MEDS: LANTUS 0.15 UNITS SC (21:28)
[2025-04-01 21:37] LABS: Glucose - Point of Care 113 mg/dl (70-99)
[2025-04-01 21:44] LABS: Venous Blood Gas B.E. 5.7 mmol/L (-4 to +4); Venous Blood Gas O2 Sat % 93.8 %
[2025-04-01 22:07] LABS: Blood Urea Nitrogen 54 mg/dl (7-17); Calcium 9.9 mg/dl (8.4-10.2); Carbon Dioxide 28 mmol/L (22-30); Estimated Creatinine Clearance 22 ml/min; Glucose 103 mg/dl (70-99); Magnesium 1.9 mg/dl (1.6-2.3); Potassium 4.9 mmol/L (3.5-5.1); eGFR 39.55
[2025-04-01 22:13] LABS: Chloride 101 mmol/L (98-107); Sodium 136 mmol/L (135-145)
[2025-04-02] VITALS (12 sets, daily range): BP systolic 99–140; BP diastolic 37–70; BMI 26.5
--- NOTE | 2025-04-02 03:21 | PTCARENOTE ---
pt is on 12Liters midflow. she is tachypneic,SOB. pt lungs are diminished w/ crackles. SpO2=85%. Pt placed on non-rebreather at 15liters. informed INSTRUCTOR PHYSICAL EDUCATION Claudia - SHERRI lasix given w/ +eff. later reevaluated and placed on 15L midflow then later back to
12l midflow SpO2=25%.
[2025-04-02 05:37] LABS: Hematocrit 35.5 % (37.0-47.0); Hemoglobin 11.5 g/dL (12.0-16.0); Mean Corp Hgb Conc. 32.4 g/dL (33.0-37.0); Mean Corpuscular Volume 91.5 fL (81.0-99.0); Nucleated Red Blood Cells % 0 %; Platelet Count 223 10^3/uL (130-400); Red Cell Dist. Width 14.4 % (11.5-14.5)
--- NOTE | 2025-04-02 07:07 | W.PN.HOSP.TC ---
Today's Communication/Plan
-
Consult today with inpatient hospice.
Assessment / Plan
Assessment / Plan
Mami Grider is a 89F w/ PMHx A/fib (on Eliquis), HFpEF, ILD, T2DM, COPD, ACD, CKD3a, moderate TR, HLD, HTN, and pHTN who presented w/ SOB (worse w/ exertion) x 1 week, orthopnea and limited mobility in the setting of recent move to assisted
living facility where she was unable to receive an adequate amount of O2 therapy for her needs, and was found to have increased O2 requirements, pulmonary vascular congestion on CXR and elevated BNP on arrival alongside SAAD on CKD.
1. Acute on Chronic Heart Failure with Preserved Ejection Fraction:
-Vitals today BP 109/26, IN 58, Tmax 97.6, RR 15, saturation 93 mid flow nasal cannula 10 L,
-Chemistry WBC normal, hemoglobin normal, potassium 5.3 high however she is not on potassium sparing diuretics currently she is on Lasix, type 2 diabetes currently on insulin held due to her blood glucose 93, creatinine 1.2--1.4 high, GFR
43.5--36.19,
- random cortisol 12.6.
- Respiratory distress on arrival, SaO2 80% on NRB, started on MidFlow
- CXR (ED): increased pulmonary vascularity.
-Reduce higher oxygen flow to maintain saturation around 90%.
Echo 03/25:
Compared to a prior transthoracic echocardiogram study from 07/11/2024 no significant changes are seen.
2. Normal left ventricular size and systolic function. Mild concentric left ventricular hypertrophy. Normal regional wall motion. Left ventricular ejection fraction is 60-65% by visual estimate.
3. Severely dilated and hypocontractile right ventricle.
4. Indexed left atrial volume is moderately abnormal (42-48 ml/m2).
5. Severe tricuspid regurgitation. Estimated pulmonary artery pressure of 73 mmHg assuming a right atrial pressure of 8 mmHg.
6. Severely dilated right atrium.
Held the Lasix due to her hypotension.
- Cardiology Consult:-- BNP (ED): 7800, pro BMP and it�s still 6000 today. one time dose of 40 IV. Lasix started for today
-Weaned off from pressors.
# remains off pressors
# c/w Midodrine 10 mg TID
lasix prn
repeat CXR 03/30 no significant change
# Chronic hypoxic respiratory failure secondary to pulmonary hypertension:
She consistently required mid flow oxygen around 10 L nasal cannula to maintain her saturation around 96%
Clerical Warehouse Worker consulted due to her high flow oxygen requirement:
-Recommended supplemental oxygen as needed reviewed with WOOD HEEL FLAP TRIMMER-decrease high flow oxygen to mid flow.
-Aspiration precautions required.
-Incentive spirometry.
-Nebulizers if needed but currently patient is not bronchospastic.
-Currently not initiating steroids due to her underlying diabetes.
- still requiring 10L O2 with significant desaturation into the 70s on movement. Pt end stage with component of severe right sided heart failure -- planning for hospice, will attempt to wean O2 as low as possible to maintain saturations 90-92%.
On 03/30 chest x ray:
1. No acute pulmonary abnormality appreciated.
2. Chronic scarring at the left lung base and right mid to upper lung zone, unchanged compared to multiple prior studies.
3. Low inspiratory volumes.
2. SAAD on CKD3a.
(baseline hospital cleaner 0.9)
- Daily BMPs
- Cr remains elevated
- Decongestion in setting of cardiorenal syndrome? vs. Medication side effect?
- hospital cleaner stable with prn diuresis
3. Anemia of Chronic Disease
- Hemoglobin stable, no signs of active bleeding
- Continue to Monitor, transfuse as needed
4. History of COPD
- Continue Advair, PRN nebs
- Wean O2 to goal 90-92%
5. Persistent Atrial Fibrillation w/ slow Ventricular Response
- tele showing persistent afib with slow ventricular response
- Continue Eliquis
6. HLD/HTN/T2DM
- Blood glucose 103--56 low so they held Lantus, NovoLog today.
- Cr is stable at 1.2 will resume 500mg metformin BID.
- Low Resistance Sliding Scale
- diabetic CRANE ENGINEER following for insulin management
Other Conditions Present Prior to Arrival
Restrictive Lung Disease
Interstitial Lung Disease
Macular Degeneration
# PT, OT consulted.
CODE: DNR
Diet: DM
DVT: Eliquis
Dispo Planning: PT once O2 req improves; CM consult for O2 needs at [place], pending hospice
# Today's meeting with daughter, case assistant regards her disposition. Daughter agreed for inpatient hospice, inpatient hospice consulted and started on comfort meds.
Anticipated Discharge: Today
Subjective/Interval History
-
Date of Service: April 02, 2025
Overnight patient denies chest pain, shortness of breath, fever, chills, dizziness, palpitation. Was desaturating to 82-86% on 10 L of oxygen. Her saturation today morning maintained around 92% 8 breath 10 to 14 L of oxygen.
Today morning around 10 AM spoke with the patient's daughter explained the options regards her mom's disposition status. Explained about her irreversible right heart failure, pulmonary hypertension along with interstitial lung phthisis with
required oxygen saturation of more than 10 L.
Explained options below includes
1. inpatient hospice--however they will not accept medications, will accept her oxygen level more than 10 L if is required.
2. [facility] hospice--they accept and monitor the blood glucose along with medications however they will not accept if oxygen requirement is more than 10 L
3. Home discharge however have to request to check with the company do they agreed for more than 10 L to home.
Objective Data
-
Labs:
Laboratory Results
04/01/25 04/02/25
21:37 05:08
WBC 8.8
Hgb 11.5 L
Hct 35.5 L
Plt Count 223
Sodium 136 Pending
Potassium 4.9 Pending
Chloride 101 Pending
Carbon Dioxide 28 Pending
BUN 54 H Pending
Creatinine 1.3 H Pending
Glucose 103 H Pending
Calcium 9.9 Pending
Total Bilirubin Pending
AST Pending
ALT Pending
Alkaline Phosphatase Pending
Vital Signs:
Vital Signs
Temp Pulse Resp BP Pulse Ox
98.0 F 43 21 126/70 97
04/02/25 03:19 04/02/25 06:00 04/02/25 06:00 04/02/25 04:00 04/02/25 06:00
I&O
04/01/25 04/02/25 04/03/25
06:59 06:59 06:59
Intake Total 1020 / 1020 960 / 960
Output Total 500 / 500 500 / 500
Balance 520 / 520 460 / 460
Review of Systems
-
History Source: Patient
All other systems: Reviewed and negative
Physical Exam
-
General: No Apparent Distress
HEENT: Oxygen (10 L of nasal oxygen with saturation around 89)
Respiratory: Crackles (Bilateral lower lobe crackles fine inspiratory+)
Cardiac: Regular Rhythm and S1/S2
GI: Soft, Nontender and Nondistended
Genito-urinary: No Costovertebral Tender
Skin: Warm
Neuro: AO x 3
Hematologic / Lymphatic: No Lymphadenopathy
Psych: Calm
[2025-04-02] MEDS: ADVAIR HFA 115/21 MCG INHALER 2 PUFF INH (07:22)
[2025-04-02 07:29] LABS: ALT (SGPT) 28 U/L (0-35); AST (SGOT) 32 U/L (14-36); Albumin 4.0 g/dl (3.5-5.0); Alkaline Phosphatase 113 U/L (38-126); Blood Urea Nitrogen 51 mg/dl (7-17); Calcium 9.9 mg/dl (8.4-10.2); Carbon Dioxide 30 mmol/L (22-30); Chloride 99 mmol/L (98-107); Estimated Creatinine Clearance 22 ml/min; Glucose 56 mg/dl (70-99); Potassium 4.4 mmol/L (3.5-5.1); Sodium 136 mmol/L (135-145); Total Protein 7.0 g/dl (6.3-8.2); eGFR 39.55
[2025-04-02 08:06] LABS: Glucose - Point of Care 67 mg/dl (70-99)
[2025-04-02] MEDS: NOVOLOG FLEXPEN SC (08:22)
[2025-04-02] MEDS: NOVOLOG FLEXPEN-LOW RESISTANCE SC (08:22)
[2025-04-02] MEDS: DESENEX/MITRAZOL/ZEASORB 1 APPLIC TOPICAL (08:25)
[2025-04-02] MEDS: GLUCOPHAGE XR EXTENDED RELEASE PO (08:26)
[2025-04-02] MEDS: ELIQUIS 2.5 MG PO ×2 (08:26→21:35)
[2025-04-02] MEDS: OCUVITE SOFTGEL 1 CAP PO (08:27)
[2025-04-02] MEDS: LASIX 40 MG PO ×2 (08:27→16:52)
[2025-04-02] MEDS: TIMOPTIC 0.5% OPHTHALMIC SOLUTION 1 DROP BOTH EYES (08:27)
[2025-04-02 08:37] LABS: Glucose - Point of Care 112 mg/dl (70-99)
--- NOTE | 2025-04-02 09:23 | PN.DE.MGMTRT ---
Insulin Management
- -
04/02/2025: Diabetes Management Follow up
Patient admitted 03/22 with increasing SOB. PMH: CHF, Afib/flutter, HTN, HLD, Interstitial lung disease, COPD, chronic hypoxic respirator failure on 6 L O2, moderate to severe tricuspid regurgitation, Anemia of chronic illness, CKD 3A and T2DM.
Prior to admission was receiving 10 units Lantus @ HS with lispro 5 units AC and metformin 1000 BID. A1C on admission 10.2%, cr 1.2, eGFR 43.54 today.
Patient is awake alert and oriented OOB in chair able to discuss diabetes care. States she has had diabetes 20+ years. States she was living alone but after last admission went to rehab for 1 month then to a snf home. States she was on
hospice for 6 months and that 'they' were not paying attention to her diabetes and her blood sugar was running high. States she is waiting to meet with [facility] to make decisions but she is hoping that her insulin will be continued when she
signs on to hospice.
Yesterday patient received 8 units NovoLog AC, glucose range 107 to 218. HS lantus 15 units.
Fasting glucose 56. Will further reduce HS Lantus from 15 units to 12 units.
Cont AC NovoLog 8 units, low corrective insulin and Metformin 1000mg BID.
Discussed with nurse and CM. Will cont to follow
Diabetes History
- -
Type of Diabetes: 2 requiring insulin
Pre-Admission Diabetes Regimen
04/01/25 04/02/25
21:37 05:08
Creatinine 1.3 H 1.3 H
Lab Results
Hemoglobin A1c 10.2 % (4.0-5.9) H 03/23/25 04:36
Insulin Pump Settings
IP Diabetes Regimen
04/01/25 04/01/25 04/01/25
11:53 16:44 21:26
Glucose
POC Glucose 207 H 173 H 113 H
04/01/25 04/02/25 04/02/25
21:37 05:08 07:54
Glucose 103 H 56 L
POC Glucose 67 L
04/02/25
08:26
Glucose
POC Glucose 112 H
Meal type: Lunch
Meal type: Lunch
Meal type: Breakfast
Amount consumed: 75%
Amount consumed: 80%
Amount consumed: 100%
Patient Education
[2025-04-02 10:17] LABS: Glucose - Point of Care 155 mg/dl (70-99)
[2025-04-02 12:04] LABS: Glucose - Point of Care 174 mg/dl (70-99)
[2025-04-02] MEDS: NOVOLOG FLEXPEN-LOW RESISTANCE 1 UNITS SC (13:36)
[2025-04-02] MEDS: NOVOLOG FLEXPEN 8 UNITS SC ×2 (13:36→18:01)
--- NOTE | 2025-04-02 14:28 | PTCARENOTE ---
Comfort measures ordered by Resident Physician. Pt and daughter continue to discuss GOC. Attending Dr. Martinez notified. Awaiting decision from pt and family if they wish to pursue comfort measures.
--- NOTE | 2025-04-02 16:06 | PTCARENOTE ---
Pt and daughter remain unsure if they want to proceed with comfort care. Dr Martinez and Resident MD notified, awaiting changes to orders.
--- NOTE | 2025-04-02 16:15 | CHAP ---
Emotional and spiritual support provided for Mami and her daughter Will follow as they navigate decision making.
--- NOTE | 2025-04-02 16:23 | PTCARENOTE ---
Pt requiring 15L MFNC continuously at this point with NRB 15L PRN. Pt reports she does not feel SOB despite sats dropping to low to mid 80s.
--- NOTE | 2025-04-02 16:57 | CM ---
F/U: Today, the daughter Mckenzie came in so asked the Hosptalist Team, specifically Dr. Martinez as well as utilizing our Director of Support EngineerKamla to be apart of this. The Hospitalist Resident came prior provind some options. Meeting occurred and
patient/ Dtr understood what Hospice was all about, but when they met with [facility], the patient/ Dtr is not ready for as of now. There is really no option, no rehab, unable to be at home on 15 liters (was increase today), so family need
time to see deterioration (?). PLAN: TBD
--- NOTE | 2025-04-02 17:30 | PTCARENOTE ---
Assumed care of patient. Patient with sats 80% from minimal exertion, NRB used PRN with long rebound. Patient placed on [place] NC. Sats maintaining >92%, patient with no complaints. VSS. Will closely monitor.
[2025-04-02 17:39] LABS: Glucose - Point of Care 239 mg/dl (70-99)
[2025-04-02] MEDS: NOVOLOG FLEXPEN-LOW RESISTANCE 2 UNITS SC (18:00)
[2025-04-02] MEDS: LIPITOR 40 MG PO (18:01)
--- NOTE | 2025-04-02 19:36 | HOSPNOTE ---
Long discussion with patient and daughter and as of this afternoon the patient did not align with the hospice inpatient philosophy. The patient and daughter need time to consider options even though the options are very limited. The patient does
meet inpatient criteria, however the patient does not wish to be medicated only if she would ask for the medication, still wants to continue accu checks and is not willing to wean down oxygen support Will continue with goals of care and discussion
and will meet with patient again tomorrow 04/03. More information to follow.
[2025-04-02 21:19] LABS: Glucose - Point of Care 217 mg/dl (70-99)
[2025-04-02] MEDS: LANTUS 0.12 UNITS SC (21:35)
--- NOTE | 2025-04-02 23:12 | PTCARENOTE ---
Assumed care of patient from dayshift RN. Patient aaox1 (to self). Patient sat in chair for first two hours of the shift. assist of 1 walking from the chair back to the bed. Patient was 93% on 4L NC at start of shift. Patient sats dropped to the 70s
while asleep and Ventimask placed (6L 35%), current SpO2 94%. NSR with BBB on the monitor. Hygiene completed and PW placed due to respiratory status. VS and assessment as documented. Patient resting in bed with call razo in reach and bed alarm on.
--- NOTE | 2025-04-02 23:16 | PTCARENOTE ---
Assumed care of patient from robertminancy RN. Patient aaox3, denies pain. afib on the monitor, hr 50-60s. SpO2 93% on HFNC 50L 75%. VS and assessment as documented. Hygiene completed. Patient resting in bed with call razo in reach.
[2025-04-03] VITALS (12 sets, daily range): BP systolic 98–154; BP diastolic 37–70; BMI 26.9
[2025-04-03 03:01] LABS: Glucose - Point of Care 100 mg/dl (70-99)
[2025-04-03 06:07] LABS: Hematocrit 33.2 % (37.0-47.0); Hemoglobin 10.8 g/dL (12.0-16.0); Mean Corp Hgb Conc. 32.5 g/dL (33.0-37.0); Mean Corpuscular Volume 90.2 fL (81.0-99.0); Platelet Count 203 10^3/uL (130-400); Red Cell Dist. Width 14.4 % (11.5-14.5)
[2025-04-03 06:26] LABS: ALT (SGPT) 24 U/L (0-35); AST (SGOT) 31 U/L (14-36); Albumin 3.6 g/dl (3.5-5.0); Alkaline Phosphatase 102 U/L (38-126); Blood Urea Nitrogen 52 mg/dl (7-17); Calcium 9.4 mg/dl (8.4-10.2); Carbon Dioxide 29 mmol/L (22-30); Chloride 101 mmol/L (98-107); Estimated Creatinine Clearance 23 ml/min; Glucose 67 mg/dl (70-99); Potassium 3.9 mmol/L (3.5-5.1); Sodium 136 mmol/L (135-145); Total Protein 6.3 g/dl (6.3-8.2); eGFR 39.55
--- NOTE | 2025-04-03 06:54 | PTCARENOTE ---
morning labs resulted with blood glucose of 67. accu check showed 79. 120 mL of apple juice given to patient.
[2025-04-03 07:01] LABS: Glucose - Point of Care 79 mg/dl (70-99)
--- NOTE | 2025-04-03 07:04 | W.PN.HOSP.TC ---
Today's Communication/Plan
-
CMP, CBC
Held Lasix per oral
Assessment / Plan
Assessment / Plan
Mami Grider is a 89F w/ PMHx A/fib (on Eliquis), HFpEF, ILD, T2DM, COPD, ACD, CKD3a, moderate TR, HLD, HTN, and pHTN who presented w/ SOB (worse w/ exertion) x 1 week, orthopnea and limited mobility in the setting of recent move to assisted
living facility where she was unable to receive an adequate amount of O2 therapy for her needs, and was found to have increased O2 requirements, pulmonary vascular congestion on CXR and elevated BNP on arrival alongside SAAD on CKD.
1. Acute on Chronic Heart Failure with Preserved Ejection Fraction:
-Vitals today BP 109/26, WI 58, Tmax 97.6, RR 15, saturation 93 high flow oxygen 32 L today
-Chemistry: Sodium 136, potassium 3.9, bun 52 high, creatinine 1.3 high,
- random cortisol 12.6.
- Respiratory distress on arrival, SaO2 80% on NRB, started on MidFlow
- CXR (ED): increased pulmonary vascularity.
-Reduce higher oxygen flow to maintain saturation around 90%.
Echo 03/25:
Compared to a prior transthoracic echocardiogram study from 07/11/2024 no significant changes are seen.
2. Normal left ventricular size and systolic function. Mild concentric left ventricular hypertrophy. Normal regional wall motion. Left ventricular ejection fraction is 60-65% by visual estimate.
3. Severely dilated and hypocontractile right ventricle.
4. Indexed left atrial volume is moderately abnormal (42-48 ml/m2).
5. Severe tricuspid regurgitation. Estimated pulmonary artery pressure of 73 mmHg assuming a right atrial pressure of 8 mmHg.
6. Severely dilated right atrium.
Held the Lasix due to her hypotension.
- Cardiology Consult:-- BNP (ED): 7800, pro BMP and it�s still 6000 today. one time dose of 40 IV. Lasix started for today
-Weaned off from pressors.
# remains off pressors
# c/w Midodrine 10 mg TID
Held Lasix p.o. and started on Lasix IV 40 mg stat
# Chronic hypoxic respiratory failure secondary to pulmonary hypertension:
She consistently required mid flow oxygen around 10 L nasal cannula to maintain her saturation around 96%
Market Editor consulted due to her high flow oxygen requirement:
-Recommended supplemental oxygen as needed reviewed with PLATEN DRIER OPERATOR-decrease high flow oxygen to mid flow.
-Aspiration precautions required.
-Incentive spirometry.
-Nebulizers if needed but currently patient is not bronchospastic.
-Currently not initiating steroids due to her underlying diabetes.
- Today morning she had high flow oxygen 32 L with a saturation of 92
On 03/30 chest x ray:
1. No acute pulmonary abnormality appreciated.
2. Chronic scarring at the left lung base and right mid to upper lung zone, unchanged compared to multiple prior studies.
3. Low inspiratory volumes.
2. SAAD on CKD3a.
(baseline mobile electronics installer 0.9)
- Daily BMPs
- Cr remains elevated
- Decongestion in setting of cardiorenal syndrome? vs. Medication side effect?
- mobile electronics installer stable with prn diuresis
3. Anemia of Chronic Disease
- Hemoglobin stable, no signs of active bleeding
- Continue to Monitor, transfuse as needed
4. History of COPD
- Continue Advair, PRN nebs
- Wean O2 to goal 90-92%
5. Persistent Atrial Fibrillation w/ slow Ventricular Response
- tele showing persistent afib with slow ventricular response
- Continue Eliquis
6. HLD/HTN/T2DM
- blood glucose 67 administered insulin aspart 10 units with no corrective dosage, Lantus on hold, metformin not given.
- Cr is stable at 1.2 will resume 500mg metformin BID.
- Low Resistance Sliding Scale
- diabetic RRT following for insulin management
Other Conditions Present Prior to Arrival
Restrictive Lung Disease
Interstitial Lung Disease
Macular Degeneration
# PT, OT consulted.
Rex approach, will do pre-round at afternoon
CODE: DNR
Diet: DM
DVT: Eliquis
Dispo Planning: PT once O2 req improves; CM consult for O2 needs at [place], pending hospice
# The patient was refused to go to hospice yesterday and continuing care at [facility].
Anticipated Discharge: 24 - 48 hours
Subjective/Interval History
-
Date of Service: April 03, 2025
Overnight she has a concern for shortness of breath and on high flow oxygen 33 L/min
Objective Data
-
Labs:
Laboratory Results
04/03/25
05:45
WBC 8.3
Hgb 10.8 L
Hct 33.2 L
Plt Count 203
Sodium 136
Potassium 3.9
Chloride 101
Carbon Dioxide 29
BUN 52 H
Creatinine 1.3 H
Glucose 67 L
Calcium 9.4
Total Bilirubin 1.5 H
AST 31
ALT 24
Alkaline Phosphatase 102
Vital Signs:
Vital Signs
Temp Pulse Resp BP Pulse Ox
97.4 F 49 17 123/49 91
04/03/25 02:59 04/03/25 06:00 04/03/25 06:00 04/03/25 06:00 04/03/25 06:00
I&O
04/02/25 04/03/25 04/04/25
06:59 06:59 06:59
Intake Total 960 / 960 720 / 720 120 / 120
Output Total 500 / 500 800 / 800
Balance 460 / 460 -80 / -80 120 / 120
Review of Systems
-
History Source: Patient
All other systems: Reviewed and negative
Physical Exam
-
General: Respiratory Distress
HEENT: Oxygen (37 L/min)
Respiratory: Crackles (Lower lobe inspiratory crackles on right)
Cardiac: Regular Rhythm and S1/S2
GI: Soft, Nontender and Nondistended
Genito-urinary: No Costovertebral Tender
Neuro: AO x 3
Hematologic / Lymphatic: No Lymphadenopathy
Psych: Calm
[2025-04-03] MEDS: NOVOLOG FLEXPEN SC ×2 (08:02→18:03)
[2025-04-03] MEDS: NOVOLOG FLEXPEN-LOW RESISTANCE SC ×3 (08:02→17:25)
--- NOTE | 2025-04-03 08:02 | PN.DE.MGMTRT ---
Insulin Management
- -
04/03/2025: Diabetes Management Follow up
Patient admitted 03/22 with increasing SOB. PMH: CHF, Afib/flutter, HTN, HLD, Interstitial lung disease, COPD, chronic hypoxic respirator failure on 6 L O2, moderate to severe tricuspid regurgitation, Anemia of chronic illness, CKD 3A and T2DM.
Prior to admission was receiving 10 units Lantus @ HS with lispro 5 units AC and metformin 1000 BID. A1C on admission 10.2%, cr 1.3, eGFR 39.55 today.
Patient is awake alert and oriented resting in bed, eating breakfast, able to discuss diabetes care. States she has had diabetes 20+ years. States she was living alone but after last admission went to rehab for 1 month then to a care home home.
States she was on hospice for 6 months and that 'they' were not paying attention to her diabetes and her blood sugar was running high. States she is waiting to meet with [facility] to make decisions but she is hoping that her insulin will be
continued when she signs on to hospice.
Yesterday patient received 8 units NovoLog AC, glucose range 112 to 239. HS lantus reduced to 12 units.
Fasting glucose 67. Will further reduce HS Lantus from 12 units to 10 units. Will increase AC novolog to 10 units with low corrective insulin. Cr continues to increase, today 1.3, eGFR 39.55, will not resume metformin.
Discussed with nurse.
Will cont to follow
Diabetes History
- -
Type of Diabetes: 2 requiring insulin
Pre-Admission Diabetes Regimen
04/03/25
05:45
Creatinine 1.3 H
Lab Results
Hemoglobin A1c 10.2 % (4.0-5.9) H 03/23/25 04:36
Insulin Pump Settings
IP Diabetes Regimen
04/02/25 04/02/25 04/02/25
07:54 08:26 10:06
Glucose
POC Glucose 67 L 112 H 155 H
04/02/25 04/02/2504/02/25
11:53 17:28 21:08
Glucose
POC Glucose 174 H 239 H 217 H
04/03/25 04/03/25 04/03/25
02:50 05:45 06:50
Glucose 67 L
POC Glucose 100 H 79
Meal type: Dinner
Amount consumed: 100%
Patient Education
[2025-04-03] MEDS: ELIQUIS 2.5 MG PO ×2 (08:08→21:36)
[2025-04-03 08:11] LABS: Glucose - Point of Care 127 mg/dl (70-99)
[2025-04-03] MEDS: NOVOLOG FLEXPEN 10 UNITS SC ×2 (08:37→13:34)
[2025-04-03 12:24] LABS: Glucose - Point of Care 133 mg/dl (70-99)
--- NOTE | 2025-04-03 12:52 | PTCARENOTE ---
Patient received full bed bath. During bath, patient is orthopneic, SPO2 dropped to as low as 69%, pt needing NRB mask to recover. Took patient approx 10 minutes to recover to >90%. Patient reports not feeling short of breath at that time but
patient using accessory muscles and appeared short of breath.
--- NOTE | 2025-04-03 14:46 | CM ---
F/U: Kamla, Director of Calculus Tutor went in, provided a prayer blanket and the patient shared more about her passing away than she previously did. Kamla suggested we wait until Tuesday to check in, may consult Hospice again. PLAN: TBD
--- NOTE | 2025-04-03 15:16 | HOSPNOTE ---
We will continue to follow. I will wait until Tuesday to speak with patient.
--- NOTE | 2025-04-03 15:43 | CHAP ---
Emotional and spiritual support provided, prayer blanket given. Ms. Grider said 'I am ready to go to God, I just don't know how it all works and how I get there.' Will re-visit on Tuesday.
[2025-04-03] MEDS: LASIX 20 MG IV (15:46)
[2025-04-03] MEDS: LIPITOR 40 MG PO (17:09)
[2025-04-03 17:26] LABS: Glucose - Point of Care 65 mg/dl (70-99)
[2025-04-03 17:53] LABS: Glucose - Point of Care 100 mg/dl (70-99)
[2025-04-03 20:04] LABS: Glucose - Point of Care 148 mg/dl (70-99)
[2025-04-03] MEDS: LANTUS 0.1 UNITS SC (21:36)
[2025-04-03 21:45] LABS: Glucose - Point of Care 239 mg/dl (70-99)
[2025-04-04] VITALS (12 sets, daily range): BP systolic 100–134; BP diastolic 42–102; BMI 26.2
--- NOTE | 2025-04-04 01:05 | PTCARENOTE ---
Assumed care for patient overnight. Pt AAOx3, [place]. Received pt on HFNC 40L 80%. Pt desat to 80%. Pt placed on NRB and took awhile to recover. RT notified. HFNC increased 40L 100%. Pt denies SOB or increased WOB. A-fib on the monitor. VSS. Purewick
in place, perineal care done, Calazime applied to buttock and groin. Assessment and care as charted. Pt denies any pain or discomfort at this time.
[2025-04-04 05:32] LABS: Glucose - Point of Care 154 mg/dl (70-99)
[2025-04-04 05:43] LABS: Hematocrit 32.2 % (37.0-47.0); Hemoglobin 10.4 g/dL (12.0-16.0); Mean Corp Hgb Conc. 32.3 g/dL (33.0-37.0); Mean Corpuscular Volume 90.7 fL (81.0-99.0); Platelet Count 206 10^3/uL (130-400); Red Cell Dist. Width 14.1 % (11.5-14.5)
[2025-04-04 05:57] LABS: ALT (SGPT) 22 U/L (0-35); AST (SGOT) 29 U/L (14-36); Albumin 3.5 g/dl (3.5-5.0); Alkaline Phosphatase 106 U/L (38-126); Blood Urea Nitrogen 46 mg/dl (7-17); Calcium 9.2 mg/dl (8.4-10.2); Carbon Dioxide 31 mmol/L (22-30); Chloride 98 mmol/L (98-107); Estimated Creatinine Clearance 22 ml/min; Glucose 144 mg/dl (70-99); Potassium 3.9 mmol/L (3.5-5.1); Sodium 133 mmol/L (135-145); Total Protein 6.2 g/dl (6.3-8.2); eGFR 39.55
--- NOTE | 2025-04-04 07:16 | W.PN.HOSP.TC ---
Today's Communication/Plan
-
Monitor her saturation by given high flow rate
Lasix 20 mg IV as needed in future
Assessment / Plan
Assessment / Plan
Mami Grider is a 89F w/ PMHx A/fib (on Eliquis), HFpEF, ILD, T2DM, COPD, ACD, CKD3a, moderate TR, HLD, HTN, and pHTN who presented w/ SOB (worse w/ exertion) x 1 week, orthopnea and limited mobility in the setting of recent move to assisted
living facility where she was unable to receive an adequate amount of O2 therapy for her needs, and was found to have increased O2 requirements, pulmonary vascular congestion on CXR and elevated BNP on arrival alongside SAAD on CKD.
1. Acute on Chronic Heart Failure with Preserved Ejection Fraction:
-Vitals today BP 109/26, SC 58, Tmax 97.6, RR 15, saturation 93 high flow oxygen 32 L today
-Chemistry: Sodium 136, potassium 3.9, bun 52 high, creatinine 1.3 high,
- random cortisol 12.6.
- Respiratory distress on arrival, SaO2 80% on NRB, started on MidFlow
- CXR (ED): increased pulmonary vascularity.
-Reduce higher oxygen flow to maintain saturation around 90%.
Echo 03/25:
Compared to a prior transthoracic echocardiogram study from 07/11/2024 no significant changes are seen.
2. Normal left ventricular size and systolic function. Mild concentric left ventricular hypertrophy. Normal regional wall motion. Left ventricular ejection fraction is 60-65% by visual estimate.
3. Severely dilated and hypocontractile right ventricle.
4. Indexed left atrial volume is moderately abnormal (42-48 ml/m2).
5. Severe tricuspid regurgitation. Estimated pulmonary artery pressure of 73 mmHg assuming a right atrial pressure of 8 mmHg.
6. Severely dilated right atrium.
Held the Lasix due to her hypotension.
- Cardiology Consult:-- BNP (ED): 7800, pro BMP and it�s still 6000 today. one time dose of 40 IV. Lasix started for today
-Weaned off from pressors.
# remains off pressors
# c/w Midodrine 10 mg TID
Held Lasix p.o. and started on Lasix IV 40 mg stat
# Chronic hypoxic respiratory failure secondary to pulmonary hypertension:
She consistently required mid flow oxygen around 10 L nasal cannula to maintain her saturation around 96%
Type Inspector consulted due to her high flow oxygen requirement:
-Recommended supplemental oxygen as needed reviewed with GENERAL CLAIMS AGENT-decrease high flow oxygen to mid flow.
-Aspiration precautions required.
-Incentive spirometry.
-Nebulizers if needed but currently patient is not bronchospastic.
-Currently not initiating steroids due to her underlying diabetes.
- Today morning she had high flow oxygen 32 L with a saturation of 89, her condition is declining when comparing from the admission.
On 03/30 chest x ray:
1. No acute pulmonary abnormality appreciated.
2. Chronic scarring at the left lung base and right mid to upper lung zone, unchanged compared to multiple prior studies.
3. Low inspiratory volumes.
2. SAAD on CKD3a.
(baseline arts therapist 0.9)
- Daily BMPs
- Cr remains elevated
- Decongestion in setting of cardiorenal syndrome? vs. Medication side effect?
- arts therapist stable with prn diuresis
3. Anemia of Chronic Disease
- Hemoglobin stable, no signs of active bleeding
- Continue to Monitor, transfuse as needed
4. History of COPD
- Continue Advair, PRN nebs
- Wean O2 to goal 90-92%
5. Persistent Atrial Fibrillation w/ slow Ventricular Response
- tele showing persistent afib with slow ventricular response
- Continue Eliquis
6. HLD/HTN/T2DM
- blood glucose 67 administered insulin aspart 10 units with no corrective dosage, Lantus on hold, metformin not given.
- Cr is stable at 1.2 will resume 500mg metformin BID.
- Low Resistance Sliding Scale
- diabetic INSTRUCTOR EXTENSION WORK following for insulin management
Other Conditions Present Prior to Arrival
Restrictive Lung Disease
Interstitial Lung Disease
Macular Degeneration
# PT, OT consulted.
Rex approach, will do pre-round at afternoon.
iv lasix 20 mg prn for today.
CODE: DNR
Diet: DM
DVT: Eliquis
Dispo Planning: PT once O2 req improves; CM consult for O2 needs at [place], pending hospice
# The patient was refused to go to hospice yesterday and continuing care at IMU.
Anticipated Discharge: 24 - 48 hours
Subjective/Interval History
-
Date of Service: April 04, 2025
Overnight she had a requirement of receiving high flow oxygen around 39.2 L with a saturation of 89. However she denies all the systemic symptoms include chest pain, palpitation, shortness of breath, pain, fever, chills.
She had 1 A-fib rhythm at morning, she denied hospice option. Patient is feeling comfortable and better at IMU care and she wants to continue the same.
Objective Data
-
Labs:
Laboratory Results
04/04/25
05:13
WBC 9.5
Hgb 10.4 L
Hct 32.2 L
Plt Count 206
Sodium 133 L
Potassium 3.9
Chloride 98
Carbon Dioxide 31 H
BUN 46 H
Creatinine 1.3 H
Glucose 144 H
Calcium 9.2
Total Bilirubin 1.6 H
AST 29
ALT 22
Alkaline Phosphatase 106
Vital Signs:
Vital Signs
Temp Pulse Resp BP Pulse Ox
98.5 F 50 19 113/51 91
04/04/25 03:00 04/04/25 06:00 04/04/25 06:00 04/04/25 06:00 04/04/25 06:00
I&O
04/03/25 04/04/25 04/05/25
06:59 06:59 06:59
Intake Total 720 / 720 840 / 840
Output Total 800 / 800 1450 / 1450
Balance -80 / -80 -610 / -610
Review of Systems
-
History Source: Patient
All other systems: Reviewed and negative
Physical Exam
-
HEENT: Oxygen (39.2 L of nasal oxygen-high flow)
Respiratory: Crackles (Bilateral crackles present at lower lobe)
Cardiac: Regular Rhythm and S1/S2
GI: Soft, Nontender and Nondistended
Genito-urinary: No Costovertebral Tender
Musculoskeletal: No Clubbing and No Edema
Neuro: AO x 3
Hematologic / Lymphatic: No Lymphadenopathy
[2025-04-04] MEDS: ELIQUIS 2.5 MG PO ×2 (08:44→20:33)
[2025-04-04] MEDS: NOVOLOG FLEXPEN-LOW RESISTANCE SC ×2 (08:44→13:01)
[2025-04-04 08:51] LABS: Glucose - Point of Care 134 mg/dl (70-99)
[2025-04-04] MEDS: NOVOLOG FLEXPEN 10 UNITS SC (09:47)
[2025-04-04 12:49] LABS: Glucose - Point of Care 82 mg/dl (70-99)
[2025-04-04] MEDS: NOVOLOG FLEXPEN SC (13:20)
[2025-04-04] MEDS: AYR SALINE NASAL GEL 1 APPLIC NASAL (15:29)
--- NOTE | 2025-04-04 15:39 | PTCARENOTE ---
Patient c/o of dryness but also stuffiness in her nose. Pt's voice also reflects her sounding stuffy. TT to MDs, order for [place] saline nasal gel, applied, see MAR. Pt states it feels better shortly after application.
Pt's blood sugar in 80s pre meal for lunch. Pt ordered 10 units of Novolog with lunch. TT to MDs for direction regarding Novolog, advised to hold lunch time dose. Also orders are updated, see MAR.
[2025-04-04 17:01] LABS: Glucose - Point of Care 150 mg/dl (70-99)
[2025-04-04] MEDS: LIPITOR 40 MG PO (17:13)
[2025-04-04] MEDS: NOVOLOG FLEXPEN-LOW RESISTANCE 1 UNITS SC (17:14)
[2025-04-04] MEDS: COMPAZINE 5 MG PO (19:42)
[2025-04-04 21:24] LABS: Glucose - Point of Care 184 mg/dl (70-99)
[2025-04-05] VITALS (14 sets, daily range): BP systolic 94–144; BP diastolic 43–94; BMI 26.7
[2025-04-05] MEDS: MORPHINE SULFATE 1 MG IV ×2 (00:48→13:29)
--- NOTE | 2025-04-05 00:59 | PTCARENOTE ---
Patient had episode of emesis, PRN Compazine administered see JUL. Pt remains on HFNC 50L 100%. Pt requiring NRB mask more frequently for recovery from minimal exertion. Pt tachypneic and stated increasing SOB, administered 1mg PRN Morphine, see
JUL. A-fib on the monitor. Purewick in place, hygiene and linens changed, Calazime applied to buttock and perineum. Assessment and care as charted. Call razo within reach.
--- NOTE | 2025-04-05 07:01 | W.PN.HOSP.TC ---
Today's Communication/Plan
-
CBC, CMP
Monitor blood glucose
Monitor her saturation, blood pressure
Assessment / Plan
Assessment / Plan
Mami Grider is a 89F w/ PMHx A/fib (on Eliquis), HFpEF, ILD, T2DM, COPD, ACD, CKD3a, moderate TR, HLD, HTN, and pHTN who presented w/ SOB (worse w/ exertion) x 1 week, orthopnea and limited mobility in the setting of recent move to assisted
living facility where she was unable to receive an adequate amount of O2 therapy for her needs, and was found to have increased O2 requirements, pulmonary vascular congestion on CXR and elevated BNP on arrival alongside SAAD on CKD.
1. Acute on Chronic Heart Failure with Preserved Ejection Fraction:
-Vitals today BP 109/26, ND 58, Tmax 97.6, RR 15, saturation 93 high flow oxygen 32 L today
-Chemistry: Sodium 136, potassium 3.9, bun 52 high, creatinine 1.3 high,
- random cortisol 12.6.
- Respiratory distress on arrival, SaO2 80% on NRB, started on MidFlow
- CXR (ED): increased pulmonary vascularity.
-Reduce higher oxygen flow to maintain saturation around 90%.
Echo 03/25:
Compared to a prior transthoracic echocardiogram study from 07/11/2024 no significant changes are seen.
2. Normal left ventricular size and systolic function. Mild concentric left ventricular hypertrophy. Normal regional wall motion. Left ventricular ejection fraction is 60-65% by visual estimate.
3. Severely dilated and hypocontractile right ventricle.
4. Indexed left atrial volume is moderately abnormal (42-48 ml/m2).
5. Severe tricuspid regurgitation. Estimated pulmonary artery pressure of 73 mmHg assuming a right atrial pressure of 8 mmHg.
6. Severely dilated right atrium.
Held the Lasix due to her hypotension.
- Cardiology Consult:-- BNP (ED): 7800, pro BMP and it�s still 6000 today. one time dose of 40 IV. Lasix started for today
-Weaned off from pressors.
# remains off pressors
# c/w Midodrine 10 mg TID
Held Lasix p.o. and started on Lasix IV 40 mg stat
# Chronic hypoxic respiratory failure secondary to pulmonary hypertension:
She consistently required mid flow oxygen around 10 L nasal cannula to maintain her saturation around 96%
Regional Engineer consulted due to her high flow oxygen requirement:
-Recommended supplemental oxygen as needed reviewed with MENTAL HEALTH DIRECTOR-decrease high flow oxygen to mid flow.
-Aspiration precautions required.
-Incentive spirometry.
-Nebulizers if needed but currently patient is not bronchospastic.
-Currently not initiating steroids due to her underlying diabetes.
- Today morning she had high flow oxygen 30 L with a saturation of 89, her condition is declining when comparing from the admission.
On 03/30 chest x ray:
1. No acute pulmonary abnormality appreciated.
2. Chronic scarring at the left lung base and right mid to upper lung zone, unchanged compared to multiple prior studies.
3. Low inspiratory volumes.
2. SAAD on CKD3a.
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
- Daily BMPs
- Cr remains elevated
- Decongestion in setting of cardiorenal syndrome? vs. Medication side effect?
- packaging supervisor stable with prn diuresis
3. Anemia of Chronic Disease
- Hemoglobin stable, no signs of active bleeding
- Continue to Monitor, transfuse as needed
4. History of COPD
- Continue Advair, PRN nebs
- Wean O2 to goal 90-92%
5. Persistent Atrial Fibrillation w/ slow Ventricular Response
- tele showing persistent afib with slow ventricular response
- Continue Eliquis
6. HLD/HTN/T2DM
- blood glucose 67 administered insulin aspart 10 units with no corrective dosage, Lantus on hold, metformin not given yesterday.
-Blood glucose 144 high depending on her blood glucose adjust sliding scale.
- Cr is stable at 1.2 will resume 500mg metformin BID.
- Low Resistance Sliding Scale
- diabetic CHILD & ADOLESCENT PSYCHIATRIST following for insulin management
Other Conditions Present Prior to Arrival
Restrictive Lung Disease
Interstitial Lung Disease
Macular Degeneration
# PT, OT consulted.
Rex approach, will do pre-round at afternoon.
iv lasix 20 mg prn for today.
CODE: DNR
Diet: DM
DVT: Eliquis
Dispo Planning: PT once O2 req improves; CM consult for O2 needs at [place], pending hospice
# The patient was refused to go to hospice yesterday and continuing care at IMU.
Anticipated Discharge: 24 - 48 hours
Subjective/Interval History
-
Date of Service: April 05, 2025
Overnight the patient has no concern however today while on 3 rounds around 9:40 AM she is receiving 38.9 L of high flow oxygen with saturation of 87%, her BP 98/43--117/58--94/52
ND 56--60, temp 99.5, with bun 46 high, creatinine 1.3 high however it is in the baseline. Yesterday she went for hypoglycemic episode insulin were held today morning her blood 144 high.
Objective Data
-
Labs:
Laboratory Results
04/05/25
06:00
WBC Pending
Hgb Pending
Hct Pending
Plt Count Pending
Sodium Pending
Potassium Pending
Chloride Pending
Carbon Dioxide Pending
BUN Pending
Creatinine Pending
Glucose Pending
Calcium Pending
Total Bilirubin Pending
AST Pending
ALT Pending
Alkaline Phosphatase Pending
Vital Signs:
Vital Signs
Temp Pulse Resp BP Pulse Ox
99.5 F 56 15 94/52 88
04/05/25 03:00 04/05/25 06:00 04/05/25 06:00 04/05/25 06:00 04/05/25 06:00
I&O
04/04/25 04/05/25 04/06/25
06:59 06:59 06:59
Intake Total 840 / 840 240 / 240
Output Total 1450 / 1450 400 / 400
Balance -610 / -610 -160 / -160
Review of Systems
-
History Source: Patient
All other systems: Reviewed and negative
Physical Exam
-
General: Appears in Distress
HEENT: Oxygen (30 L of high flow oxygen with a saturation 87 past)
Respiratory: Crackles (Bilateral inspiratory crackles)
Cardiac: Regular Rhythm and S1/S2
GI: Soft and Nondistended
Genito-urinary: No Costovertebral Tender
Musculoskeletal: No Clubbing and No Edema
Skin: Warm
Neuro: AO x 3
Hematologic / Lymphatic: No Lymphadenopathy
Psych: Calm
--- NOTE | 2025-04-05 07:49 | PN.DE.MGMTRT ---
Insulin Management
- -
04/05/2025: Diabetes Management Follow up
Patient admitted 03/22 with increasing SOB. PMH: CHF, Afib/flutter, HTN, HLD, Interstitial lung disease, COPD, chronic hypoxic respirator failure on 6 L O2, moderate to severe tricuspid regurgitation, Anemia of chronic illness, CKD 3A and T2DM.
Prior to admission was receiving 10 units Lantus @ HS with lispro 5 units AC and metformin 1000 BID. A1C on admission 10.2%, cr 1.3, eGFR 39.55 today.
Patient is awake alert and oriented resting in bed, eating breakfast, able to discuss diabetes care. She continues with high flow O2. States she has had diabetes 20+ years. States she was living alone but after last admission went to rehab for 1
month then to a halfway home. States she was on hospice for 6 months and that 'they' were not paying attention to her diabetes and her blood sugar was running high. States she is waiting to meet with [facility] to make decisions but she is
hoping that her insulin will be continued when she signs on to hospice.
Yesterday AC novolog held and HS lantus held. Glucose range 82 to 184.
Fasting glucose 134. Will continue to hold insulin as glucose is acceptable.
Discussed with nurse.
Will cont to follow
Diabetes History
- -
Type of Diabetes: 2 requiring insulin
Pre-Admission Diabetes Regimen
Lab Results
Hemoglobin A1c 10.2 % (4.0-5.9) H 03/23/25 04:36
Insulin Pump Settings
IP Diabetes Regimen
04/04/25 04/04/25 04/04/25
08:40 12:37 16:50
POC Glucose 134 H 82 150 H
04/04/25
21:12
POC Glucose 184 H
Patient Education
[2025-04-05 08:27] LABS: Glucose - Point of Care 138 mg/dl (70-99)
[2025-04-05] MEDS: NOVOLOG FLEXPEN-LOW RESISTANCE SC ×2 (08:33→15:56)
[2025-04-05] MEDS: ELIQUIS 2.5 MG PO (08:34)
[2025-04-05] MEDS: NOVOLOG FLEXPEN-LOW RESISTANCE 2 UNITS SC (12:44)
[2025-04-05 12:53] LABS: Glucose - Point of Care 236 mg/dl (70-99)
--- NOTE | 2025-04-05 15:10 | HOSPNOTE ---
Patient still does not wish for hospice services. We will continue to follow and support.
--- NOTE | 2025-04-05 15:23 | CM ---
Addendum entered by Khadijah Donohue 04/05/25 15:39:
Dr Martinez gilda to see the patient, she is asking to be more comfortable because she is having respiratory issues. Patient will now be on comfort (not hospice), and likely pass here. Dr. Martinez will call the daughter Mckenzie to let her know the change.
Original Note:
F/U: Kamla, Director of Project Admin visited the patient today, patient still not ready for hospice/ comfort care. Patient is declining more, now needing non-rebreather mask as well as she is feeling things are more difficult. It seems that patient
will not be proactive, but would need to decline more before her or her daughter makes that decision. All aware. PLAN: Anticipate Inpatient Hospice.
--- NOTE | 2025-04-05 15:46 | W.PN.UPDATE ---
Update Note
Progress Note Update
I was notified by nursing at 1630 today that the patient wanted to speak. At the bedside she was on 50 L high flow oxygen with nonrebreather in place, appeared unwell though no signs of respiratory distress despite SpO2 in the mid 80s on the
monitor. The patient mentioned that she does feel short of breath and that she was amenable to starting higher frequency morphine for her dyspnea air hunger. She understands that this is an end-of-life situation and that morphine will not improve
her condition though it will help make her symptoms less severe.
I changed IV morphine from 1 mg every 4 hours to every 1 hour for air hunger pain. Morphine drip ordered per protocol, can begin on step 1.
Family updated
[2025-04-05] MEDS: LIPITOR PO (15:57)
[2025-04-05] MEDS: MORPHINE 100 IV (17:16)
--- NOTE | 2025-04-05 18:38 | W.DCSUMMARY ---
Documented by User: Diego Garcia MD, Resident 04/06/25 14:54
Discharge Summary
Discharge Data
Date of Admission: 03/22/25
Date of Discharge: 04/06/25
Total time spent discharging patient (in min): 30 minutes
-
Pending Results: No
Hospital Course
Discharging Physician : Dr Edward Martinez MD
Dr Diego Garcia MD
Disposition :
Primary care physician : Not known
Principal Discharge diagnosis : secondary to acute on chronic hypoxic respiratory failure due to worsening right ventricular failure and pulmonary hypertension
Chronic Discharge diagnosis : Acute on chronic heart failure with preserved ejection fraction, interstitial lung disease, acute kidney injury, diabetes mellitus
Hospital Course : On 03/22 patient presented to ED with acute on chronic hypoxic respiratory failure with hypoxic symptoms requiring more than 5 L of oxygen from nursing facility. Throughout the course of hospitalization patient was managed for
chronic hypoxic respiratory failure with mid flow-high flow oxygen to the max 50 L/min. Her saturation were progressively degrading from 90% to 80%. Test Driller, senior net software developer consulted by given her condition and her hypotension, congestive heart
failure managed with midodrine, Lasix depending on her vitals to stabilize her. Her blood glucose controlled with sliding scale. However on 04/05 she was degrading with 39 L of oxygen. She was switched to comfort care morphine drip ordered per
protocol for comfort care. Around 04/06 00: 58 she was pronounced to .
Discharge Plan
-
Patient Disposition:
Date/Time
Date/Time: 04/06/25 02:26
Discharge Date and Time
Discharge Date/Time: 04/06/25 02:26
Print Language: TAJIK

Documented by User: Edward Martinez DO 04/07/25 07:26
Discharge Summary
Discharge Data
Date of Admission: 03/22/25
Date of Discharge: 04/07/25
Discharge Plan
-
Patient Disposition:
Date/Time
Date/Time: 04/06/25 02:26
Discharge Date and Time
Discharge Date/Time: 04/06/25 02:26
Print Language: TAJIK
--- NOTE | 2025-04-05 19:43 | PTCARENOTE ---
day shift note. pt on max highflow and nonrebreather with sats in 80s at most. pt dyspnic at times. agreed to morphine 1 mg iv push earlier in shift. pt questioning why are her sats low and if shes doing something wrong. hospitalist made aware of
pts concerns and after seeing and talking with patient, comfort care ordered. morphine drip initiated at 1 mg/hr. pt reports she is currently comfortable but will not remove nonrebreather. pt does not want bolus dose of morphine at this time. pts
daughter at bedside.
--- NOTE | 2025-04-05 20:45 | PTCARENOTE ---
assumed are of pt from oscar RN. end of life morphine protocol ordered, see mar. pt on step one. daughter at bedside. pt awake and arousable. daughter at bedside. on hiflow 50L 100% with nrb. pt most comfortable with these remaining in place,
decreasing her dyspnea. continuing to make pt comfortable.
[2025-04-05] MEDS: ELIQUIS PO (20:59)
--- NOTE | 2025-04-05 21:38 | W.PN.UPDATE ---
Update Note
Progress Note Update
Spoke with patient and patient's daughter, Mckenzie, who is at bedside. Confirmed with patient that she only wants comfort measures at this time and all other medications will be discontinued other than those for comfort. Patient and patient's daughter
expressed these are her wishes. Only comfort medications continued, all other medications discontinued per patient wishes.
[2025-04-05] MEDS: MORPHINE SULFATE 2 MG IV (23:28)
--- NOTE | 2025-04-05 23:30 | PTCARENOTE ---
Pt with increased dyspnea, labored breathing, restlessness. verbalizes dyspnea. Pt remains on step 1 of end of life morphine. 1st breakthrough dose of morphine administered per RDOS score 7. RN at bedside.
[2025-04-05] MEDS: ATIVAN 1 MG IV (23:50)
--- NOTE | 2025-04-05 23:51 | PTCARENOTE ---
pt remains restless, anxious. verbalizing dyspnea. MAGNETIC RESONANCE IMAGING COORDINATOR made aware of anxiety. order received for ativan 1mg IV for anxiety. medication administered. after administration pt able to rest eyes, restlessness decreasing.
[2025-04-06 00:01] VITALS: BP 67/40
--- NOTE | 2025-04-06 00:15 | PTCARENOTE ---
daughter at bedside, comfort and emotional support given. PILLOW FILLER to bedside to pronounce.
--- NOTE | 2025-04-06 00:58 | W.PN.DEATH ---
Pronouncement of
-
Called to see patient to pronounce.
No spontaneous heart tones or respirations noted.
Patient not responsive to verbal stimuli.
Patient is pronounced .
Time of : 00:15
Date of : 04/06/25
Cause of : Acute on Chronic hypoxic respiratory failure secondary to pulmonary hypertension, Acute on Chronic Heart Failure with Preserved Ejection Fraction, ILD, SAAD, DM
Family Notified: Yes (Daughter, Mckenzie, at bedside and other daughter on phone)
--- NOTE | 2025-04-06 02:05 | PTCARENOTE ---
post mortem care provided. [place] [facility] [place]
--- NOTE | 2025-04-08 10:36 | CM ---
F/U: Patient after being put on comfort measures. PLAN:
== END 2025-04-06 02:26 | disposition expired | DRG 314 ==
LOC: IMU 18:39
PROVIDERS: General Practice; Internal Medicine; Nurse Practitioner Family; Registered Nurse; ADMITTING PHYSICIAN Hospitalist; ATTENDING PHYSICIAN Internal Medicine; CONSULT PHYSICIAN Internal Medicine Cardiovascular Disease; CONSULT PHYSICIAN Internal Medicine Critical Care Medicine; EMERGENCY PHYSICIAN Emergency Medicine
PROC: 5A0945A Assistance with Respiratory Ventilation, 24-96 Consecutive Hours, High Flow/Velocity Cannula (ICD-10-PCS; 2025-03-22)
DX: I27.23 Pulmonary hypertension due to lung diseases and hypoxia (principal); I50.33 Acute on chronic diastolic (congestive) heart failure; J96.21 Acute and chronic respiratory failure with hypoxia; I13.0 Hypertensive heart and chronic kidney disease with heart failure and stage 1 through stage 4 chronic kidney disease, or unspecified chronic kidney disease; I48.19 Other persistent atrial fibrillation; J84.9 Interstitial pulmonary disease, unspecified; I48.92 Unspecified atrial flutter; E22.2 Syndrome of inappropriate secretion of antidiuretic hormone; N17.9 Acute kidney failure, unspecified; Z51.5 Encounter for palliative care; E11.65 Type 2 diabetes mellitus with hyperglycemia; E11.22 Type 2 diabetes mellitus with diabetic chronic kidney disease; N18.32 Chronic kidney disease, stage 3b; J44.9 Chronic obstructive pulmonary disease, unspecified; Z66 Do not resuscitate; J98.4 Other disorders of lung; I07.1 Rheumatic tricuspid insufficiency; D63.1 Anemia in chronic kidney disease; H35.30 Unspecified macular degeneration; I70.8 Atherosclerosis of other arteries; G47.33 Obstructive sleep apnea (adult) (pediatric); I27.81 Cor pulmonale (chronic); E78.00 Pure hypercholesterolemia, unspecified; I95.9 Hypotension, unspecified; Z60.2 Problems related to living alone; Z79.899 Other long term (current) drug therapy; Z79.84 Long term (current) use of oral hypoglycemic drugs; Z79.4 Long term (current) use of insulin; Z11.52 Encounter for screening for COVID-19; Z79.01 Long term (current) use of anticoagulants; Z86.73 Personal history of transient ischemic attack (TIA), and cerebral infarction without residual deficits; Z99.81 Dependence on supplemental oxygen
CPT/HCPCS: 71045; 80048; 80053; 80061; 82533; 82805; 82962; 83036; 83735; 83880; 84443; 84484; 85025; 85027; 87070; 87502; 87811; 93005; 93306; 94640; 96374; 97110; 97163; 97167; 97530; 97535; 99291